=== PATIENT | male | born 1970 | race Caucasian/White ===

== ENCOUNTER 2018-06-08 13:00 | Outpatient (RCR) | payer MEDICARE, SELFPAY ==
--- NOTE | 2018-05-22 08:10 | HP.PTEVAL_ITS ---
Patient's Visit Information ERIN MANRIQUEZ is a 47 year old M referred to Physical Therapy by Ibis Juan MD with a diagnosis of Back and Leg Pain. Date of Evaluation: 05/22/18 Physical Therapist: Linda Torres DPT - Visit Plan Frequency: 2x /Week Duration: 2 Weeks Plan: Focus on core s/s- work towards HEP secondary to co-pay - Subjective Findings: Patient reports that he has been seeing Dr. Juan for baout 3 years for back pain. Does medication and injections. For the most part he is doing great with pain management. 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 About 4 years ago he had his right hip replaced. Before the replacement he had a LLD- was evened out with hip replacement. A couple of months after the hip replacement he started to have really bad back p ain. Had it before but this was constant and miserable. Started the process of trying to figure out what the problem was. 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 Very painful now with walking - he has to make a lot of compensations. Struggles to get to the mailbox and back. Feels that the pain is getting worse and he is able to do less. Went through [facility] PT 3x a week for 3 months- had to stop secondary to not seeing gains. Is not currently working and is on disability. Still does the home exercises (theraband- upper body, DDP yoga) Avoids bending at all possible costs. Worst: [address]: bending forwards, walking, sitting, standing. Has different chairs to sit in throughout the house to help him do things- ex: stool in the kitchen for cooking. Best: 3/10 Eases: sitting. Most days he is unable to make it through his bathroom routine without sitting down. X-rays and MRI- has degenerative facets, DDD, spondylolysesis. MD's want him to get his hip unfused but no one is willing to do it. Don't want to do a fusion due to decreased motion already. Pain is located in his low back- pain occasionally radiates down both legs. Goes down to the toes- the injecion that he gets for the radiating pain normally lasts about 6 months. No N/T in the LE but if he doesn't get the injection it will get numb. Does not have any falls or loss of balance. No change in bowel or bladder. Been about a year since last MRI and x-rays. PMHx: recurrent acute pancreatitis, DM, Microscopic collitis, HTN Meds: losartin, mylantis, gemophysocage, gliposide, patch, norco. - Objective Posture: FH, RS, increased kyphosis- sitting leans to the right. Does not correct with verbal and tactiel cueing. Gait: antalgic- decreased stance on the right LE with poor heel/toe pattern due to hip ROM- forward flexion of the trunk- SOB after 50 feet. HR/TR: able with UE A. SLS: WS but unable to SLS. Palpation: not tender. ROM: Lumbar: flexion: decreased by 90%, Extn: to neutral, SB: decreased by 75%, Rot: decreased by 90% all due to pain. Hip: Left fusion: no functional ROM, Right: WFL, Knee/ Ankle: WFL. Strength: Ankle: 5/5, Knee: 4/5, Hip: 4-/5 throughoug right and 2/5 in left. Core: poor. Flex: HS: severe, Gastroc: severe. Sensation: WNL. Slump: negative, Dural signs: negative - Goals Goal 1:: Patient will be I with HEP and progression Goal Time Frame: 4-6 Weeks Goal 2:: Patient will ambualte >300 feet without SOB Goal Time Frame: 4-6 Weeks Goal 3:: Patient will maintain upright posture for 1 min Goal Time Frame: 4-6 Weeks - Rehabilitation Potential Physical Therapy Diagnosis: Patient presents hypomobility- he has decreased ROM, strength and muscular endurance leading to poor posture and increased pain with ADL's Rehabilitation Potential: Fair - Anticipated Interventions Patient/Client Instruction: Educate patient on: Benefits of Fitness Program Therapeutic Exercise to Include: Strength training, Endurance training, Balance training, Body mechanics, Postural training, Flexibilty training, Gait and locomotor training, In an aquatic setting, Dynamic Lumbar Stabilization For the Purpose of:: To improve muscle performance and motor function Thank you for the opportunity to evaluate your patient. For Medicare and Medicare HMO plans, please review the plan of care and approve it. It will need to be FAXED BACK to us at [phone] for Medicare purposes. For Medicare only, by signing this I certify the plan of care. Please let me know if there are questions or concerns regarding this plan of care. Physician Signature: Date:
--- NOTE | 2018-06-12 10:51 | HP.PTDCSUM ---
HP - PT D/C Summary It has been my pleasure to treat ERIN MANRIQUEZ under orders from Ibis Juan MD, for the diagnosis of Back and Leg Pain for a total of 5 visit(s). Discharge Date: Please see the following information for a summary of their discharge status. - Subjective Subjective: Really rough days- he is basically out of pain medication until he can get his insurance issues figured out. No pain in his legs mostly just in his back. Goes back to [facility] for a spinal injection 06/28 but may end of back there before that as they try to get his medication figured out. Feels that he learned something things that he can take and do on his own. Hard to tell whether PT helped due to the pain medication issue. - Pain Lumbar Spine Pain Intensity (Out of 10): 8 - Overall Improvement % Improvement: 50 - Objective Objective/Function: Severe pain today- unable to perform objective measures. - Goals Goal 1:: Patient will be I with HEP and progression Goal Progress: Goal Met Goal 2:: Patient will ambualte >300 feet without SOB Goal Progress: Not Progressing Goal 3:: Patient will maintain upright posture for 1 min Goal Progress: Not Progressing - Plan Plan: Discharge to HEP in the herreid - D/C Information If there are questions or concerns regarding this patient's physical therapy, please feel free to call me at [phone]. Thank you for the referral of this patient. Sincerely, TERRA VazquezT
== END 2018-06-08 19:00 | disposition home or self-care (01) ==
LOC: PT 13:00
PROVIDERS: Family Provider Family Medicine; PCP Family Medicine; Referring Provider Anesthesiology Pain Medicine; Visit Provider Anesthesiology Pain Medicine
DX: M54.9 Dorsalgia, unspecified (principal); M79.606 Pain in leg, unspecified
CPT/HCPCS: 97113; 97162

== ENCOUNTER 2018-06-17 01:38 | Emergency (ER) | payer MEDICARE, SELFPAY ==
[2018-06-17 01:39] VITALS: BP 193/112; PULSE 98; RESP 15; TEMP 36.4; O2SAT 96; BMI 40.1
--- NOTE | 2018-06-17 01:45 | ED.DCSUM_ITS ---
- ER Visit Summary Date of Service: 06/17/18 Chief Complaint: Back pain, hip pain History of Present Illness: The patient is a 48 M presents to the emergency department with hip and back pain. Patient has a fused left hip. This has been from a surgery when he was 17 years old. Because of that, he has had degenerative changes in his lumbar spine and will have some gait instability. Tonight, he was getting out of the bathtub. He lost his balance. He is unsure if he slipped or if his foot caught. He fell forward and struck his head but did not lose consciousness. He states that he landed on his left side. He had increasing pain in his low back that radiates down into his left hip. He states this feels like his normal pain, just worse. He does follow with pain management. He states that his insurance would not approve his Butrans patch. He has been on [place], but his prescription recently ran out. He denies any problems with bowel or bladder. He denies any other symptoms. Physical Examination: Afebrile, vitals unremarkable. Well-appearing female no acute distress. Head is normocephalic, atraumatic. Pupil's equal round reactive, extraocular muscles intact. Neck supple. Heart regular rate and rhythm. Lungs clear, chest nontender. Abdomen soft, nontender, nondistended. No pulsatile mass. Patient has paraspinal tenderness in the lumbar area, but no bony tenderness. Straight leg raise is negative bilaterally. 2+ symmetric lower extremity pulses. 2+ reflexes. No clonus. No weakness of dorsiflexion, plantar flexion, or extensor hallucis longus bilaterally. Test Results: [] Emergency Department Course and Treatment: The patient was given IM analgesics and had marked improvement of his pain. He has had no red flag symptoms. He was able to ambulate from his wheelchair into the bed without weakness. I did obtain plain films of his lumbar spine and of his hip. Hip does show fusion intact. The hardware is intact without fracture. His lumbar spine shows significant degenerative change, but no definitive compression fracture. At this time, I do feel the patient is safe for discharge. He is comfortable with this plan. I will given for [place] for home use, but did housing counselor him that he needs to get all of his prescriptions for pain management. He is comfortable with this plan. Treatment Plan: [] Disposition: Discharge Impression: 1. Lumbar strain status post fall This note was generated with [employer] dictation software. It may contain incorrect words, spelling, and punctuation that were not noted in review of the chart prior to signing ED Disposition - Plan for ED Patient: Instructions: ED Contusion Back Referrals: Bacilio Smith MD [Primary Care Provider] -
[2018-06-17] MEDS: HYDROmorphone 1 MG/ML Syringe IM (01:48)
--- NOTE | 2018-06-17 02:15 | RAD_ITS ---
HISTORY: FALL TONIGHT. LOW BACK PAIN COMPARISON: CT abdomen pelvis 02/11/17. FINDINGS: # of images incl. paperwork: 3 XR Spine Lumbar 3 views. VERTEBRAE: Preserved vertebral body height. No fracture. Degenerative changes of the posterior elements particularly lower lumbar spine similar to previous. VERTEBRAL ALIGNMENT: Minimal degenerative anterolisthesis L4 on L5. There is preservation of the normal lumbar lordosis. DISCS: Degenerative discogenic changes are noted, particularly L1-2 and L2-3, similar to previous.. INCLUDED ABDOMEN: Calcific atherosclerosis. Included bowel gas pattern is non-obstructive. RAD/Lumbar Spine 2 or 3 Views IMPRESSION: Degenerative changes. No acute fracture or spondylolisthesis. at [id number] Reported and signed by: Patel Roque MD Electronically Signed: Patel Roque, at 2:54 EST Tel , Service support ,
--- NOTE | 2018-06-17 02:15 | RAD_ITS ---
HISTORY: FALL TONIGHT. LEFT HIP PAIN. HX OF SURGERY WHEN PT WAS 17. EXAM/TECHNIQUE: Frontal pelvis 2 views left hip. COMPARISON: 07/18/14 radiographs. FINDINGS: # of images incl. paperwork: 3 No acute fracture. Right total hip arthroplasty partially visible. The patient is status post left hip fusion. Hardware is unchanged and intact. Normal bony mineralization. No acute soft tissue abnormality. RAD/HIP, UNI W/ Pelvis 2-3 Views IMPRESSION: No acute findings. Chronic fusion left hip joint. at 0253 Reported and signed by: Patel Roque MD Electronically Signed: Patel Roque, at 2:52 EST Tel , Service support ,
[2018-06-17 03:04] VITALS: BP 173/114; PULSE 85; RESP 15; O2SAT 92
[2018-06-17] MEDS: HYDROcodone Bitartrate/Apap 5/325 Tablet PO (03:05)
== END 2018-06-17 03:08 | disposition home or self-care (01) ==
LOC: ED 02:25
PROVIDERS: Emergency Provider Emergency Medicine; Family Provider Family Medicine; PCP Family Medicine
DX: S39.012A Strain of muscle, fascia and tendon of lower back, initial encounter (principal); M25.552 Pain in left hip; W19.XXXA Unspecified fall, initial encounter; Y93.9 Activity, unspecified; Y92.9 Unspecified place or not applicable; E66.9 Obesity, unspecified; G89.29 Other chronic pain; Z98.1 Arthrodesis status
CPT/HCPCS: 72100; 73502; 96372; 99282

== ENCOUNTER → 2018-07-12 12:35 | Outpatient (CLI) | payer MEDICARE, SELFPAY ==
[2018-06-17 01:39] VITALS: BMI 40.1
--- NOTE | 2018-07-12 13:00 | MRI_ITS ---
STUDY: MRI LUMBAR SPINE WITHOUT CONTRAST REASON FOR EXAM: Male, 48 years old. Low back pain radiating to left hip TECHNIQUE: Standardized fat and water weighted pulse sequences were obtained in the sagittal and axial planes. COMPARISON: Radiographs 06/17/2018 FINDINGS: T12-L1: Incompletely imaged bulging annulus with moderate right foraminal stenosis. Normal lumbar lordosis. There is no substantial scoliosis. Normal conus medullaris that terminates at the T12-L1 level. L1-2: Disc space narrowing and desiccation with discogenic endplate changes and anterior osteophytes. Bulging annulus with moderate central canal and bilateral foraminal stenoses. L2-3: Disc space narrowing and desiccation with discogenic endplate changes and anterior osteophytes. Bulging annulus and bilateral facet hypertrophy with epidural lipomatosis. Severe left lateral recess stenosis, moderate central canal stenosis, and moderate left and mild right foraminal stenoses. L3-4: Bulging annulus, facet hypertrophy, and epidural lipomatosis with moderate central canal and moderate right and mild left foraminal stenoses. L4-5: Bulging annulus and bilateral facet hypertrophy with moderate bilateral foraminal stenoses. L5-S1: Normal disc. Epidural lipomatosis with mild central canal stenosis. Normal visualized sacral ala. Normal visualized paraspinous soft tissue structures. MRI/Spine Lumbar (Routine) IMPRESSION: Multilevel degenerative disease and epidural lipomatosis as described. Severe left lateral recess stenosis at the L2-3 level. Moderate central canal stenoses at the L1-2, L2-3, and L3-4 levels. Moderate foraminal stenoses bilaterally at L1-2, on the left at L2-3, on the right at L3-4, and bilaterally at L4-5. Electronically Signed: Bacilio Marin MD at 3:02 EST Tel , Service support ,
== END ==
PROVIDERS: Family Provider Family Medicine; PCP Family Medicine; Referring Provider Anesthesiology Pain Medicine; Visit Provider Anesthesiology Pain Medicine
DX: M54.9 Dorsalgia, unspecified (principal); M79.606 Pain in leg, unspecified
CPT/HCPCS: 72148

== ENCOUNTER → 2018-07-22 10:47 | Outpatient (CLI) | payer MEDICARE, SELFPAY ==
[2018-07-22 12:04] LABS: Absolute Lymphocyte Count 4.99 X10^3/ul (0.83-4.51); Absolute Neutrophil Count 10.4 X10^3/uL (2.0-7.7); Basophil# 0.05 X10^3/uL; Basophil% 0.3 % (0-1); Eosinophil# 0.32 X10^3/uL; Eosinophils% 1.9 % (0-5); Hemoglobin 19.1 g/dl (13.0-16.5); Lymphocyte # 4.99 X10^3/ul (4.0); Lymphocyte % 29.5 % (19-41); Mean Corp Hgb Conc 32.8 g/gl (32-36); Mean Corpuscular Hgb 32.4 pg (27.0-32.0); Monocyte# 1.17 X10^3/uL; Monocyte% 6.9 % (0-10); Neutrophil # 10.35 X10^3/uL (2.7-7.7); Platelet Count 238 K/mm3 (150-450); RBC Distribution Width CV 14.2 % (11.6-14.6); RBC Distribution Width SD 51.7 fl (35.1-43.9); Red Blood Count 5.89 M/mm3 (4.6-6.2); White Blood Count 16.9 K/mm3 (4.4-11.0)
[2018-07-22 12:05] LABS: Hematocrit 58.3 % (40-54); POSITIVE COUNT NO; POSITIVE DIFFERENTIAL NO; POSITIVE MORPHOLOGY NO
[2018-07-22 12:47] LABS: BNP,B-Type NATRIURETIC PEPTIDE 86.8 pg/mL (0-100)
[2018-07-22 14:21] LABS: D-Dimer Quantitative (DVT/PE) 0.41 FEU/ug/m (0.27-0.49)
== END ==
PROVIDERS: Family Provider Family Medicine; PCP Family Medicine; Referring Provider Family Medicine; Visit Provider Family Medicine
DX: R06.02 Shortness of breath (principal); R00.0 Tachycardia, unspecified
CPT/HCPCS: 36415; 83880; 84443; 85025; 85379

== ENCOUNTER 2018-09-07 07:47 | Day surgery (SDC) | payer MEDICARE, SELFPAY ==
[2018-09-07] VITALS (24 sets, daily range): BP systolic 136–173; BP diastolic 76–106; PULSE 74–87; RESP 12–23; TEMP 36.3–36.7; O2SAT 92–96; BMI 38.4; BMI 39.0
[2018-09-07 08:14] LABS: Anion Gap 7 (5-15); BUN 12 mg/dL (7-18); BUN/Creat Ratio 9.3 RATIO (10-20); Calcium,Total 9.5 mg/dL (8.5-10.1); Chloride 104 mmol/L (98-107); Creatinine, Serum 1.29 mg/dL (0.70-1.30); EST Glomerular Filtration Rate 63 mL/min (>60); Est Glom Filt Rate - Afr Amer 76 mL/min (>60); Estimated Creatinine Clearance 69.27 ml/min; Glucose 131 mg/dL (74-106); Potassium 4.6 mmol/L (3.5-5.1); Sodium Level 138 mmol/L (136-145)
--- NOTE | 2018-09-07 11:00 | EKG12_ITS ---
Test Reason : AM EKG Blood Pressure : / mmHG Vent. Rate : 069 BPM Atrial Rate : 069 BPM P-R Int : 192 ms QRS Dur : 102 ms QT Int : 422 ms P-R-T Axes : 042 192 -26 degrees QTc Int : 452 ms Normal sinus rhythm with sinus arrhythmia Nonspecific T wave abnormality Abnormal ECG When compared with ECG of 07-SEP-2018 10:45, MANUAL COMPARISON REQUIRED, DATA IS UNCONFIRMED Confirmed by LEO LOUISE, KENN ([id number]), brands editor BARRETT SOTO ([id number]) on 09/12/2018 2:06:10 PM Referred By: Alyce Bullock Confirmed By:KENN BAILEY MD
[2018-09-07] MEDS: 0.9% Normal Saline 1,000 ML 60 ML IV (11:23)
[2018-09-07 11:36] LABS: Bedside Glucose 115 mg/dL (70-110)
--- NOTE | 2018-09-07 11:59 | CRPHASE1 ---
Patient Communication PHII Cardiac Rehab Discussed with Patient:: Yes Guide to Cardiac Rehab Given to Patient:: Yes Cardiac Rehab Facility Choice List Given to Patient:: Yes - [facility] Choice Program [facility] CR PHII:: Communication Given to CR, Refer to [facility] Parent:: Alyce Bullock PCP:: Bacilio Smith Phase II Cardiac Rehab:: Yes Sessions:: 36 sessions - 3 days/wk, 12 weeks Phase I Charge:: Level I - Education Risk Factors/Lifestyle Smoking Status: Former smoker - quit 02/2017 Hx Diabetes Mellitus Type 2: Yes - on Insulin Hx Metabolic Disorders: Yes Hx Dyslipidemia: Yes Hx Obesity: Yes Height: 5 ft 9 in Weight:: 260 lb BMI: 38.4 Risk Factor for Sedentary Lifestyle: Highest Risk - states cannot walk well d/t spinal issues Family History: Heart Disease Phase I Education Given On:: [place], Nutrition, Antiplatelet medication, CHF, Diabetes - Type II Issues Affecting Care:: Physical - has back issues and difficulty walking Knowledge of Condition:: Yes Learning Preferences: Verbal, Written, Audio/Visual, Demonstration Medical/Surgical History Diabetes:: Yes Diabetes Type II:: Yes - On insulin Dyslipidemia:: Yes Other Medical/Surgical Issues:: back issues and difficulty walking Discharge/Home/Social Eval Marital Status: Patient Lives With:: Cardiac Rehabilitation Info Cardiac Rehabilitation Program Information: Cardiac Rehabilitation is important for patients like you who are recovering from a heart problem. Cardiac rehabilitation programs are recognized as integral to the continued care of the patient with coronary heart disease. The cardiac rehabilitation program is designed to optimize a patient's physical, psychological, and social functioning. Health technical healthcare consultant work in cardiac rehabilitation programs and assist you with getting the treatments you need to get stronger and healthier - like exercise, healthy eating habits, and medications. Cardiac rehabilitation has been show to help people with heart problems live longer and have better life enjoyment than people who do not go to cardiac rehabilitation. Please contact the Cardiac Rehabilitation Program at [facility] at in two weeks if you have not heard from them.
--- NOTE | 2018-09-07 12:03 | CRPHASE1_ITS ---
Patient Communication PHII Cardiac Rehab Discussed with Patient:: Yes Guide to Cardiac Rehab Given to Patient:: Yes Cardiac Rehab Facility Choice List Given to Patient:: Yes - [facility] Choice Program [facility] CR PHII:: Communication Given to CR, Refer to [facility] Director:: Alyce Bullock PCP:: Bacilio Smith Phase II Cardiac Rehab:: Yes Sessions:: 36 sessions - 3 days/wk, 12 weeks Phase I Charge:: Level I - Education Risk Factors/Lifestyle Smoking Status: Former smoker - quit 02/2017 Hx Diabetes Mellitus Type 2: Yes - on Insulin Hx Metabolic Disorders: Yes Hx Dyslipidemia: Yes Hx Obesity: Yes Height: 5 ft 9 in Weight:: 260 lb BMI: 38.4 Risk Factor for Sedentary Lifestyle: Highest Risk - states cannot walk well d/t spinal issues Family History: Heart Disease Phase I Education Given On:: [place], Nutrition, Antiplatelet medication, CHF, Diabetes - Type II Issues Affecting Care:: Physical - has back issues and difficulty walking Knowledge of Condition:: Yes Learning Preferences: Verbal, Written, Audio/Visual, Demonstration Medical/Surgical History Diabetes:: Yes Diabetes Type II:: Yes - On insulin Dyslipidemia:: Yes Other Medical/Surgical Issues:: back issues and difficulty walking Discharge/Home/Social Eval Marital Status: Patient Lives With:: Cardiac Rehabilitation Info Cardiac Rehabilitation Program Information: Cardiac Rehabilitation is important for patients like you who are recovering from a heart problem. Cardiac rehabilitation programs are recognized as integral to the continued care of the patient with coronary heart disease. The cardiac rehabilitation program is designed to optimize a patient's physical, psychological, and social functioning. Health daycare provider work in cardiac rehabilitation programs and assist you with getting the treatments you need to get stronger and healthier - like exercise, healthy eating habits, and medications. Cardiac rehabilitation has been show to help people with heart problems live longer and have better life enjoyment than people who do not go to cardiac rehabilitation. Please contact the Cardiac Rehabilitation Program at [facility] at in two weeks if you have not heard from them.
--- NOTE | 2018-09-07 12:08 | CRPH1.INSTRU ---
General Education CAD and cardiac anatomy and function:: Patient communicates acknowledgment, Needs reinforcement Explanation of diagnoses and procedures:: Patient communicates acknowledgment, Needs reinforcement Sign/Symptoms of GA:: Patient communicates acknowledgment, Needs reinforcement Antiplatelet therapy: Patient communicates acknowledgment, Needs reinforcement Proper use of NTG-SL: Patient communicates acknowledgment, Needs reinforcement Emergency procedures and activation of EMS: Patient communicates acknowledgment, Needs reinforcement Compliance of all prescribed medications: Patient communicates acknowledgment, Needs reinforcement Smoking Patient Nicotine/Smoking Risk Factors Are:: Non-smoker - quit 02/2017 Recommendations Include:: Previous smoker; encourage continued cessation Nicotine/Smoking Response Code:: Patient communicates acknowledgment Dyslipidemia Patient Dyslipidemia Risk Factors Are:: Total Cholesterol, Triglycerides, HDL, LDL Recommendations Include:: Lipid profile provided - partial profile from 2017, Reviewed NCEP/ATP guidelines, Therapeutic Lifestyle Change dietary guidelines Dyslipidemia Response Code:: Patient communicates acknowledgment, Needs reinforcement Overweight/Obesity Patient Overweight/Obesity Risk Factors Are:: Overweight = 26-29 Recommendations Include:: Weight loss of 5-10%, Reduced calorie diet, Exercise 5-7 times/week Overweight/Obesity:: Patient communicates acknowledgment, Needs reinforcement Hypertension Recommendations Include:: BP <130/80 if diabetic, DASH dietary guidelines, Decrease/maintain normal body weight Hypertension:: Patient communicates acknowledgment, Needs reinforcement Heart Disease Patient Heart Disease Risk Factors Are:: Family history of heart disease < 65 years old Recommendations Include:: Educated family members of their risk, Educated family members of importance of prevention of heart disease Heart Disease Response Code:: Patient communicates acknowledgment, Needs reinforcement Diabetes Patient Diabetes Risk Factors Are:: Elevated blood sugars Recommendations Include:: Maintain fasting blood sugars 70-110 md/dL, Maintain HgbA1c of 6% or less, Monitor blood sugar as prescribed, Diabetic dietary guidelines, Decrease/maintain body weight Diabetes:: Patient communicates acknowledgment, Needs reinforcement Metabolic Syndrome Metabolic Syndrome Response Code:: Not instructed Sedentary Patient Sedentary Risk Factors Are:: Lack of regular exercise - states doesn't walk much d/t back issues Recommendations Include:: Aerobic exercise 5-7 times/week for 20-30 minutes continuously, Benefits of regular exercise, Discussed home walking program, Monitored Outpatient Cardiac Rehab Sedentary Response Code:: Patient communicates acknowledgment, Needs reinforcement Stress Patient Stress Risk Factors Are:: Patient denies stress as a risk factor - states:I don't know how to answer that. Recommendations Include:: Identification of stressors, and assessment of coping skills, Stress management techniques Stress Response Code:: Patient communicates acknowledgment, Needs reinforcement
--- NOTE | 2018-09-07 12:12 | CRPH1.INST_ITS ---
General Education CAD and cardiac anatomy and function:: Patient communicates acknowledgment, Needs reinforcement Explanation of diagnoses and procedures:: Patient communicates acknowledgment, Needs reinforcement Sign/Symptoms of NM:: Patient communicates acknowledgment, Needs reinforcement Antiplatelet therapy: Patient communicates acknowledgment, Needs reinforcement Proper use of NTG-SL: Patient communicates acknowledgment, Needs reinforcement Emergency procedures and activation of EMS: Patient communicates acknowledgment, Needs reinforcement Compliance of all prescribed medications: Patient communicates acknowledgment, Needs reinforcement Smoking Patient Nicotine/Smoking Risk Factors Are:: Non-smoker - quit 02/2017 Recommendations Include:: Previous smoker; encourage continued cessation Nicotine/Smoking Response Code:: Patient communicates acknowledgment Dyslipidemia Patient Dyslipidemia Risk Factors Are:: Total Cholesterol, Triglycerides, HDL, LDL Recommendations Include:: Lipid profile provided - partial profile from 2017, Reviewed NCEP/ATP guidelines, Therapeutic Lifestyle Change dietary guidelines Dyslipidemia Response Code:: Patient communicates acknowledgment, Needs reinforcement Overweight/Obesity Patient Overweight/Obesity Risk Factors Are:: Overweight = 26-29 Recommendations Include:: Weight loss of 5-10%, Reduced calorie diet, Exercise 5-7 times/week Overweight/Obesity:: Patient communicates acknowledgment, Needs reinforcement Hypertension Recommendations Include:: BP <130/80 if diabetic, DASH dietary guidelines, Decrease/maintain normal body weight Hypertension:: Patient communicates acknowledgment, Needs reinforcement Heart Disease Patient Heart Disease Risk Factors Are:: Family history of heart disease < 65 years old Recommendations Include:: Educated family members of their risk, Educated family members of importance of prevention of heart disease Heart Disease Response Code:: Patient communicates acknowledgment, Needs re inforcement Diabetes Patient Diabetes Risk Factors Are:: Elevated blood sugars Recommendations Include:: Maintain fasting blood sugars 70-110 md/dL, Maintain HgbA1c of 6% or less, Monitor blood sugar as prescribed, Diabetic dietary guidelines, Decrease/maintain body weight Diabetes:: Patient communicates acknowledgment, Needs reinforcement Metabolic Syndrome Metabolic Syndrome Response Code:: Not instructed Sedentary Patient Sedentary Risk Factors Are:: Lack of regular exercise - states doesn't walk much d/t back issues Recommendations Include:: Aerobic exercise 5-7 times/week for 20-30 minutes con tinuously, Benefits of regular exercise, Discussed home walking program, Monitored Outpatient Cardiac Rehab Sedentary Response Code:: Patient communicates acknowledgment, Needs reinforcement Stress Patient Stress Risk Factors Are:: Patient denies stress as a risk factor - states:I don't know how to answer that. Recommendations Include:: Identification of stressors, and assessment of coping skills, Stress management techniques Stress Response Code:: Patient communicates acknowledgment, Needs reinforcement
[2018-09-07] MEDS: amLODIPine 2.5 MG Tablet PO (14:18)
[2018-09-07] MEDS: oxyCODONE 5 MG Tablet PO (14:21)
[2018-09-07] MEDS: Acetaminophen 325 MG Tablet PO (14:21)
[2018-09-07] MEDS: TICAGRELOR 90 MG TABLET PO (21:06)
[2018-09-07] MEDS: Atorvastatin Calcium 20 MG Tablet PO (21:06)
[2018-09-07] MEDS: Carvedilol 6.25 MG Tablet PO (21:06)
[2018-09-08] VITALS (17 sets, daily range): BP systolic 115–166; BP diastolic 67–95; PULSE 70–87; RESP 18–95; TEMP 36.3; O2SAT 81–97
[2018-09-08 07:55] LABS: Bedside Glucose 150 mg/dL (70-110)
[2018-09-08] MEDS: Losartan Potassium 100 MG Tablet PO (07:57)
[2018-09-08] MEDS: Aspirin 81 MG TAB.CHEW PO (07:57)
[2018-09-08] MEDS: Fenofibrate 145 MG Tablet PO (07:57)
[2018-09-08] MEDS: TICAGRELOR 90 MG TABLET PO (07:57)
[2018-09-08] MEDS: Carvedilol 6.25 MG Tablet PO (07:57)
[2018-09-08] MEDS: amLODIPine 2.5 MG Tablet PO (07:59)
[2018-09-08] MEDS: Insulin NPH Human 100 UNITS/ML PEN SC (07:59)
[2018-09-08 08:10] LABS: Absolute Lymphocyte Count 2.76 X10^3/ul (0.83-4.51); Absolute Neutrophil Count 8.6 X10^3/uL (2.0-7.7); Basophil# 0.03 X10^3/uL; Basophil% 0.2 % (0-1); Eosinophil# 0.33 X10^3/uL; Eosinophils% 2.5 % (0-5); Hematocrit 55.3 % (40-54); Lymphocyte # 2.76 X10^3/ul (4.0); Lymphocyte % 21.3 % (19-41); Mean Corpuscular Hgb 31.8 pg (27.0-32.0); Mean Corpuscular Volume 93.6 fL (80-94); Mean Platelet Vol. 10.2 fl (6.2-12.0); Monocyte# 1.19 X10^3/uL; Monocyte% 9.2 % (0-10); Neutrophil # 8.57 X10^3/uL (2.7-7.7); Neutrophil % 66.2 % (47-70); Platelet Count 261 K/mm3 (150-450); RBC Distribution Width CV 14.6 % (11.6-14.6); RBC Distribution Width SD 49.3 fl (35.1-43.9); Red Blood Count 5.91 M/mm3 (4.6-6.2)
[2018-09-08 08:13] LABS: Hemoglobin 18.8 g/dl (13.0-16.5); POSITIVE COUNT NO; POSITIVE DIFFERENTIAL NO; POSITIVE MORPHOLOGY NO
[2018-09-08 08:17] LABS: Anion Gap 8 (5-15); BUN 10 mg/dL (7-18); BUN/Creat Ratio 10.9 RATIO (10-20); Calcium,Total 9.2 mg/dL (8.5-10.1); Chloride 109 mmol/L (98-107); Creatinine, Serum 0.92 mg/dL (0.70-1.30); EST Glomerular Filtration Rate 93 mL/min (>60); Est Glom Filt Rate - Afr Amer 113 mL/min (>60); Estimated Creatinine Clearance 97.13 ml/min; Glucose 137 mg/dL (74-106); Potassium 4.2 mmol/L (3.5-5.1); Sodium Level 140 mmol/L (136-145)
--- NOTE | 2018-09-08 09:32 | CASEMGMT ---
RN CM Note: Intro role of CM to patient in room. Pt is awake, alert and able to participate in dc planning. Pt states he is independent, drives, does not use DME, and does not have difficulty with filling prescriptions. PCP: Dr. Smith Specialist: Dr. Briggs, cardiology, Dr. Bullock, cardiac sound art instructor Pharmacy: [facility] Prescription coverage: yes. [employer] savings card given to pt and explained, including getting thomason for subsequent prescriptions after first free month and notifying physician if medication cost is an issue. DME: pt will likely need home oxygen. Has new dx of systolic CHF and pulse ox on RA was 83% per nursing. Home oxygen testing placed in computer. Discussed possible home O2 need with pt. He states he know I need oxygen, this isn't new, but I don't want it. RN CM offered to have thomason checked for Home O2 but pt declined. RN CM discussed that physician will let him know if he needs home O2, and will likely strongly advise him to consider this for dc. Pt states he understands, but does not wish to have Home oxygen set up. RN CM let him know if he is agreeble, at least oxygen testing can be done and physician can be notified of results. RN CM let him know if Home O2 is ordered, RN CM will return to speak with him. DME preference: none- will use [facility] if pt agrees to home o2. - script is on front of chart for physician to sign if pt qualifies. DC PLAN: Home. ?Home O2. Germain CHO RN ACM
--- NOTE | 2018-09-08 09:36 | PCM.DC.CCA ---
Discharge Diet: Low fat/ Low Cholesterol Discharge Activity: Return to Normal Activity Lifting Restrictions: 10 pounds and also avoid any pushing or pulling for 3 days after your test. Call your doctor if your incision/area has: Continuous Slow Oozing, Sudden Increased Bleeding, Increased Pain/ Swelling, Increased Redness, Foul Smelling Discharge, Swelling at the incision site Call your doctor if you observe: Fever of 101 or Higher, Shortness of breath, Chest pain Remove Dressing in (days):: 1 Additional Instructions: You need to stay on your brilinta for at least one year, if this is expensive call our office and we will switch you to something else Allergies/Adverse Reactions: Allergies lisinopril Allergy (Verified 09/06/18 12:54) Unknown Medications to take at Discharge Losartan Potassium [Cozaar] 100 mg PO DAILY 10/12/16 Aspirin [Aspirin, Baby] 81 mg PO DAILY@0800 09/06/18 Atorvastatin Calcium [Lipitor] 20 mg PO QHS 09/06/18 Carvedilol [Coreg (Beta Jeff)] 6.25 mg PO BID 09/06/18 Fenofibrate [Tricor] 145 mg PO DAILY 09/06/18 Insulin NPH Human Isophane [Humulin N Kwikpen] 5 unit SQ DAILY 09/06/18 potassium chloride ER 10 mEq tablet,extended release(part/cryst) 10 meq PO DAILY 09/06/18 Oxycodone HCl/Acetaminophen [Percocet 5-325 mg Tablet] 1 each PO TID PRN 09/07/18 Amlodipine [Norvasc] 2.5 mg PO DAILY 30 Days #30 tablet 09/08/18 Ticagrelor [Brilinta] 90 mg PO BID #60 tablet 09/08/18 The following prescriptions were given: Amlodipine [Norvasc] 2.5 mg PO DAILY 30 Days #30 tablet Ticagrelor [Brilinta] 90 mg PO BID #60 tablet Primary Care Physician: Bacilio Smith MD [Primary Care Provider] - Please follow up with your Primary Care Physician in: 1-2 weeks Test Results: Test results from this visit will be discussed in further detail at your follow-up appointment, if applicable. Please Follow Up With: Alyce Bullock MD When: 09/18 at 1pm Proposed Discharge Date: 05/03/19 Cardiac Rehabilitation Info Cardiac Rehabilitation Program Information: Cardiac Rehabilitation is important for patients like you who are recovering from a heart problem. Cardiac rehabilitation programs are recognized as integral to the continued care of the patient with coronary heart disease. The cardiac rehabilitation program is designed to optimize a patient's physical, psychological, and social functioning. Health menagerie caretaker work in cardiac rehabilitation programs and assist you with getting the treatments you need to get stronger and healthier - like exercise, healthy eating habits, and medications. Cardiac rehabilitation has been show to help people with heart problems live longer and have better life enjoyment than people who do not go to cardiac rehabilitation. Please contact the Cardiac Rehabilitation Program at [facility] at in two weeks if you have not heard from them.
--- NOTE | 2018-09-08 09:43 | DCINST_ITS ---
Discharge Diet: Low fat/ Low Cholesterol Discharge Activity: Return to Normal Activity Lifting Restrictions: 10 pounds and also avoid any pushing or pulling for 3 days after your test. Call your doctor if your incision/area has: Continuous Slow Oozing, Sudden Increased Bleeding, Increased Pain/ Swelling, Increased Redness, Foul Smelling Discharge, Swelling at the incision site Call your doctor if you observe: Fever of 101 or Higher, Shortness of breath, Chest pain Remove Dressing in (days):: 1 Additional Instructions: You need to stay on your brilinta for at least one year, if this is expensive call our office and we will switch you to something else Allergies/Adverse Reactions: Allergies lisinopril Allergy (Verified 09/06/18 12:54) Unknown Medications to take at Discharge Losartan Potassium [Cozaar] 100 mg PO DAILY 10/12/16 Aspirin [Aspirin, Baby] 81 mg PO DAILY@0800 09/06/18 Atorvastatin Calcium [Lipitor] 20 mg PO QHS 09/06/18 Carvedilol [Coreg (Beta Jeff)] 6.25 mg PO BID 09/06/18 Fenofibrate [Tricor] 145 mg PO DAILY 09/06/18 Insulin NPH Human Isophane [Humulin N Kwikpen] 5 unit SQ DAILY 09/06/18 potassium chloride ER 10 mEq tablet,extended release(part/cryst) 10 meq PO DAILY 09/06/18 Oxycodone HCl/Acetaminophen [Percocet 5-325 mg Tablet] 1 each PO TID PRN 09/07/18 Amlodipine [Norvasc] 2.5 mg PO DAILY 30 Days #30 tablet 09/08/18 Ticagrelor [Brilinta] 90 mg PO BID #60 tablet 09/08/18 The following prescriptions were given: Amlodipine [Norvasc] 2.5 mg PO DAILY 30 Days #30 tablet Ticagrelor [Brilinta] 90 mg PO BID #60 tablet Primary Care Physician: Bacilio Smith MD [Primary Care Provider] - Please follow up with your Primary Care Physician in: 1-2 weeks Test Results: Test results from this visit will be discussed in further detail at your follow- up appointment, if applicable. Please Follow Up With: Alyce Bullock MD When: 09/18 at 1pm Proposed Discharge Date: 05/03/19 Cardiac Rehabilitation Info Cardiac Rehabilitation Program Information: Cardiac Rehabilitation is important for patients like you who are recovering from a heart problem. Cardiac rehabilitation programs are recognized as integral to the continued care of the patient with coronary heart disease. The cardiac rehabilitation program is designed to optimize a patient's physical, psychological, and social functioning. Health dog daycare provider work in cardiac rehabilitation programs and assist you with getting the treatments you need to get stronger and healthier - like exercise, healthy eating habits, and medi cations. Cardiac rehabilitation has been show to help people with heart problems live longer and have better life enjoyment than people who do not go to cardiac rehabilitation. Please contact the Cardiac Rehabilitation Program at [facility] at in two weeks if you have not heard from them.
--- NOTE | 2018-09-08 10:09 | NURSING ---
pt 02 87% on ra, when ambulated pulse ox dropped to 81% , discussed with pt need for home o2, he refused stated he has a pulse ox @ home and is able to check his level , he will not consider home o2
--- NOTE | 2018-09-08 10:22 | PCM.PN.BLA ---
Progress Note Pt was noted to have low SPo2 on RA. He is aware of this. He is declining home O2. Notified Dr. Smith's office of his hypoxia. We can further discuss at OV.
--- NOTE | 2018-10-11 14:55 | CL.I_ITS ---
Patient Name: ERIN MANRIQUEZ Study Date: 09/07/2018 Performing: Scarlet Bullock MD Ht: 69 inches 175.26 cm : 1970 Wt: 264.3 lbs 119.75 kg Age: 48 Gender: male BSA: 2.32 PROCEDURE(S) PERFORMED VM83-IJM/COR/LV HT65-KBQ W OR WO PTCA, SINGLE CORONARY ARTERY CLINICAL PROFILE AND CO-MORBIDITIES Indications: Cardiomyopathy Heart Failure: NYHA Class: 2, Newly Diagnosed: Yes, Heart Failure Type: Systolic Stress/Imaging Stress/Image Study Performed: No CAD Presentations: Other: Shortness of breath CONCLUSIONS CAD as described Mild LV dysfunction with wall motion abnormalities as described, EF is around 45% No significant or MR Successful PCI with Drug eluting stent and PTCA to the mLAD (4.0 x 23mm synergy) RECOMMENDATIONS PCI of LAD Risk factor modification ASA Indefinitley Brilinta for at least 12 months DESCRIPTION OF PROCEDURE The patient arrived to the procedure lab. The risks and benefits of the procedure as well as a full d escription of our services here and lack of surgical backup were fully explained to the patient and/o r their significant other prior to the catheterization. The Timeout was completed, verifying the erica ect patient and procedure. The patient's procedural site was prepped and draped in the usual fashion. Local anesthetic was given subcutaneously to right radial region with Lidocaine 2%. Using a modified Seldinger technique, arterial access was obtained via the right radial artery, a 6Fr sheath was inse rted.. Left Coronary Artery selective angiography was performed in multiple views using a 5 Fr. JL3. 5 catheter. Right Coronary Artery selective angiography was then performed in multiple views using a 5 Fr. JR 4 catheterThe images were reviewed and options discussed. A decision was then made to procee d with an Intervention, IVUS or other adjunct procedure. XB 3.5 Guide catheter was inserted and engaged into the LCA. The FFR/iFR wire was inserted. 3x12 Emerge Balloon catheter was inserted. Balloon catheter was advanced across lesion in the LAD, mid. PT CA balloon inflated at 8 atms for 12 secs. 4x24 Synergy Drug Eluting stent was inserted. Drug Eluting stent was advanced across the lesion in the LAD, mid. Angiogram performed post stent deployment. The FFR/iFR wire was then removed. Angiogram performed post stent deployment. The arterial sheath was pulled and a TR Band was applied for hemostasis, 16cc of air applied CORONARY ANGIOGRAPHY DOMINANCE: Right Dominant LEFT HEART ASSESSMENT Left Ventricular Ejection Fraction: by LV Gram 45 % Normal Left Ventricular End Diastolic Pressure Anterior Hypokinesis - Mild LEFT MAIN: Mild luminal irregularities LEFT ANTERIOR DECENDING ARTERY: MID LAD: 80 % Stenosis CIRCUMFLEX ARTERY: Mild luminal irregularities RIGHT CORONARY ARTERY: Mild luminal irregularities RT PDA: Mid - 60 % Stenosis VALVE FINDINGS: No Aortic Valve Stenosis No Mitral Insufficency INTERVENTION INFORMATION LESION SITE: LAD (Mid) Lesion Complexity: High/C, chronic total occlusion: No, lesion at bifurcation: No, thrombus present: No, lesion length: 22 mm, culprit lesion: Yes, Previously treated lesion: No, In-stent restenosis: No Pre Stenosis: 80 % Pre intervention MICHAEL flow: 3 PROCEDURE: Drug Eluting Stent with pre dilatation. Post Stenosis: 0 % Post intervention MICHAEL flow: 3 Lesion Devices: buuteeq 6 Fr XB3.5 100cm Guide Catheter Karan Sci EMERGE MR 3.00x12 BALLOON Karan Sci Synergy MR STEVEN 4.00x24 COMPLICATIONS No Complications PROCEDURE MEDICATIONS Versed 0.5 mg IV Fentanyl 25 mcg IV Versed 0.5 mg IV Oxygen: 2 L/min via nasal cannula Baby Aspirin (81mg) 1 Tabs PO 09/07/2018 08:10:32 Brilinta 180 mg PO @ 09/07/2018 10:29:41 Heparin given IA 09/07/2018 09:44:33 Heparin 5000 unit(s) IV 09/07/2018 10:01:55 Nitro 200 mcg IC 09/07/2018 10:18:00 Verapamil 2.5mg, Ntg 200mcgs, 3000 units of Heparin given IA 09/07/2018 09:44:33 SUMMARY OF HEMODYNAMIC DATA Time AIR REST ECG 08:12:21 LV 144/-1, 10 09:47:29 LV 148/-6, 6 09:47:36 LVp 126/-15, 1 09:47:56 AOp 125/85 (101) 09:48:01 LV 127/-6, 5 09:57:37 LV 123/-5, 5 09:57:43 LVp 127/-1, 6 09:58:34 AOp 119/80 (97) 09:58:39 Signed By Scarlet Bullock MD On 09/07/2018 11:22:43 Scarlet Bullock MD
== END 2018-09-08 10:35 | disposition home or self-care (01) ==
LOC: CLSP 07:50 → ICU 10:55
PROVIDERS: Family Provider Family Medicine; PCP Family Medicine; Referring Provider Specialist; Visit Provider Specialist
DX: I42.9 Cardiomyopathy, unspecified (principal); R06.02 Shortness of breath; I10 Essential (primary) hypertension; E11.9 Type 2 diabetes mellitus without complications; E78.5 Hyperlipidemia, unspecified; Z79.4 Long term (current) use of insulin; Z79.899 Other long term (current) drug therapy; Z87.891 Personal history of nicotine dependence
CPT/HCPCS: 36415; 80048; 82962; 85025; 92928; 93005; 93458; 99152; 99153; J0153; J7030; J7040; Q9967; C1725; C1769; C1874; C1887; C1894; C9600; J1327

== ENCOUNTER → 2018-09-19 10:39 | Outpatient (CLI) | payer MEDICARE, SELFPAY ==
[2018-09-07 12:07] VITALS: BMI 38.4
[2018-09-18 13:01] VITALS: BMI 38.5
--- NOTE | 2018-09-19 10:41 | RAD_ITS ---
STUDY: X-RAY - LUMBAR SPINE REASON FOR EXAM: Male, 48 years old. Low back pain TECHNIQUE: 4 view(s) of the lumbar spine were obtained. Including flexion and extension COMPARISON: None FINDINGS: Normal lumbar lordosis. There is mild to moderate dextroscoliosis.. There is grade 1 spondylolisthesis at L4-5. There is narrowing of the disc spaces and osteophytic spurring at all levels. There is multilevel facet arthropathy in the paraspinal stenosis on the lateral projection exaggerated by shortened pedicles creating spinal stenosis stenosis. The soft tissue structures are unremarkable. Films obtained in flexion-extension demonstrate no evidence for gross instability RAD/L/S Spine Min 4 Views IMPRESSION: Scoliosis and severe spondylosis Electronically Signed: Yousuf Murphy MD at 21:22 EDT , Service support ,
== END ==
PROVIDERS: Family Provider Family Medicine; PCP Family Medicine; Referring Provider Orthopaedic Surgery; Visit Provider Orthopaedic Surgery
DX: M54.9 Dorsalgia, unspecified (principal)
CPT/HCPCS: 72110; 72120

== ENCOUNTER → 2018-09-28 11:00 | Outpatient (CLI) | payer MEDICARE, SELFPAY ==
[2018-09-07 12:07] VITALS: BMI 38.4
[2018-09-19 10:46] VITALS: BMI 38.5
[2018-09-28 12:00] LABS: Amphetamine Urine VISTA NEGATIVE (<1000 ng/mL); Barbiturate Urine VISTA NEGATIVE (< 200 ng/mL); Benzodiazepine Urine VISTA NEGATIVE (< 200 ng/mL); Cocaine Urine VISTA NEGATIVE (< 300 ng/mL); Ecstacy Urine VISTA NEGATIVE (< 500 ng/mL); Methadone Urine VISTA NEGATIVE (< 300 ng/mL); PCP Urine VISTA NEGATIVE (< 25 ng/mL); THC Urine VISTA NEGATIVE (< 50 ng/mL); Vista UDS pH Range 5
== END ==
PROVIDERS: Family Provider Family Medicine; PCP Family Medicine; Referring Provider Anesthesiology Pain Medicine; Visit Provider Anesthesiology Pain Medicine
DX: F11.20 Opioid dependence, uncomplicated (principal)
CPT/HCPCS: 80307

== ENCOUNTER → 2018-10-06 | Outpatient (CLI) | payer MEDICARE, SELFPAY ==
[2018-09-07 12:07] VITALS: BMI 38.4
[2018-09-19 10:46] VITALS: BMI 38.5
[2018-10-06 12:53] LABS: D-Dimer Quantitative (DVT/PE) 0.39 FEU/ug/m (0.27-0.49)
== END | disposition home or self-care (01) ==
LOC: LABSPEC 11:16
PROVIDERS: Family Provider Family Medicine; PCP Family Medicine; Referring Provider Family Medicine; Visit Provider Family Medicine
DX: R06.02 Shortness of breath (principal)
CPT/HCPCS: 85379

== ENCOUNTER 2018-12-11 18:00 | Inpatient (IN) | payer MEDICARE, SELFPAY ==
[2018-09-07 12:07] VITALS: BMI 38.4
[2018-12-06 13:06] VITALS: BMI 38.5
[2018-12-11] VITALS (7 sets, daily range): BP systolic 86–121; BP diastolic 53–75; PULSE 68–85; RESP 15–20; TEMP 36.4–37.4; O2SAT 92–96; BMI 37.8; BMI 37.5; BMI 37.3; BMI 37.9
--- NOTE | 2018-12-11 19:02 | CT_ITS ---
STUDY: CT ABDOMEN AND PELVIS WITHOUT CONTRAST REASON FOR EXAM: Male, 48 years old. Right lower quadrant pain with nausea since 9:00 AM RADIATION DOSAGE (If Supplied By Facility): CTDIvol = ( 32.17 ) mGy, DLP = ( 1744.41 ) mGycm TECHNIQUE: Transaxial images were obtained from the dome of the diaphragm to the symphysis pubis without oral contrast, and without intravenous contrast. Sagittal and coronal images were reconstructed. Individualized dose optimization techniques were used for this CT. COMPARISON: 02/11/2017 FINDINGS: The visualized lung bases are unremarkable. The visualized portions of the heart are within normal limits. Stable elevation of the right hemidiaphragm. Normal liver. Cholecystectomy. Normal spleen. Calcifications of chronic pancreatitis. Normal bilateral adrenal glands. Normal right kidney. Normal left kidney. Normal visualized stomach. Normal small intestine. There are multiple colonic diverticula consistent with diverticulosis. The appendix is visualized and appears normal. Normal abdominal aorta. Normal inferior vena cava. Normal retroperitoneum. Normal urinary bladder. There are prostatic calcifications. Normal abdominal wall. There are diffuse degenerative changes of the visualized lumbar spine. Right hip arthroplasty. Hardware in the left femur and hip with remote associated osseous deformities. CT/Abdomen/Pelvis without Cont IMPRESSION: No evidence of appendicitis, acute intestinal pathology, or acute obstructive uropathy. Electronically Signed: Bacilio Marin MD at 19:42 EDT Tel , Service support ,
--- NOTE | 2018-12-11 19:02 | EKG12_ITS ---
Test Reason : Blood Pressure : / mmHG Vent. Rate : 069 BPM Atrial Rate : 069 BPM P-R Int : 188 ms QRS Dur : 096 ms QT Int : 430 ms P-R-T Axes : 045 -73 -30 degrees QTc Int : 460 ms Normal sinus rhythm Leftward axis Low voltage QRS Poor R-Wave Progression Left anterior fascicular block Nonspecific ST and T wave abnormality Prolonged QT Abnormal ECG Confirmed by FÉLIX LOUISE, RACHID ([id number]), videotape editor BARRETT SOTO ([id number]) on 12/13/2018 10:13:29 AM Referred By: Gerald Soto Confirmed By:RACHID HEARD MD
--- NOTE | 2018-12-11 19:03 | ED.VIS.GEN ---
History of Present Illness Chief Complaint: Abd Pain Detail of Chief Complaint: Right lower quadrant pain Informant: Patient Onset: Today Current Severity: Moderate Maximum Severity: Moderate Narrative: Patient presents with right lower quadrant pain that is been persistent throughout the day. He sometimes feels like it radiates into his testicle. He has had some mild diarrhea. He has had nausea. He had 2 syncopal events. Both times he states he felt dizzy with a ringing sensation in his ears that felt closed and over him. He denies urinary symptoms. Patient has had recent problems with dizziness and shortness of breath. He recently had his Brilinta switched to Plavix and that seemed to improve his dyspnea. Cardiac stent was placed in September. Past Medical History - Allergies and Home Meds Allergies/Adverse Reactions: Allergies lisinopril Allergy (Verified 12/11/18 18:37) Unknown Primary Care Physician: Bacilio Smith MD [Primary Care Provider] - Prior records reviewed: Yes Past Medical History: - - Reviewed Surgical History: no surgical history Lives: Spouse/ Significant Other Smoking Status: Former smoker Review of Systems General: Denies: Chills, Fever Eyes: Denies: Visual changes - bilaterally ENT: Denies: Bilateral ear pain Cardiovascular: Denies: Chest pain Respiratory: Reports: Dyspnea Gastrointestinal: Reports: Abdominal pain, Nausea, Diarrhea Genitourinary: Denies: Dysuria Skin: Denies: Rash Neurological: Denies: Headache Psych: Denies: Depression Hematologic: Denies: Easy bruising Allergy: Denies: Uticaria Physical Exam Vital Signs/Narrative: Vital Signs Temp Pulse Resp BP Pulse Ox 12/11/18 18:01 97.6 F L 68 18 86/53 L 93 Inital Vital Signs reviewed: Yes General: Well nourished, Well developed Head: Normocephalic ENT: Moist mucous membranes Cardiovascular: Regular rate, Regular rhythm Respiratory: No distress, CTA bilaterally Abdomen: Soft, Tender - Lower quadrant tenderness to palpation., Hypoactive bowel sounds. Negative for: Guarding, Rebound tenderness Extremities: Nontender Skin: Pallor Neurological: Alert, Oriented x3 Psychological: Normal affect Diagnostic/Tx/Re-eval Chest X-Ray - ED: 1 View, Read by ED Physician, Chronic Changes - No focal infiltrate. No effusion. Impressions Abdomen/Pelvis CT 12/11/18 19:02 IMPRESSION: No evidence of appendicitis, acute intestinal pathology, or acute obstructive uropathy. Electronically Signed: Bacilio Marin MD at 19:42 EDT Tel , Service support , 12/11/18 19:02 Abdomen/Pelvis without Cont [CT] Stat 12/11/18 21:35 Chest 1 View (Portable) [RAD] Stat Laboratory Results 12/11/18 12/11/18 12/11/18 18:15 18:15 18:15 WBC 22.4 H RBC 4.60 Hgb 14.6 Hct 44.8 MCV 97.4 H MCH 31.7 MCHC 32.6 RDW Std Deviation 48.9 H RDW Coeff of Teja 13.7 Plt Count 433 MPV 9.6 Immature Gran % (Auto) 0.800 Neut % (Auto) 76.5 H Lymph % (Auto) 15.7 L [place] % (Auto) 5.6 Eos % (Auto) 1.0 Baso % (Auto) 0.4 Absolute Neuts (auto) 17.2 H Absolute Lymphs (auto) 3.52 Nucleated RBC % 0 PT 13.9 INR 1.1 APTT 40.9 H Sodium 136 Potassium 4.1 Chloride 107 Carbon Dioxide 21.0 Anion Gap 8 BUN 26 H Creatinine 1.40 H Estim Creat Clear Calc 63.83 Est GFR (MDRD) Af Amer 69 Est GFR (MDRD) Non-Af 57 L BUN/Creatinine Ratio 18.6 Glucose 127 H Lactic Acid Calcium 9.5 Total Bilirubin 0.30 Direct Bilirubin 0.13 AST 19 ALT 31 Alkaline Phosphatase 66 Total Protein 8.3 H Albumin 4.2 Globulin 4.1 Urine Color Urine Clarity Urine pH Ur Specific [place] Urine Protein Urine Glucose (UA) Urine Ketones Urine Occult Blood Urine Nitrite Urine Bilirubin Urine Urobilinogen Ur Leukocyte Esterase Urine RBC Urine WBC Ur Squamous Epith Cells Urine Bacteria Hyaline Casts Urine Mucus 12/11/18 12/11/18 20:52 21:07 WBC RBC Hgb Hct MCV MCH MCHC RDW Std Deviation RDW Coeff of Teja Plt Count MPV Immature Gran % (Auto) Neut % (Auto) Lymph % (Auto) [place] % (Auto) Eos % (Auto) Baso % (Auto) Absolute Neuts (auto) Absolute Lymphs (auto) Nucleated RBC % PT INR APTT Sodium Potassium Chloride Carbon Dioxide Anion Gap BUN Creatinine Estim Creat Clear Calc Est GFR (MDRD) Af Amer Est GFR (MDRD) Non-Af BUN/Creatinine Ratio Glucose Lactic Acid 2.0 Calcium Total Bilirubin Direct Bilirubin AST ALT Alkaline Phosphatase Total Protein Albumin Globulin Urine Color Yellow Urine Clarity Clear Urine pH 5.0 Ur Specific [place] 1.020 Urine Protein 100 H Urine Glucose (UA) Normal Urine Ketones Negative Urine Occult Blood Negative Urine Nitrite Negative Urine Bilirubin Negative Urine Urobilinogen Normal Ur Leukocyte Esterase 25 H Urine RBC 0-5 SEEN Urine WBC 0 SEEN Ur Squamous Epith Cells 0 SEEN Urine Bacteria 0 SEEN Hyaline Casts 10-25 SEEN Urine Mucus 3+ - EKG Initial EKG Interpretation: Sinus Rhythm - Sinus at [address] change. - Medical Decision Making Patient presents with ongoing shortness of breath for some time, recently improved after switching from Brilinta to Plavix. Patient woke this morning with right lower quadrant pain. He has had 2 syncopal episodes that sound like vasovagal episodes. Test results are discussed with patient. At this time blood pressure is improved. He is on nasal cannula. Nursing staff did note that he did desaturate when standing to try to urinate. He quickly recovered. He denies chest pain and I have very low suspicion for PE. Patient was given fentanyl, 50 mg of Toradol, and Zofran. On repeat evaluation his pain is significantly improved. He does have a significantly elevated white count, but when reviewing his prior records it is been elevated on the last several visits. Patient states they have been trying to figure out why this is but have not yet come up with a cause. Urine does not appear to be infected. Blood culture was sent. I will recommend hospitalization overnight for hydration, blood pressure monitoring, and repeat abdominal exams. Patient has had very little diarrhea today, but I did advise staff that if he has to go here we will send that for testing as well. ED Disposition - Plan for ED Patient: Disposition: Acute Care Hospital [facility] Diagnosis: Renal insufficiency, Abdominal pain, Hypotension, Leukocytosis Referrals: Bacilio Smith MD [Primary Care Provider] -
[2018-12-11 19:08] LABS: Absolute Lymphocyte Count 3.52 X10^3/uL (0.83-4.51); Absolute Neutrophil Count 17.2 X10^3/uL (2.0-7.7); Basophil# 0.09 X10^3/uL; Basophil% 0.4 % (0-1); Eosinophil# 0.22 X10^3/uL; Hematocrit 44.8 % (40-54); Hemoglobin 14.6 g/dL (13.0-16.5); Lymphocyte # 3.52 X10^3/ul (4.0); Lymphocyte % 15.7 % (19-41); Mean Corp Hgb Conc 32.6 g/dL (32-36); Mean Corpuscular Hgb 31.7 pg (27.0-32.0); Mean Corpuscular Volume 97.4 fL (80-94); Mean Platelet Vol. 9.6 fl (6.2-12.0); Monocyte# 1.25 X10^3/uL; Monocyte% 5.6 % (0-10); NRBC Flagged by Analyzer 0 % (0-5); Neutrophil # 17.17 X10^3/uL (2.7-7.7); Neutrophil % 76.5 % (47-70); Platelet Count 433 K/mm3 (150-450); RBC Distribution Width CV 13.7 % (11.6-14.6); RBC Distribution Width SD 48.9 fl (35.1-43.9); White Blood Count 22.4 K/mm3 (4.4-11.0)
[2018-12-11 19:12] LABS: International Normalized Ratio 1.1; Prothrombin Time (Protime)PT. 13.9 SECONDS (11.7-14.9)
[2018-12-11 19:13] LABS: Partial Thromboplast Time 40.9 Seconds (24.1-36.2)
[2018-12-11 19:19] LABS: AST(SGOT) 19 U/L (15-37); Alanine Aminotransfer ALT/SGPT 31 U/L (16-61); Albumin, Serum 4.2 g/dL (3.2-5.0); Alkaline Phosphatase 66 U/L (45-117); Anion Gap 8 (5-15); BUN 26 mg/dL (7-18); BUN/Creat Ratio 18.6 RATIO (10-20); Bilirubin, Direct 0.13 mg/dL (0.00-0.30); Calcium,Total 9.5 mg/dL (8.5-10.1); Chloride 107 mmol/L (98-107); EST Glomerular Filtration Rate 57 mL/min (>60); Est Glom Filt Rate - Afr Amer 69 mL/min (>60); Estimated Creatinine Clearance 63.83 ml/min; Globulin 4.1 g/dL (2.2-4.2); Glucose 127 mg/dL (74-106); Potassium 4.1 mmol/L (3.5-5.1); Protein, Total 8.3 g/dL (6.4-8.2); Sodium Level 136 mmol/L (136-145)
[2018-12-11] MEDS: Ondansetron 4 MG/2 ML Vial IV (19:32)
[2018-12-11] MEDS: fentaNYL 100 MCG/2 ML Ampul 25 MCG IV (19:32)
[2018-12-11] MEDS: Ketorolac 15 MG/ML Vial IV (19:33)
[2018-12-11] MEDS: 0.9% Normal Saline 1,000 ML 150 ML IV (20:32)
--- NOTE | 2018-12-11 20:35 | ED.RN ---
PATIENT GOT A FULL LITER OF IV FLUIDS THE FLUIDS WERE NOT HUNG ON A PUMP. DR. AYALA MADE AWARE. NS AT 150 CC'S WAS HUNG PATIENT'S BP IS ON 101/70 .
[2018-12-11 20:56] LABS: Bacteria 0 SEEN /hpf (None Seen); Squamous Epithelial Cells - UA 0 SEEN /hpf (0-5); White Blood Cells 0 SEEN /hpf (0-5)
[2018-12-11 20:58] LABS: Color, Urine Yellow (Yellow); Glucose, Dipstick Normal (Normal); Ketone-Dipstick Negative (Negative); Leukocyte Esterase-Dipstick 25 /ul (Negative); Nitrite-Dipstick Negative (Negative); Occult Blood-Urine Negative /ul (Negative); Protein-Dipstick 100 mg/dl (Negative); Urine Bilirubin Dipstick Negative (Negative); Urine Clarity Clear (Clear); Urine Urobilinogen Normal (Normal)
[2018-12-11 21:06] LABS: Mucous, Urine 3+ /hpf (<or=2+)
[2018-12-11 21:07] LABS: Hyaline Cast 10-25 SEEN /lpf (0-5)
[2018-12-11 21:08] LABS: Red Blood Cells-Urine 0-5 SEEN /hpf (0-5)
--- NOTE | 2018-12-11 21:35 | RAD_ITS ---
STUDY: X-RAY CHEST REASON FOR EXAM: Male, 48 years old. SOB TECHNIQUE: Single frontal view of the chest. COMPARISON: 02/14/2017 FINDINGS: Stable elevation of the right hemidiaphragm. There is no demonstrated pleural abnormality. Normal size heart. Normal mediastinum and susana. Normal visualized pulmonary arteries. Normal visualized aortic arch and descending thoracic aorta. Normal visualized thoracic spine. Normal visualized ribs, clavicles, and shoulders. There is no demonstrated abnormality of the visualized soft tissue structures of the upper abdomen. RAD/Chest 1 View (Portable) IMPRESSION: Stable elevation of the right hemidiaphragm. No acute pulmonary findings. Electronically Signed: Bacilio Marin MD at 21:54 EDT Tel , Service support ,
--- NOTE | 2018-12-11 21:40 | ED.RN ---
THIS NURSE AND ANOTHER NURSE ALONG WITH THE LAB WAS NOT ABLE TO GET PATIENT'S SECOND BLOOD CULTURE. I WILL LET DR. AYALA KNOW THIS.
--- NOTE | 2018-12-11 22:02 | HP.PCM_ITS ---
Problem List (1) Syncope Status: Acute (2) Hyponatremia Status: Resolved (3) Hypercalcemia Status: Resolved (4) Pancreatitis Status: Resolved History of Present Illness Date of Admission: 12/11/18 Chief Complaint: RIGHT LOWER QUADRANT PAIN The patient is a 48 year old M with a significant history of tobacco abuse; ischemic cardiomyopathy (ejection fraction 25% on September 05 2018); CAD with drug-eluting stent in LAD who presented with excruciating sharp right lower quadrant pain that started on the same day of presentation. His pain radiated to his entire abdomen and into his bilateral testicles. His pain was aggravated with moving but it improved with rest. Also patient reported 2 episodes of passing out. At both episodes he felt nauseous. He reported that he felt like vomiting or passing stool before his passing out episode occurred. Also he reports a feeling of damping voice in his ears. At the emergency department his initial blood pressure was 86/53 but patient responded to IV fluids. Reportedly he has had leukocytosis outpatient with exact cause unknown. However his leukocytosis is worse at this time. Also he has had shortness of breath for some time. His shortness of breath improved after his Brilinta was switched to Plavix. Past Medical History Past Medical History (Chronic Problems): Chronic Problems (Last Reviewed 12/11/18 @ 23:21 by Gerald Soto MD) Essential hypertension (Chronic) S/P angioplasty with stent (Chronic) STEVEN mid LAD 4.0 x 23 mm Synergy Diabetes (Chronic) Pulmonary hypertension (Chronic) Cardiomyopathy (Chronic) EF 45% Arteriosclerotic heart disease (ASHD) (Chronic) S/p stent to LAD 09/2018 Medical History: Medical History (Last Reviewed 12/11/18 @ 23:30 by Gerald Soto MD) Essential hypertension (Chronic) I10 Diabetes (Chronic) E11.9 Pulmonary hypertension (Chronic) I27.20 Cardiomyopathy (Chronic) I42.9 EF 45% Arteriosclerotic heart disease (ASHD) (Chronic) I25.10 S/p stent to LAD 09/2018 History of chronic pancreatitis Z87.19 Allergies lisinopril Allergy (Verified 12/11/18 18:37) Unknown Home Medications: Ambulatory Orders Medication Instructions Recorded Losartan Potassium [Cozaar] 100 mg PO DAILY 10/12/16 Aspirin [Aspirin, Baby] 81 mg PO DAILY@0800 09/06/18 Atorvastatin Calcium [Lipitor] 20 mg PO DAILY 09/06/18 Carvedilol [Coreg (Beta Jeff)] 6.25 mg PO BID 09/06/18 Fenofibrate [Tricor] 145 mg PO DAILY 09/06/18 Insulin NPH Human Isophane 5 unit SQ DAILY 09/06/18 [Humulin N Kwikpen] potassium chloride ER 10 mEq 10 meq PO DAILY 09/06/18 tablet,extended release(part/cryst) Oxycodone HCl/Acetaminophen 1 ea PO TID PRN PRN 09/07/18 [Percocet 5-325 mg Tablet] amlodipine 5 mg tablet 5 mg PO DAILY #30 tab 09/18/18 furosemide 20 mg tablet 20 mg PO QAM 12/01/18 clopidogrel 75 mg tablet 75 mg PO DAILY #30 tab 12/06/18 Surgical History: Surgical History (Last Reviewed 12/11/18 @ 23:30 by Gerald Soto MD) S/P angioplasty with stent (Chronic) Z95.820 STEVEN mid LAD 4.0 x 23 mm Synergy History of cholecystectomy Z90.49 History of hip surgery Z98.890 X 6 on hips as a child S/P cataract surgery Z98.49 S/P colonoscopy Z98.890 Status post total hip replacement, right Z96.641 Surgical History: no surgical history Lives: Spouse/ Significant Other Smoking Status: Current every day smoker Tobacco Use: Cigarettes - *Family History Maternal Family History: Family History (Last Reviewed 12/11/18 @ 23:30 by Gerald Soto MD) Mother Diabetes Hypertension Breast cancer Grandfather Heart disease Uncle Heart disease Review of Systems Constitutional: Denies: Chills, Fever, Weight Change HEENT: Denies: Head Aches, Sinus Congestion, Sinus Drainage Cardiovascular: Denies: Chest Pain, Palpitations Respiratory: Denies: Cough, Shortness of breath at rest, Sputum production Gastrointestinal: Reports: Abdominal Pain, Nausea. Denies: Vomiting Genitourinary: Denies: Dysuria Musculoskeletal: Denies: Joint Pain, Joint Tenderness Skin: Denies: Rash, Wounds Neurological: Denies: Numbness, Tingling, Focal weakness Psychiatric: Denies: Anxiety, Depression, Homicidal Ideations, Suicidal Ideations Hematologic/ Lymphatic: Denies: Easy Bruising, Easy Bleeding VTE Information - Inpt Only VTE Present on Admission: No VTE Mechan Device Prophylaxis: None VTE Pharm Prophylaxis ordered?: Yes Patient Problems: Active and Suspected Problems (Last Reviewed 12/11/18 @ 23:21 by Gerald Soto MD) Renal insufficiency (Acute) Abdominal pain (Acute) Hypotension (Acute) Leukocytosis (Acute) Syncope (Acute) - Physical Exam General: Alert, Oriented x3, Cooperative HEENT: Atraumatic, PERRLA, EOMI, Normocephalic Neck: Supple, No JVD, Negative Carotid Bruits Lungs: Clear to auscultation, Normal air movement Cardiovascular: Regular rate, No murmurs Abdomen: Bowel Sounds Present, Soft, Tender - Right side of abdomen; with some voluntary guarding Extremities: No edema, Capillary Refill Less than 3 Seconds Skin: No rashes, No breakdown Musculoskeletal: No Tenderness to Palpation of Joints or Extremities Neurological: Cranial nerves II-XII grossly intact Psych/Mental Status: Normal Affect, Appropriate Vital Signs Temp Pulse Resp BP Pulse Ox 97.6 F L 80 20 H 120/74 96 12/11/18 18:01 12/11/18 21:30 12/11/18 21:30 12/11/18 21:30 12/11/18 21:30 Oxygen Flow Rate (L/min) 4 Oxygen Delivery Method Nasal Cannula Weight: 116.36 kg Body Mass Index (BMI) 37.8 Intake and Output for Last 24 Hours 12/09/18 12/10/18 12/11/18 23:59 23:59 23:59 Output Total 210 / 210 Balance -210 / -210 Laboratory Tests Past 24 Hrs 12/11/18 12/11/18 12/11/18 18:15 18:15 18:15 WBC 22.4 H RBC 4.60 Hgb 14.6 Hct 44.8 MCV 97.4 H MCH 31.7 MCHC 32.6 RDW Std Deviation 48.9 H RDW Coeff of Teja 13.7 Plt Count 433 MPV 9.6 Immature Gran % (Auto) 0.800 Neut % (Auto) 76.5 H Lymph % (Auto) 15.7 L [place] % (Auto) 5.6 Eos % (Auto) 1.0 Baso % (Auto) 0.4 Absolute Neuts (auto) 17.2 H Absolute Lymphs (auto) 3.52 Nucleated RBC % 0 PT 13.9 INR 1.1 APTT 40.9 H Sodium 136 Potassium 4.1 Chloride 107 Carbon Dioxide 21.0 Anion Gap 8 BUN 26 H Creatinine 1.40 H Estim Creat Clear Calc 63.83 Est GFR (MDRD) Af Amer 69 Est GFR (MDRD) Non-Af 57 L BUN/Creatinine Ratio 18.6 Glucose 127 H Lactic Acid Calcium 9.5 Total Bilirubin 0.30 Direct Bilirubin 0.13 AST 19 ALT 31 Alkaline Phosphatase 66 Total Protein 8.3 H Albumin 4.2 Globulin 4.1 Urine Color Urine Clarity Urine pH Ur Specific [place] Urine Protein Urine Glucose (UA) Urine Ketones Urine Occult Blood Urine Nitrite Urine Bilirubin Urine Urobilinogen Ur Leukocyte Esterase Urine RBC Urine WBC Ur Squamous Epith Cells Urine Bacteria Hyaline Casts Urine Mucus 12/11/18 12/11/18 20:52 21:07 WBC RBC Hgb Hct MCV MCH MCHC RDW Std Deviation RDW Coeff of Teja Plt Count MPV Immature Gran % (Auto) Neut % (Auto) Lymph % (Auto) [place] % (Auto) Eos % (Auto) Baso % (Auto) Absolute Neuts (auto) Absolute Lymphs (auto) Nucleated RBC % PT INR APTT Sodium Potassium Chloride Carbon Dioxide Anion Gap BUN Creatinine Estim Creat Clear Calc Est GFR (MDRD) Af Amer Est GFR (MDRD) Non-Af BUN/Creatinine Ratio Glucose Lactic Acid 2.0 Calcium Total Bilirubin Direct Bilirubin AST ALT Alkaline Phosphatase Total Protein Albumin Globulin Urine Color Yellow Urine Clarity Clear Urine pH 5.0 Ur Specific [place] 1.020 Urine Protein 100 H Urine Glucose (UA) Normal Urine Ketones Negative Urine Occult Blood Negative Urine Nitrite Negative Urine Bilirubin Negative Urine Urobilinogen Normal Ur Leukocyte Esterase 25 H Urine RBC 0-5 SEEN Urine WBC 0 SEEN Ur Squamous Epith Cells 0 SEEN Urine Bacteria 0 SEEN Hyaline Casts 10-25 SEEN Urine Mucus 3+ Assessment/Plan All Active Problems (Last Reviewed 12/11/18 @ 23:21 by Gerald Soto MD) Renal insufficiency (Acute) Abdominal pain (Acute) Hypotension (Acute) Leukocytosis (Acute) Syncope (Acute) Hyponatremia (Resolved) Hypercalcemia (Resolved) Pancreatitis (Resolved) The patient is a 48 year old M with a significant history of ischemic cardiomyopathy(ejection fraction 25% on September 05 2018); CAD with drug-eluting stent in LAD who presented with excruciating sharp right lower quadrant pain and 2 episodes of syncope. Intractable right lower quadrant abdominal pain Probably kidney stone that was passed Continue home percocet. Add prn IV morphine for severe pain Phenergan for nausea. Zofran not ordered because of increased QTc of 460 Syncope Likely vasovagal Last echo in August 2018. Will order limited echo to evaluate EF Orthostatic blood pressures ordered. EKG showed sinus rhythm with left axis deviation and a prolong QT of 460 Blood culture was ordered emergency department; follow results. Hold blood pressure medication including amlodipine and Coreg because of hypotension. Of note patient has an ischemic cardiomyopathy consider resuming guideline directed medical therapy as soon as possible. Ischemic cardiomyopathy Aspirin and Plavix continued. Lipitor and TriCor continued. Coreg on hold secondary to hypotension. Cozaar on hold secondary to hypotension and KAIA. Consider guideline directed medical therapy as soon as possible. KAIA On potential presentation his creatinine was 1.40 Review of old records shows a creatinine baseline of around 0.9 BUN was 26. BUN over creatinine is 18.6. Cannot rule out prerenal from dehydration secondary to diuretic use. Hold diuretics. Received IV fluids in emergency department. IV fluid continued. Hold home Lasix and potassium. Hold Cozaar. Trend BMP. Acute hypoxemic Respiratory insufficiency Etiology unclear at this time. On 4L patient was on 91-93% Oxygen per nasal cannula Leukocytosis On presentation his white count was 22.4. Review of old records shows highest white count of 16.9. Likely reactive. Trend CBC. Blood culture was ordered emergency department; follow results. Diabetes On presentation his blood glucose was within goal Home NPH continued. Accu-Chek qachs. Proteinuria Urinalysis showed elevated proteins. This could be due to his diabetes. This was discussed with patient. Patient to follow-up outpatient with PCP. Tobacco abuse Counseled Patient declined nicotine patch. DVT Prophylaxis Subcutaneous lovenox ordered Code Visit OBSV E&M: 58988 Initial observation care L3
--- NOTE | 2018-12-11 23:29 | ECHOL_ITS ---
Reason For Study: LIMITED ECHO TO EVALUATE EF Procedure This was a limited 2D transthoracic echocardiogram. The study was technically difficult. Definity deferred due to increased pulmonary pressure. Limited views were obtained. Exam performed portable in patient room. Left Ventricle Normal LV size. D shaped septum in systole and diastole. Moderate concentric left ventricular hypertrophy. Based upon the 2D echocardiographic images obtained there appears to be grossly normal left ventricular size, wall motion, and systolic function. The estimated ejection fraction is 55 %. Unable to assess diastolic dysfunction. Right Ventricle Severely dilated right ventricle. Severe global right ventricular systolic dysfunction. Atria Normal left atrium. The right atrium is mildly enlarged. No doppler evidence for ASD. Mitral Valve There is no mitral annular calcification. Normal mitral valve. Tricuspid Valve Normal tricuspid valve. Mild tricuspid valve insufficiency. Right ventricular systolic pressure estimated to be 57 mmHg. Aortic Valve The aortic valve is not well visualized. Pulmonic Valve The pulmonic valve is not well visualized. Great Vessels The aortic root is not well visualized. Pericardium/Pleural No pericardial effusion. MMode/2D Measurements & Calculations LVIDd: 4.4 cm IVSd: 1.5 cm LVIDs: 2.3 cm LVPWd: 1.5 cm FS: 47.4 % Doppler Measurements & Calculations TR max hebert: 347.3 cm/sec TR max P.1 mmHg Interpretation Summary The study was technically difficult. Limited views were obtained. Based upon the 2D echocardiographic images obtained there appears to be grossly normal left ventricular size, wall motion, and systolic function. The estimated ejection fraction is 55 %. Moderate concentric left ventricular hypertrophy. Severely dilated right ventricle. Severe global right ventricular systolic dysfunction. The right atrium is mildly enlarged. Mild tricuspid valve insufficiency. Right ventricular systolic pressure estimated to be 57 mmHg. Unable to assess diastolic dysfunction. Ordering Physician: Gerald Soto Referring Physician: Gerald Soto Performed By: Felicity Medina RDCS
[2018-12-11] MEDS: 0.9% Normal Saline 1,000 ML 100 ML IV (23:51)
[2018-12-11] MEDS: Morphine 2 MG/ML Syringe IV (23:51)
[2018-12-12] VITALS (25 sets, daily range): BP systolic 89–127; BP diastolic 52–75; PULSE 88–121; RESP 18–28; TEMP 36.6–37.7; O2SAT 89–93
[2018-12-12 00:21] LABS: Magnesium 1.9 mg/dL (1.6-2.6)
[2018-12-12 01:18] LABS: Reflex Lactate? Y
[2018-12-12 02:35] LABS: Lactic Acid 4.4 mmol/L (0.4-2.0)
--- NOTE | 2018-12-12 04:01 | NURSING ---
Patient unable to stand to finish standing bp for orthostatic vs at this time.
[2018-12-12] MEDS: 0.9% Normal Saline 1,000 ML 999 ML IV (04:09)
--- NOTE | 2018-12-12 05:02 | RAD_ITS ---
STUDY: X-RAY CHEST REASON FOR EXAM: Male, 48 years old. Dyspnea. TECHNIQUE: AP portable chest. COMPARISON: December 11, 2018. FINDINGS: The lungs are clear and expanded. There is no demonstrated pleural abnormality. Mild elevation of the right hemidiaphragm unchanged. Normal size heart. Normal mediastinum and susana. Normal visualized pulmonary arteries. Normal visualized aortic arch and descending thoracic aorta. Normal visualized thoracic spine. Normal visualized ribs, clavicles, and shoulders. There is no demonstrated abnormality of the visualized soft tissue structures of the upper abdomen. RAD/Chest 1 View (Portable) IMPRESSION: Stable chest, no acute cardiopulmonary disease. Electronically Signed: Gerhard Hinkle MD at 6:36 EDT , Service support ,
--- NOTE | 2018-12-12 05:05 | PCM.PN.BLA ---
Progress Note Septic Shock Follow up Note Patient has increased oxygen requirements. Patient is requiring 8 L high flow oxygen. Patient is alert and oriented x3. Heart sounds S1, S2 present no murmur no gallop no rub. Tachycardia. Lung sounds are clear throughout. Patient with tachypnea Extremities: No edema no cyanosis no clubbing pulse 2 out of 4 Assessment and plan Syncope Septic shock with different diagnoses as viral syndrome Blood culture x2 pending. Urine culture is pending. Trend lactic acid Continue broad-spectrum antibiotics of ceftriaxone and azithromycin Patient has completed 30 mm/kg bolus of IV fluids. BP 89/53. Trend BP We will get respiratory pathogen panel.
[2018-12-12] MEDS: metroNIDAZOLE 500 MG/100 ML BAG 100 MG IV ×3 (05:07→21:09)
[2018-12-12 05:55] LABS: Absolute Lymphocyte Count 3.82 X10^3/uL (0.83-4.51); Absolute Neutrophil Count 12.4 X10^3/uL (2.0-7.7); Basophil# 0.05 X10^3/uL; Basophil% 0.3 % (0-1); Eosinophils% 1.7 % (0-5); Hematocrit 36.1 % (40-54); Hemoglobin 11.8 g/dL (13.0-16.5); Lymphocyte # 3.82 X10^3/ul (4.0); Lymphocyte % 21.5 % (19-41); Mean Corp Hgb Conc 32.7 g/dL (32-36); Mean Corpuscular Hgb 31.6 pg (27.0-32.0); Mean Corpuscular Volume 96.8 fL (80-94); Mean Platelet Vol. 9.2 fl (6.2-12.0); Monocyte# 1.16 X10^3/uL; Monocyte% 6.5 % (0-10); NRBC Flagged by Analyzer 0 % (0-5); Neutrophil # 12.38 X10^3/uL (2.7-7.7); Neutrophil % 69.5 % (47-70); Platelet Count 337 K/mm3 (150-450); RBC Distribution Width CV 13.7 % (11.6-14.6); RBC Distribution Width SD 48.5 fl (35.1-43.9); Red Blood Count 3.73 M/mm3 (4.6-6.2); White Blood Count 17.8 K/mm3 (4.4-11.0)
[2018-12-12 06:15] LABS: Anion Gap 8 (5-15); BUN 19 mg/dL (7-18); BUN/Creat Ratio 17.8 RATIO (10-20); Calcium,Total 8.1 mg/dL (8.5-10.1); Chloride 116 mmol/L (98-107); Creatinine, Serum 1.07 mg/dL (0.70-1.30); EST Glomerular Filtration Rate 78 mL/min (>60); Est Glom Filt Rate - Afr Amer 94 mL/min (>60); Estimated Creatinine Clearance 83.51 ml/min; Glucose 104 mg/dL (74-106); Potassium 3.8 mmol/L (3.5-5.1); Sodium Level 141 mmol/L (136-145)
[2018-12-12 07:36] LABS: D-Dimer Quantitative (DVT/PE) 0.61 FEU/ug/m (0.27-0.49)
[2018-12-12] MEDS: Morphine 2 MG/ML Syringe IV ×2 (07:57→11:01)
[2018-12-12] MEDS: 0.9% Normal Saline 1,000 ML 150 ML IV ×3 (08:00→22:11)
[2018-12-12 08:10] LABS: Bedside Glucose 117 mg/dL (70-110)
[2018-12-12 08:41] LABS: Lactic Acid 2.7 mmol/L (0.4-2.0)
--- NOTE | 2018-12-12 09:12 | NURSING ---
echo in progress
--- NOTE | 2018-12-12 09:24 | CT_ITS ---
STUDY: CT ABDOMEN AND PELVIS WITH CONTRAST REASON FOR EXAM: Male, 48 years old. Abdominal pain TECHNIQUE: Transaxial images were obtained from the dome of the diaphragm to the symphysis pubis without oral contrast. 100ML IV/Oral Isovue 300 was administered. Sagittal and coronal images were reconstructed. Individualized dose optimization techniques were used for this CT. COMPARISON: CT abdomen and pelvis 12/11/2018. FINDINGS: The visualized lung bases are unremarkable. The visualized portions of the heart are within normal limits. There is decreased attenuation of the liver consistent with steatosis. There are surgical clips in the gallbladder fossa consistent with a prior cholecystectomy. Normal spleen. Normal pancreas. Normal bilateral adrenal glands. Normal right kidney. Normal left kidney. Normal visualized stomach. Normal small intestine. There is wall thickening of the cecum, ascending colon and hepatic flexure with mild pericolonic inflammation. No bowel obstruction. The appendix is visualized and appears normal. There is moderate aortobiiliac atherosclerotic disease.. Normal inferior vena cava. Normal retroperitoneum. Normal urinary bladder. There is a left-sided inguinal hernia containing adipose tissue. There is a right hip hemiarthroplasty. There is left hip orthopedic hardware. Multilevel degenerative disc disease. There is dextroscoliosis of the lumbar spine. CT/Abdomen/Pelvis WITH Contrast IMPRESSION: Wall thickening of the cecum, ascending colon and hepatic flexure with mild pericolonic inflammation is consistent with colitis, new since 12/11/2018. Electronically Signed: Gennaro Valenzuela, at 13:04 EDT Tel , Service support ,
--- NOTE | 2018-12-12 09:32 | CON.PCM_ITS ---
Problem List (1) Abdominal pain Status: Acute (2) Syncope Status: Acute Reason for Consult Date of Consultation: 12/12/18 Reason for Consultation: Abdominal pain History of Present Illness: The patient is a 48 year old M who presented with 1 day history of right lower quadrant abdominal pain and syncopal episode. Patient stated yesterday morning at 0900 AM. He felt that he had to have a bowel movement, which was unsuccessful. Patient stated the right lower quadrant pain started with intense sharp stabbing pain. Patient noted he was also nauseated. He also had two episodes of blacking out. He denies vomiting. He notes a history of drug- induced constipation for which he takes Dulcolax daily for. He noted Tuesday was the last day he took a stool softener and he had a small loose bowel movement. He notes since that time he has not had a bowel movement. He notes a history of shortness of breath which he attributed to when he had back pain. Patient is on Percocet for his back pain. He follows with Dr. Juan. Patient states he had PFT studies completed on 10/10/18 at [facility] by his PCP showed restriction and no obstruction. Patient notes he is being referred to pulmonology for further workup. He was also referred to cardiology in August when he had a cardiac cath with stent placement. Patient was placed on Brilinta. It was felt that this may be contributing to his constipation and increased shortness of breath. Patient was switched to Plavix on Tuesday by his single ending machine operator, Dr. Bullock. If this change did not improve his symptoms, he was to have another cardiac cath. Patient denies current shortness of breath ad chest pain. He denies previous myocardial infarction, blood clots or stroke. Patient states he has had a previous left hip fusion at age 17 which has contrib uted to his back pain over time. Patient does note that since being on Brilinta he has had multiple episodes of black outs. He has ischemic cardiomyopathy, diabetes, history of idiopathic pancreatitis. Patient previous abdominal surgeries include laparoscopic cholecystectomy [place] [address] Del Cid. Past Medical History Past Medical History (Chronic Problems): Chronic Problems (Last Reviewed 12/11/18 @ 23:30 by Gerald Soto MD) Essential hypertension (Chronic) S/P angioplasty with stent (Chronic) STEVEN mid LAD 4.0 x 23 mm Synergy Diabetes (Chronic) Pulmonary hypertension (Chronic) Cardiomyopathy (Chronic) EF 45% Arteriosclerotic heart disease (ASHD) (Chronic) S/p stent to LAD 09/2018 Medical History: Medical History (Last Reviewed 12/12/18 @ 10:33 by Sanjuana Adams PA-C) Essential hypertension (Chronic) I10 Diabetes (Chronic) E11.9 Pulmonary hypertension (Chronic) I27.20 Cardiomyopathy (Chronic) I42.9 EF 45% Arteriosclerotic heart disease (ASHD) (Chronic) I25.10 S/p stent to LAD 09/2018 History of chronic pancreatitis Z87.19 Allergies lisinopril Allergy (Verified 12/11/18 22:49) Other COUGH Home Medications: Ambulatory Orders Medication Instructions Recorded Losartan Potassium [Cozaar] 100 mg PO DAILY 10/12/16 Aspirin [Aspirin, Baby] 81 mg PO DAILY@0800 09/06/18 Atorvastatin Calcium [Lipitor] 20 mg PO DAILY 09/06/18 Carvedilol [Coreg (Beta Jeff)] 6.25 mg PO BID 09/06/18 Fenofibrate [Tricor] 145 mg PO DAILY 09/06/18 Insulin NPH Human Isophane 5 unit SQ DAILY 09/06/18 [Humulin N Kwikpen] potassium chloride ER 10 mEq 10 meq PO DAILY 09/06/18 tablet,extended release(part/cryst) Oxycodone HCl/Acetaminophen 1 ea PO TID PRN PRN 09/07/18 [Percocet 5-325 mg Tablet] amlodipine 5 mg tablet 5 mg PO DAILY #30 tab 09/18/18 furosemide 20 mg tablet 20 mg PO QAM 12/01/18 clopidogrel 75 mg tablet 75 mg PO DAILY #30 tab 12/06/18 Surgical History: Surgical History (Last Reviewed 12/12/18 @ 10:34 by Sanjuana Adams PA-C) S/P angioplasty with stent (Chronic) Z95.820 STEVEN mid LAD 4.0 x 23 mm Synergy History of cholecystectomy Z90.49 History of hip surgery Z98.890 X 6 on hips as a child S/P cataract surgery Z98.49 S/P colonoscopy Z98.890 Status post total hip replacement, right Z96.641 Surgical History: no surgical history Lives: Spouse/ Significant Other Smoking Status: Current every day smoker Tobacco Use: Cigarettes Alcohol: None Drugs: None - *Family History Maternal Family History: Family History (Last Reviewed 12/12/18 @ 10:35 by Sanjuana Adams PA-C) Mother Diabetes Hypertension Breast cancer Grandfather Heart disease Uncle Heart disease Paternal Family History: Family History (Last Reviewed 12/12/18 @ 10:35 by Sanjuana Adams PA-C) Mother Diabetes Hypertension Breast cancer Grandfather Heart disease Uncle Heart disease Review of Systems Constitutional: Reports: Weakness, Fatigue. Denies: Anorexia, Fever HEENT: Denies: Head Aches, Sinus Congestion, Sinus Drainage Cardiovascular: Denies: Chest Pain, Palpitations Respiratory: Reports: Cough, Shortness of Breath Gastrointestinal: Reports: Abdominal Pain, Constipation, Nausea. Denies: Hematemesis, Hematochezia, Melena, Vomiting Genitourinary: Denies: Dysuria Musculoskeletal: Denies: Joint Pain, Joint Tenderness Skin: Denies: Rash, Wounds Neurological: Denies: Numbness, Tingling, Focal weakness Psychiatric: Denies: Anxiety, Depression, Homicidal Ideations, Suicidal Ideations Hematologic/ Lymphatic: Reports: Easy Bruising, Easy Bleeding Patient Problems: Active and Suspected Problems (Last Reviewed 12/11/18 @ 23:30 by Gerald Soto MD) Septic shock (Acute) Renal insufficiency (Acute) Abdominal pain (Acute) Hypotension (Acute) Leukocytosis (Acute) Syncope (Acute) - Physical Exam General: Alert, Oriented x3, Cooperative HEENT: Atraumatic, PERRLA, EOMI, Normocephalic Neck: Supple, No JVD, Negative Carotid Bruits Lungs: Clear to auscultation, Normal air movement Cardiovascular: Regular rate, No murmurs Abdomen: Bowel Sounds Present, Non-Distended, Obese, Guarding, Rebound Tenderness, Tender - generalized, more tender in the right lower quadrant Extremities: No edema, Capillary Refill Less than 3 Seconds Skin: No rashes, No breakdown Musculoskeletal: No Tenderness to Palpation of Joints or Extremities Neurological: Neuro grossly intact Psych/Mental Status: Normal Affect, Appropriate Vital Signs Temp Pulse Resp BP Pulse Ox 99.0 F 103 H 20 H 116/52 L 90 12/12/18 09:00 12/12/18 09:00 12/12/18 09:00 12/12/18 09:00 12/12/18 09:00 Oxygen Flow Rate (L/min) 10 Oxygen Delivery Method Nasal Cannula Weight: 258 lb 6.108 oz Body Mass Index (BMI) 37.3 Orthostatic Vital Signs Start: 12/12/18 03:55 Freq: q24h Status: Active Protocol: Activity Type Activity Date Activity User E-Sign Co-Sign Detail Recorded Client Recorded Date Recorded By Document 12/12/18 03:55 [facility] [id number] 12/12/18 04:01 [facility] 12/12/18 03:55 Orthostatic Vitals Standing -Extremity Use Right Arm -Pulse Rate (60-100) 121 H Sitting -Blood Pressure (90/60-120/80) 110/65 -Extremity Use Right Arm -Pulse Rate (60-100) 119 H Lying -Blood Pressure (90/60-120/80) 97/57 L -Extremity Use Right Arm -Pulse Rate (60-100) 104 H 12/12/18 04:01 Nursing Note by Dorothea Carreon Patient unable to stand to finish standing bp for orthostatic vs at this time. Initialized on 12/12/18 04:01 - END OF NOTE Intake and Output for Last 24 Hours 12/10/18 12/11/18 12/12/18 23:59 23:59 23:59 Intake Total 2227 / 2227 2871 / 2871 Output Total 210 / 210 Balance 2016 2871 / 2871 Laboratory Tests Past 24 Hrs 12/11/18 12/11/18 12/11/18 18:15 18:15 18:15 WBC 22.4 H RBC 4.60 Hgb 14.6 Hct 44.8 MCV 97.4 H MCH 31.7 MCHC 32.6 RDW Std Deviation 48.9 H RDW Coeff of Teja 13.7 Plt Count 433 MPV 9.6 Immature Gran % (Auto) 0.800 Neut % (Auto) 76.5 H Lymph % (Auto) 15.7 L Harnett % (Auto) 5.6 Eos % (Auto) 1.0 Baso % (Auto) 0.4 Absolute Neuts (auto) 17.2 H Absolute Lymphs (auto) 3.52 Nucleated RBC % 0 PT 13.9 INR 1.1 APTT 40.9 H D-Dimer Quant (PE/DVT) Sodium 136 Potassium 4.1 Chloride 107 Carbon Dioxide 21.0 Anion Gap 8 BUN 26 H Creatinine 1.40 H Estim Creat Clear Calc 63.83 Est GFR (MDRD) Af Amer 69 Est GFR (MDRD) Non-Af 57 L BUN/Creatinine Ratio 18.6 Glucose 127 H Lactic Acid Calcium 9.5 Magnesium Total Bilirubin 0.30 Direct Bilirubin 0.13 AST 19 ALT 31 Alkaline Phosphatase 66 Total Protein 8.3 H Albumin 4.2 Globulin 4.1 Urine Color Urine Clarity Urine pH Ur Specific Runnells Urine Protein Urine Glucose (UA) Urine Ketones Urine Occult Blood Urine Nitrite Urine Bilirubin Urine Urobilinogen Ur Leukocyte Esterase Urine RBC Urine WBC Ur Squamous Epith Cells Urine Bacteria Hyaline Casts Urine Mucus 12/11/18 12/11/18 12/11/18 18:15 20:52 21:07 WBC RBC Hgb Hct MCV MCH MCHC RDW Std Deviation RDW Coeff of Teja Plt Count MPV Immature Gran % (Auto) Neut % (Auto) Lymph % (Auto) Harnett % (Auto) Eos % (Auto) Baso % (Auto) Absolute Neuts (auto) Absolute Lymphs (auto) Nucleated RBC % PT INR APTT D-Dimer Quant (PE/DVT) Sodium Potassium Chloride Carbon Dioxide Anion Gap BUN Creatinine Estim Creat Clear Calc Est GFR (MDRD) Af Amer Est GFR (MDRD) Non-Af BUN/Creatinine Ratio Glucose Lactic Acid 2.0 Calcium Magnesium 1.9 Total Bilirubin Direct Bilirubin AST ALT Alkaline Phosphatase Total Protein Albumin Globulin Urine Color Yellow Urine Clarity Clear Urine pH 5.0 Ur Specific Runnells 1.020 Urine Protein 100 H Urine Glucose (UA) Normal Urine Ketones Negative Urine Occult Blood Negative Urine Nitrite Negative Urine Bilirubin Negative Urine Urobilinogen Normal Ur Leukocyte Esterase 25 H Urine RBC 0-5 SEEN Urine WBC 0 SEEN Ur Squamous Epith Cells 0 SEEN Urine Bacteria 0 SEEN Hyaline Casts 10-25 SEEN Urine Mucus 3+ 12/12/18 12/12/18 12/12/18 01:53 05:46 05:46 WBC 17.8 H RBC 3.73 L Hgb 11.8 L Hct 36.1 L MCV 96.8 H MCH 31.6 MCHC 32.7 RDW Std Deviation 48.5 H RDW Coeff of Teja 13.7 Plt Count 337 MPV 9.2 Immature Gran % (Auto) 0.500 Neut % (Auto) 69.5 Lymph % (Auto) 21.5 Harnett % (Auto) 6.5 Eos % (Auto) 1.7 Baso % (Auto) 0.3 Absolute Neuts (auto) 12.4 H Absolute Lymphs (auto) 3.82 Nucleated RBC % 0 PT INR APTT D-Dimer Quant (PE/DVT) Sodium 141 Potassium 3.8 Chloride 116 H Carbon Dioxide 17.0 L Anion Gap 8 BUN 19 H Creatinine 1.07 Estim Creat Clear Calc 83.51 Est GFR (MDRD) Af Amer 94 Est GFR (MDRD) Non-Af 78 BUN/Creatinine Ratio 17.8 Glucose 104 Lactic Acid 4.4 H* Calcium 8.1 L Magnesium Total Bilirubin Direct Bilirubin AST ALT Alkaline Phosphatase Total Protein Albumin Globulin Urine Color Urine Clarity Urine pH Ur Specific Runnells Urine Protein Urine Glucose (UA) Urine Ketones Urine Occult Blood Urine Nitrite Urine Bilirubin Urine Urobilinogen Ur Leukocyte Esterase Urine RBC Urine WBC Ur Squamous Epith Cells Urine Bacteria Hyaline Casts Urine Mucus 12/12/18 12/12/18 05:46 07:00 WBC RBC Hgb Hct MCV MCH MCHC RDW Std Deviation RDW Coeff of Teja Plt Count MPV Immature Gran % (Auto) Neut % (Auto) Lymph % (Auto) Harnett % (Auto) Eos % (Auto) Baso % (Auto) Absolute Neuts (auto) Absolute Lymphs (auto) Nucleated RBC % PT INR APTT D-Dimer Quant (PE/DVT) 0.61 H* Sodium Potassium Chloride Carbon Dioxide Anion Gap BUN Creatinine Estim Creat Clear Calc Est GFR (MDRD) Af Amer Est GFR (MDRD) Non-Af BUN/Creatinine Ratio Glucose Lactic Acid 2.7 H Calcium Magnesium Total Bilirubin Direct Bilirubin AST ALT Alkaline Phosphatase Total Protein Albumin Globulin Urine Color Urine Clarity Urine pH Ur Specific Runnells Urine Protein Urine Glucose (UA) Urine Ketones Urine Occult Blood Urine Nitrite Urine Bilirubin Urine Urobilinogen Ur Leukocyte Esterase Urine RBC Urine WBC Ur Squamous Epith Cells Urine Bacteria Hyaline Casts Urine Mucus POC Glucose 12/12/18 08:02 POC Glucose 117 H Assessment/Plan All Active Problems (Last Reviewed 12/11/18 @ 23:30 by Gerald Soto MD) Septic shock (Acute) Renal insufficiency (Acute) Abdominal pain (Acute) Hypotension (Acute) Leukocytosis (Acute) Syncope (Acute) Hyponatremia (Resolved) Hypercalcemia (Resolved) Pancreatitis (Resolved) I have been consulted in conjunction with Dr. Del Cid. Impression: Right lower quadrant pain, unknown etiology. Plan: Discussed patient with Dr. Del Cid. We will plan to repeat the CT scan of the abdomen/pelvis with contrast to evaluate further RLQ pain. Patient is aware that exploratory laparoscopy may be needed following the findings of the CT scan. Concern for pulmonary embolism is also being considered by medicine. Patient has had the opportunity to ask and have questions answered. Patient verbally understands and agrees with the plan. Continue patient NPO. Thank you for allowing us to participate in this patient's plan. Code Visit Office Visits / Consults: [id number] IP Consult L3
--- NOTE | 2018-12-12 09:47 | CT_ITS ---
STUDY: CTA CHEST REASON FOR EXAM: Male, 48 years old. Shortness of breath. Abdominal pain. RADIATION DOSAGE (If Supplied By Facility): CTDIvol = ( 22.75 ) mGy, DLP = ( 2958.70 ) mGycm TECHNIQUE: The examination was performed with the intravenous administration of 100ML IV Isovue 370. Post-processing of the angiographic images was performed, with multiplanar reformation and 3D reconstruction. Individualized dose optimization techniques were used for this CT. COMPARISON: Comparison is made with prior examination dated May 30, 2010. FINDINGS: Small benign-appearing bilateral axillary nodes. Normal enhancement of the main pulmonary artery and right and left pulmonary arteries. Normal enhancement of the bilateral peripheral pulmonary arteries. There is no demonstrated pulmonary embolism. Normal thoracic aorta and visualized great vessels. There is no demonstrated aortic dissection. There are calcifications of the coronary arteries. There are visualized mediastinal lymph nodes, which are within normal size limits, and with normal morphology. Normal hilar regions. Normal visualized trachea and bronchi. The lungs are well expanded. Normal pulmonary parenchyma. Normal pleura. Normal chest wall structures. There are degenerative changes of thoracic spine. Normal visualized upper abdomen. CT/CTA Chest W/WO Contrast IMPRESSION: No acute abnormality is seen. Electronically Signed: Min Hamilton, at 12:42 EDT , Service support ,
[2018-12-12 11:30] LABS: Bedside Glucose 121 mg/dL (70-110)
[2018-12-12 12:21] LABS: Reflex Lactate? Y
--- NOTE | 2018-12-12 12:25 | NURSING ---
return from CT
--- NOTE | 2018-12-12 12:54 | CASEMGMT ---
RN CM Assessment Presentation: Abdominal Pain, Hypoxia requiring 10L NC. CT abd showed colitis, chest CT negative. Hx: ischemic cardiomyopathy, EF 25%, Hx of Angioplasty with stent to mid LAD, Diabetes Intro role of CM and purpose of RN CM assessment to patient and his who is awake, alert and able to participate in assessment. Demographics, PCP and Pharmacy verified. Pt states he is normally independent. assists with monitoring BP, pulse ox, and pt monitors his diabetes at home. PCP: Dr. Smith Specialists: Dr. Del Cid, gen surgery, Dr. Miles, cardiology Preferred Pharmacy: [facility] Insurance: MMO Prescription Benefit: yes LNOK: Jany Lynn, Living Arrangements: Lives independently with . States no care needs with ADL's. Transportation: drives, but family can assist if needed. DME: has blood glucose monitoring equipment, BP cuff, pulse oximetry. If Home oxygen is needed, [facility] is [employer] for [employer] M[employer]. HHC: none Patient DC goals: Home DC PLAN: Anticipate Home; if pt remains on oxygen, may need Home Oxygen testing prior to dc. Germain ARSHADN RN ACM
[2018-12-12] MEDS: Morphine 4 MG/ML Syringe IV ×2 (13:06→19:28)
--- NOTE | 2018-12-12 13:26 | CHAPLAIN ---
Type of Pastoral Visit _x__ Initial Visit ___ Follow-up Visit ___ On-call Visit ___ General Patient Visit ___ Spiritual Assessment ___ Family Conference ___ Bereavement ___ Rapid Response ___ Code Blue ___ Other (describe below) Pastoral Care Referral From _x__ Patient ___ Family ___ Nurse ___ Physician ___ Speech Therapy Director ___ Sterilization Specialist ___ Other (describe below) Sacrament/Intervention _x__ Active listening ___ Anointing ___ Jehovah'S Witness ___ Bereavement ___ Communion ___ Bhavya exploration ___ ___ Life review ___ Prayer ___ Reconciliation ___ Sacrament of Sick _x__ Supportive presence ___ Wedding ___ Other (describe below) Pastoral Comments
[2018-12-12 13:27] LABS: Lactic Acid 1.7 mmol/L (0.4-2.0)
--- NOTE | 2018-12-12 14:07 | PN_ITS ---
<Magalis Mota - Last Filed: 12/12/18 14:25> Patient Problems: Active and Suspected Problems (Last Reviewed 12/12/18 @ 10:33 by Sanjuana Adams PA-C) Renal insufficiency (Acute) Abdominal pain (Acute) Hypotension (Acute) Leukocytosis (Acute) Syncope (Acute) Septic shock (Acute) Subjective: Patient seen and examined. Short of breath. Continues to complain of severe right-sided abdominal pain, worse with movement. Denies fever, chills. Denies nausea, vomiting. - Physical Exam General: Alert, Oriented x3, Cooperative, - - Appears uncomfortable, conversational dyspnea HEENT: Atraumatic, PERRLA, EOMI, Normocephalic Neck: Supple, No JVD, Negative Carotid Bruits Lungs: Clear to auscultation, Diminished, Tachypneic Cardiovascular: Regular rate, Regular Rhythm, Normal S1, Normal S2, No murmurs Abdomen: Bowel Sounds Present, Soft, Non-Distended, Obese, Tender - Right lower quadrant Extremities: No clubbing, No cyanosis, No edema, Capillary Refill Less than 3 Seconds Skin: No rashes, No breakdown Musculoskeletal: No Tenderness to Palpation of Joints or Extremities Neurological: Cranial nerves II-XII grossly intact, Neuro grossly intact Psych/Mental Status: Normal Affect, Appropriate Vital Signs Temp Pulse Resp BP Pulse Ox 99.2 F H 96 26 H 110/55 L 90 12/12/18 13:09 12/12/18 13:09 12/12/18 13:09 12/12/18 13:09 12/12/18 13:09 Oxygen Flow Rate (L/min) 10 Oxygen Delivery Method Nasal Cannula Weight: 258 lb 6.108 oz Body Mass Index (BMI) 37.3 Orthostatic Vital Signs Start: 12/12/18 03:55 Freq: q24h Status: Active Protocol: Activity Type Activity Date Activity User E-Sign Co-Sign Detail Recorded Client Recorded Date Recorded By Document 12/12/18 03:55 [facility] [id number] 12/12/18 04:01 [facility] 12/12/18 03:55 Orthostatic Vitals Standing -Extremity Use Right Arm -Pulse Rate (60-100) 121 H Sitting -Blood Pressure (90/60-120/80) 110/65 -Extremity Use Right Arm -Pulse Rate (60-100) 119 H Lying -Blood Pressure (90/60-120/80) 97/57 L -Extremity Use Right Arm -Pulse Rate (60-100) 104 H 12/12/18 04:01 Nursing Note by Dorothea Carreon Patient unable to stand to finish standing bp for orthostatic vs at this time. Initialized on 12/12/18 04:01 - END OF NOTE Intake and Output for Last 24 Hours 12/10/18 12/11/18 12/12/18 23:59 23:59 23:59 Intake Total 2227 / 2227 3386 / 3386 Output Total 210 / 210 600 / 600 Balance 2016 2786 / 2786 Microbiology Past 72 Hours 12/12/18 08:35 Respiratory Panel (PCR) - Final Mucosa - Nasopharyngeal Laboratory Tests Past 24 Hrs 12/11/18 12/11/18 12/11/18 18:15 18:15 18:15 WBC 22.4 H RBC 4.60 Hgb 14.6 Hct 44.8 MCV 97.4 H MCH 31.7 MCHC 32.6 RDW Std Deviation 48.9 H RDW Coeff of Teja 13.7 Plt Count 433 MPV 9.6 Immature Gran % (Auto) 0.800 Neut % (Auto) 76.5 H Lymph % (Auto) 15.7 L Greene % (Auto) 5.6 Eos % (Auto) 1.0 Baso % (Auto) 0.4 Absolute Neuts (auto) 17.2 H Absolute Lymphs (auto) 3.52 Nucleated RBC % 0 PT 13.9 INR 1.1 APTT 40.9 H D-Dimer Quant (PE/DVT) Sodium 136 Potassium 4.1 Chloride 107 Carbon Dioxide 21.0 Anion Gap 8 BUN 26 H Creatinine 1.40 H Estim Creat Clear Calc 63.83 Est GFR (MDRD) Af Amer 69 Est GFR (MDRD) Non-Af 57 L BUN/Creatinine Ratio 18.6 Glucose 127 H Lactic Acid Calcium 9.5 Magnesium Total Bilirubin 0.30 Direct Bilirubin 0.13 AST 19 ALT 31 Alkaline Phosphatase 66 Total Protein 8.3 H Albumin 4.2 Globulin 4.1 Urine Color Urine Clarity Urine pH Ur Specific [place] Urine Protein Urine Glucose (UA) Urine Ketones Urine Occult Blood Urine Nitrite Urine Bilirubin Urine Urobilinogen Ur Leukocyte Esterase Urine RBC Urine WBC Ur Squamous Epith Cells Urine Bacteria Hyaline Casts Urine Mucus 12/11/18 12/11/18 12/11/18 18:15 20:52 21:07 WBC RBC Hgb Hct MCV MCH MCHC RDW Std Deviation RDW Coeff of Teja Plt Count MPV Immature Gran % (Auto) Neut % (Auto) Lymph % (Auto) Greene % (Auto) Eos % (Auto) Baso % (Auto) Absolute Neuts (auto) Absolute Lymphs (auto) Nucleated RBC % PT INR APTT D-Dimer Quant (PE/DVT) Sodium Potassium Chloride Carbon Dioxide Anion Gap BUN Creatinine Estim Creat Clear Calc Est GFR (MDRD) Af Amer Est GFR (MDRD) Non-Af BUN/Creatinine Ratio Glucose Lactic Acid 2.0 Calcium Magnesium 1.9 Total Bilirubin Direct Bilirubin AST ALT Alkaline Phosphatase Total Protein Albumin Globulin Urine Color Yellow Urine Clarity Clear Urine pH 5.0 Ur Specific [place] 1.020 Urine Protein 100 H Urine Glucose (UA) Normal Urine Ketones Negative Urine Occult Blood Negative Urine Nitrite Negative Urine Bilirubin Negative Urine Urobilinogen Normal Ur Leukocyte Esterase 25 H Urine RBC 0-5 SEEN Urine WBC 0 SEEN Ur Squamous Epith Cells 0 SEEN Urine Bacteria 0 SEEN Hyaline Casts 10-25 SEEN Urine Mucus 3+ 12/12/18 12/12/18 12/12/18 01:53 05:46 05:46 WBC 17.8 H RBC 3.73 L Hgb 11.8 L Hct 36.1 L MCV 96.8 H MCH 31.6 MCHC 32.7 RDW Std Deviation 48.5 H RDW Coeff of Teja 13.7 Plt Count 337 MPV 9.2 Immature Gran % (Auto) 0.500 Neut % (Auto) 69.5 Lymph % (Auto) 21.5 Greene % (Auto) 6.5 Eos % (Auto) 1.7 Baso % (Auto) 0.3 Absolute Neuts (auto) 12.4 H Absolute Lymphs (auto) 3.82 Nucleated RBC % 0 PT INR APTT D-Dimer Quant (PE/DVT) Sodium 141 Potassium 3.8 Chloride 116 H Carbon Dioxide 17.0 L Anion Gap 8 BUN 19 H Creatinine 1.07 Estim Creat Clear Calc 83.51 Est GFR (MDRD) Af Amer 94 Est GFR (MDRD) Non-Af 78 BUN/Creatinine Ratio 17.8 Glucose 104 Lactic Acid 4.4 H* Calcium 8.1 L Magnesium Total Bilirubin Direct Bilirubin AST ALT Alkaline Phosphatase Total Protein Albumin Globulin Urine Color Urine Clarity Urine pH Ur Specific [place] Urine Protein Urine Glucose (UA) Urine Ketones Urine Occult Blood Urine Nitrite Urine Bilirubin Urine Urobilinogen Ur Leukocyte Esterase Urine RBC Urine WBC Ur Squamous Epith Cells Urine Bacteria Hyaline Casts Urine Mucus 12/12/18 12/12/18 12/12/18 05:46 07:00 12:45 WBC RBC Hgb Hct MCV MCH MCHC RDW Std Deviation RDW Coeff of Teja Plt Count MPV Immature Gran % (Auto) Neut % (Auto) Lymph % (Auto) Greene % (Auto) Eos % (Auto) Baso % (Auto) Absolute Neuts (auto) Absolute Lymphs (auto) Nucleated RBC % PT INR APTT D-Dimer Quant (PE/DVT) 0.61 H* Sodium Potassium Chloride Carbon Dioxide Anion Gap BUN Creatinine Estim Creat Clear Calc Est GFR (MDRD) Af Amer Est GFR (MDRD) Non-Af BUN/Creatinine Ratio Glucose Lactic Acid 2.7 H 1.7 Calcium Magnesium Total Bilirubin Direct Bilirubin AST ALT Alkaline Phosphatase Total Protein Albumin Globulin Urine Color Urine Clarity Urine pH Ur Specific [place] Urine Protein Urine Glucose (UA) Urine Ketones Urine Occult Blood Urine Nitrite Urine Bilirubin Urine Urobilinogen Ur Leukocyte Esterase Urine RBC Urine WBC Ur Squamous Epith Cells Urine Bacteria Hyaline Casts Urine Mucus POC Glucose 12/12/18 12/12/18 10:56 08:02 POC Glucose 121 H 117 H Medical Necessity - Tobacco Use Smoking Status: Current every day smoker Tobacco Use: Cigarettes Assessment/Plan All Active Problems (Last Reviewed 12/12/18 @ 10:33 by Sanjuana Adams PA-C) Pancreatitis (Resolved) Hypercalcemia (Resolved) Hyponatremia (Resolved) Renal insufficiency (Acute) Abdominal pain (Acute) Hypotension (Acute) Leukocytosis (Acute) Syncope (Acute) Septic shock (Acute) 1. Sepsis, unclear etiology-lactic acid 4.4, WBC 17.8, tachypneic. Respiratory panel negative. Urine and blood cultures pending. Possibly secondary to colitis? On IV Rocephin and IV Flagyl. Continue aggressive IV fluids. 2. Intractable right-sided abdominal pain-General surgery consult placed. Initial CT of abdomen unremarkable. Repeat CT of abdomen and pelvis shows wall thickening of the cecum, ascending colon and hepatic flexure with mild pericolonic inflammation, consistent with colitis. On antibiotic regimen as noted above. Management per surgery recommendations. 3. Acute hypoxic respiratory insufficiency-CTA of chest completed, PE ruled out. Continue supplement oxygen to maintain O2 sat above 90%. CT a of chest did not demonstrate other acute abnormality. 4. Acute kidney injury-secondary to dehydration, resolved with IV fluids. 5. Syncope-suspect vasovagal secondary to pain. Echocardiogram shows an EF of 55%, moderate left ventricular hypertrophy, severely dilated right ventricle, severe global right ventricular systolic dysfunction, RVSP estimated to be 57 mmHg. Check orthostatic vitals. 6. History of ischemic cardiomyopathy/CAD with history of stent-continue aspirin, statin, carvedilol, Plavix. 7. Hypertension-continue home amlodipine, losartan regimen. 8. Type 2 diabetes [id number] AC at bedtime with sliding scale insulin. Continue home NPH regimen. 9. Obesity-encouraged diet lifestyle modifications. Nutrition consult. 10. Tobacco dependence-encouraged smoking cessation. DVT prophylaxis-Lovenox subcu This patient was seen by LANE Rivera under the supervision of Dr. Crocker. <Attila Crocker F - Last Filed: 12/12/18 15:33> - Physical Exam Vital Signs Temp Pulse Resp BP Pulse Ox 98.2 F 96 22 H 111/60 91 12/12/18 15:07 12/12/18 15:07 12/12/18 15:07 12/12/18 15:07 12/12/18 15:07 Oxygen Flow Rate (L/min) 10 Oxygen Delivery Method Nasal Cannula Weight: 258 lb 6.108 oz Body Mass Index (BMI) 37.3 Orthostatic Vital Signs Start: 12/12/18 03:55 Freq: q24h Status: Active Protocol: Activity Type Activity Date Activity User E-Sign Co-Sign Detail Recorded Client Recorded Date Recorded By Document 12/12/18 03:55 [facility] [id number] 12/12/18 04:01 [facility] 12/12/18 03:55 Orthostatic Vitals Standing -Extremity Use Right Arm -Pulse Rate (60-100) 121 H Sitting -Blood Pressure (90/60-120/80) 110/65 -Extremity Use Right Arm -Pulse Rate (60-100) 119 H Lying -Blood Pressure (90/60-120/80) 97/57 L -Extremity Use Right Arm -Pulse Rate (60-100) 104 H 12/12/18 04:01 Nursing Note by Dorothea Carreon Patient unable to stand to finish standing bp for orthostatic vs at this time. Initialized on 12/12/18 04:01 - END OF NOTE Intake and Output for Last 24 Hours 12/10/18 12/11/18 12/12/18 23:59 23:59 23:59 Intake Total 2227 / 2227 3386 / 3386 Output Total 210 / 210 600 / 600 Balance 2016 2786 / 2786 Microbiology Past 72 Hours 12/12/18 08:35 Respiratory Panel (PCR) - Final Mucosa - Nasopharyngeal Laboratory Tests Past 24 Hrs 12/11/18 12/11/18 12/11/18 18:15 18:15 18:15 WBC 22.4 H RBC 4.60 Hgb 14.6 Hct 44.8 MCV 97.4 H MCH 31.7 MCHC 32.6 RDW Std Deviation 48.9 H RDW Coeff of Teja 13.7 Plt Count 433 MPV 9.6 Immature Gran % (Auto) 0.800 Neut % (Auto) 76.5 H Lymph % (Auto) 15.7 L Greene % (Auto) 5.6 Eos % (Auto) 1.0 Baso % (Auto) 0.4 Absolute Neuts (auto) 17.2 H Absolute Lymphs (auto) 3.52 Nucleated RBC % 0 PT 13.9 INR 1.1 APTT 40.9 H D-Dimer Quant (PE/DVT) Sodium 136 Potassium 4.1 Chloride 107 Carbon Dioxide 21.0 Anion Gap 8 BUN 26 H Creatinine 1.40 H Estim Creat Clear Calc 63.83 Est GFR (MDRD) Af Amer 69 Est GFR (MDRD) Non-Af 57 L BUN/Creatinine Ratio 18.6 Glucose 127 H Lactic Acid Calcium 9.5 Magnesium Total Bilirubin 0.30 Direct Bilirubin 0.13 AST 19 ALT 31 Alkaline Phosphatase 66 Total Protein 8.3 H Albumin 4.2 Globulin 4.1 Urine Color Urine Clarity Urine pH Ur Specific [place] Urine Protein Urine Glucose (UA) Urine Ketones Urine Occult Blood Urine Nitrite Urine Bilirubin Urine Urobilinogen Ur Leukocyte Esterase Urine RBC Urine WBC Ur Squamous Epith Cells Urine Bacteria Hyaline Casts Urine Mucus 12/11/18 12/11/18 12/11/18 18:15 20:52 21:07 WBC RBC Hgb Hct MCV MCH MCHC RDW Std Deviation RDW Coeff of Teja Plt Count MPV Immature Gran % (Auto) Neut % (Auto) Lymph % (Auto) Greene % (Auto) Eos % (Auto) Baso % (Auto) Absolute Neuts (auto) Absolute Lymphs (auto) Nucleated RBC % PT INR APTT D-Dimer Quant (PE/DVT) Sodium Potassium Chloride Carbon Dioxide Anion Gap BUN Creatinine Estim Creat Clear Calc Est GFR (MDRD) Af Amer Est GFR (MDRD) Non-Af BUN/Creatinine Ratio Glucose Lactic Acid 2.0 Calcium Magnesium 1.9 Total Bilirubin Direct Bilirubin AST ALT Alkaline Phosphatase Total Protein Albumin Globulin Urine Color Yellow Urine Clarity Clear Urine pH 5.0 Ur Specific [place] 1.020 Urine Protein 100 H Urine Glucose (UA) Normal Urine Ketones Negative Urine Occult Blood Negative Urine Nitrite Negative Urine Bilirubin Negative Urine Urobilinogen Normal Ur Leukocyte Esterase 25 H Urine RBC 0-5 SEEN Urine WBC 0 SEEN Ur Squamous Epith Cells 0 SEEN Urine Bacteria 0 SEEN Hyaline Casts 10-25 SEEN Urine Mucus 3+ 12/12/18 12/12/18 12/12/18 01:53 05:46 05:46 WBC 17.8 H RBC 3.73 L Hgb 11.8 L Hct 36.1 L MCV 96.8 H MCH 31.6 MCHC 32.7 RDW Std Deviation 48.5 H RDW Coeff of Teja 13.7 Plt Count 337 MPV 9.2 Immature Gran % (Auto) 0.500 Neut % (Auto) 69.5 Lymph % (Auto) 21.5 Greene % (Auto) 6.5 Eos % (Auto) 1.7 Baso % (Auto) 0.3 Absolute Neuts (auto) 12.4 H Absolute Lymphs (auto) 3.82 Nucleated RBC % 0 PT INR APTT D-Dimer Quant (PE/DVT) Sodium 141 Potassium 3.8 Chloride 116 H Carbon Dioxide 17.0 L Anion Gap 8 BUN 19 H Creatinine 1.07 Estim Creat Clear Calc 83.51 Est GFR (MDRD) Af Amer 94 Est GFR (MDRD) Non-Af 78 BUN/Creatinine Ratio 17.8 Glucose 104 Lactic Acid 4.4 H* Calcium 8.1 L Magnesium Total Bilirubin Direct Bilirubin AST ALT Alkaline Phosphatase Total Protein Albumin Globulin Urine Color Urine Clarity Urine pH Ur Specific [place] Urine Protein Urine Glucose (UA) Urine Ketones Urine Occult Blood Urine Nitrite Urine Bilirubin Urine Urobilinogen Ur Leukocyte Esterase Urine RBC Urine WBC Ur Squamous Epith Cells Urine Bacteria Hyaline Casts Urine Mucus 12/12/18 12/12/18 12/12/18 05:46 07:00 12:45 WBC RBC Hgb Hct MCV MCH MCHC RDW Std Deviation RDW Coeff of Teja Plt Count MPV Immature Gran % (Auto) Neut % (Auto) Lymph % (Auto) Greene % (Auto) Eos % (Auto) Baso % (Auto) Absolute Neuts (auto) Absolute Lymphs (auto) Nucleated RBC % PT INR APTT D-Dimer Quant (PE/DVT) 0.61 H* Sodium Potassium Chloride Carbon Dioxide Anion Gap BUN Creatinine Estim Creat Clear Calc Est GFR (MDRD) Af Amer Est GFR (MDRD) Non-Af BUN/Creatinine Ratio Glucose Lactic Acid 2.7 H 1.7 Calcium Magnesium Total Bilirubin Direct Bilirubin AST ALT Alkaline Phosphatase Total Protein Albumin Globulin Urine Color Urine Clarity Urine pH Ur Specific [place] Urine Protein Urine Glucose (UA) Urine Ketones Urine Occult Blood Urine Nitrite Urine Bilirubin Urine Urobilinogen Ur Leukocyte Esterase Urine RBC Urine WBC Ur Squamous Epith Cells Urine Bacteria Hyaline Casts Urine Mucus POC Glucose 12/12/18 12/12/18 10:56 08:02 POC Glucose 121 H 117 H Code Visit Addendum: Dr. Crocker I personally examined the patient and reviewed the chart. I agree with the above. 48-year-old male with a history of coronary artery disease presenting with abdominal pain and syncope. He has significant right-sided abdominal pain and his lactic acid increased from 2-4.4 during the course of his admission. Surgery was consulted for the concern of possible early appendicitis or ischemic colitis, and a repeat CT of his abdomen pelvis was performed with p.o. and IV contrast. He does not have appendicitis but it does look like he has an ascending colitis and therefore we will continue with aggressive IV fluid hydration. Also he has had an increased work of breathing and needing oxygen, so since he was going down for a CT of the abdomen with contrast we also obtained a CTA of the chest which was negative for PE ER any pulmonary pathology. He is not making great urine currently have 0.21 mL/KG/hr. We will continue our hemodynamic support and IV antibiotics. Inpatient E&M: 65185 Subs Hosp L2
[2018-12-12 16:05] LABS: Bedside Glucose 119 mg/dL (70-110)
[2018-12-12] MEDS: 0.9% NaCl Peripheral Flush Adult/Peds IV (19:28)
[2018-12-12] MEDS: Atorvastatin Calcium 20 MG Tablet PO (21:08)
[2018-12-12 21:15] LABS: Bedside Glucose 121 mg/dL (70-110)
[2018-12-13] VITALS (17 sets, daily range): BP systolic 103–135; BP diastolic 63–85; PULSE 84–104; RESP 14–19; TEMP 36.2–37.3; O2SAT 90–96
[2018-12-13] MEDS: Morphine 4 MG/ML Syringe IV (04:30)
[2018-12-13] MEDS: 0.9% Normal Saline 1,000 ML 150 ML IV (04:31)
[2018-12-13] MEDS: 0.9% NaCl Peripheral Flush Adult/Peds IV ×2 (04:31→15:05)
[2018-12-13] MEDS: metroNIDAZOLE 500 MG/100 ML BAG 100 MG IV ×3 (05:29→22:20)
[2018-12-13 06:21] LABS: Hematocrit 34.2 % (40-54); Hemoglobin 10.9 g/dL (13.0-16.5); Mean Corp Hgb Conc 31.9 g/dL (32-36); Mean Corpuscular Hgb 30.8 pg (27.0-32.0); Mean Corpuscular Volume 96.6 fL (80-94); Mean Platelet Vol. 9.5 fl (6.2-12.0); Platelet Count 316 K/mm3 (150-450); RBC Distribution Width CV 14.1 % (11.6-14.6); RBC Distribution Width SD 50.1 fl (35.1-43.9); Red Blood Count 3.54 M/mm3 (4.6-6.2); White Blood Count 16.1 K/mm3 (4.4-11.0)
[2018-12-13 06:38] LABS: Anion Gap 8 (5-15); BUN 7 mg/dL (7-18); BUN/Creat Ratio 8.4 RATIO (10-20); Calcium,Total 8.3 mg/dL (8.5-10.1); Chloride 115 mmol/L (98-107); Creatinine, Serum 0.83 mg/dL (0.70-1.30); EST Glomerular Filtration Rate 104 mL/min (>60); Est Glom Filt Rate - Afr Amer 126 mL/min (>60); Estimated Creatinine Clearance 107.66 ml/min; Glucose 95 mg/dL (74-106); Potassium 3.6 mmol/L (3.5-5.1); Sodium Level 143 mmol/L (136-145)
[2018-12-13 06:50] LABS: Bedside Glucose 98 mg/dL (70-110)
--- NOTE | 2018-12-13 08:23 | PCM.PN.SRG ---
Patient Problems: Active and Suspected Problems (Last Reviewed 12/12/18 @ 10:33 by Sanjuana Adams PA-C) Renal insufficiency (Acute) Abdominal pain (Acute) Hypotension (Acute) Leukocytosis (Acute) Syncope (Acute) Septic shock (Acute) Subjective: Patient is evaluated sitting on the side of the bed eating an omelet for breakfast. He denies nausea, vomiting. He notes his pain in the RLQ is much improved. He notes the discomfort is still there however it is dull. He is still requiring a large amount of oxygen via nasal canula. - Physical Exam General: Alert, Oriented x3, Cooperative Abdomen: Soft, Non-Distended, Obese, Tender - Slightly RLQ Vital Signs Temp Pulse Resp BP Pulse Ox 98.5 F 104 H 19 H 109/75 90 12/13/18 03:45 12/13/18 07:00 12/13/18 03:45 12/13/18 03:55 12/13/18 07:25 Oxygen Flow Rate (L/min) 10 Oxygen Delivery Method Nasal Cannula Weight: 258 lb 6.108 oz Body Mass Index (BMI) 37.3 Orthostatic Vital Signs Start: 12/12/18 03:55 Freq: q24h Status: Active Protocol: Activity Type Activity Date Activity User E-Sign Co-Sign Detail Recorded Client Recorded Date Recorded By Document 12/13/18 03:55 ARN [id number] 12/13/18 04:34 ARN 12/13/18 03:55 Orthostatic Vitals Standing -Blood Pressure (90/60-120/80) 120/85 H -Extremity Use Left Arm -Pulse Rate (60-100) 95 Sitting -Blood Pressure (90/60-120/80) 109/75 -Extremity Use Left Arm -Pulse Rate (60-100) 92 Intake and Output for Last 24 Hours 12/11/18 12/12/18 12/13/18 23:59 23:59 23:59 Intake Total 2227 / 2227 5102 / 6606 1992.6 / 1992.6 Output Total 210 / 210 1525 / 3625 3125 / 3125 Balance 2016 3577 / 2981 -1131.4 / -1131.4 Microbiology Past 72 Hours 12/12/18 08:35 Respiratory Panel (PCR) - Final Mucosa - Nasopharyngeal Laboratory Tests Past 24 Hrs 12/12/18 12/12/18 12/13/18 05:46 12:45 05:50 WBC 16.1 H RBC 3.54 L Hgb 10.9 L Hct 34.2 L MCV 96.6 H MCH 30.8 MCHC 31.9 L RDW Std Deviation 50.1 H RDW Coeff of Teja 14.1 Plt Count 316 MPV 9.5 Sodium Potassium Chloride Carbon Dioxide Anion Gap BUN Creatinine Estim Creat Clear Calc Est GFR (MDRD) Af Amer Est GFR (MDRD) Non-Af BUN/Creatinine Ratio Glucose Lactic Acid 2.7 H 1.7 Calcium 12/13/18 05:50 WBC RBC Hgb Hct MCV MCH MCHC RDW Std Deviation RDW Coeff of Teja Plt Count MPV Sodium 143 Potassium 3.6 Chloride 115 H Carbon Dioxide 20.0 L Anion Gap 8 BUN 7 Creatinine 0.83 Estim Creat Clear Calc 107.66 Est GFR (MDRD) Af Amer 126 Est GFR (MDRD) Non-Af 104 BUN/Creatinine Ratio 8.4 L Glucose 95 Lactic Acid Calcium 8.3 L POC Glucose 12/13/18 12/12/18 12/12/18 06:48 21:08 15:43 POC Glucose 98 121 H 119 H 12/12/18 10:56 POC Glucose 121 H Medical Necessity - Tobacco Use Smoking Status: Current every day smoker Tobacco Use: Cigarettes Assessment/Plan All Active Problems (Last Reviewed 12/12/18 @ 10:33 by Sanjuana Adams PA-C) Pancreatitis (Resolved) Hypercalcemia (Resolved) Hyponatremia (Resolved) Renal insufficiency (Acute) Abdominal pain (Acute) Hypotension (Acute) Leukocytosis (Acute) Syncope (Acute) Septic shock (Acute) I have been consulted in conjunction with Dr. Del Cid. Ascending colitis Continue IV antibiotics for colitis Patient has a known chronic leukocytosis of unknown etiology dating back to 2017 Continues to require significant amount of O2. We will continue to monitor this patient Code Visit Inpatient E&M: 78489 Subs Hosp L1
[2018-12-13] MEDS: Insulin NPH Human 100 UNITS/ML PEN SC (08:58)
[2018-12-13] MEDS: Enoxaparin 40 MG/0.4 ML Syringe SC (08:58)
[2018-12-13] MEDS: Fenofibrate 145 MG Tablet PO (08:58)
[2018-12-13] MEDS: Aspirin 81 MG TAB.CHEW PO (08:58)
[2018-12-13] MEDS: Clopidogrel Bisulfate 75 MG Tablet PO (08:59)
[2018-12-13] MEDS: Morphine 2 MG/ML Syringe IV ×3 (09:04→15:05)
[2018-12-13] MEDS: 0.9% Normal Saline 1,000 ML 100 ML IV ×2 (10:48→20:28)
--- NOTE | 2018-12-13 12:55 | PN_ITS ---
<Magalis Mota - Last Filed: 12/13/18 13:02> Patient Problems: Active and Suspected Problems (Last Reviewed 12/12/18 @ 10:33 by Sanjuana Adams PA-C) Renal insufficiency (Acute) Abdominal pain (Acute) Hypotension (Acute) Leukocytosis (Acute) Syncope (Acute) Septic shock (Acute) Subjective: Patient seen and examined. Abdominal pain improved. Denies fever, chills. Denies further shortness of breath however he remains on significant amount of oxygen. - Physical Exam General: Alert, Oriented x3, Cooperative HEENT: Atraumatic, PERRLA, EOMI, Normocephalic Neck: Supple, No JVD, Negative Carotid Bruits Lungs: Clear to auscultation, Diminished Cardiovascular: Regular rate, Regular Rhythm, Normal S1, Normal S2, No murmurs Abdomen: Bowel Sounds Present, Soft, Non-Distended, Obese, Tender - RLQ Extremities: No clubbing, No cyanosis, No edema, Capillary Refill Less than 3 Seconds Skin: No rashes, No breakdown Musculoskeletal: No Tenderness to Palpation of Joints or Extremities Neurological: Cranial nerves II-XII grossly intact, Neuro grossly intact Psych/Mental Status: Normal Affect, Appropriate Vital Signs Temp Pulse Resp BP Pulse Ox 98.1 F 89 18 106/76 93 12/13/18 09:30 12/13/18 09:30 12/13/18 09:30 12/13/18 09:30 12/13/18 11:34 Oxygen Flow Rate (L/min) 9 Oxygen Delivery Method Nasal Cannula Weight: 258 lb 6.108 oz Body Mass Index (BMI) 37.3 Orthostatic Vital Signs Start: 12/12/18 03:55 Freq: q24h Status: Active Protocol: Activity Type Activity Date Activity User E-Sign Co-Sign Detail Recorded Client Recorded Date Recorded By Document 12/13/18 03:55 ARN [id number] 12/13/18 04:34 ARN 12/13/18 03:55 Orthostatic Vitals Standing -Blood Pressure (90/60-120/80) 120/85 H -Extremity Use Left Arm -Pulse Rate (60-100) 95 Sitting -Blood Pressure (90/60-120/80) 109/75 -Extremity Use Left Arm -Pulse Rate (60-100) 92 Intake and Output for Last 24 Hours 0812/12/18 12/13/18 23:59 23:59 23:59 Intake Total 2226 / 2227 5102 / 6606 2821.6 / 2821.6 Output Total 210 / 210 1525 / 3625 3575 / 3575 Balance 2016 3577 / 2981 -753.4 / -753.4 Microbiology Past 72 Hours 12/12/18 04:15 Urine Culture - Preliminary Urine, Clean Catch Mixed Gram Pos & Gram Neg Org 12/12/18 08:35 Respiratory Panel (PCR) - Final Mucosa - Nasopharyngeal Laboratory Tests Past 24 Hrs 12/12/18 12/13/18 12/13/18 12:45 05:50 05:50 WBC 16.1 H RBC 3.54 L Hgb 10.9 L Hct 34.2 L MCV 96.6 H MCH 30.8 MCHC 31.9 L RDW Std Deviation 50.1 H RDW Coeff of Teja 14.1 Plt Count 316 MPV 9.5 Sodium 143 Potassium 3.6 Chloride 115 H Carbon Dioxide 20.0 L Anion Gap 8 BUN 7 Creatinine 0.83 Estim Creat Clear Calc 107.66 Est GFR (MDRD) Af Amer 126 Est GFR (MDRD) Non-Af 104 BUN/Creatinine Ratio 8.4 L Glucose 95 Lactic Acid 1.7 Calcium 8.3 L POC Glucose 12/13/18 12/12/18 12/12/18 06:48 21:08 15:43 POC Glucose 98 121 H 119 H Medical Necessity - Tobacco Use Smoking Status: Current every day smoker Tobacco Use: Cigarettes Assessment/Plan All Active Problems (Last Reviewed 12/12/18 @ 10:33 by Sanjuana Adams PA-C) Pancreatitis (Resolved) Hypercalcemia (Resolved) Hyponatremia (Resolved) Renal insufficiency (Acute) Abdominal pain (Acute) Hypotension (Acute) Leukocytosis (Acute) Syncope (Acute) Septic shock (Acute) 1. Sepsis, secondary to colitis-lactic acid 4.4, WBC 17.8, tachypneic. Respiratory panel negative. Urine and blood cultures pending. On IV Rocephin and IV Flagyl. Continue IV fluids. 2. Intractable right-sided abdominal pain secondary to ascending colitis- General surgery consulted. Initial CT of abdomen unremarkable. Repeat CT of abdomen and pelvis shows wall thickening of the cecum, ascending colon and hepatic flexure with mild pericolonic inflammation, consistent with colitis. On antibiotic regimen as noted above. Management per surgery recommendations. 3. Acute hypoxic respiratory insufficiency-CTA of chest completed, PE ruled out. Continue supplement oxygen to maintain O2 sat above 90%. CT a of chest did not demonstrate other acute abnormality. Patient continues to require significant amount of oxygen. Complete ABG. Encourage use of Incentive spirometer. 4. Acute kidney injury-secondary to dehydration, resolved with IV fluids. 5. Syncope-suspect vasovagal secondary to pain. Echocardiogram shows an EF of 55%, moderate left ventricular hypertrophy, severely dilated right ventricle, severe global right ventricular systolic dysfunction, RVSP estimated to be 57 mmHg. 6. History of ischemic cardiomyopathy/CAD with history of stent-continue aspirin, statin, carvedilol, Plavix. 7. Hypertension-continue home amlodipine, losartan regimen. 8. Type 2 diabetes [id number] AC at bedtime with sliding scale insulin. Continue home NPH regimen. 9. Obesity-encouraged diet lifestyle modifications. Nutrition consult. 10. Tobacco dependence-encouraged smoking cessation. DVT prophylaxis-Lovenox subcu This patient was seen by [facility] under the supervision of Dr. Crocker. <Attila Crocker F - Last Filed: 12/13/18 13:57> - Physical Exam Vital Signs Temp Pulse Resp BP Pulse Ox 98.1 F 89 18 106/76 93 12/13/18 09:30 12/13/18 09:30 12/13/18 09:30 12/13/18 09:30 12/13/18 11:34 Oxygen Flow Rate (L/min) 7 Oxygen Delivery Method Nasal Cannula Weight: 258 lb 6.108 oz Body Mass Index (BMI) 37.3 Orthostatic Vital Signs Start: 12/12/18 03:55 Freq: q24h Status: Active Protocol: Activity Type Activity Date Activity User E-Sign Co-Sign Detail Recorded Client Recorded Date Recorded By Document 12/13/18 03:55 ARN [id number] 12/13/18 04:34 ARN 12/13/18 03:55 Orthostatic Vitals Standing -Blood Pressure (90/60-120/80) 120/85 H -Extremity Use Left Arm -Pulse Rate (60-100) 95 Sitting -Blood Pressure (90/60-120/80) 109/75 -Extremity Use Left Arm -Pulse Rate (60-100) 92 Intake and Output for Last 24 Hours 12/11/18 12/12/18 12/13/18 23:59 23:59 23:59 Intake Total 2227 / 2227 5102 / 6606 2821.6 / 2821.6 Output Total 210 / 210 1525 / 3625 3575 / 3575 Balance 2016 3577 / 2981 -753.4 / -753.4 Microbiology Past 72 Hours 12/12/18 04:15 Urine Culture - Preliminary Urine, Clean Catch Mixed Gram Pos & Gram Neg Org 12/12/18 08:35 Respiratory Panel (PCR) - Final Mucosa - Nasopharyngeal Laboratory Tests Past 24 Hrs 12/13/18 12/13/18 12/13/18 05:50 05:50 13:20 WBC 16.1 H RBC 3.54 L Hgb 10.9 L Hct 34.2 L MCV 96.6 H MCH 30.8 MCHC 31.9 L RDW Std Deviation 50.1 H RDW Coeff of Teja 14.1 Plt Count 316 MPV 9.5 Specimen Type ART Sample Site R Radial pH 7.42 Bicarbonate Actual 17.3 L POC Total CO2 18 Base Excess -7 L O2 Saturation 90 L ABG pCO2 26.9 L ABG pO2 56 L O2 Delivery Device Nasal Can Liter Flow 7.0 Blood Gas Notified Whom [facility] Blood Gas Notified Time 1325 Sodium 143 Potassium 3.6 Chloride 115 H Carbon Dioxide 20.0 L Anion Gap 8 BUN 7 Creatinine 0.83 Estim Creat Clear Calc 107.66 Est GFR (MDRD) Af Amer 126 Est GFR (MDRD) Non-Af 104 BUN/Creatinine Ratio 8.4 L Glucose 95 Calcium 8.3 L POC Glucose 12/13/18 12/12/18 12/12/18 06:48 21:08 15:43 POC Glucose 98 121 H 119 H Code Visit Addendum: Dr. Crocker I personally examined the patient and reviewed the chart. I agree with the above.-year-old male with history of CAD status post stent, presents with significant relief right lower quadrant abdominal pain. Initially concern for an acute abdomen given the severity of the pain, however he underwent repeat CT scanning with contrast of his abdomen which showed ascending colitis likely infectious, with a normal appendix. Today his pain is much improved and he tolerated breakfast decently well had an omelette. We will slow down his IV fluids from 1 5200 since his lactate has normalized and he is feeling better. Though still some concern is the fact that he is requiring significant amount of oxygen via nasal cannula. CT of the chest yesterday done in conjunction with the CT of the abdomen did not show PE. If there is no sewed significant improvement by tomorrow we will consult pulmonology to assist in evaluation. Inpatient E&M: 37912 Subs Hosp L2
[2018-12-13 13:25] LABS: Base Excess -7 mmol/L (-2 to +2); Bicarbonate 17.3 mmol/L (22-26); Blood Gas Specimen Type ART; O2 Delivery Device Nasal Can; PO2 56 mmHG (75-100); SITE R Radial; SO2 90 % (95-99); Time Given 1325; Total Carbon Dioxide 18 mmol/L; pCO2 26.9 mmHg (35-45); pH 7.42 (7.35-7.45)
[2018-12-13] MEDS: Atorvastatin Calcium 20 MG Tablet PO (21:41)
[2018-12-13] MEDS: oxyCODONE 5 MG Tablet PO (21:50)
[2018-12-13 21:56] LABS: Bedside Glucose 119 mg/dL (70-110)
[2018-12-14] VITALS (11 sets, daily range): BP systolic 110–141; BP diastolic 64–87; PULSE 84–99; RESP 18; TEMP 36.6–36.9; O2SAT 91–96
[2018-12-14] MEDS: Morphine 2 MG/ML Syringe IV ×2 (00:39→10:47)
[2018-12-14] MEDS: metroNIDAZOLE 500 MG/100 ML BAG 100 MG IV ×2 (05:40→13:56)
[2018-12-14] MEDS: 0.9% Normal Saline 1,000 ML 100 ML IV (06:25)
[2018-12-14 06:42] LABS: Hematocrit 35.5 % (40-54); Hemoglobin 11.5 g/dL (13.0-16.5); Mean Corp Hgb Conc 32.4 g/dL (32-36); Mean Corpuscular Hgb 30.7 pg (27.0-32.0); Mean Corpuscular Volume 94.9 fL (80-94); Mean Platelet Vol. 9.5 fl (6.2-12.0); Platelet Count 345 K/mm3 (150-450); RBC Distribution Width CV 13.8 % (11.6-14.6); RBC Distribution Width SD 48.2 fl (35.1-43.9); Red Blood Count 3.74 M/mm3 (4.6-6.2); White Blood Count 15.7 K/mm3 (4.4-11.0)
--- NOTE | 2018-12-14 07:29 | PCM.PN.SRG ---
Patient Problems: Active and Suspected Problems (Last Reviewed 12/12/18 @ 10:33 by Sanjuana Adams PA-C) Renal insufficiency (Acute) Abdominal pain (Acute) Hypotension (Acute) Leukocytosis (Acute) Syncope (Acute) Septic shock (Acute) Subjective: Patient evaluated resting comfortably in bed. He notes abdominal pain is highly improved. Hen notes focal discomfort in the RLQ. He tolerated his diet well yesterday. Negative nausea, vomiting. Positive flatus. Liquid BM yesterday. - Physical Exam General: Alert, Oriented x3, Cooperative Abdomen: Soft, Hypoactive Bowel Sounds, Obese, Tender - RLQ Vital Signs Temp Pulse Resp BP Pulse Ox 98.5 F 94 18 127/87 H 95 12/14/18 03:25 12/14/18 03:25 12/14/18 03:25 12/14/18 03:25 12/14/18 03:25 Oxygen Flow Rate (L/min) 9 Oxygen Delivery Method Nasal Cannula Weight: 257 lb 15.053 oz Body Mass Index (BMI) 37.3 Orthostatic Vital Signs Start: 12/12/18 03:55 Freq: q24h Status: Active Protocol: Activity Type Activity Date Activity User E-Sign Co-Sign Detail Recorded Client Recorded Date Recorded By Document 12/14/18 03:00 [id number] 12/14/18 03:32 [email or web address] 12/14/18 03:00 Orthostatic Vitals Standing -Blood Pressure (90/60-120/80) 141/87 H -Extremity Use Right Arm -Pulse Rate (60-100) 95 Sitting -Blood Pressure (90/60-120/80) 114/70 -Extremity Use Right Arm -Pulse Rate (60-100) 99 Lying -Blood Pressure (90/60-120/80) 127/87 H -Extremity Use Right Arm -Pulse Rate (60-100) 95 Intake and Output for Last 24 Hours 12/12/18 12/13/18 12/14/18 23:59 23:59 23:59 Intake Total 5102 / 6606 3889.6 / 5161.6 1983 Output Total 1525 / 3625 4725 / 7050 2750 / 2750 Balance 3577 / 2981 -835.4 / -1888.4 -766 / -766 Microbiology Past 72 Hours 12/12/18 04:15 Urine Culture - Preliminary Urine, Clean Catch Mixed Gram Pos & Gram Neg Org 12/12/18 08:35 Respiratory Panel (PCR) - Final Mucosa - Nasopharyngeal Laboratory Tests Past 24 Hrs 12/13/18 12/14/18 13:20 06:00 WBC 15.7 H RBC 3.74 L Hgb 11.5 L Hct 35.5 L MCV 94.9 H MCH 30.7 MCHC 32.4 RDW Std Deviation 48.2 H RDW Coeff of Teja 13.8 Plt Count 345 MPV 9.5 Specimen Type ART Sample Site R Radial pH 7.42 Bicarbonate Actual 17.3 L POC Total CO2 18 Base Excess -7 L O2 Saturation 90 L ABG pCO2 26.9 L ABG pO2 56 L O2 Delivery Device Nasal Can Liter Flow 7.0 Blood Gas Notified Whom [facility]OS[facility] Blood Gas Notified Time 1325 POC Glucose 12/13/18 21:49 POC Glucose 119 H Medical Necessity - Tobacco Use Smoking Status: Current every day smoker Tobacco Use: Cigarettes Assessment/Plan All Active Problems (Last Reviewed 12/12/18 @ 10:33 by Sanjuana Adams PA-C) Pancreatitis (Resolved) Hypercalcemia (Resolved) Hyponatremia (Resolved) Renal insufficiency (Acute) Abdominal pain (Acute) Hypotension (Acute) Leukocytosis (Acute) Syncope (Acute) Septic shock (Acute) I have been consulted in conjunction with Dr. Del Cid. Ascending colitis, probable infectious etiology Continue IV antibiotics for colitis. Will continue antibiotics orally at discharge. WBC continues to decrease Patient has a known chronic leukocytosis of unknown etiology dating back to 2017 Continues to require significant amount of O2. We will continue to monitor this patient Code Visit Inpatient E&M: 66021 Subs Hosp L1 - No charge
[2018-12-14] MEDS: Enoxaparin 40 MG/0.4 ML Syringe SC (08:16)
[2018-12-14] MEDS: Clopidogrel Bisulfate 75 MG Tablet PO (08:16)
[2018-12-14] MEDS: Aspirin 81 MG TAB.CHEW PO (08:16)
[2018-12-14] MEDS: Insulin NPH Human 100 UNITS/ML PEN SC (08:16)
[2018-12-14] MEDS: Fenofibrate 145 MG Tablet PO (08:16)
[2018-12-14 08:26] LABS: Bedside Glucose 107 mg/dL (70-110)
[2018-12-14] MEDS: Furosemide 40 MG/4 ML Vial IV ×3 (10:48→21:46)
--- NOTE | 2018-12-14 11:04 | CON.PCM_ITS ---
Problem List (1) Pancreatitis Status: Resolved (2) Abdominal pain Status: Acute (3) Leukocytosis Status: Acute (4) Syncope Status: Acute (5) Essential hypertension Status: Chronic (6) S/P angioplasty with stent Status: Chronic Comment: STEVNE mid LAD 4.0 x 23 mm Synergy (7) Diabetes Status: Chronic (8) Pulmonary hypertension Status: Chronic (9) Cardiomyopathy Status: Chronic Qualifiers: Cardiomyopathy type: ischemic Qualified Code(s): I25.5 - Ischemic cardiomyopathy Comment: EF 45% (10) Arteriosclerotic heart disease (ASHD) Status: Chronic Comment: S/p stent to LAD 09/2018 Reason for Consult Date of Consultation: 12/14/18 Reason for Consultation: Hypoxemia History of Present Illness: The patient is a 48 year old M, with past medical history listed below, who presented to [facility] on 12/11/2018 secondary to right lower quadrant pain and syncope. Patient reportedly had some nausea and some mild diarrhea and had a dizziness with ringing sensation in his ear. Patient does have a recent cardiac stent that was placed in September and was recently changed from Brilinta to Plavix, but did not know if this had anything to do with his issue. In the ER, patient was requiring nasal cannula oxygen. However, patient was desaturating with standing to urinate. Patient would recover quickly, but was given fentanyl, Toradol and Zofran. Patient had significant leukocytosis, so he was admitted to the hospital overnight for hydration, blood pressure monitoring and repeat abdominal exams. Over the course of patient's hospitalization, patient is had increased oxygen requirements. Patient is currently requiring 8 to 9 L of nasal cannula oxygen to maintain saturations, so a pulmonary consult was obtained. Patient reports any significant history of lung pathology in the past. Patient does have a [id number] smoking history and states that his primary care physician had ordered a pulmonary function test secondary to dyspnea. Patient estimates that he has been having increased dyspnea since April. Patient feels that he may have had some problems before that, but does suffer from musculoskeletal injuries that limit his exercise tolerance. Patient states that before this hospitalization he replaces exercise tolerance at approximately 50 feet. Patient states he is scheduled to see [facility] pulmonary in February for an evaluation. Patient states that he recently had a stent placed and thought this was going to fix his problem, but has noted a little improvement in his overall condition. Patient does not require supplemental oxygen previously. Patient does not prescribe any specific dietary restrictions, but states he does not add salt to his food. Patient has not noted significant lower extremity edema. Patient has not reported any recent, fever, chills, rashes, hemoptysis or nasal congestion. Patient states that in the past he used to walk as far as he wanted as long as he had a walker or a cart to push. This has significantly changed recently. Patient is not having a significantly productive cough. Patient is on Lasix at baseline and this has not been continued during his hospitalization. Review of systems otherwise negative x10 systems. Past Medical History Past Medical History (Chronic Problems): Chronic Problems (Last Reviewed 12/12/18 @ 10:33 by Sanjuana Adams PA-C) Essential hypertension (Chronic) S/P angioplasty with stent (Chronic) STEVEN mid LAD 4.0 x 23 mm Synergy Diabetes (Chronic) Pulmonary hypertension (Chronic) Cardiomyopathy (Chronic) EF 45% Arteriosclerotic heart disease (ASHD) (Chronic) S/p stent to LAD 09/2018 Medical History: Medical History (Last Reviewed 12/12/18 @ 10:33 by Sanjuana Adams PA-C) Essential hypertension (Chronic) I10 Diabetes (Chronic) E11.9 Pulmonary hypertension (Chronic) I27.20 Cardiomyopathy (Chronic) I42.9 EF 45% Arteriosclerotic heart disease (ASHD) (Chronic) I25.10 S/p stent to LAD 09/2018 History of chronic pancreatitis Z87.19 Allergies lisinopril Allergy (Verified 12/11/18 22:49) Other COUGH Home Medications: Ambulatory Orders Medication Instructions Recorded Losartan Potassium [Cozaar] 100 mg PO DAILY 10/12/16 Aspirin [Aspirin, Baby] 81 mg PO DAILY@0800 09/06/18 Atorvastatin Calcium [Lipitor] 20 mg PO DAILY 09/06/18 Carvedilol [Coreg (Beta Jeff)] 6.25 mg PO BID 09/06/18 Fenofibrate [Tricor] 145 mg PO DAILY 09/06/18 Insulin NPH Human Isophane 5 unit SQ DAILY 09/06/18 [Humulin N Kwikpen] potassium chloride ER 10 mEq 10 meq PO DAILY 09/06/18 tablet,extended release(part/cryst) Oxycodone HCl/Acetaminophen 1 ea PO TID PRN PRN 05/02/19 [Percocet 5-325 mg Tablet] amlodipine 5 mg tablet 5 mg PO DAILY #30 tab 09/18/18 furosemide 20 mg tablet 20 mg PO QAM 12/01/18 clopidogrel 75 mg tablet 75 mg PO DAILY #30 tab 12/06/18 Surgical History: Surgical History (Last Updated 12/12/18 @ 10:34 by Sanjuana Adams PA-C) S/P angioplasty with stent (Chronic) Z95.820 STEVEN mid LAD 4.0 x 23 mm Synergy History of cholecystectomy Z90.49 2009 History of hip surgery Z98.890 X 6 on hips as a child S/P cataract surgery Z98.49 S/P colonoscopy Z98.890 Status post total hip replacement, right Z96.641 Surgical History: no surgical history Lives: Spouse/ Significant Other Smoking Status: Current every day smoker Tobacco Use: Cigarettes Alcohol: None Drugs: None - *Family History Maternal Family History: Family History (Last Reviewed 12/12/18 @ 10:35 by Sanjuana Adams PA-C) Mother Diabetes Hypertension Breast cancer Grandfather Heart disease Uncle Heart disease Paternal Family History: Family History (Last Reviewed 12/12/18 @ 10:35 by Sanjuana Adams PA-C) Mother Diabetes Hypertension Breast cancer Grandfather Heart disease Uncle Heart disease Review of Systems Comment: See HPI Patient Problems: Active and Suspected Problems (Last Reviewed 12/12/18 @ 10:33 by Sanjuana Adams PA-C) Renal insufficiency (Acute) Abdominal pain (Acute) Hypotension (Acute) Leukocytosis (Acute) Syncope (Acute) Septic shock (Acute) Objective: CTA chest (12/12/2018): Personally reviewed. Does not have significant emphysematous changes, but dilated pulmonary vasculature is noted. Patient does have some bronchial cuffing suggestive of chronic bronchitis. Echocardiogram (12/11/2018): EF 55% with inability to assess diastolic dysfunction. Patient does have a severely dilated right ventricle with systolic dysfunction. Left atrium is normal and right atrium is mildly enlarged. Pulmonary artery pressures were estimated at 57 mmHg. No other significant valvular abnormalities were noted. Patient reportedly had a complete PFT at [facility] recently showing restrictive lung disease with no obstruction. Raw data was not available for review. Patient has not had accurate I's and O's during hospitalization, but has had over 13 L of fluids, 10 L by IV, intake over the course of the hospitalization. - Physical Exam General: Alert, Oriented x3, Cooperative, No apparent distress, Well developed, Well nourished, - - No conversational dyspnea. Appears older than stated age. HEENT: Atraumatic, PERRLA, EOMI, Normocephalic, - - No scleral icterus or injection noted. No epistaxis noted. Oral: Moist Mucosa, No Gingival or Mucosal Lesions/ Ulcerations Neck: Supple, No Nodes, Trachea Midline, JVD, Right Lungs: No rhonchi, No wheeze, Diminished, Rales - Right greater than left base, - - Symmetric expansion. No dullness to percussion. Cardiovascular: Regular rate, Regular Rhythm, Normal S1, No murmurs, No rub noted, No Gallop, - - Pronounced second heart sounds Abdomen: Bowel Sounds Present, Soft, Non Tender, Distended - Slightly, Obese Extremities: No clubbing, No cyanosis, No edema Skin: No rashes, No breakdown Musculoskeletal: No Tenderness to Palpation of Joints or Extremities Lymphatic: No Cervical, Supraclavicular, or Inguinal Adenopathy Neurological: Cranial nerves II-XII grossly intact, Neuro grossly intact, Motor Exam 5/5 strength throughout Psych/Mental Status: Alert and oriented to time, place, person, mood and affect Vital Signs Temp Pulse Resp BP Pulse Ox 36.9 C 89 18 124/86 H 95 12/14/18 09:23 12/14/18 09:23 12/14/18 09:23 12/14/18 09:23 12/14/18 09:23 Oxygen Flow Rate (L/min) 9 Oxygen Delivery Method Nasal Cannula Weight: 117 kg Body Mass Index (BMI) 37.3 Orthostatic Vital Signs Start: 12/12/18 03:55 Freq: q24h Status: Active Protocol: Activity Type Activity Date Activity User E-Sign Co-Sign Detail Recorded Client Recorded Date Recorded By Document 12/14/18 03:00 JM8 [id number] 12/14/18 03:32 JM8 12/14/18 03:00 Orthostatic Vitals Standing -Blood Pressure (90/60-120/80) 141/87 H -Extremity Use Right Arm -Pulse Rate (60-100) 95 Sitting -Blood Pressure (90/60-120/80) 114/70 -Extremity Use Right Arm -Pulse Rate (60-100) 99 Lying -Blood Pressure (90/60-120/80) 127/87 H -Extremity Use Right Arm -Pulse Rate (60-100) 95 Intake and Output for Last 24 Hours 12/12/18 12/13/18 12/14/18 23:59 23:59 23:59 Intake Total 5102 / 6606 3889.6 / 5161.6 1983 Output Total 1525 / 3625 4725 / 7050 2750 / 2750 Balance 3577 / 2981 -835.4 / -1888.4 -766 / -766 Microbiology Past 72 Hours 12/12/18 04:15 Urine Culture - Final Urine, Clean Catch Mixed Gram Pos & Gram Neg Org 12/14/18 Unknown Stool Lactoferrin - Final Stool 12/12/18 01:53 Blood Culture - Preliminary Interface Orders No growth in 48 hours. 12/11/18 21:07 Blood Culture - Preliminary Blood Culture (Wb) - Anticubital Right No growth in 48 hours. 12/12/18 08:35 Respiratory Panel (PCR) - Final Mucosa - Nasopharyngeal Laboratory Tests Past 24 Hrs 12/13/18 12/14/18 13:20 06:00 WBC 15.7 H RBC 3.74 L Hgb 11.5 L Hct 35.5 L MCV 94.9 H MCH 30.7 MCHC 32.4 RDW Std Deviation 48.2 H RDW Coeff of Teja 13.8 Plt Count 345 MPV 9.5 Specimen Type ART Sample Site R Radial pH 7.42 Bicarbonate Actual 17.3 L POC Total CO2 18 Base Excess -7 L O2 Saturation 90 L ABG pCO2 26.9 L ABG pO2 56 L O2 Delivery Device Nasal Can Liter Flow 7.0 Blood Gas Notified Whom [facility] Blood Gas Notified Time 1325 POC Glucose 12/14/18 12/13/18 08:14 21:49 POC Glucose 107 119 H Clinical Impression(s) from Imaging Studies Abdomen/Pelvis CT 12/11/18 19:02 IMPRESSION: No evidence of appendicitis, acute intestinal pathology, or acute obstructive uropathy. Electronically Signed: Bacilio Marin MD at 19:42 EDT Tel , Service support , Chest X-Ray 12/11/18 21:35 IMPRESSION: Stable elevation of the right hemidiaphragm. No acute pulmonary findings. Electronically Signed: Bacilio Marin MD at 21:54 EDT Tel , Service support , Chest X-Ray 12/12/18 05:02 IMPRESSION: Stable chest, no acute cardiopulmonary disease. Electronically Signed: Gerhard Hiknle MD at 6:36 EDT , Service support , Abdomen/Pelvis CT 12/12/18 09:24 IMPRESSION: Wall thickening of the cecum, ascending colon and hepatic flexure with mild pericolonic inflammation is consistent with colitis, new since 12/11/2018. Electronically Signed: Gennaro Valenzuela, at 13:04 EDT Tel , Service support , Chest CTA 12/12/18 09:47 IMPRESSION: No acute abnormality is seen. Electronically Signed: Min Hamilton, at 12:42 EDT , Service support , Assessment/Plan All Active Problems (Last Reviewed 12/12/18 @ 10:33 by Sanjuana Adams PA-C) Pancreatitis (Resolved) Hypercalcemia (Resolved) Hyponatremia (Resolved) Renal insufficiency (Acute) Abdominal pain (Acute) Hypotension (Acute) Leukocytosis (Acute) Syncope (Acute) Septic shock (Acute) RECOMMENDATIONS: 1. Initiate diuretic therapy 2. Antibiotics per primary service 3. No indication for steroid therapy from a pulmonary perspective 4. No need for bronchodilators from my perspective 5. Outpatient polysomnogram IMPRESSIONS: 1. Acute hypoxic respiratory failure secondary to probable cor pulmonale Patient with significantly elevated pulmonary artery pressures and associated RV dilation. Clinical suspicion for possible intrinsic pulmonary hypertension. Patient does have right atrial enlargement, but no left atrial enlargement, which makes primary pulmonary hypertension a possibility. Patient should be volume optimized initially. Patient could have a right heart catheterization for quantification and clarification of pulmonary artery pressures and pulmonary capillary wedge pressure. Patient does not have significant emphysematous changes on CT to suggest emphysema as an etiology. No clots were noted on previous testing, so anticoagulation systemically is likely not indicated. Patient would benefit from [facility] pulmonary hypertension clinic, so will recommend patient to keep outpatient appointment [facility] for now. Patient should respond relatively quickly to diuretic therapy. Patient could be placed on BiPAP/AVAPS if desaturations noted overnight. Patient should have a polysomnogram as an outpatient 2. Sepsis secondary to colitis Patient appears to be responding to antibiotics per primary service. Lactate has improved and patient's abdominal pain is improving. General surgery is following. 3. Ischemic cardiomyopathy/coronary artery disease Patient currently on home medications for hypertension and coronary artery disease. Okay to continue from a pulmonary perspective. Data has been mixed on systemic anticoagulation for pulmonary hypertension. Given patient's recent colitis, would not recommend systemic anticoagulation. Okay to continue with baseline medications. No indication for discontinuation of beta-blockers from a pulmonary perspective. 4. Acute kidney injury/hypertension/type 2 diabetes/obesity/history of tobacco dependence Complicates care, management, recovery and prognosis. Will attempt to diurese patient. We will have to watch electrolytes and renal function closely. Okay to continue with baseline medications. No indication for steroids from pulmonary perspective. Code Visit Inpatient E&M: 72937 Init Hosp L3
--- NOTE | 2018-12-14 13:16 | PCM.PROGNOTE ---
<Sebastian Schmitt - Last Filed: 12/14/18 14:04> Patient Problems: Active and Suspected Problems (Last Reviewed 12/12/18 @ 10:33 by Sanjuana Adams PA-C) Renal insufficiency (Acute) Abdominal pain (Acute) Hypotension (Acute) Leukocytosis (Acute) Syncope (Acute) Septic shock (Acute) Subjective: Tolerating clears. Abdominal pain improved. No nausea/vomiting. + Diarrhea. No fever/chills. No LH/Dizziness. Still SOB and requiring high flow NC. He still smokes despite hx CAD and stent. - Physical Exam General: Alert, Oriented x3, Cooperative HEENT: Atraumatic, PERRLA, EOMI, Normocephalic Neck: Supple, No JVD, Negative Carotid Bruits Lungs: Clear to auscultation, Normal air movement Cardiovascular: Regular rate, No murmurs Abdomen: Bowel Sounds Present, Soft, Non Tender, Tender - BL lower quads. no guarding/rigidity. Extremities: No edema, Capillary Refill Less than 3 Seconds Skin: No rashes, No breakdown Musculoskeletal: No Tenderness to Palpation of Joints or Extremities Neurological: Cranial nerves II-XII grossly intact Psych/Mental Status: Normal Affect, Appropriate, Alert and oriented to time, place, person, mood and affect Vital Signs Temp Pulse Resp BP Pulse Ox 98.5 F 89 18 124/86 H 95 12/14/18 09:23 12/14/18 09:23 12/14/18 09:23 12/14/18 09:23 12/14/18 09:23 Oxygen Flow Rate (L/min) 10 Oxygen Delivery Method Nasal Cannula Weight: 257 lb 15.053 oz Body Mass Index (BMI) 37.3 Orthostatic Vital Signs Start: 12/12/18 03:55 Freq: q24h Status: Active Protocol: Activity Type Activity Date Activity User E-Sign Co-Sign Detail Recorded Client Recorded Date Recorded By Document 12/14/18 03:00 JM8 [id number] 12/14/18 03:32 JM8 12/14/18 03:00 Orthostatic Vitals Standing -Blood Pressure (90/60-120/80) 141/87 H -Extremity Use Right Arm -Pulse Rate (60-100) 95 Sitting -Blood Pressure (90/60-120/80) 114/70 -Extremity Use Right Arm -Pulse Rate (60-100) 99 Lying -Blood Pressure (90/60-120/80) 127/87 H -Extremity Use Right Arm -Pulse Rate (60-100) 95 Intake and Output for Last 24 Hours 12/12/18 12/13/18 12/14/18 23:59 23:59 23:59 Intake Total 5102 / 6606 3889.6 / 5161.6 1983 Output Total 1525 / 3625 4725 / 7050 2750 / 2750 Balance 3577 / 2981 -835.4 / -1888.4 -766 / -766 Microbiology Past 72 Hours 12/12/18 04:15 Urine Culture - Final Urine, Clean Catch Mixed Gram Pos & Gram Neg Org 12/14/18 Unknown Stool Lactoferrin - Final Stool 12/12/18 01:53 Blood Culture - Preliminary Interface Orders No growth in 48 hours. 12/11/18 21:07 Blood Culture - Preliminary Blood Culture (Wb) - Anticubital Right No growth in 48 hours. 12/12/18 08:35 Respiratory Panel (PCR) - Final Mucosa - Nasopharyngeal Laboratory Tests Past 24 Hrs 12/13/18 12/14/18 13:20 06:00 WBC 15.7 H RBC 3.74 L Hgb 11.5 L Hct 35.5 L MCV 94.9 H MCH 30.7 MCHC 32.4 RDW Std Deviation 48.2 H RDW Coeff of Teja 13.8 Plt Count 345 MPV 9.5 Specimen Type ART Sample Site R Radial pH 7.42 Bicarbonate Actual 17.3 L POC Total CO2 18 Base Excess -7 L O2 Saturation 90 L ABG pCO2 26.9 L ABG pO2 56 L O2 Delivery Device Nasal Can Liter Flow 7.0 Blood Gas Notified Whom [facility]OS[facility] Blood Gas Notified Time 1325 POC Glucose 12/14/18 12/13/18 08:14 21:49 POC Glucose 107 119 H Medical Necessity - Tobacco Use Smoking Status: Current every day smoker Tobacco Use: Cigarettes Assessment/Plan All Active Problems (Last Reviewed 12/12/18 @ 10:33 by Sanjuana Adams PA-C) Pancreatitis (Resolved) Hypercalcemia (Resolved) Hyponatremia (Resolved) Renal insufficiency (Acute) Abdominal pain (Acute) Hypotension (Acute) Leukocytosis (Acute) Syncope (Acute) Septic shock (Acute) 1. Acute hypoxic respiratory failure 2/2 acute cor pulmonale - pulmonology consulted. Lasix started. CTA neg. Echo shows severely dilated right ventricle, RVSP 57 mmHg, severel global Right vent systolic dysfunction. Wean O2 as tolerated. Needs o/p pulm follow up and sleep study. 2. Sepsis 2/2 acute colitis - doing well. continue IV abx - rocephin/flagyl. Gen surg following. Advance diet per general surgery. 3. Syncope, vasovagal 2/2 #2. resolved 4. KAIA 2/2 dehydration - resolved 5. Ischemic CM, CAD- hx stent. Still smokes. Advised cessation. Continue home meds. 6. T2DM with obesity - nutrition consult, NPH, SSI. 7. Tobacco abuse - patch if desired. Advised cessation DVT ppx: lovenox. DC planning: wean o2, advance diet. This patient was seen by Sebastian Schmitt PA-C under the supervision of Dr. Crocker. <Attila Crocker F - Last Filed: 12/14/18 14:57> - Physical Exam Vital Signs Temp Pulse Resp BP Pulse Ox 98.5 F 89 18 124/86 H 95 12/14/18 09:23 12/14/18 09:23 12/14/18 09:23 12/14/18 09:23 12/14/18 09:23 Oxygen Flow Rate (L/min) 9 Oxygen Delivery Method Nasal Cannula Weight: 257 lb 15.053 oz Body Mass Index (BMI) 37.3 Orthostatic Vital Signs Start: 12/12/18 03:55 Freq: q24h Status: Active Protocol: Activity Type Activity Date Activity User E-Sign Co-Sign Detail Recorded Client Recorded Date Recorded By Document 12/14/18 03:00 JM8 [id number] 12/14/18 03:32 JM8 12/14/18 03:00 Orthostatic Vitals Standing -Blood Pressure (90/60-120/80) 141/87 H -Extremity Use Right Arm -Pulse Rate (60-100) 95 Sitting -Blood Pressure (90/60-120/80) 114/70 -Extremity Use Right Arm -Pulse Rate (60-100) 99 Lying -Blood Pressure (90/60-120/80) 127/87 H -Extremity Use Right Arm -Pulse Rate (60-100) 95 Intake and Output for Last 24 Hours 12/12/18 12/13/18 12/14/18 23:59 23:59 23:59 Intake Total 5102 / 6606 3889.6 / 5161.6 2831 / 2831 Output Total 1525 / 3625 4725 / 7050 3350 / 3350 Balance 3577 / 2981 -835.4 / -1888.4 -519 / -519 Microbiology Past 72 Hours 12/14/18 Unknown C. difficile DNA Amplification - Final Stool Toxigenic C. difficile DNA 12/14/18 Unknown Enteric Bacteriology - Final Stool 12/12/18 04:15 Urine Culture - Final Urine, Clean Catch Mixed Gram Pos & Gram Neg Org 12/14/18 Unknown Stool Lactoferrin - Final Stool 12/12/18 01:53 Blood Culture - Preliminary Interface Orders No growth in 48 hours. 12/11/18 21:07 Blood Culture - Preliminary Blood Culture (Wb) - Anticubital Right No growth in 48 hours. 12/12/18 08:35 Respiratory Panel (PCR) - Final Mucosa - Nasopharyngeal Laboratory Tests Past 24 Hrs 12/14/18 06:00 WBC 15.7 H RBC 3.74 L Hgb 11.5 L Hct 35.5 L MCV 94.9 H MCH 30.7 MCHC 32.4 RDW Std Deviation 48.2 H RDW Coeff of Teja 13.8 Plt Count 345 MPV 9.5 POC Glucose 12/14/18 12/13/18 08:14 21:49 POC Glucose 107 119 H Code Visit Addendum: Dr. Crocker I personally examined the patient and reviewed the chart. I agree with the above. 48-year-old male presenting to the hospital after syncopal episode secondary to severe right lower quadrant abdominal pain. On admission he had a CT scan of his abdomen pelvis with contrast demonstrated a sending colitis and stool culture demonstrated that this was secondary to C. difficile even though he has not had any recent history of antibiotic use. We will start him on p.o. vancomycin and DC the Rocephin and Flagyl. Appreciate surgical assistance. Also of note he has had acute hypoxic respiratory failure on admission. He had been on room air at home and then came in with 13 L nasal cannula requirements. He does have a significant pulmonary hypertension history seeing the pulmonary hypertension clinic in [facility] here soon. Did consult pulmonology for further assistance and recommended diuresis which we will proceed with and discontinue his IV fluids. Hopefully if we can get his oxygen requirements down and can plan for discharge either tomorrow or early Tuesday. Inpatient E&M: [id number] Subs Hosp L2
[2018-12-14 18:11] LABS: Bedside Glucose 117 mg/dL (70-110)
[2018-12-14] MEDS: Atorvastatin Calcium 20 MG Tablet PO (21:46)
[2018-12-14] MEDS: 0.9% NaCl Peripheral Flush Adult/Peds IV (21:48)
[2018-12-14 22:11] LABS: Bedside Glucose 109 mg/dL (70-110)
[2018-12-15] VITALS (7 sets, daily range): BP systolic 95–114; BP diastolic 61–74; PULSE 86–97; RESP 18; TEMP 36.7–36.9; O2SAT 79–96
[2018-12-15] MEDS: Furosemide 40 MG/4 ML Vial IV ×2 (05:34→12:18)
--- NOTE | 2018-12-15 06:37 | PCA ---
12/15/18 0637 discussed weight change with Shashank ROBERTS
[2018-12-15] MEDS: Insulin NPH Human 100 UNITS/ML PEN SC (06:57)
[2018-12-15 07:17] LABS: Absolute Lymphocyte Count 2.88 X10^3/uL (0.83-4.51); Absolute Neutrophil Count 8.4 X10^3/uL (2.0-7.7); Basophil# 0.08 X10^3/uL; Basophil% 0.6 % (0-1); Eosinophil# 0.72 X10^3/uL; Eosinophils% 5.4 % (0-5); Hemoglobin 12.3 g/dL (13.0-16.5); Lymphocyte # 2.88 X10^3/ul (4.0); Lymphocyte % 21.5 % (19-41); Mean Corp Hgb Conc 33.2 g/dL (32-36); Mean Corpuscular Hgb 30.9 pg (27.0-32.0); Mean Platelet Vol. 9.5 fl (6.2-12.0); Monocyte# 1.34 X10^3/uL; NRBC Flagged by Analyzer 0 % (0-5); Neutrophil # 8.35 X10^3/uL (2.7-7.7); Neutrophil % 62.1 % (47-70); Platelet Count 417 K/mm3 (150-450); RBC Distribution Width CV 13.7 % (11.6-14.6); RBC Distribution Width SD 46.6 fl (35.1-43.9); Red Blood Count 3.98 M/mm3 (4.6-6.2); White Blood Count 13.4 K/mm3 (4.4-11.0)
[2018-12-15 07:30] LABS: Bedside Glucose 104 mg/dL (70-110)
[2018-12-15 08:01] LABS: Anion Gap 13 (5-15); BUN 9 mg/dL (7-18); BUN/Creat Ratio 10.1 RATIO (10-20); Calcium,Total 9.1 mg/dL (8.5-10.1); Chloride 106 mmol/L (98-107); Creatinine, Serum 0.89 mg/dL (0.70-1.30); EST Glomerular Filtration Rate 96 mL/min (>60); Est Glom Filt Rate - Afr Amer 116 mL/min (>60); Glucose 95 mg/dL (74-106); Potassium 2.7 mmol/L (3.5-5.1); Sodium Level 141 mmol/L (136-145)
[2018-12-15 08:32] LABS: Magnesium 1.8 mg/dL (1.6-2.6); Phosphorus 3.2 mg/dL (2.5-4.9)
[2018-12-15] MEDS: Fenofibrate 145 MG Tablet PO (10:12)
[2018-12-15] MEDS: Aspirin 81 MG TAB.CHEW PO (10:12)
[2018-12-15] MEDS: Potassium Chloride 10mEq/100mL 10 MEQ/100 ML IV.SOLN. 100 MEQ IV BOLUS ×4 (10:12→15:20)
[2018-12-15] MEDS: Enoxaparin 40 MG/0.4 ML Syringe SC (10:12)
[2018-12-15] MEDS: Clopidogrel Bisulfate 75 MG Tablet PO (10:12)
--- NOTE | 2018-12-15 10:50 | PN_ITS ---
Patient Problems: Active and Suspected Problems (Last Reviewed 12/12/18 @ 10:33 by Sanjuana Adams PA-C) Renal insufficiency (Acute) Abdominal pain (Acute) Hypotension (Acute) Leukocytosis (Acute) Syncope (Acute) Subjective: Patient is feeling significantly improved compared to previous. Patient was diagnosed with C. difficile overnight and has been on contact precautions. Patient's oxygen status has significantly improved and patient feels that he is strong enough to go home. Patient does believe that his nausea and abdominal discomfort is improving on therapy. - Physical Exam General: Alert, Oriented x3, Cooperative, No apparent distress, - - No conversational dyspnea. Appears older than stated age. HEENT: Atraumatic, PERRLA, EOMI, Normocephalic, - - Slight scleral injection without icterus Oral: Moist Mucosa, No Gingival or Mucosal Lesions/ Ulcerations Neck: Supple, No Nodes, Trachea Midline, JVD, Right Lungs: No rhonchi, No wheeze, No rales, Diminished, - - Symmetric expansion. No dullness to percussion. Cardiovascular: Regular rate, Regular Rhythm, Normal S1, Normal S2, No murmurs, No rub noted, No Gallop Abdomen: Bowel Sounds Present, Soft, Non Tender, Non-Distended Extremities: No clubbing, No cyanosis, Edema Skin: No rashes, No breakdown Musculoskeletal: No Tenderness to Palpation of Joints or Extremities Lymphatic: No Cervical, Supraclavicular, or Inguinal Adenopathy Neurological: Cranial nerves II-XII grossly intact, Neuro grossly intact, Motor Exam 5/5 strength throughout Psych/Mental Status: Alert and oriented to time, place, person, mood and affect Vital Signs Temp Pulse Resp BP Pulse Ox 36.9 C 90 18 114/71 94 12/15/18 03:20 12/15/18 03:20 12/15/18 03:20 12/15/18 03:20 12/15/18 07:06 Oxygen Flow Rate (L/min) 4 Oxygen Delivery Method Nasal Cannula Weight: 113 kg Body Mass Index (BMI) 37.3 Orthostatic Vital Signs Start: 12/12/18 03:55 Freq: q24h Status: Active Protocol: Activity Type Activity Date Activity User E-Sign Co-Sign Detail Recorded Client Recorded Date Recorded By Document 12/15/18 03:00 MAUREEN [id number] 12/15/18 03:59 MAUREEN 12/15/18 03:00 Orthostatic Vitals Standing -Blood Pressure (90/60-120/80) 95/69 -Extremity Use Left Arm -Pulse Rate (60-100) 93 Sitting -Blood Pressure (90/60-120/80) 109/71 -Extremity Use Left Arm -Pulse Rate (60-100) 92 Lying -Blood Pressure (90/60-120/80) 114/71 -Extremity Use Left Arm -Pulse Rate (60-100) 90 Intake and Output for Last 24 Hours 12/13/18 12/14/18 12/15/18 23:59 23:59 23:59 Intake Total 3889.6 / 5161.6 3511 / 3751 360 / 360 Output Total 4725 / 7050 5050 / 6625 1575 / 1575 Balance -835.4 / -1888.4 -1539 / -2874 -1215 / -1215 Microbiology Past 72 Hours 12/14/18 Unknown Stool Occult Blood (FRANCISCO) - Final Stool Occult Blood Positive 12/14/18 Unknown C. difficile DNA Amplification - Final Stool Toxigenic C. difficile DNA 12/14/18 Unknown Enteric Bacteriology - Final Stool 12/12/18 04:15 Urine Culture - Final Urine, Clean Catch Mixed Gram Pos & Gram Neg Org 12/14/18 Unknown Stool Lactoferrin - Final Stool 12/12/18 01:53 Blood Culture - Preliminary Interface Orders No growth in 48 hours. 12/11/18 21:07 Blood Culture - Preliminary Blood Culture (Wb) - Anticubital Right No growth in 48 hours. 12/12/18 08:35 Respiratory Panel (PCR) - Final Mucosa - Nasopharyngeal Laboratory Tests Past 24 Hrs 12/14/18 12/15/18 12/15/18 Unknown 07:05 07:05 WBC 13.4 H RBC 3.98 L Hgb 12.3 L Hct 37.0 L MCV 93.0 MCH 30.9 MCHC 33.2 RDW Std Deviation 46.6 H RDW Coeff of Teja 13.7 Plt Count 417 MPV 9.5 Immature Gran % (Auto) 0.400 Neut % (Auto) 62.1 Lymph % (Auto) 21.5 [place] % (Auto) 10.0 Eos % (Auto) 5.4 H Baso % (Auto) 0.6 Absolute Neuts (auto) 8.4 H Absolute Lymphs (auto) 2.88 Nucleated RBC % 0 Sodium 141 Potassium 2.7 L* Chloride 106 Carbon Dioxide 22.0 Anion Gap 13 BUN 9 Creatinine 0.89 Estim Creat Clear Calc 100.40 Est GFR (MDRD) Af Amer 116 Est GFR (MDRD) Non-Af 96 BUN/Creatinine Ratio 10.1 Glucose 95 Calcium 9.1 Phosphorus Magnesium Miscellaneous Test Pending 12/15/18 07:05 WBC RBC Hgb Hct MCV MCH MCHC RDW Std Deviation RDW Coeff of Teja Plt Count MPV Immature Gran % (Auto) Neut % (Auto) Lymph % (Auto) [place] % (Auto) Eos % (Auto) Baso % (Auto) Absolute Neuts (auto) Absolute Lymphs (auto) Nucleated RBC % Sodium Potassium Chloride Carbon Dioxide Anion Gap BUN Creatinine Estim Creat Clear Calc Est GFR (MDRD) Af Amer Est GFR (MDRD) Non-Af BUN/Creatinine Ratio Glucose Calcium Phosphorus 3.2 Magnesium 1.8 Miscellaneous Test POC Glucose 12/15/18 12/14/18 12/14/18 06:54 22:02 18:02 POC Glucose 104 109 117 H Medical Necessity - Tobacco Use Smoking Status: Current every day smoker Tobacco Use: Cigarettes Assessment/Plan All Active Problems (Last Reviewed 12/12/18 @ 10:33 by Sanjuana Adams PA-C) Pancreatitis (Resolved) Hypercalcemia (Resolved) Hyponatremia (Resolved) Renal insufficiency (Acute) Abdominal pain (Acute) Hypotension (Acute) Leukocytosis (Acute) Syncope (Acute) Septic shock (Acute) RECOMMENDATIONS: 1. Continue diuretic therapy, aggressive supplementation of potassium 2. Antibiotics per primary service 3. No indication for steroid therapy from a pulmonary perspective 4. No need for bronchodilators from my perspective 5. Outpatient polysomnogram IMPRESSIONS: 1. Acute hypoxic respiratory failure secondary to probable cor pulmonale Patient with significantly elevated pulmonary artery pressures and associated RV dilation. Patient does have an appointment to follow-up with [facility] for possible work-up of etiology for pulmonary hypertension. Patient responded nicely to diuretic therapy. Unfortunately, patient does have significant hypokalemia, likely secondary to diuretics. Repletion has been ordered. Patient will need a walking oximetry prior to discharge. If patient is able to tolerate ambulation on 6 L/min or less, okay to discharge from a pulmonary perspective. Patient will likely require right heart catheterization in the future. 2. Sepsis secondary to colitis Patient appears to be responding to antibiotics per primary service. Lactate has improved and patient's abdominal pain is improving. General surgery is following. 3. Ischemic cardiomyopathy/coronary artery disease Patient currently on home medications for hypertension and coronary artery disease. Okay to continue from a pulmonary perspective. Data has been mixed on systemic anticoagulation for pulmonary hypertension. Given patient's recent colitis, would not recommend systemic anticoagulation. Okay to continue with baseline medications. No indication for discontinuation of beta-blockers from a pulmonary perspective. 4. Acute kidney injury/hypertension/type 2 diabetes/obesity/history of tobacco dependence/hypokalemia Complicates care, management, recovery and prognosis. Will attempt to diurese patient. We will have to watch electrolytes and renal function closely. Okay to continue with baseline medications. No indication for steroids from pulmonary perspective. Code Visit Inpatient E&M: 32779 Subs Hosp L2
--- NOTE | 2018-12-15 11:45 | DCINST_ITS ---
- Discharge Diagnoses Current Active Problems: Current Active and Chronic Problems (Last Reviewed 12/12/18 @ 10:33 by Sanjuana Adams PA-C) Renal insufficiency (Acute) Abdominal pain (Acute) Hypotension (Acute) Leukocytosis (Acute) Syncope (Acute) You will use the following diet at home:: Cardiac Your food should be the consistency of: Regular Your liquids should be the consistency of: Regular/Thin Discharge Activity: Return to Normal Activity Additional Instructions: you will need to have your blood checked at discharge, which you should discuss with your family medicine doctor. You need to have a basic metabolic panel checked. Allergies/Adverse Reactions: Allergies lisinopril Allergy (Verified 12/11/18 22:49) Other COUGH Medications to take at Discharge Losartan Potassium [Cozaar] 100 mg PO DAILY 10/12/16 Aspirin [Aspirin, Baby] 81 mg PO DAILY@0800 09/06/18 Atorvastatin Calcium [Lipitor] 20 mg PO DAILY 09/06/18 Carvedilol [Coreg (Beta Jeff)] 6.25 mg PO BID 09/06/18 Fenofibrate [Tricor] 145 mg PO DAILY 09/06/18 Insulin NPH Human Isophane [Humulin N Kwikpen] 5 unit SQ DAILY 09/06/18 Oxycodone HCl/Acetaminophen [Percocet 5-325 mg Tablet] 1 ea PO TID PRN PRN 09/07/18 amlodipine 5 mg tablet 5 mg PO DAILY #30 tab 09/18/18 clopidogrel 75 mg tablet 75 mg PO DAILY #30 tab 12/06/18 Acetaminophen [Tylenol Tablet] 650 mg PO Q6H PRN PRN tablet 12/15/18 Furosemide [Lasix] 20 mg PO BID #60 tab 12/15/18 Potassium Chloride [K-Dur] 10 meq PO BID #60 tab 12/15/18 Vancomcyin 125mg/5mL PO Liquid 125 mg PO Q6 #36 po.syringe 12/15/18 The following prescriptions were given: Potassium Chloride [K-Dur] 10 meq PO BID #60 tab Transmission Status: Pending to [facility] Furosemide [Lasix] 20 mg PO BID #60 tab Transmission Status: Pending to [facility] Vancomcyin 125mg/5mL PO Liquid 125 mg PO Q6 #36 po.syringe Transmission Status: Pending to [facility] Primary Care Physician: Bacilio Smith MD [Primary Care Provider] - Please follow up with your Primary Care Physician in: 1-2 weeks Test Results: Test results from this visit will be discussed in further detail at your follow- up appointment, if applicable. Please Follow Up With: Morteza Torres MD When: 2 weeks Proposed Discharge Date: 12/15/18
--- NOTE | 2018-12-15 12:39 | CASEMGMT ---
Addendum entered by Ivania Dos Santos 12/15/18 15:11: Home oxygen testing has been completed. Order received for Home O2. Faxed to [facility]. Call placed to Adrienne @ [facility] and she states O2 will be delivered to pt's room today. Pt and made aware. Maria Del Carmen ROBERTS, made aware Original Note: ALEJANDRA LEE NOTE: To room to discuss discharge planning. Discussed need for Home O2. states preference for [employer]. Call placed to [facility] and spoke with Bhavya. She states they are in network with [facility]. Awaiting Amb oxygen testing. PT/OT notes reviewed. Further therapy recommended. Pt and made aware. Pt states he does not want to do any OP therapy @ this time, stating, If I do any, it will be self-directed. Pt made aware that if he decides he wants OP therapy in the future, to discuss this with his PCP. Pt voiced understanding. Miranda CHO RN, CM
--- NOTE | 2018-12-15 14:19 | PCM.DC.SUM ---
<Sebastian Schmitt - Last Filed: 12/15/18 14:26> Discharge Date and Diagnosis - Problem List Patient Problems: Active and Suspected Problems (Last Reviewed 12/12/18 @ 10:33 by Sanjuana Adams PA-C) Renal insufficiency (Acute) Abdominal pain (Acute) Hypotension (Acute) Leukocytosis (Acute) Syncope (Acute) Date of Admission: 12/11/18 Date of Discharge: 12/15/18 - Primary Discharge Diagnosis Active and Suspected Problems (Last Reviewed 12/12/18 @ 10:33 by Sanjuana Adams PA-C) Acute sepsis secondary to acute C. difficile colitis Acute hypoxic respiratory failure secondary to acute cor pulmonale Pulmonary hypertension Syncope, vasovagal, secondary to severe abdominal pain Acute kidney injury secondary to C. difficile colitis Ischemic cardiomyopathy, CAD with prior stent Ongoing nicotine abuse Type 2 diabetes with obesity - Secondary Discharge Diagnosis Chronic Problems (Last Reviewed 12/12/18 @ 10:33 by Sanjuana Adams PA-C) Essential hypertension (Chronic) S/P angioplasty with stent (Chronic) STEVEN mid LAD 4.0 x 23 mm Synergy Diabetes (Chronic) Pulmonary hypertension (Chronic) Cardiomyopathy (Chronic) EF 45% Arteriosclerotic heart disease (ASHD) (Chronic) S/p stent to LAD 09/2018 Hospital Course and Treatment Imaging Results: CT/Abdomen/Pelvis without Cont IMPRESSION: No evidence of appendicitis, acute intestinal pathology, or acute obstructive uropathy. RAD/Chest 1 View (Portable) IMPRESSION: Stable elevation of the right hemidiaphragm. No acute pulmonary findings. Echo: Based upon the 2D echocardiographic images obtained there appears to be grossly normal left ventricular size, wall motion, and systolic function. The estimated ejection fraction is 55 %. Moderate concentric left ventricular hypertrophy. Severely dilated right ventricle. Severe global right ventricular systolic dysfunction. The right atrium is mildly enlarged. Mild tricuspid valve insufficiency. Right ventricular systolic pressure estimated to be 57 mmHg. Unable to assess diastolic dysfunction. RAD/Chest 1 View (Portable) IMPRESSION: Stable chest, no acute cardiopulmonary disease. CT/Abdomen/Pelvis WITH Contrast IMPRESSION: Wall thickening of the cecum, ascending colon and hepatic flexure with mild pericolonic inflammation is consistent with colitis, new since 12/11/2018. CT/CTA Chest W/WO Contrast IMPRESSION: No acute abnormality is seen. Consults: [facility] - pulmonary medicine [place] - gen surg Operations: None Procedures: 2-D Echocardiogram Summary of Care Provided: Hospital Course: The patient is a 48 year old M with past medical history of CAD with a recent stent, ongoing nicotine abuse, type 2 diabetes, obesity, hypertension, hyperlipidemia, who presented to the emergency room with severe right lower quadrant excruciating and sharp pain that started the day of presentation associated with 2 episodes of passing out. In the emergency room he was found to have low blood pressure at 86/53 that responded to IV fluids, he also appeared septic with leukocytosis, and later tachycardia and tachypnea. Lactate was elevated at 4.4. CT of his abdomen was obtained which showed new colitis. He was admitted to the PCU on telemetry for syncope and colitis. It was felt that his syncope was likely vasovagal secondary to his severe pain and sepsis. He was started on IV antibiotics for colitis, general surgery was consulted, he was given supportive measures. Stool was sent for C. difficile, it came back positive. He was changed to oral vancomycin. He developed worsening shortness of breath and hypoxia while here. He required up to 10 L/min of oxygen via high flow nasal cannula. A CTA of the chest was obtained which was unremarkable. An echo was obtained which demonstrated severely dilated right ventricle, RVSP of 57 mmHg, severe global right ventricular systolic dysfunction. He is felt to have acute cor pulmonale. Pulmonology was consulted. He was started on IV Lasix and had good response to this with improvement in his breathing and oxygen demand. He was unable to be completely weaned off of oxygen. He will require oxygen at home as he is ambulatory at home and in the community. He was advised by pulmonology to follow-up withDr. Torres in the pulmonary hypertension clinic. He would benefit from a sleep study as he has several risk factors for sleep apnea. He will also need to follow-up with his PCP in 1 to 2 weeks. He was given oral vancomycin at discharge to complete a 10-day course. He was also prescribed Lasix, and potassium. He will need to have his BMP checked at follow-up with his PCP. This patient was seen by Sebastian Schmitt PA-C under the supervision of Doctor Crocker. [] Patient Problems: Active and Suspected Problems (Last Reviewed 12/12/18 @ 10:33 by Sanjuana Adams PA-C) Renal insufficiency (Acute) Abdominal pain (Acute) Hypotension (Acute) Leukocytosis (Acute) Syncope (Acute) - Physical Exam General: Alert, Oriented x3, Cooperative HEENT: Atraumatic, PERRLA, EOMI, Normocephalic Neck: Supple, No JVD, Negative Carotid Bruits Lungs: Clear to auscultation, Normal air movement Cardiovascular: Regular rate, No murmurs Abdomen: Bowel Sounds Present, Soft, Non Tender Extremities: No edema, Capillary Refill Less than 3 Seconds Skin: No rashes, No breakdown Musculoskeletal: No Tenderness to Palpation of Joints or Extremities Neurological: Cranial nerves II-XII grossly intact Psych/Mental Status: Normal Affect, Appropriate, Alert and oriented to time, place, person, mood and affect Vital Signs Temp Pulse Resp BP Pulse Ox 98.4 F 97 18 108/61 84 12/15/18 09:30 12/15/18 09:30 12/15/18 09:30 12/15/18 09:30 12/15/18 14:01 Oxygen Flow Rate (L/min) [ 6 AMBULATION with Oxygen] Oxygen Flow Rate (L/min) 4 Oxygen Delivery Method Nasal Cannula Weight: 249 lb 1.957 oz Body Mass Index (BMI) 37.3 Orthostatic Vital Signs Start: 12/12/18 03:55 Freq: q24h Status: Active Protocol: Activity Type Activity Date Activity User E-Sign Co-Sign Detail Recorded Client Recorded Date Recorded By Document 12/15/18 03:00 [id number] 12/15/18 03:59 8 12/15/18 03:00 Orthostatic Vitals Standing -Blood Pressure (90/60-120/80) 95/69 -Extremity Use Left Arm -Pulse Rate (60-100) 93 Sitting -Blood Pressure (90/60-120/80) 109/71 -Extremity Use Left Arm -Pulse Rate (60-100) 92 Lying -Blood Pressure (90/60-120/80) 114/71 -Extremity Use Left Arm -Pulse Rate (60-100) 90 Intake and Output for Last 24 Hours 12/13/18 12/14/18 12/15/18 23:59 23:59 23:59 Intake Total 1249.6 / 5161.6 3511 / 3751 840 / 840 Output Total 4725 / 7050 8090 / 2687 2475 / 2475 Balance -835.4 / -1888.4 -1539 / -2874 -1635 / -1635 Microbiology Past 72 Hours 12/14/18 Unknown Stool Occult Blood (FRANCISCO) - Final Stool Occult Blood Positive 12/14/18 Unknown C. difficile DNA Amplification - Final Stool Toxigenic C. difficile DNA 12/14/18 Unknown Enteric Bacteriology - Final Stool 12/12/18 04:15 Urine Culture - Final Urine, Clean Catch Mixed Gram Pos & Gram Neg Org 12/14/18 Unknown Stool Lactoferrin - Final Stool 12/12/18 01:53 Blood Culture - Preliminary Interface Orders No growth in 48 hours. 12/11/18 21:07 Blood Culture - Preliminary Blood Culture (Wb) - Anticubital Right No growth in 48 hours. 12/12/18 08:35 Respiratory Panel (PCR) - Final Mucosa - Nasopharyngeal Laboratory Tests Past 24 Hrs 12/14/18 12/15/18 12/15/18 Unknown 07:05 07:05 WBC 13.4 H RBC 3.98 L Hgb 12.3 L Hct 37.0 L MCV 93.0 MCH 30.9 MCHC 33.2 RDW Std Deviation 46.6 H RDW Coeff of Teja 13.7 Plt Count 417 MPV 9.5 Immature Gran % (Auto) 0.400 Neut % (Auto) 62.1 Lymph % (Auto) 21.5 Turner % (Auto) 10.0 Eos % (Auto) 5.4 H Baso % (Auto) 0.6 Absolute Neuts (auto) 8.4 H Absolute Lymphs (auto) 2.88 Nucleated RBC % 0 Sodium 141 Potassium 2.7 L* Chloride 106 Carbon Dioxide 22.0 Anion Gap 13 BUN 9 Creatinine 0.89 Estim Creat Clear Calc 100.40 Est GFR (MDRD) Af Amer 116 Est GFR (MDRD) Non-Af 96 BUN/Creatinine Ratio 10.1 Glucose 95 Calcium 9.1 Phosphorus Magnesium Miscellaneous Test Pending 12/15/18 07:05 WBC RBC Hgb Hct MCV MCH MCHC RDW Std Deviation RDW Coeff of Teja Plt Count MPV Immature Gran % (Auto) Neut % (Auto) Lymph % (Auto) Turner % (Auto) Eos % (Auto) Baso % (Auto) Absolute Neuts (auto) Absolute Lymphs (auto) Nucleated RBC % Sodium Potassium Chloride Carbon Dioxide Anion Gap BUN Creatinine Estim Creat Clear Calc Est GFR (MDRD) Af Amer Est GFR (MDRD) Non-Af BUN/Creatinine Ratio Glucose Calcium Phosphorus 3.2 Magnesium 1.8 Miscellaneous Test POC Glucose 12/15/18 12/14/18 12/14/18 06:54 22:02 18:02 POC Glucose 104 109 117 H Discharge Diet: Low fat/ Low Cholesterol, 1800 Calorie Control Diet, 2000 mg Sodium Diet Discharge Activity: Return to Normal Activity Home Medications: Medications to take at Discharge Losartan Potassium [Cozaar] 100 mg PO DAILY 10/12/16 Aspirin [Aspirin, Baby] 81 mg PO DAILY@0800 09/06/18 Atorvastatin Calcium [Lipitor] 20 mg PO DAILY 09/06/18 Carvedilol [Coreg (Beta Jeff)] 6.25 mg PO BID 09/06/18 Fenofibrate [Tricor] 145 mg PO DAILY 09/06/18 Insulin NPH Human Isophane [Humulin N Kwikpen] 5 unit SQ DAILY 09/06/18 Oxycodone HCl/Acetaminophen [Percocet 5-325 mg Tablet] 1 ea PO TID PRN PRN 09/07/18 amlodipine 5 mg tablet 5 mg PO DAILY #30 tab 09/18/18 clopidogrel 75 mg tablet 75 mg PO DAILY #30 tab 12/06/18 Acetaminophen [Tylenol Tablet] 650 mg PO Q6H PRN PRN tab 12/15/18 Furosemide [Lasix] 20 mg PO BID #60 tab 12/15/18 Potassium Chloride [K-Dur] 10 meq PO BID #60 tab 12/15/18 Vancomcyin 125mg/5mL PO Liquid 125 mg PO Q6 #36 po.syringe 12/15/18 Following Prescrptions Were Given to Patient: Potassium Chloride [K-Dur] 10 meq PO BID #60 tab Transmission Status: Received by [facility] Furosemide [Lasix] 20 mg PO BID #60 tab Transmission Status: Received by [facility] Vancomcyin 125mg/5mL PO Liquid 125 mg PO Q6 #36 po.syringe Transmission Status: Received by [facility] Primary Care Physician: Bacilio Smith MD [Primary Care Provider] - Please follow up with your Primary Care Physician in: 1-2 weeks Please Follow Up With: Morteza Torres MD When: 2 weeks Please Follow Up With: Bacilio Smith MD Disposition: Home Minutes spent on discharge:: 35 Patient Condition:: Stable Medical Necessity - Tobacco Use Smoking Status: Current every day smoker Tobacco Use: Cigarettes Meaningful Use Info Meaningful Use Diagnoses (Choose all that apply): None applicable <Attila Crocker - Last Filed: 12/15/18 15:47> Discharge Date and Diagnosis - Primary Discharge Diagnosis Active and Suspected Problems (Last Reviewed 12/12/18 @ 10:33 by Sanjuana Adams PA-C) Renal insufficiency (Acute) Abdominal pain (Acute) Hypotension (Acute) Leukocytosis (Acute) Syncope (Acute) - Secondary Discharge Diagnosis Chronic Problems (Last Reviewed 12/12/18 @ 10:33 by Sanjuana Adams PA-C) Essential hypertension (Chronic) S/P angioplasty with stent (Chronic) STEVEN mid LAD 4.0 x 23 mm Synergy Diabetes (Chronic) Pulmonary hypertension (Chronic) Cardiomyopathy (Chronic) EF 45% Arteriosclerotic heart disease (ASHD) (Chronic) S/p stent to LAD 09/2018 Hospital Course and Treatment Summary of Care Provided: The patient is a 48 year old M [] - Physical Exam Vital Signs Temp Pulse Resp BP Pulse Ox 98.4 F 97 18 108/61 84 12/15/18 09:30 12/15/18 09:30 12/15/18 09:30 12/15/18 09:30 12/15/18 14:01 Oxygen Flow Rate (L/min) [ 6 AMBULATION with Oxygen] Oxygen Flow Rate (L/min) 4 Oxygen Delivery Method Nasal Cannula Weight: 249 lb 1.957 oz Body Mass Index (BMI) 37.3 Orthostatic Vital Signs Start: 12/12/18 03:55 Freq: q24h Status: Active Protocol: Activity Type Activity Date Activity User E-Sign Co-Sign Detail Recorded Client Recorded Date Recorded By Document 12/15/18 03:00 [id number] 12/15/18 03:59 JM8 12/15/18 03:00 Orthostatic Vitals Standing -Blood Pressure (90/60-120/80) 95/69 -Extremity Use Left Arm -Pulse Rate (60-100) 93 Sitting -Blood Pressure (90/60-120/80) 109/71 -Extremity Use Left Arm -Pulse Rate (60-100) 92 Lying -Blood Pressure (90/60-120/80) 114/71 -Extremity Use Left Arm -Pulse Rate (60-100) 90 Intake and Output for Last 24 Hours 12/13/18 12/14/18 12/15/18 23:59 23:59 23:59 Intake Total 3889.6 / 5161.6 3511 / 3751 840 / 840 Output Total 4725 / 7050 5050 / 6625 2475 / 2475 Balance -835.4 / -1888.4 -1539 / -2874 -1635 / -1635 Microbiology Past 72 Hours 12/14/18 Unknown Stool Occult Blood (FRANCISCO) - Final Stool Occult Blood Positive 12/14/18 Unknown C. difficile DNA Amplification - Final Stool Toxigenic C. difficile DNA 12/14/18 Unknown Enteric Bacteriology - Final Stool 12/12/18 04:15 Urine Culture - Final Urine, Clean Catch Mixed Gram Pos & Gram Neg Org 12/14/18 Unknown Stool Lactoferrin - Final Stool 12/12/18 01:53 Blood Culture - Preliminary Interface Orders No growth in 48 hours. 12/11/18 21:07 Blood Culture - Preliminary Blood Culture (Wb) - Anticubital Right No growth in 48 hours. 12/12/18 08:35 Respiratory Panel (PCR) - Final Mucosa - Nasopharyngeal Laboratory Tests Past 24 Hrs 12/14/18 12/15/18 12/15/18 Unknown 07:05 07:05 WBC 13.4 H RBC 3.98 L Hgb 12.3 L Hct 37.0 L MCV 93.0 MCH 30.9 MCHC 33.2 RDW Std Deviation 46.6 H RDW Coeff of Teja 13.7 Plt Count 417 MPV 9.5 Immature Gran % (Auto) 0.400 Neut % (Auto) 62.1 Lymph % (Auto) 21.5 Turner % (Auto) 10.0 Eos % (Auto) 5.4 H Baso % (Auto) 0.6 Absolute Neuts (auto) 8.4 H Absolute Lymphs (auto) 2.88 Nucleated RBC % 0 Sodium 141 Potassium 2.7 L* Chloride 106 Carbon Dioxide 22.0 Anion Gap 13 BUN 9 Creatinine 0.89 Estim Creat Clear Calc 100.40 Est GFR (MDRD) Af Amer 116 Est GFR (MDRD) Non-Af 96 BUN/Creatinine Ratio 10.1 Glucose 95 Calcium 9.1 Phosphorus Magnesium Miscellaneous Test Pending 12/15/18 07:05 WBC RBC Hgb Hct MCV MCH MCHC RDW Std Deviation RDW Coeff of Teja Plt Count MPV Immature Gran % (Auto) Neut % (Auto) Lymph % (Auto) Turner % (Auto) Eos % (Auto) Baso % (Auto) Absolute Neuts (auto) Absolute Lymphs (auto) Nucleated RBC % Sodium Potassium Chloride Carbon Dioxide Anion Gap BUN Creatinine Estim Creat Clear Calc Est GFR (MDRD) Af Amer Est GFR (MDRD) Non-Af BUN/Creatinine Ratio Glucose Calcium Phosphorus 3.2 Magnesium 1.8 Miscellaneous Test POC Glucose 12/15/18 12/14/18 12/14/18 06:54 22:02 18:02 POC Glucose 104 109 117 H Code Visit Addendum: Dr. Crocker I personally examined the patient and reviewed the chart. I agree with the above. 88-year-old male presented to the hospital initially with right lower quadrant abdominal pain, he was hypotensive requiring multiple fluid boluses and was started on Rocephin and Flagyl. He had subsequent improvement in his condition and we appreciate general surgery's evaluation of the patient. A repeat CT scan of his abdomen pelvis with IV contrast demonstrated a sending colitis and stool studies ultimately returned with a diagnosis of C. difficile. At that time because he was having acute hypoxic rest neto failure and ends needing 10 to 13 L nasal cannula, CTA of the chest was also done which was negative for PE. In review of his previous echo and a repeat echo here, he has moderate to severe pulmonary hypertension. Pulmonology was consulted to assist in his management and for evaluation and possible outpatient follow-up, he was aggressively diuresed and within 24 hours decreased his oxygen requirements for 13 L to 4. He had an amatory pulse ox today that required 6 L to maintain sats at 90, this was discussed with the patient and he indicated that he would like to go home still. He will continue home diuresis with Lasix and potassium supplementation. He already has a follow-up scheduled with a school guard in [place] specifically for his pulmonary hypertension, this admission happened prior to his first visit with that physician. Inpatient E&M: 01200 Disch Hosp
[2018-12-15] MEDS: Magnesium Oxide 400 MG Tablet 800 MG PO (15:20)
[2018-12-15 17:50] LABS: Potassium 3.1 mmol/L (3.5-5.1)
--- NOTE | 2018-12-18 14:07 | CASEMGMT ---
ALEJANDRA DC PHONE CALL DC DATE: 12/15/18 DC Disposition: Home Diagnosis on Discharge: Renal insufficiency, abd pain LACE/STRATA: 04/11 Attempted call to patient, no answer, but messaging did have name identifier. Message left with call back information if questions. Germain ARSHADN RN [facility]
== END 2018-12-15 18:45 | disposition home or self-care (01) | DRG 871 ==
LOC: ED 21:58 → PCU 22:58
PROVIDERS: Internal Medicine Infectious Disease; Nurse Practitioner Family; Physician Assistant; Admitting Provider Hospitalist; Emergency Provider Emergency Medicine; Family Provider Family Medicine; PCP Family Medicine; Referring Provider Hospitalist; Visit Provider Family Medicine
DX: A41.9 Sepsis, unspecified organism (principal); J96.01 Acute respiratory failure with hypoxia; R65.21 Severe sepsis with septic shock; N17.9 Acute kidney failure, unspecified; A04.72 Enterocolitis due to Clostridium difficile, not specified as recurrent; I25.5 Ischemic cardiomyopathy; I25.10 Atherosclerotic heart disease of native coronary artery without angina pectoris; E11.9 Type 2 diabetes mellitus without complications; R55 Syncope and collapse; F17.210 Nicotine dependence, cigarettes, uncomplicated; I10 Essential (primary) hypertension; E87.6 Hypokalemia; E66.9 Obesity, unspecified; I27.20 Pulmonary hypertension, unspecified; I27.81 Cor pulmonale (chronic); Z68.37 Body mass index [BMI] 37.0-37.9, adult; Z79.4 Long term (current) use of insulin; Z95.5 Presence of coronary angioplasty implant and graft
CPT/HCPCS: 36415; 36600; 71045; 71275; 74176; 74177; 80048; 80076; 81001; 82274; 82803; 82962; 83605; 83630; 83735; 84100; 84132; 85025; 85027; 85379; 85610; 85730; 87040; 87086; 87088; 87177; 87209; 87493; 87506; 87633; 93005; 93308; 97162; 97166; 97530; 97802; 99285; 99406; J7030; J7040; Q9957; Q9967; A4216; J0696; J1940; J2405

== ENCOUNTER → 2018-12-19 15:48 | Outpatient (CLI) | payer MEDICARE, SELFPAY ==
[2018-09-07 12:07] VITALS: BMI 38.4
[2018-12-19 14:54] VITALS: BMI 36.7
[2018-12-19 17:20] LABS: Absolute Lymphocyte Count 5.47 X10^3/uL (0.83-4.51); Absolute Neutrophil Count 8.3 X10^3/uL (2.0-7.7); Basophil# 0.15 X10^3/uL; Basophil% 0.9 % (0-1); Eosinophil# 0.63 X10^3/uL; Eosinophils% 3.8 % (0-5); Hematocrit 45.7 % (40-54); Hemoglobin 14.2 g/dL (13.0-16.5); Lymphocyte # 5.47 X10^3/ul (4.0); Lymphocyte % 33.4 % (19-41); Mean Corp Hgb Conc 31.1 g/dL (32-36); Mean Corpuscular Hgb 29.3 pg (27.0-32.0); Mean Corpuscular Volume 94.2 fL (80-94); Mean Platelet Vol. 9.6 fl (6.2-12.0); Monocyte# 1.58 X10^3/uL; Monocyte% 9.6 % (0-10); NRBC Flagged by Analyzer 0 % (0-5); Neutrophil % 50.7 % (47-70); POSITIVE DIFFERENTIAL YES; Platelet Count 626 K/mm3 (150-450); RBC Distribution Width CV 14.7 % (11.6-14.6); RBC Distribution Width SD 51.1 fl (35.1-43.9); Red Blood Count 4.85 M/mm3 (4.6-6.2); White Blood Count 16.4 K/mm3 (4.4-11.0)
[2018-12-19 17:22] LABS: Differential Indicated SCAN CRITERIA MET
[2018-12-19 17:59] LABS: Differential Comment SCANNED
[2018-12-20 14:27] LABS: Pathologist Review Reviewed
== END ==
PROVIDERS: Family Provider Family Medicine; PCP Family Medicine; Referring Provider Specialist; Visit Provider Specialist
DX: K85.90 Acute pancreatitis without necrosis or infection, unspecified (principal)
CPT/HCPCS: 36415; 85025

== ENCOUNTER 2019-01-11 08:51 | Day surgery (SDC) | payer MEDICARE, SELFPAY ==
[2018-09-07 12:07] VITALS: BMI 38.4
--- NOTE | 2018-12-19 04:59 | HP_ITS ---
HPI [facility] History of Present Illness Details: 48-year-old male with past medical history of hypertension, dyslipidemia, diabetes previously following with Dr. Michel was referred to us for cardiac catheterization as he was found to have low EF on echocardiogram. Patient underwent cardiac cath which revealed 80% stenosis in the LAD which was treated with STEVEN (4 x 24 mm Synergy on September 07, 2018) coming to our office for follow-up. He has noticed significant improvement after the stent placement. He still has some shortness of breath. 12/06/2018: Patient's shortness of breath appears to be getting worse. He had lung function tests ordered by his PCP. He does not have any chest pain. However he did not have any chest pain prior to the PCI as well. 12/19/2018: Patient's shortness of breath has improved after switching from Brilinta to Plavix. He still has some shortness of breath. He was in the hospital recently with colitis. His Lasix was increased to 20 mill grams p.o. twice daily. He does not have any orthostatic dizziness or dizziness. His blood pressure is in the 70s systolic. His stool was positive for occult blood in the hospital. He is on dual antiplatelet therapy due to recent stent. Intake Vital Signs 12/19/18 Blood Pressure 70/48 L 12/19/18 Blood Pressure Location Rt radial 12/19/18 Blood Pressure Position Sitting 12/19/18 Comment manual 12/19/18 Height 5 ft 9 in 12/19/18 Weight: 249 lb 12/19/18 Body Mass Index (BMI) 36.7 12/19/18 Blood Pressure 72/46 L 12/19/18 Blood Pressure Location Lt brachial 12/19/18 Blood Pressure Position Sitting 12/19/18 Respiratory Rate 20 H 12/19/18 Pulse Rate 90 12/19/18 Pulse Source Monitor 12/19/18 Pulse Ox 95 12/19/18 Oxygen Delivery Method nasal canula 12/19/18 Oxygen Flow Rate (L/min) 2 12/19/18 Comment Manual BP Intake Visit Reasons: 10 DAYS F/U 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 Accompanied by: Is patient in pain?: No Allergies ticagrelor Allergy (Severe, Verified 12/19/18 15:00) shortness of breath lisinopril Allergy (Verified 12/19/18 15:00) Other Medications Losartan Potassium [Cozaar] 100 mg PO DAILY 10/12/16 [History Confirmed 12/19/18] Aspirin [Aspirin, Baby] 81 mg PO DAILY@0800 09/06/18 [History Confirmed 12/19/18] Atorvastatin Calcium [Lipitor] 20 mg PO DAILY 09/06/18 [History Confirmed 12/19/18] Carvedilol [Coreg (Beta Jeff)] 6.25 mg PO BID 09/06/18 [History Confirmed 12/19/18] Fenofibrate [Tricor] 145 mg PO DAILY 09/06/18 [History Confirmed 12/19/18] Insulin NPH Human Isophane [Humulin N Kwikpen] 5 unit SQ DAILY 09/06/18 [History Confirmed 12/19/18] Oxycodone HCl/Acetaminophen [Percocet 5-325 mg Tablet] 1 ea PO TID PRN PRN 09/07/18 [History Confirmed 12/19/18] clopidogrel 75 mg tablet 75 mg PO DAILY #30 tab 12/06/18 [Rx Confirmed 12/19/18] Furosemide [Lasix] 20 mg PO BID #60 tab 12/15/18 [Rx Confirmed 12/19/18] Potassium Chloride [K-Dur] 10 meq PO BID #60 tab 12/15/18 [Rx Confirmed 12/19/18] vancomycin 125 mg capsule 125 mg PO Q6H cap 12/19/18 [History Confirmed 12/19/18] Ejection fraction %: 55 to 59 PFSH Medical History Essential hypertension (Chronic) Diabetes (Chronic) Pulmonary hypertension (Chronic) Cardiomyopathy (Chronic) Arteriosclerotic heart disease (ASHD) (Chronic) C. difficile colitis (Acute) Colitis (Acute) History of chronic pancreatitis (Chronic) Surgical History S/P angioplasty with stent (Chronic) History of cholecystectomy (Resolved) History of hip surgery (Resolved) S/P cataract surgery (Resolved) S/P colonoscopy (Resolved) Status post total hip replacement, right (Resolved) Family History Mother Diabetes Hypertension Breast cancer Grandfather Heart disease Uncle Heart disease Social History (Updated 12/19/18 @ 15:46 by Alyce Bullock MD) Smoking Status: Former smoker how long ago did patient quit smokin week ago alcohol intake: never substance use type: does not use caffeine: Yes Type: carbonated beverages Number of servings: 2 ROS Const Const: Positive for fatigue and weakness; negative for headache(s), frequent falls, difficulty sleeping or excessive sweating Eyes Eyes: Negative for loss of peripheral vision, transient loss of vision, blurry vision, double vision or tunnel vision ENT ENT: Negative for headache(s), dizziness, Nosebleed/epistaxis or balance problems Cardio Chest Pain: No Palpitations: No Edema: None Muscle aches with walking: None Resp Respiratory: Positive for SOB with activity (Improving slightly); negative for SOB orthopnea\SOB lying down, Cough or paroxysmal nocturnal dyspnea GI GI: Negative nausea, vomiting, heartburn or black,tarry stools : Negative for hematuria Musc Musc: Negative for muscle aches/ myalgia, muscle weakness, joint pain or balance problems Skin Skin: Negative non-healing lesions, rash or unusual bruising Neuro Neuro: Positive for weakness; negative for dizziness, lightheadedness, near syncope, syncope, frequent falls, headache(s), blurry vision, double vision or lack of coordination Kwame Hematologic/Lymphatic: Negative for easy bleeding or easy bruising Endo Endo: Positive for fatigue; negative for excessive sweating or increased thirst/drinking Psych Psych: Negative for anxiety or depression Allergy Allergy/Immunology: Negative for hives, Negative for rash Cardiology Exam Const Appearance: cooperative; negative acute distress Nutritional Appearance: well nourished Head Head: normocephalic and atraumatic Ears: hearing grossly normal bilaterally Nose: external nose normal Face and Sinus: face symmetric Mouth: moist mucous membranes Teeth and gingiva: fair dentition Eyes General: appearance normal, both eyes and all related structures Eyelids: eyelids normal Conjunctivae: conjunctivae normal Neck Neck: trachea midline and no JVD Chest Chest inspection: symmetric chest movement; negative pursed lip breathing Auscultation: Bilateral: Clear to Auscultation Cardio Rate: regular rate Rhythm: regular rhythm Heart sounds: S1 normal and S2 normal No Murmurs GI GI: normal to inspection Neuro General: alert, awake and oriented x3 Gait: Negative ataxic Skin Skin: no rashes or lesions noted; negative atrophy or jaundice Extremities Pulses: Normal: Right Posterior Tibial Pulse, Left Posterior Tibial Pulse Lower Extremity Edema: None: Bilateral Musculoskel Musculoskeletal: No joint tenderness Psych Psychological: normal affect Assessment & Plan 1. Shortness of breath R06.02 Plan Improved after switching from Brilinta to Plavix. He has cardiomyopathy but appears compensated. He is also hypotensive. His Lasix has already been increased. We will discontinue the amlodipine. Shortness of breath could be multifactorial secondary to mild anemia, cardiomyopathy, deconditioning. We will check a hemoglobin level today. Patient was advised to call us tomorrow for the results. 2. Hypotension, unspecified hypotension type I95.9 Plan We will stop the amlodipine. Patient is asymptomatic from his low blood pressure. He was at rest to keep an eye on the blood pressure and let us know if it stays below 90 systolic. 3. Arteriosclerotic heart disease (ASHD) I25.10 S/p stent to LAD 09/2018 Plan Continue current medications 4. Ischemic cardiomyopathy I25.5 EF 45% Plan Continue current medications Plan Detail Other Orders Orders: CBC W/Diff, Automated Today K85.90 Other Medications Discontinued: amlodipine Discontinued Reason: Order Changed 5 mg PO DAILY 30 tabs 11RF Follow Up 1 Month Coding Level of Care Code Off vis,est,level 4 Diagnoses Shortness of breath R06.02 Hypotension, unspecified hypotension type I95.9 ??Hypotension type: unspecified hypotension type Arteriosclerotic heart disease (ASHD) I25.10 Ischemic cardiomyopathy I25.5 ??Cardiomyopathy type: ischemic Coding Level of Care Code Off vis,est,level 4 Diagnoses Shortness of breath R06.02 Hypotension, unspecified hypotension type I95.9 ??Hypotension type: unspecified hypotension type Arteriosclerotic heart disease (ASHD) I25.10 Ischemic cardiomyopathy I25.5 ??Cardiomyopathy type: ischemic Supplemental Info Supplemental Information Diagnostics Electrocardiogram 12/11/18 Echocardiogram 12/11/18 Chest X-Ray 12/12/18 12/19/18 1546 <Electronically signed by Alyce acosta MD> Date _ Alcye Bullock MD
[2018-12-19 14:54] VITALS: BMI 36.7
[2019-01-11 09:24] VITALS: BMI 37.1
--- NOTE | 2019-01-11 12:14 | CL.D_ITS ---
Patient Name: ERIN MANRIQUEZ Study Date: 01/11/2019 Performing: Scarlet Bullock MD Ht: 69 inches 175.26 cm : 1970 Wt: 251.39 lbs 114.03 kg Age: 48 Gender: male BSA: 2.28 PROCEDURE(S) PERFORMED [id number] ONLY CLINICAL PROFILE AND INDICATIONS Indications: Other. Pulmonary HTN Heart Failure: None Stress/Imaging Stress/Image Study Performed: No CAD Presentations: Other: n/a. Pt. getting RHC and LHC for pulm HTN CONCLUSIONS Right heart pressures - severely elevated. Normal wedge pressure and LVEDP. Elevated PVR, Decreased cardiac index. No evidence of intra cardiac shunt. RECOMMENDATIONS DESCRIPTION OF PROCEDURE The patient arrived to the procedure lab. The risks and benefits of the procedure as well as a full d escription of our services here and current unavailability of surgical backup were fully explained to the patient and/or their significant other prior to the catheterization. The Timeout was completed, verifying the correct patient and procedure. The patient's procedural site was prepped and draped in the usual fashion. Local anesthetic was given subcutaneously to right jugular region with Lidocaine 2 %. Local anesthetic was given subcutaneously to right radial region with Lidocaine 2%. Using a modifi ed Seldinger technique, and ultrasound guidance,arterial access was obtained via the right radial art joy, a 6Fr sheath was inserted. Venous access was obtained via the right jugular vein, with Micropunc ture set. Venous access was obtained via the right jugular vein, a 7Fr sheath was inserted. A 7Fr the rmal dilution catheter was inserted and right heart pressures were recorded, it was then advanced to PA position for cardiac outputs. Thermal dilution cardiac outputs were then recorded. O2 saturations were then obtained. Simultaneous pressures were then recorded. The Thermal dilution ken ter was then removed. A 7Fr thermal dilution catheter was inserted and right heart pressures were rec orded, it was then advanced to PA position for cardiac outputs.The venous sheath was then sutured inp lace and capped. The arterial sheath was pulled and a TR Band was applied for hemostasis. 12cc of air CORONARY ANGIOGRAPHY RIGHT HEART ASSESSMENT Nikia CO: 3.57 Nikia CI: 1.57 PW: 12 PA: 71/26 40 RV: 71/0 12 RA: 8/4 4 PVR: 599 COMPLICATIONS No Complications PROCEDURE MEDICATIONS Fentanyl 50 mcg IV Fentanyl 50 mcg IV Oxygen: 3 L/min via nasal cannula Oxygen: 3 L/min via nasal cannula Heparin given IA 01/11/2019 11:05:29 Verapamil 2.5mg, Ntg 100mcgs, 3000 units of Heparin given IA 01/11/2019 11:05:29 SUMMARY OF HEMODYNAMIC DATA Time AIR REST ECG 09:24:36 PA 71/26 (40) PA 11:10:26 PW 17/16 (12) PV 11:11:30 PW 15/14 (11) 11:11:58 PW 13/10 (10) 11:12:02 LV 85/0, 8 11:14:51 LV 86/-5, 2 11:14:57 LV 89/-4, 3 11:15:03 PW 34/29 (29) 11:15:03 LV 89/-2, 3 11:15:09 PW 34/29 (28) 11:15:09 LV 80/2, 5 11:15:37 PW 22/18 (18) 11:15:37 LV 77/2, 5 11:16:17 PW 17/14 (14) 11:16:17 PA 72/28 (43) 11:17:04 RV 71/0, 12 11:21:41 RV 71/-1, 10 11:21:55 RA 8/4 (4) SV 11:23:18 LVp 78/16, 20 11:37:18 RA 0/0 (-5) 11:37:18 AOp 80/57 (69) 11:37:23 RA 0/0 (-5) 11:37:23 PA 81/36 (50) 11:41:57 PA 75/28 (45) 11:46:58 Type SV CO (l/m) CI (l/m/ HR Time AIR REST Nikia 47.00 3.57 1.57 76 09:24:36 Label % O2 Pres/Loc Time AIR REST AO 89 PV 11:39:27 SVC 41 11:39:32 RA 45 SV 11:39:36 RV 43 11:39:41 PA 47 PA 11:39:46 Signed By Scarlet Bullock MD On 01/11/2019 12:12:59 Scarlet Bullock MD
[2019-01-11 12:20] LABS: Base Excess -9 mmol/L (-2 to +2); Bicarbonate 15.2 mmol/L (22-26); Blood Gas Specimen Type ART; PO2 54 mmHG (75-100); SO2 89 % (95-99); Total Carbon Dioxide 16 mmol/L; pCO2 23.2 mmHg (35-45); pH 7.42 (7.35-7.45)
[2019-01-11 12:20] LABS: Blood Gas Specimen Type VEN; VBG BASE EXCESS -8 mmol/L (-1.0-3.5); VBG Bicarbonate 17 mmol/L (22-26); VBG Oxygen Content 17 mmol/L (23-33); VBG PO2 25 mmHg (25-40); VBG SO2 47 % (50-70); VBG pCO2 26.6 mmHg (41-51)
[2019-01-11 12:21] LABS: Blood Gas Specimen Type VEN; VBG BASE EXCESS -7 mmol/L (-1.0-3.5); VBG Bicarbonate 18 mmol/L (22-26); VBG Oxygen Content 18 mmol/L (23-33); VBG PO2 23 mmHg (25-40); VBG SO2 43 % (50-70); VBG pCO2 28.4 mmHg (41-51)
[2019-01-11 12:21] LABS: Blood Gas Specimen Type VEN; VBG BASE EXCESS -6 mmol/L (-1.0-3.5); VBG Bicarbonate 19 mmol/L (22-26); VBG Oxygen Content 19 mmol/L (23-33); VBG PO2 23 mmHg (25-40); VBG SO2 41 % (50-70); VBG pCO2 30.8 mmHg (41-51); VBG pH 7.39 (7.32-7.42)
[2019-01-11 12:21] LABS: Blood Gas Specimen Type VEN; VBG BASE EXCESS -8 mmol/L (-1.0-3.5); VBG Bicarbonate 17 mmol/L (22-26); VBG Oxygen Content 18 mmol/L (23-33); VBG PO2 24 mmHg (25-40); VBG SO2 45 % (50-70); VBG pH 7.41 (7.32-7.42)
== END 2019-01-11 13:30 | disposition short-term general hospital (02) ==
LOC: CLSP 08:52
PROVIDERS: Family Provider Family Medicine; PCP Family Medicine; Referring Provider Specialist; Visit Provider Specialist
DX: I27.20 Pulmonary hypertension, unspecified (principal); I25.10 Atherosclerotic heart disease of native coronary artery without angina pectoris; R06.02 Shortness of breath; I25.5 Ischemic cardiomyopathy; I10 Essential (primary) hypertension; E11.9 Type 2 diabetes mellitus without complications; E78.5 Hyperlipidemia, unspecified; Z95.5 Presence of coronary angioplasty implant and graft; Z79.82 Long term (current) use of aspirin; Z79.4 Long term (current) use of insulin; Z79.891 Long term (current) use of opiate analgesic; Z79.899 Other long term (current) drug therapy; Z87.891 Personal history of nicotine dependence
CPT/HCPCS: 82803; 93451; 99152; 99153; J7040; C1751; C1769; C1894

== ENCOUNTER 2019-02-05 23:20 | Emergency (ER) | payer MEDICARE, SELFPAY ==
[2018-09-07 12:07] VITALS: BMI 38.4
[2019-01-29 11:20] VITALS: BMI 37.3
[2019-02-05 23:21] VITALS: BP 117/59; PULSE 85; RESP 18; TEMP 36.8; O2SAT 93; BMI 36.3
--- NOTE | 2019-02-05 23:32 | EKG12_ITS ---
Test Reason : SLEEPY Blood Pressure : / mmHG Vent. Rate : 078 BPM Atrial Rate : 078 BPM P-R Int : 176 ms QRS Dur : 104 ms QT Int : 386 ms P-R-T Axes : 049 052 -22 degrees QTc Int : 440 ms Normal sinus rhythm Nonspecific ST & wave abnormality Abnormal ECG Confirmed by FÉLIX LOUISE, RACHID ([id number]), editorial clerk ZAKI STEWART ([id number]) on 02/07/2019 12:31:19 PM Referred By: ELPIDIO Confirmed By:RACHID HEARD MD
--- NOTE | 2019-02-05 23:36 | ED.DCSUM_ITS ---
History of Present Illness Chief Complaint: Alt LOC Informant: Patient Onset: Days Context: Gradual Onset Timing: Continuous Current Severity: Moderate Maximum Severity: Moderate Narrative: The patient presents with generalized malaise, confusion, and headache. The patient has a recent diagnosis of pulmonary hypertension. He was started on 3 new medications about 3 weeks ago. He states that he had a dull headache since starting the medication and his delicatessen goods stock clerk thought it was secondary to the medications. However, over the past 24 hours, he states he is been more confused. He describes a frontal headache in the left. He also states that the periphery of his vision seems more blurry. He denies any definite visual field cut, just states that it is hard to see from the outside of both eyes. It does involve both eyes. He denies any focal weakness. He states he just feels like is not himself and has been more lethargic. He states he tried to take a nap hoping it would improve, but he did not. He has not had fever. He denies cough. He does have increased leg edema. The patient is on 4 L of oxygen at baseline. Prior similar symptoms: No Recent Illness/Hospitalization: Yes Past Medical History - Allergies and Home Meds Allergies/Adverse Reactions: Allergies ticagrelor Allergy (Severe, Verified 02/05/19 23:24) shortness of breath lisinopril Allergy (Verified 02/05/19 23:24) Other COUGH Primary Care Physician: Bacilio Smith MD [Primary Care Provider] - Prior records reviewed: Yes Past Medical History: - - Cardiomyopathy, pulmonary hypertension Surgical History: no surgical history Smoking Status: Current every day smoker Review of Systems General: Denies: Chills, Fever, Sweats Eyes: Reports: Visual changes - bilaterally, Blurred Vision - bilaterally. Denies: Diplopia ENT: Denies: Rhinorrhea, Sore throat Cardiovascular: Denies: Chest pain, Palpitations Respiratory: Reports: Cough. Denies: Dyspnea, Dyspnea on exertion Gastrointestinal: Denies: Abdominal pain, Nausea, Vomiting, Diarrhea, Melena, Hematochezia Genitourinary: Denies: Dysuria, Hematuria, Frequency Musculoskeletal: Denies: Back pain, Extremity Pain Skin: Denies: Rash, Wounds Neurological: Reports: Headache. Denies: Weakness, Numbness Psych: Denies: Depression Endocrine: Denies: Polyuria Physical Exam Vital Signs/Narrative: Vital Signs Temp Pulse Resp BP Pulse Ox 02/05/19 23:21 98.2 F 85 18 117/59 L 93 Inital Vital Signs reviewed: Yes General: Well nourished, Well developed, No Acute Distress Head: Normocephalic, Atraumatic Eyes: Perrl, EOMI ENT: Moist mucous membranes, No rhinorrhea Neck: Supple, Nontender Cardiovascular: Regular rate, Regular rhythm, No murmurs Respiratory: No distress, CTA bilaterally, Chest nontender Abdomen: Soft, Nontender, Nondistended, Normal bowel sounds Back: Nontender, Normal Inspection Extremities: Nontender, No edema Skin: Normal color, No rash Neurological: Alert, Oriented x3, Cranial nerves II-XII grossly intact, Normal Strength, Normal Sensation Psychological: Normal affect, Normal Mood Diagnostic/Tx/Re-eval Chest X-Ray - ED: 1 View, Read by ED Physician, Read by Radiologist, Normal, Mediastinum, Bony Structures, Chronic Changes, No Infiltrates Clinical Impression(s) from Imaging Studies Chest X-Ray 02/05/19 23:50 IMPRESSION: Borderline heart size. No evidence for acute cardiopulmonary pathology. Electronically Signed: Lionel Sanchez MD at 0:17 EDT , Service support , Abdomen/Pelvis CT 02/06/19 00:01 IMPRESSION: Mild peripancreatic fat infiltration. The pancreas otherwise appears normal. Findings are suspicious for mild acute pancreatitis. Suggest laboratory correlation.. Minimal free fluid in the posterior cul-de-sac pelvis. Apparent mural thickening in the body of the stomach may be an artifact of poor distention or might represent gastric pathology. If symptoms warrant, with consider follow-up upper endoscopy. Atherosclerosis. Colonic diverticulosis, without evidence for acute diverticulitis. Duodenal diverticulum without evidence for duodenal diverticulitis. Previous cholecystectomy. No demonstrated urinary calculi or hydronephrosis. No evidence for appendicitis. No evidence for bowel obstruction or ileus. Electronically Signed: Lionel Sanchez MD at 1:43 EDT , Service support , Head/Neck CTA 02/06/19 00:25 IMPRESSION: No arterial occlusion, aneurysm or vascular malformation. Recent left temporal occipital infarct. Individualized dose optimization techniques were used for this CT. at 0117 Reported and signed by: Audrey Briones MD Electronically Signed: Audrey Briones MD at 1:17 EDT Tel , Service support , Brain CT 02/06/19 23:32 IMPRESSION: Acute or subacute infarction of the left occipital lobe and posterior left temporal lobe. No clinically significant mass effect. No hemorrhage. Findings of temporal and occipital infarction have already been noted in the CTA brain report. Electronically Signed: Lionel Sanchez MD at 1:28 EDT , Service support , Abnormal Lab Results 02/05/19 02/05/19 02/05/19 23:39 23:39 23:39 WBC 10.7 RBC 2.35 L Hgb 5.9 L* Hct 19.8 L MCV 84.3 MCH 25.1 L MCHC 29.8 L RDW Std Deviation 53.6 H RDW Coeff of Teja 17.4 H Plt Count 373 MPV 8.7 Immature Gran % (Auto) 0.700 Neut % (Auto) 64.8 Lymph % (Auto) 23.3 [place] % (Auto) 9.3 Eos % (Auto) 1.4 Baso % (Auto) 0.5 Absolute Neuts (auto) 6.9 Absolute Lymphs (auto) 2.49 Nucleated RBC % 0.7 Diff Path Review May foll PT 15.3 H INR 1.2 Specimen Type Sample Site pH Bicarbonate Actual POC Total CO2 Base Excess O2 Saturation ABG pCO2 ABG pO2 Greg Test O2 Delivery Device Liter Flow Blood Gas Notified Whom Sodium 133 L Potassium 3.3 L Chloride 101 Carbon Dioxide 24.0 Anion Gap 8 BUN 13 Creatinine 1.28 Estim Creat Clear Calc 69.81 Est GFR (MDRD) Af Amer 77 Est GFR (MDRD) Non-Af 63 BUN/Creatinine Ratio 10.2 Glucose 128 H Lactic Acid Calcium 8.8 Total Bilirubin 0.20 AST 16 ALT 21 Alkaline Phosphatase 44 L Troponin I 0.147 H B-Natriuretic Peptide Total Protein 7.2 Albumin 3.6 Globulin 3.6 Albumin/Globulin Ratio 1.0 Urine Color Urine Clarity Urine pH Ur Specific [place] Urine Protein Urine Glucose (UA) Urine Ketones Urine Occult Blood Urine Nitrite Urine Bilirubin Urine Urobilinogen Ur Leukocyte Esterase Urine RBC Urine WBC Ur Squamous Epith Cells Urine Bacteria Hyaline Casts Urine Mucus Blood Type Antibody Screen Crossmatch 02/05/19 02/05/19 02/05/19 23:39 23:52 23:54 WBC RBC Hgb Hct MCV MCH MCHC RDW Std Deviation RDW Coeff of Teja Plt Count MPV Immature Gran % (Auto) Neut % (Auto) Lymph % (Auto) [place] % (Auto) Eos % (Auto) Baso % (Auto) Absolute Neuts (auto) Absolute Lymphs (auto) Nucleated RBC % Diff Path Review PT INR Specimen Type ART Sample Site L Radial pH 7.56 H Bicarbonate Actual 19.6 L POC Total CO2 20 Base Excess -3 L O2 Saturation 96 ABG pCO2 21.7 L ABG pO2 66 L Greg Test POS O2 Delivery Device Nasal Can Liter Flow 6.0 Blood Gas Notified Whom ED Sodium Potassium Chloride Carbon Dioxide Anion Gap BUN Creatinine Estim Creat Clear Calc Est GFR (MDRD) Af Amer Est GFR (MDRD) Non-Af BUN/Creatinine Ratio Glucose Lactic Acid Calcium Total Bilirubin AST ALT Alkaline Phosphatase Troponin I B-Natriuretic Peptide 297.8 H Total Protein Albumin Globulin Albumin/Globulin Ratio Urine Color Urine Clarity Urine pH Ur Specific [place] Urine Protein Urine Glucose (UA) Urine Ketones Urine Occult Blood Urine Nitrite Urine Bilirubin Urine Urobilinogen Ur Leukocyte Esterase Urine RBC Urine WBC Ur Squamous Epith Cells Urine Bacteria Hyaline Casts Urine Mucus Blood Type A POSITIVE Antibody Screen NEGATIVE Crossmatch See Detail 02/05/19 02/06/19 23:55 00:05 WBC RBC Hgb Hct MCV MCH MCHC RDW Std Deviation RDW Coeff of Teja Plt Count MPV Immature Gran % (Auto) Neut % (Auto) Lymph % (Auto) [place] % (Auto) Eos % (Auto) Baso % (Auto) Absolute Neuts (auto) Absolute Lymphs (auto) Nucleated RBC % Diff Path Review PT INR Specimen Type Sample Site pH Bicarbonate Actual POC Total CO2 Base Excess O2 Saturation ABG pCO2 ABG pO2 Greg Test O2 Delivery Device Liter Flow Blood Gas Notified Whom Sodium Potassium Chloride Carbon Dioxide Anion Gap BUN Creatinine Estim Creat Clear Calc Est GFR (MDRD) Af Amer Est GFR (MDRD) Non-Af BUN/Creatinine Ratio Glucose Lactic Acid 3.0 H Calcium Total Bilirubin AST ALT Alkaline Phosphatase Troponin I B-Natriuretic Peptide Total Protein Albumin Globulin Albumin/Globulin Ratio Urine Color Yellow Urine Clarity Clear Urine pH 6.0 Ur Specific [place] 1.020 Urine Protein 30 H Urine Glucose (UA) Normal Urine Ketones Negative Urine Occult Blood Negative Urine Nitrite Negative Urine Bilirubin Negative Urine Urobilinogen Normal Ur Leukocyte Esterase Negative Urine RBC 0 SEEN Urine WBC 0 SEEN Ur Squamous Epith Cells 0-5 SEEN Urine Bacteria RARE Hyaline Casts 0-5 SEEN Urine Mucus RARE Blood Type Antibody Screen Crossmatch - Rhythm Strip Rhythm Strip: Sinus Rhythm Rate: 90 Ectopy: None - Medical Decision Making The patient presents to the emergency department with change in mental status, headache, visual change, and general lethargy. He does have multiple comorbidities and was recently started on new medication. A broad metabolic work-up was pursued. The patient has an NIH of 1 for his visual change. He does not have a focal visual field cut. Screening labs were obtained. The patient was found to have new anemia. I did do a rectal exam. There is no gross blood. It was guaiac negative. Patient was sent for a stat head CT which shows a subacute infarct in the left parietal and occipital lobe. Patient was sent for CTA to rule out large vessel occlusion. There is no evidence of acute occlusive process. Patient does have a mildly elevated lactic acid and indeterminate troponin. My suspicion is that this is all mediated from his new anemia. He did have recent procedure, but has no evidence of bleeding. I o btained a CT of his abdomen and pelvis. There was some nonspecific edema of the gastric antrum. My suspicion is that this is likely an upper GI bleed that has caused symptomatic anemia and a subacute stroke. The patient is going to need a higher level of care. He has evidence of acute blood loss therefore I do not feel he is a candidate for TPA and his symptoms have been greater than 6 hours a nd he has no evidence of large vessel occlusion. Patient was transfused 2 units of blood. He was given IV Protonix. I did discuss the patient with [facility] and he will be transferred for further definitive care. Impression 1. Acute upper GI bleed 2. Symptomatic anemia 3. Subacute left temporal stroke 4. Generalized weakness - Critical Care Time Critical care time (excluding procedures): 30-74 minutes, Discussing w/Patient &/or Family/Pump Servicer Supervisor, Discussing w/Consultants, Arranging Admission or Transfer ED Disposition - Plan for ED Patient: Referrals: Bacilio Smith MD [Primary Care Provider] -
[2019-02-05 23:38] VITALS: O2SAT 86
[2019-02-05 23:44] LABS: Absolute Lymphocyte Count 2.49 X10^3/uL (0.83-4.51); Absolute Neutrophil Count 6.9 X10^3/uL (2.0-7.7); Basophil# 0.05 X10^3/uL; Basophil% 0.5 % (0-1); Eosinophil# 0.15 X10^3/uL; Eosinophils% 1.4 % (0-5); Hematocrit 19.8 % (40-54); Lymphocyte # 2.49 X10^3/ul (4.0); Lymphocyte % 23.3 % (19-41); Mean Corp Hgb Conc 29.8 g/dL (32-36); Mean Corpuscular Hgb 25.1 pg (27.0-32.0); Mean Corpuscular Volume 84.3 fL (80-94); Mean Platelet Vol. 8.7 fl (6.2-12.0); Monocyte# 0.99 X10^3/uL; Monocyte% 9.3 % (0-10); NRBC Flagged by Analyzer 0.7 % (0-5); Neutrophil # 6.93 X10^3/uL (2.7-7.7); Neutrophil % 64.8 % (47-70); POSITIVE COUNT YES; Platelet Count 373 K/mm3 (150-450); RBC Distribution Width CV 17.4 % (11.6-14.6); RBC Distribution Width SD 53.6 fl (35.1-43.9); Red Blood Count 2.35 M/mm3 (4.6-6.2); White Blood Count 10.7 K/mm3 (4.4-11.0)
[2019-02-05 23:45] VITALS: PULSE 87; RESP 24; O2SAT 94
[2019-02-05 23:47] LABS: Hemoglobin 5.9 g/dL (13.0-16.5)
--- NOTE | 2019-02-05 23:48 | ED.RN ---
LAB CALLED. PT HEMOGLOBIN 5.9. DR. PHILLIPS INFORMED.
--- NOTE | 2019-02-05 23:50 | RAD_ITS ---
STUDY: X-RAY CHEST REASON FOR EXAM: Male, 48 years old. Lethargy. TECHNIQUE: 2 AP portable views of the chest were obtained. COMPARISON: 12/12/2018. FINDINGS: There is mild chronic elevation of right hemidiaphragm. There is no evidence for acute pulmonary infiltrate. There is no demonstrated pleural abnormality. There is borderline cardiomegaly. Normal mediastinum and susana. Normal visualized pulmonary arteries. Normal visualized aortic arch and descending thoracic aorta. There are diffuse degenerative changes of the visualized thoracic spine. Normal visualized ribs, clavicles, and shoulders. There is no demonstrated abnormality of the visualized soft tissue structures of the upper abdomen. RAD/Chest 1 View (Portable) IMPRESSION: Borderline heart size. No evidence for acute cardiopulmonary pathology. Electronically Signed: Lionel Sanchez MD at 0:17 EDT , Service support ,
[2019-02-05 23:52] LABS: International Normalized Ratio 1.2; Prothrombin Time (Protime)PT. 15.3 SECONDS (11.7-14.9)
[2019-02-06] VITALS (19 sets, daily range): BP systolic 92–129; BP diastolic 45–78; PULSE 69–98; RESP 17–24; TEMP 36.3–36.9; O2SAT 88–100
[2019-02-06 00:01] LABS: Allen Test POS; Base Excess -3 mmol/L (-2 to +2); Bicarbonate 19.6 mmol/L (22-26); Blood Gas Specimen Type ART; O2 Delivery Device Nasal Can; PO2 66 mmHG (75-100); SITE L Radial; SO2 96 % (95-99); Total Carbon Dioxide 20 mmol/L; pCO2 21.7 mmHg (35-45); pH 7.56 (7.35-7.45)
--- NOTE | 2019-02-06 00:01 | CT_ITS ---
STUDY: CT ABDOMEN AND PELVIS WITHOUT CONTRAST REASON FOR EXAM: Male, 48 years old. Lethargy today. Headache. Leg swelling. History of stent placement, hypertension, diabetes, and kidney stones. RADIATION DOSAGE (If Supplied By Facility): CTDIvol = ( 27.73 ) mGy, DLP = ( 1567.10 ) mGycm TECHNIQUE: Transaxial images were obtained from the dome of the diaphragm to the symphysis pubis without oral contrast, and without intravenous contrast. Sagittal and coronal images were reconstructed. Visualization of the lower pelvis is limited by artifacts from metallic hardware. Individualized dose optimization techniques were used for this CT. COMPARISON: CT scan abdomen and pelvis 12/12/2018 and 12/11/2018. FINDINGS: The visualized lung bases are unremarkable. The visualized portions of the heart are within normal limits. There are coronary artery calcifications. Normal liver. The gallbladder surgically absent. Normal spleen. There is very mild peripancreatic fat infiltration which was not present on the previous studies. The pancreas otherwise appears normal with no demonstrated enlargement, ductal dilatation, or pseudocyst formation. Findings suspicious for very mild acute pancreatitis. Normal bilateral adrenal glands. Normal right kidney. Normal left kidney. There appears to be mural thickening in the anterior body of the stomach. This may be an artifact of limited distention., However, gastritis or other gastric pathology cannot be excluded. There is a 2 cm diverticulum arising from the lesser curvature of the third segment of the duodenal sweep. Otherwise normal small intestine. There are multiple colonic diverticula consistent with diverticulosis. The appendix is visualized on series 2, axial images 101-116 and it appears normal.. There is diffuse atherosclerotic calcification of the abdominal aorta, without a demonstrated aneurysm. Normal inferior vena cava. There is no demonstrated retroperitoneal lymphadenopathy. Normal urinary bladder. There is minimal free fluid in the posterior pelvis. Normal abdominal wall. There is a right hip prosthesis. 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 There are extensive degenerative changes of the lumbar spine. CT/Abdomen/Pelvis without Cont IMPRESSION: Mild peripancreatic fat infiltration. The pancreas otherwise appears normal. Findings are suspicious for mild acute pancreatitis. Suggest laboratory correlation.. Minimal free fluid in the posterior cul-de-sac pelvis. Apparent mural thickening in the body of the stomach may be an artifact of poor distention or might represent gastric pathology. If symptoms warrant, with consider follow-up upper endoscopy. Atherosclerosis. Colonic diverticulosis, without evidence for acute diverticulitis. Duodenal diverticulum without evidence for duodenal diverticulitis. Previous cholecystectomy. No demonstrated urinary calculi or hydronephrosis. No evidence for appendicitis. No evidence for bowel obstruction or ileus. Electronically Signed: Lionel Sanchez MD at 1:43 EDT , Service support ,
[2019-02-06 00:03] LABS: AST(SGOT) 16 U/L (15-37); Alanine Aminotransfer ALT/SGPT 21 U/L (16-61); Albumin, Serum 3.6 g/dL (3.2-5.0); Alkaline Phosphatase 44 U/L (45-117); Anion Gap 8 (5-15); BUN 13 mg/dL (7-18); BUN/Creat Ratio 10.2 RATIO (10-20); Calcium,Total 8.8 mg/dL (8.5-10.1); Chloride 101 mmol/L (98-107); Creatinine, Serum 1.28 mg/dL (0.70-1.30); EST Glomerular Filtration Rate 63 mL/min (>60); Est Glom Filt Rate - Afr Amer 77 mL/min (>60); Estimated Creatinine Clearance 69.81 ml/min; Globulin 3.6 g/dL (2.2-4.2); Glucose 128 mg/dL (74-106); Potassium 3.3 mmol/L (3.5-5.1); Protein, Total 7.2 g/dL (6.4-8.2); Sodium Level 133 mmol/L (136-145)
[2019-02-06 00:07] LABS: BNP,B-Type NATRIURETIC PEPTIDE 297.8 pg/mL (0-100)
[2019-02-06 00:17] LABS: Red Blood Cells-Urine 0 SEEN /hpf (0-5); White Blood Cells 0 SEEN /hpf (0-5)
[2019-02-06 00:18] LABS: Color, Urine Yellow (Yellow); Glucose, Dipstick Normal (Normal); Ketone-Dipstick Negative (Negative); Leukocyte Esterase-Dipstick Negative /ul (Negative); Nitrite-Dipstick Negative (Negative); Occult Blood-Urine Negative /ul (Negative); Protein-Dipstick 30 mg/dl (Negative); Urine Bilirubin Dipstick Negative (Negative); Urine Clarity Clear (Clear); Urine Urobilinogen Normal (Normal)
--- NOTE | 2019-02-06 00:25 | CT_ITS ---
HISTORY: STROKE, LETHARGIC TODAY, C/O VELAZCO, LEG SWELLING TECHNIQUE: CT angiogram of the brain was performed with IV contrast. CT angiogram images of the neck were obtained with IV contrast. 3D reconstructions were reviewed to aid in vascular evaluation. A radiation dose optimization technique was used for this scan. IV Contrast dosage and agent: 100 ml [id number] Number of images including paperwork: [phone] COMPARISON: Noncontrast CT 02/06/2019 CTA neck: FINDINGS: AORTIC ARCH AND BRANCHES: No dissection. RIGHT CAROTID ARTERIES: No occlusion, significant stenosis or dissection. LEFT CAROTID ARTERIES: No occlusion, significant stenosis or dissection. RIGHT VERTEBRAL ARTERY: No occlusion, significant stenosis or dissection. LEFT VERTEBRAL ARTERY: No occlusion, significant stenosis or dissection. NECK SOFT TISSUES: Unremarkable. LUNG APICES: Unremarkable. BONES: Unremarkable. IMPRESSION: Unremarkable CT angiogram of the neck. CTA head: FINDINGS: INTERNAL CAROTID ARTERIES: No significant stenosis of the intracranial segments. ANTERIOR CEREBRAL ARTERIES: No significant stenosis of the visualized segments. ANTERIOR COMMUNICATING ARTERY: Present. MIDDLE CEREBRAL ARTERIES: No significant stenosis of the visualized segments. VERTEBRAL ARTERIES: No significant stenosis of the intradural/visualized segments. BASILAR ARTERY: No significant stenosis. POSTERIOR CEREBRAL ARTERIES: No significant stenosis of the visualized segments. POSTERIOR COMMUNICATING ARTERIES: Present on the right. No evidence of intracranial aneurysm or vascular malformation. Cytotoxic edema in the left occipital lobe and posterior temporal lobe. CT/CTA Head AND Neck W/ Contrast IMPRESSION: No arterial occlusion, aneurysm or vascular malformation. Recent left temporal occipital infarct. Individualized dose optimization techniques were used for this CT. at 0117 Reported and signed by: Audrey Briones MD Electronically Signed: Audrey Briones MD at 1:17 EDT Tel , Service support ,
[2019-02-06 00:28] LABS: Bacteria RARE /hpf (None Seen); Squamous Epithelial Cells - UA 0-5 SEEN /hpf (0-5)
[2019-02-06 00:29] LABS: Hyaline Cast 0-5 SEEN /lpf (0-5); Mucous, Urine RARE /hpf (<or=2+)
--- NOTE | 2019-02-06 00:34 | ED.RN ---
Received critical lactic acid of 3.0, MD aware.
--- NOTE | 2019-02-06 00:40 | NURSING ---
DR GARCIA ASKED ABOUT PT BEING SEPTIC . NOT AT THIS TIME. LACTIC 3. CHECKLIST NOT FILLED OUT
--- NOTE | 2019-02-06 01:12 | NURSING ---
dr macedo notified that pt po keeps dropping in 88% on 6lnc. dr macedo did not want the 50% mask to be applied.
[2019-02-06 04:02] LABS: Reflex Lactate? Y
--- NOTE | 2019-02-06 04:06 | NURSING ---
po 100% on 6lnc. 02 decreased to 5lnc
--- NOTE | 2019-02-06 04:29 | ED.RN ---
CALLED [facility] TO CHECK THE STATUS OF A ROOM ASSIGNMENT, PER [facility] IN THE TRANSFER CENTER, THEY MUST WAIT FOR A DISCHARGE BEFORE ASSIGNING A RM TO THIS PT, UNKNOWN TIME LINE
[2019-02-06 04:44] LABS: Lactic Acid 1.1 mmol/L (0.4-2.0)
--- NOTE | 2019-02-06 04:56 | ED.RN ---
decreased 02 to 4lnc.
--- NOTE | 2019-02-06 09:12 | ED.RN ---
pt requesting to take am meds. reviewed and approved.
--- NOTE | 2019-02-06 09:30 | NURSING ---
CALLED [facility], TALKED TO ZEINA. NO BED YET, CENSUS IS CRITICAL
--- NOTE | 2019-02-06 12:06 | NURSING ---
CALLED [facility], NO BED IN THE NEAR FUTURE. THEY ARE AT A CRITICAL CENSUS
[2019-02-06 12:09] LABS: Absolute Lymphocyte Count 2.12 X10^3/uL (0.83-4.51); Absolute Neutrophil Count 5.3 X10^3/uL (2.0-7.7); Basophil# 0.05 X10^3/uL; Basophil% 0.6 % (0-1); Eosinophils% 2.3 % (0-5); Hematocrit 23.5 % (40-54); Hemoglobin 7.2 g/dL (13.0-16.5); Lymphocyte # 2.12 X10^3/ul (4.0); Mean Corp Hgb Conc 30.6 g/dL (32-36); Mean Corpuscular Hgb 26.2 pg (27.0-32.0); Mean Corpuscular Volume 85.5 fL (80-94); Mean Platelet Vol. 9.2 fl (6.2-12.0); Monocyte# 0.96 X10^3/uL; Monocyte% 10.9 % (0-10); Neutrophil # 5.32 X10^3/uL (2.7-7.7); Neutrophil % 60.3 % (47-70); Platelet Count 370 K/mm3 (150-450); RBC Distribution Width CV 16.9 % (11.6-14.6); RBC Distribution Width SD 52.3 fl (35.1-43.9); Red Blood Count 2.75 M/mm3 (4.6-6.2); White Blood Count 8.8 K/mm3 (4.4-11.0)
[2019-02-06] MEDS: Acetaminophen 325 MG Tablet 650 MG PO (13:14)
--- NOTE | 2019-02-06 13:35 | NURSING ---
DR REYES PAGED
--- NOTE | 2019-02-06 14:09 | NURSING ---
[id number] DR REYES PAGED BY HEAT TREAT WORKER
--- NOTE | 2019-02-06 14:10 | NURSING ---
DR REYES PAGED THROUGH HIS OFFICE. TALKED TO CHLOE
[2019-02-06 14:14] LABS: Pathologist Review Reviewed
--- NOTE | 2019-02-06 14:42 | NURSING ---
DR CHAVEZ PAGED
--- NOTE | 2019-02-06 14:47 | NURSING ---
DR REYES FOR DR MCMAHON
--- NOTE | 2019-02-06 15:39 | ED.RN ---
PT REQUESTED DISCHARGE AND TO BE DISCONNECTED FROM IV FLUIDS AND MONITOR. PT STATED THAT HE WAS WAITING FOR TRANSFER AND HAD BEEN BOARDED IN THE ED WHILE WAITING FOR BED TO OPEN. PT STATED THAT HE HAD BEEN WAITING TOO LONG AND WANTED TO GO HOME. DR. MCMAHON WAS NOTIFIED OF PT REQUEST TO BE DISCHARGED. AFTER DR. MCMAHON DISCUSSED DISCHARGE AND RISKS INVOLVED, PT STILL REQUESTED DISCHARGE. PT SIGNED AMA WAS DISCHARGED HOME, TRANSPORTED TO CAR BY WHEELCHAIR. SPOUSE PRESENT IN ROOM AND WAS ALSO INFORMED OF RISKS ASSOCIATED WITH DISCHARGE. PT DIRECTED TO RETURN TO ED IF HEALTH CONTINUED TO DECLINE.
--- NOTE | 2019-02-06 23:32 | CT_ITS ---
STUDY: CT BRAIN WITHOUT CONTRAST REASON FOR EXAM: Male, 48 years old. Lethargy. Headache. Leg swelling. History of hypertension, diabetes, kidney stones, and stent placement. RADIATION DOSAGE (If Supplied By Facility): CTDIvol = ( 44.99 ) mGy, DLP = ( 832.67 ) mGycm TECHNIQUE: Transaxial CT imaging of the brain was performed without administration of intravenous contrast material. Individualized dose optimization techniques were used for this CT. COMPARISON: CTA brain, which was done immediately following the study. The CTA brain has already been read.. FINDINGS: Normal soft tissue structures. Normal calvarium. There is decreased attenuation in the left occipital lobe and posterior left temporal lobe, consistent with cytotoxic edema. There is effacement of overlying cortical sulci, but no clinically significant mass effect or midline shift. Finding is consistent with an acute or subacute infarction. Overall normal size ventricles and extra-axial spaces for the patient's age. Normal white matter tracts of the cerebral hemispheres. Normal basal ganglia and thalami. Normal brainstem. There is mild cerebellar atrophy. There is no intracranial hemorrhage. . Normal visualized paranasal sinuses. CT/Brain/Head without Contrast IMPRESSION: Acute or subacute infarction of the left occipital lobe and posterior left temporal lobe. No clinically significant mass effect. No hemorrhage. Findings of temporal and occipital infarction have already been noted in the CTA brain report. Electronically Signed: Lionel Sanchez MD at 1:28 EDT , Service support ,
== END 2019-02-06 15:20 | disposition left against medical advice (07) ==
LOC: ED 02-06 00:13
PROVIDERS: Emergency Medicine; Emergency Provider Emergency Medicine; Family Provider Family Medicine; PCP Family Medicine
DX: K92.2 Gastrointestinal hemorrhage, unspecified (principal); D64.9 Anemia, unspecified; R53.1 Weakness; Z86.73 Personal history of transient ischemic attack (TIA), and cerebral infarction without residual deficits; I27.20 Pulmonary hypertension, unspecified; Z99.81 Dependence on supplemental oxygen; F17.200 Nicotine dependence, unspecified, uncomplicated
CPT/HCPCS: 36415; 36430; 36600; 70450; 70496; 70498; 71045; 74176; 80053; 81001; 82274; 82803; 83605; 83880; 84484; 85025; 85610; 86850; 86900; 86901; 86920; 86922; 93005; 96365; 96366; 99285; J7040; P9016; Q9967; A4216; J3490

== ENCOUNTER 2019-03-13 12:28 | Inpatient (IN) | payer MEDICARE, SELFPAY ==
[2018-09-07 12:07] VITALS: BMI 38.4
[2019-03-13] VITALS (17 sets, daily range): BP systolic 95–125; BP diastolic 48–92; PULSE 76–97; RESP 14–24; TEMP 36.2–36.8; O2SAT 94–100; BMI 36.0
--- NOTE | 2019-03-13 12:43 | EKG12_ITS ---
Test Reason : GI BLEED Blood Pressure : / mmHG Vent. Rate : 082 BPM Atrial Rate : 082 BPM P-R Int : 186 ms QRS Dur : 098 ms QT Int : 376 ms P-R-T Axes : 043 032 012 degrees QTc Int : 439 ms Normal sinus rhythm Nonspecific T wave abnormality Abnormal ECG Confirmed by LEO LOUISE, KENN ([id number]), editor news ZAKI STEWART ([id number]) on 03/20/2019 2:06:06 PM Referred By: ALAYNA Confirmed By:KENN BAILEY MD
--- NOTE | 2019-03-13 12:45 | ED.DCSUM_ITS ---
History of Present Illness Chief Complaint: GI Bleed Detail of Chief Complaint: Tarry stools q. one hour since 1899 last evening Informant: Patient, Significant Other Onset: Yesterday Context: Sudden Onset Timing: Intermittent Quality: Lack tarry sticky stools Location: GI Current Severity: Moderate Maximum Severity: Moderate Worsened by: Patient on aspirin and Plavix history of iron deficiency anemia Relieved by: Antiplatelet possibly Associated Symptoms: Dyspnea with activity and mild lightheadedness Narrative: Patient is a middle-age male with multiple medical problems which include coronary disease, pulmonary hypertension with right ventricular hypertrophy, iron deficiency anemia and hypertension. Apparently had a stroke of unknown etiology and has a monitor which he is wearing to detect dysrhythmia. He is presently on aspirin and Plavix. He presents because of dyspnea with exertion, black tarry stools 1 hour since 1899 last evening. He has history of GI bleed. He denies chest pain. He denies hematuria. He complains of malaise. Prior similar symptoms: Yes Recent Illness/Hospitalization: Yes - Past Medical History (1) Atherosclerosis of coronary artery of [place] heart without angina pectoris Status: Chronic Comment: STEVEN mid LAD 4.0 x 23 mm Synergy 09/2018 (2) Renal insufficiency Status: Acute (3) Essential hypertension Status: Chronic (4) Pulmonary hypertension Status: Chronic (5) Cardiomyopathy Status: Chronic Comment: EF 45% Past Medical History - Allergies and Home Meds Allergies/Adverse Reactions: Allergies ticagrelor Allergy (Severe, Verified 02/05/19 23:24) shortness of breath lisinopril Allergy (Verified 03/13/19 14:15) COUGH nitroglycerin Allergy (Verified 03/13/19 12:53) Other Primary Care Physician: Bacilio Smith MD [Primary Care Provider] - Prior records reviewed: Yes Surgical History: noncontributory Lives: Spouse/ Significant Other Smoking Status: Current every day smoker Alcohol: None Drugs: None Review of Systems General: Reports: Malaise. Denies: Chills, Fever, Subjective, Sweats, Weight loss, - Eyes: Denies: Visual changes - bilaterally, Blurred Vision - bilaterally, Diplopia ENT: Denies: Rhinorrhea, Sore throat Cardiovascular: Denies: Chest pain, Palpitations Respiratory: Reports: Dyspnea, Dyspnea on exertion. Denies: Cough, Sputum, Orthopnea, Paroxysmal nocturnal dyspnea, -, - Gastrointestinal: Reports: Melena. Denies: Abdominal pain, Nausea, Vomiting, Diarrhea, Constipation, Hematochezia, -, - Genitourinary: Denies: Dysuria, Hematuria, Frequency Musculoskeletal: Denies: Myalgias, Arthralgias, Neck pain, Back pain, Swelling, Extremity Pain, -, - Skin: Denies: Rash, Wounds Neurological: Reports: Weakness. Denies: Headache, Parasthesia, Numbness, -, - Hematologic: Reports: Easy bruising Allergy: Denies: Uticaria, Swelling of the mouth Physical Exam Vital Signs/Narrative: Vital Signs Temp Pulse Resp BP Pulse Ox 03/13/19 12:29 98.2 F 90 22 H 105/58 L 99 Inital Vital Signs reviewed: Yes General: Well nourished, Well developed, Obese, No Acute Distress Head: Normocephalic, Atraumatic Eyes: Perrl, EOMI, Pale conjunctiva. Negative for: Scleral icterus ENT: Moist mucous membranes, No rhinorrhea Neck: Supple, Nontender, No lymphadenopathy, No JVD Cardiovascular: Regular rate, Regular rhythm, No murmurs, Normal S1, Normal S2 Respiratory: No distress, CTA bilaterally, Chest nontender Abdomen: Soft, Nontender, Nondistended, Normal bowel sounds, No masses Rectal: - - Stool is black and sticky distant with GI bleed Back: Nontender, Normal Inspection Extremities: Nontender, No edema Skin: Normal color, No rash, No Trauma. Negative for: Cyanosis, Diaphoresis, Jaundice Neurological: Alert, Oriented x3, Cranial nerves II-XII grossly intact, Normal Strength, Normal Sensation Psychological: Normal affect, Normal Mood Diagnostic/Tx/Re-eval - EKG Initial EKG Interpretation: Sinus Rhythm - Sinus rhythm with a ventricular rate of 82. DC interval is 186 ms. QRS duration 98 ms. QT duration 376 ms. Disputanta is normal. There is no ossific ST-T wave changes, which represents artifact. - Medical Decision Making He was established. He received IV Protonix. He was placed on a monitor. Because he is hypotensive he will receive a 500 cc bolus of normal saline. He was typed and screened. Repeat blood work was ordered. He is scheduled to see Dr. Campbell later this month for colonoscopy. His stores assistant Dr. Lee Wu. Pressure responded to fluid bolus and is 116/65. Patient is now complaining of 8 out of 10 pain. He received 0.5 mg of Dilaudid. 1340 Case was discussed with Dr. Amber Nichols who is on-call for Dr. Campbell. The hospitalist was paged for admission. - Critical Care Time Critical care time (excluding procedures): 30-74 minutes, Discussing w/Patient &/or Family/Poultry Grader, Discussing w/Consultants, Arranging Admission or Transfer - Critical care time 33 minutes ED Disposition - Plan for ED Patient: Disposition: Acute Care Hospital [facility] Diagnosis: Acute GI hemorrhage, Anemia due to blood loss, acute, Hypotension, History of atherosclerotic heart disease Referrals: Bacilio Smith MD [Primary Care Provider] -
[2019-03-13 13:35] LABS: International Normalized Ratio 1.1; Prothrombin Time (Protime)PT. 13.8 SECONDS (11.7-14.9)
[2019-03-13 13:36] LABS: Partial Thromboplast Time 36.4 Seconds (24.1-36.2)
[2019-03-13 13:39] LABS: Anion Gap 9 (5-15); BUN 27 mg/dL (7-18); BUN/Creat Ratio 29.8 RATIO (10-20); Calcium,Total 8.6 mg/dL (8.5-10.1); Chloride 112 mmol/L (98-107); EST Glomerular Filtration Rate 94 mL/min (>60); Est Glom Filt Rate - Afr Amer 114 mL/min (>60); Estimated Creatinine Clearance 99.29 ml/min; Glucose 116 mg/dL (74-106); Potassium 3.5 mmol/L (3.5-5.1); Sodium Level 142 mmol/L (136-145)
[2019-03-13 13:50] LABS: Lactic Acid 1.6 mmol/L (0.4-2.0)
[2019-03-13 13:52] LABS: Absolute Lymphocyte Count 2.24 X10^3/uL (0.83-4.51); Absolute Neutrophil Count 5.8 X10^3/uL (2.0-7.7); Basophil# 0.08 X10^3/uL; Basophil% 0.8 % (0-1); Eosinophil# 0.53 X10^3/uL; Eosinophils% 5.5 % (0-5); Hematocrit 25.4 % (40-54); Hemoglobin 7.6 g/dL (13.0-16.5); Lymphocyte # 2.24 X10^3/ul (4.0); Lymphocyte % 23.4 % (19-41); Mean Corp Hgb Conc 29.9 g/dL (32-36); Mean Corpuscular Hgb 28.3 pg (27.0-32.0); Mean Corpuscular Volume 94.4 fL (80-94); Mean Platelet Vol. 9.2 fl (6.2-12.0); Monocyte# 0.88 X10^3/uL; Monocyte% 9.2 % (0-10); NRBC Flagged by Analyzer 0.2 % (0-5); Neutrophil # 5.76 X10^3/uL (2.7-7.7); Neutrophil % 60.2 % (47-70); POSITIVE MORPHOLOGY YES; Platelet Count 339 K/mm3 (150-450); Red Blood Count 2.69 M/mm3 (4.6-6.2); White Blood Count 9.6 K/mm3 (4.4-11.0)
[2019-03-13] MEDS: HYDROmorphone 0.5 MG/0.5 ML SYRINGE IV (13:56)
[2019-03-13 14:03] LABS: Differential Indicated SCAN CRITERIA MET
[2019-03-13 14:04] LABS: Differential Comment SCANNED
[2019-03-13 14:05] LABS: Anisocytosis 2+; Hypochromasia 2+; Platelet Estimate ADEQUATE (ADEQ); Polychromasia 1+
[2019-03-13 14:06] LABS: Rouleaux RARE
--- NOTE | 2019-03-13 15:12 | HP.PCM_ITS ---
Problem List (1) Anemia due to blood loss, acute Status: Acute (2) Acute GI hemorrhage Status: Acute (3) Nicotine dependence in remission Status: Chronic Qualifiers: Nicotine product type: cigarettes Qualified Code(s): F17.211 - Nicotine dependence, cigarettes, in remission (4) H. pylori infection Status: Chronic (5) History of atherosclerotic heart disease Status: Acute (6) Presence of stent in coronary artery Status: Chronic Comment: STEVEN mid LAD 4.0 x 23 mm Synergy 09/2018 (7) Essential hypertension Status: Chronic (8) Pulmonary hypertension Status: Chronic (9) Cardiomyopathy Status: Chronic Qualifiers: Cardiomyopathy type: ischemic Qualified Code(s): I25.5 - Ischemic cardiomyopathy Comment: EF 45% (10) Diabetes mellitus Status: Chronic Qualifiers: Diabetes mellitus type: type 2 (11) Chronic respiratory failure with hypoxia Status: Chronic (12) CVA (cerebral vascular accident) Status: Chronic History of Present Illness Date of Admission: 03/13/19 Chief Complaint: black tarry stools The patient is a 48 year old M with pmhx of GI bleed, H pylori infection recently completed abx, recent CVA, CAD with recent stent placement on asa/plavix, chronic hypoxic respiratory failure 2/2 pulmonary htn, t2DM with obesity, former nicotine abuse, who presented to the ER with c/o black tarry stools. No red blood recently. No fever/chills. He has nausea with no vomiting. He has BL lower quadrant mild discomfort. Black stools began last night about 1900. It has recurred every hour until about noon today. He denies SOB/LH/Dizziness. He has fatigue. He has not drank alcohol and has not used NSAIDs. He had an EGD in December at [facility] showing H pylori for which he completed treatment about 1 week prior. He was supposed to have a colonocopy with Dr. Campbell as an outpatient but has not completed this yet. In the ER his is significantly anemic at 7.6. He is agreeable to upper scope with Dr. Nichols. [] Past Medical History Past Medical History (Chronic Problems): Chronic Problems (Last Reviewed 01/29/19 @ 13:38 by Alyce Bullock MD) Nicotine dependence in remission (Chronic) H. pylori infection (Chronic) Diabetes mellitus (Chronic) Chronic respiratory failure with hypoxia (Chronic) CVA (cerebral vascular accident) (Chronic) Presence of stent in coronary artery (Chronic) STEVEN mid LAD 4.0 x 23 mm Synergy 09/2018 Atherosclerosis of coronary artery of [place] heart without angina pectoris (Chronic) STEVEN mid LAD 4.0 x 23 mm Synergy 09/2018 Essential hypertension (Chronic) Pulmonary hypertension (Chronic) Cardiomyopathy (Chronic) EF 45% Medical History: Medical History (Last Reviewed 01/29/19 @ 13:38 by Alyce Bullock MD) Atherosclerosis of coronary artery of [place] heart without angina pectoris (Chronic) I25.10 STEVEN mid LAD 4.0 x 23 mm Synergy 09/2018 Essential hypertension (Chronic) I10 Pulmonary hypertension (Chronic) I27.20 Cardiomyopathy (Chronic) I42.9 EF 45% Colitis K52.9 History of chronic pancreatitis Z87.19 Type 2 diabetes mellitus without complication E11.9 C. difficile colitis A04.72 Allergies ticagrelor Allergy (Severe, Verified 02/05/19 23:24) shortness of breath lisinopril Allergy (Verified 03/13/19 14:15) COUGH nitroglycerin Allergy (Verified 03/13/19 12:53) Other Home Medications: Ambulatory Orders Medication Instructions Recorded Aspirin [Aspirin, Baby] 81 mg PO DAILY 09/06/18 Atorvastatin Calcium [Lipitor] 20 mg PO DAILY 09/06/18 Oxycodone HCl/Acetaminophen 1 tab PO TID PRN PRN 09/07/18 [Percocet 5-325 mg Tablet] clopidogrel 75 mg tablet 75 mg PO DAILY #30 tab 12/06/18 ambrisentan 10 mg tablet 10 mg PO DAILY 01/29/19 furosemide 20 mg tablet 20 mg PO BID tab 01/29/19 insulin NPH isophane U-100 human 6 unit SC DAILY ml 01/29/19 100 unit/mL (3 mL) subcutaneous pen tadalafil 20 mg tablet 40 mg PO DAILY tab 01/29/19 (antihypertensive) tiotropium bromide 18 mcg capsule 1 cap INHALATION DAILY 01/29/19 with inhalation device Fenofibrate [Tricor] 145 mg PO DAILY 02/05/19 Treprostinil Diolamine [Orenitram 0.25 mg PO TID 02/05/19 ER] Treprostinil Diolamine [Orenitram 2.5 mg PO TID 03/13/19 ER] Surgical History: Surgical History (Last Reviewed 01/29/19 @ 13:38 by Alyce Bullock MD) Presence of stent in coronary artery (Chronic) Z95.5 STEVEN mid LAD 4.0 x 23 mm Synergy 09/2018 History of cholecystectomy Z90.49 2009 History of hip surgery Z98.890 X 6 on hips as a child S/P cataract surgery Z98.49 S/P colonoscopy Z98.890 Status post total hip replacement, right Z96.641 Surgical History: noncontributory, cataract Psychiatric History: No pertinent psych hx Lives: Spouse/ Significant Other Smoking Status: Former smoker Tobacco Use: Cigarettes Alcohol: None Drugs: None - *Family History Maternal Family History: Family History (Last Reviewed 03/13/19 @ 15:19 by GAVIOTA Patterson) Mother Diabetes Hypertension Breast cancer Grandfather Heart disease Uncle Heart disease Review of Systems Constitutional: Reports: Fatigue. Denies: Chills, Fever, Weight Change HEENT: Denies: Head Aches, Sinus Congestion, Sinus Drainage Cardiovascular: Denies: Chest Pain, Palpitations Respiratory: Denies: Cough, Shortness of breath at rest, Sputum production Gastrointestinal: Reports: Abdominal Pain, Nausea, Melena. Denies: Hematemesis, Hematochezia, Vomiting Genitourinary: Denies: Dysuria Musculoskeletal: Denies: Joint Pain, Joint Tenderness Skin: Denies: Rash, Wounds Neurological: Denies: Numbness, Tingling, Focal weakness Psychiatric: Denies: Anxiety, Depression, Homicidal Ideations, Suicidal Ideations Hematologic/ Lymphatic: Denies: Easy Bruising, Easy Bleeding VTE Information - Inpt Only VTE Present on Admission: No VTE Mechan Device Prophylaxis: SCD's VTE Pharm Prophylaxis ordered?: No Patient Problems: Active and Suspected Problems (Last Reviewed 01/29/19 @ 13:38 by Alyce Bullock MD) Acute GI hemorrhage (Acute) Anemia due to blood loss, acute (Acute) History of atherosclerotic heart disease (Acute) Hypotension (Acute) - Physical Exam Vitals/I&O's: Vital Signs Temp Pulse Resp BP Pulse Ox 98.2 F 84 24 H 115/68 100 03/13/19 12:29 03/13/19 14:30 03/13/19 14:30 03/13/19 14:30 03/13/19 14:30 Oxygen Flow Rate (L/min) 3 Oxygen Delivery Method Nasal Cannula Weight: 244 lb Body Mass Index (BMI) 36.0 General: Alert, Oriented x3, Cooperative HEENT: Atraumatic, PERRLA, EOMI, Normocephalic Neck: Supple, No JVD, Negative Carotid Bruits Lungs: Clear to auscultation, Normal air movement Cardiovascular: Regular rate, No murmurs Abdomen: Bowel Sounds Present, Soft, Non Tender Extremities: No edema, Capillary Refill Less than 3 Seconds Skin: No rashes, No breakdown Musculoskeletal: No Tenderness to Palpation of Joints or Extremities Neurological: Cranial nerves II-XII grossly intact Psych/Mental Status: Normal Affect, Appropriate, Alert and oriented to time, place, person, mood and affect Laboratory Results 03/13/19 13:01: WBC 9.6, RBC 2.69 L, Hgb 7.6 L, Hct 25.4 L, MCV 94.4 H, MCH 28.3, MCHC 29.9 L, RDW Std Deviation Not Reportable, RDW Coeff of Teja Not Reportable, Plt Count 339, MPV 9.2, Immature Gran % (Auto) 0.900, Neut % (Auto) 60.2, Lymph % (Auto) 23.4, Ector % (Auto) 9.2, Eos % (Auto) 5.5 H, Baso % (Auto) 0.8, Absolute Neuts (auto) 5.8, Absolute Lymphs (auto) 2.24, Nucleated RBC % 0.2, Differential Comment SCANNED, Platelet Estimate ADEQUATE, Polychromasia 1+, Hypochromasia 2+, Anisocytosis 2+, Rouleaux RARE 03/13/19 13:01: PT 13.8, INR 1.1, APTT 36.4 H 03/13/19 13:01: Sodium 142, Potassium 3.5, Chloride 112 H, Carbon Dioxide 21.0, Anion Gap 9, BUN 27 H, Creatinine 0.90, Estim Creat Clear Calc 99.29, Est GFR (MDRD) Af Amer 114, Est GFR (MDRD) Non-Af 94, BUN/Creatinine Ratio 29.8 H, Glucose 116 H, Calcium 8.6 03/13/19 13:01: Lactic Acid 1.6 03/13/19 13:01: Blood Type A POSITIVE, Antibody Screen POSITIVE H, Antibody Identification Pending Assessment/Plan All Active Problems (Last Reviewed 01/29/19 @ 13:38 by Alyce Bullock MD) Acute GI hemorrhage (Acute) Anemia due to blood loss, acute (Acute) History of atherosclerotic heart disease (Acute) Pancreatitis (Resolved) Hypercalcemia (Resolved) Hyponatremia (Resolved) Renal insufficiency (Acute) Abdominal pain (Acute) Hypotension (Acute) Leukocytosis (Acute) Syncope (Acute) Septic shock (Acute) 1. Acute blood loss anemia 2/2 GI bleed presumed upper - transfuse [address] Nichols consulted. Pt to EGD today. Continue IV PPI. NPO. Serial H/H. Hold aspirin plavix. Hx H pylori recently completed therapy 1 week ago. No longer smokes quit at least a year ago, does not use alcohol or NSAIDs. He planned to have outpatient Colonoscopy with Dr. Campbell. 2. CAD with ischemic cardiomyopathy, prior stent 09/2018 - consult Dr. Blulock regarding aspirin/plavix. Continue statin. not on andi/beta lore. 3. Recent CVA - Occurred in jan and pt left AMA from ER. residual right eye vision loss and memory issues. again the aspirin/plavix are on hold. continue statin. 4. Chronic hypoxic respiratory failure 2/2 pulmonary htn - on multiple medications which will be continued here. No exacerbation of breathing issues at this point. 5. DMt2 with morbid obesity - continue home insulin + SSI. Dietary consult. DVT ppx:SCDs This patient was seen by Sebastian Schmitt PA-C under the supervision of Dr. Camacho.
[2019-03-13 16:51] LABS: Bedside Glucose 112 mg/dL (70-110)
--- NOTE | 2019-03-13 17:49 | PCM.PN.BLA ---
Progress Note EGD findings of prepyloric ulcer with oozing, injected with epinephrine with stopping of oozing and clot formation Recommend PPI drip and patient to be d/c'd to home on PPI BID can start clear liquid diet and observe with serial hgb STROKE Vital Signs/Narrative: Vital Signs Temp Pulse Resp BP Pulse Ox 03/13/19 16:28 98.0 F 79 14 122/69 H 100 03/13/19 16:13 77 15 118/67 100 03/13/19 16:09 77 15 118/67 100 03/13/19 14:30 84 24 H 115/68 100
--- NOTE | 2019-03-13 17:50 | OP.ENDO_ITS ---
03/13/2019 Bacilio Smith Re : Upper GI endoscopy procedure for Jamel Lynn Dear Luis This procedure was performed on Wednesday, March 13, 2019. My impressions and recommendations are as follows: Impressions : - Normal first portion of the duodenum and second portion of the duodenum. - Oozing gastric ulcer with adherent clot. Injected. - Normal esophagus. - No specimens collected. Recommendations : - [facility] to [facility] for [facility]. - No aspirin, ibuprofen, naproxen, or other non-steroidal anti-inflammatory drugs for 1 day. My findings are described in the full procedure note, which is enclosed. If I can be of further assistance, please feel free to contact me at Doctor phone number(s): , Work: . Sincerely, MD Amber Tierney MD 03/13/2019 5:49:39 PM This report has been signed electronically.
[2019-03-13] MEDS: Ondansetron 4 MG/2 ML Vial IV (18:56)
--- NOTE | 2019-03-13 18:56 | CON.PCM_ITS ---
- Consult Date of Consult: 03/13/19 - Reason for Consult Jamel Lynn 1970 ? ? CHIEF COMPLAINT: anemia and melena ? HPI: The patient is a 48 year old male who had been referred for endoscopy by Dr. Wu and had been originally scheduled for upper and lower endoscopy to be done by Dr. Campbell. This is a previous note from Sanjuana Ramirez PA-C - Jamel notes several months ago he had some occurrences of dark stools, which then resolved on their own. Patient denies any change in bowel habits, weight changes, dright red blood in stools or abdominal pain. Denies family history of colon issues. The patient NOTES some nausea. ? Jamel has undergone prior endoscopy-had a colonoscopy in 2016. He has a history of c. Diff colitis for which he was treated in December 2018. ? Patient was recently seen at emergency department at [facility] 02/06/19 with complaints of malaise, confusion and headache. He had a CTA showing recent left occipital tempral artifact, and also had a CT of the abdomen and pelvis which showed nonspecific edema in the gastric antrum. Patient was felt to have likely an upp er GI bleed causing anemia, and subacute stroke. He was transfused with 2 units of blood and started on IV protonix, and was planned to have a transfer to a tertiary facility, however patient signed out AMA. ? Patient then presented to [facility] 02/07 for complaints of weakness and headache. He was admitted to [facility], where he underwent transfusion and was seen in consultation by cardiology. He had EGD on 02/[address] Garcia which showed H pylori gastritis, they were unable to reach patient by telephone with H. Pylori results. The patient follows with Dr. Wu who had reviewed case with Dr. Campbell as patient had heme positive stools as well as iron deficiency anemia. Dr. Campbell initiated patient on H. Pylori treatment regimen and recommended patient come in to our office to set up colonoscopy and follow-up upper endoscopy to assess healing. ? Patient notes he started taking the medication but has not been the metronidazole regularly as it makes him feel nauseated. ? Patient's past medical history is significant for hypertension, hyperlipidemia pulmonary hypertension, coronary artery disease s/p PCI 09/07/18 with drug-eluting stent placement, ischemic cardiomyopathy, recurrent pancreatitis, type II diabetes mellitus. Patient had a prior colonoscopy in 2017 with inadequate bowel preop, biopsies with?microscopic colitis. Has been treated for C. Diff in the past. ?? PAST?MEDICAL?HISTORY ? Allergic rhinitis ? ? CAD (coronary artery disease) ? ? Chronic respiratory failure (HCC) ? ? Diabetes (HCC) ? ? Essential hypertension 05/13/2016 ? Facet arthropathy, lumbar 11/01/2013 ? Fracture ? ? History of pancreatitis ? ? History of stroke 01/2019 ? Low back pain 11/01/2013 ? Obesity ? ? Pulmonary hypertension (HCC) ? ? PAST?SURGICAL?HISTORY ? COLONOSCOP W/ OR W/O BRSH SPEC ? 05/19/2016 ? Colonoscopy ? LAP CHOLECYSTOENTEROSTOMY ? 02/27/09 ? PAST SURGICAL HISTORY OF ? ? ? age 9- right hip fracture repair ? PAST SURGICAL HISTORY OF ? 1995 ? right eye cataract surgery ? PAST SURGICAL HISTORY OF ? ? ? multiple left hip surgery s/p fracture- fusion, plate, last surgery at age 17 ? PAST SURGICAL HISTORY OF ? 2018 ? Heart stent ? PRQ CARDIAC STENT W/ANGIO 1 VSL ? ? ? TOTAL HIP REPLACEMENT ? 08/24/13 ? Hip replacement, total right ? ? CURRENT?MEDICATIONS potassium chloride (K-TAB) 10 mEq tablet Take 1 tablet by mouth twice daily. omeprazole (PRILOSEC) 20 mg capsule Take 2 capsules by mouth twice daily for 14 days. Amoxicillin 500 mg tablet Take 2 tablets by mouth twice daily for 14 days. treprostinil ER (ORENITRAM) 0.25 mg tablet Take 7 tablets by mouth every 8 hours. atorvastatin (LIPITOR) 40 mg tablet Take 1 tablet by mouth once daily. ondansetron (ZOFRAN) 4 mg tablet Take 1 tablet by mouth every 8 hours as needed. tadalafil (ADCIRCA) 20 mg tab(s) Take 2 tablets by mouth once daily. ambrisentan (LETAIRIS) 10 mg tablet Take 1 tablet by mouth once daily. tiotropium (SPIRIVA WITH HANDIHALER) 18 mcg inhalation capsule Inhale 1 capsule as instructed once daily. Bisacodyl (DULCOLAX) 5 mg tab Take 1 tablet by mouth as needed (OTC, taken in combination with some Miralax or as alternative to furosemide (LASIX) 20 mg tablet BID and additional 10mg Prn increased swelling associated with more than 3lb weight gain or SOB clopidogrel (PLAVIX) 75 mg tablet Take 1 tablet by mouth once daily. fenofibrate nanocrystallized (TRICOR) 145 mg tablet Take 1 tablet by mouth once daily. insulin NPH human (HUMULIN N NPH INSULIN KWIKPEN) 100 unit/mL (3 mL) inpn injection pen Inject 6 Units subcutaneously daily with oxyCODONE-acetaminophen (PERCOCET) 5-325 mg tablet Take 1 tablet by mouth three times daily as needed. aspirin, enteric coated (ECOTRIN LOW STRENGTH) 81 mg EC tablet Take 1 tablet by mouth once daily. metroNIDAZOLE (FLAGYL) 500 mg tablet Take 1 tablet by mouth twice daily for 14 days. FOR 14 DAYS. (Patient not taking: Reported on 10/ omeprazole 20 mg disintegrating tablet (PriLOSEC) Take 1 tablet by mouth once daily. ? ? ALLERGIES: Brilinta [Ticagrelor]; Lisinopril ? 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 Tobacco Use Smoking status: Former Smoker Packs/day: 1.00 Years: 24.00 Pack years: 24 Types: Cigarettes Quit date: 03/08/2017 Years since quittin.9 Smokeless tobacco: Never Used Tobacco comment: 11/21/18~Pt will occ have a cigarette. Alcohol use: No Drug use: No Exercise: Yoga w/ resistance. FAMILY?HISTORY ? Diabetes Mother ? ? Breast Cancer Mother ? ? Hypertension Mother ? ? REVIEW OF SYSTEMS: General: The patient NOTES fatigue, denies weight loss, denies weight gain, denies feeling hot, and denies feelings of cold. Eyes: The patient denies glaucoma, NOTES eye injury/surgery, wears glasses or contacts. Ear/Nose/Throat: The patient NOTES allergies, NOTES hayfever, NOTES ear infections, and NOTES bloody noses. Cardiovascular: The patient denies chest pain, denies heart disease, denies high blood pressure,NOTES cardiac stent, denies prior heart attack, denies irregular heart beat, denies high cholesterol, denies poor circulation, NOTES heart failure, other cardiac issues, denies claudication, denies cold feet, denies peripheral arterial stent. Respiratory: The patient denies tuberculosis, denies pneumonia, denies frequent cough, denies pulmonary embolism, denies shortness of breath, and denies coughing up blood. Gastrointestinal: The patient denies difficulty swallowing, denies acid reflux, denies ulcers, NOTES vomiting, denies jaundice/hepatitis, denies gallbladder problems, denies black or tarry stools, denies hemorrhoids, denies bleeding from rectum, denies diverticulitis, NOTES constipation, denies diarrhea, denies loss of stool control, and denies hernias. Kidney/Bladder: The patient denies kidney stones, denies urine infections, and denies bloody urine. Skin: The patient denies a history of skin cancer, denies bleeding/changing moles, and denies a history of skin rash. Neurologic: The patient denies a history of epilepsy/convulsions, NOTES he adaches, denies head/spinal injuries, and NOTES stroke/TIA. Psychiatric: The patient denies psychiatric medications, denies depression, and denies voices, denies substance abuse. Endocrine: The patient denies thyroid disorders, NOTES diabetes, and denies hormonal problems. Hematologic: The patient denies a history of bruising, denies bleeding, and denies anemia, denies blood clots. Infections: The patient denies a history of measles and mumps, denies rheumatic fever, and denies sexually transmitted diseases. Musculoskeletal: The patient NOTES back pain/injury, NOTES back problems, NOTES sciatica, denies knee/foot trouble, NOTES arthritis, or denies gout. ? ? PHYSICAL EXAMINATION: ?General: The patient is 48 year old male, well nourished, well hydrated in no acute distress. The patient is oriented to time, place, and person. ?VITALS: Blood pressure 116/56, pulse 73, temperature 36.6 ?C (97.8 ?F), temperature source Temporal Artery, height 175.3 cm (5' 9), weight 113.4 kg (250 lb), SpO2 96 %. Body mass index is 36.92 kg/m?. ?HEENT: Normal cephalic, ataumatic, pupils are equally round, sclera are anicteric, mucous membranes are moist, oropharynx is clear. Neck has no masses, asymmetry or lymphadenopathy. ?Respiratory: Clear to auscultation and percussion. Normal respiratory excursion and pattern. ?Cardiac: Examination is regular rate and rhythm. Normal S1/S2 ?Abdominal exam: Soft, nontender, with no palpable masses. No hepatosplenomegaly. No palpable hernias. ?Extremities: no clubbing, cyanosis or edema. No adenopathy. ? IMPRESSION: anemia and heme positive stool, H. Pylori gastritis. Recent stroke, on anticoagulation ? PLAN: see below ? ? ? Sanjuana Ramirez PA-C Patient presented urgently with melena and anemia to ED. Therefore will plan urgent EGD. I have explained risks of procedure, including but not limited to: infection, bleeding, preforation of the GI tract, etc - he understands. He agrees to proceed. I have answered all his questions. Amber Nichols MD, FACS
[2019-03-13] MEDS: Morphine 2 MG/ML Syringe 1 MG IV ×2 (18:57→23:03)
[2019-03-13] MEDS: 0.9% Normal Saline 1,000 ML 100 ML IV (18:57)
[2019-03-13] MEDS: Ipratropium 0.5 MG/2.5 ML SOLUTION INHALATION (19:39)
[2019-03-13 20:10] LABS: Hematocrit 23.5 % (40-54); Hemoglobin 6.7 g/dL (13.0-16.5)
[2019-03-13 20:27] LABS: Ferritin 95 ng/mL (26-388); Iron 36 ug/dL (65-175); Iron Binding Capacity,Total 369 ug/dL (250-450); PERCENT IRON SATURATION 9.8 % (15.0-55.0)
[2019-03-13 22:16] LABS: Bedside Glucose 90 mg/dL (70-110)
[2019-03-14] VITALS (15 sets, daily range): BP systolic 96–115; BP diastolic 49–59; PULSE 63–84; RESP 14–20; TEMP 36.6–36.9; O2SAT 95–99
[2019-03-14 00:56] LABS: Hematocrit 24.6 % (40-54); Hemoglobin 7.3 g/dL (13.0-16.5)
[2019-03-14] MEDS: 0.9% Normal Saline 1,000 ML 100 ML IV (04:49)
[2019-03-14 05:45] LABS: Hematocrit 24.5 % (40-54); Hemoglobin 7.4 g/dL (13.0-16.5); Mean Corp Hgb Conc 30.2 g/dL (32-36); Mean Corpuscular Hgb 28.7 pg (27.0-32.0); Mean Platelet Vol. 9.1 fl (6.2-12.0); POSITIVE MORPHOLOGY YES; Platelet Count 256 K/mm3 (150-450); RBC Distribution Width CV 25.2 % (11.6-14.6); RBC Distribution Width SD 86.7 fl (35.1-43.9); Red Blood Count 2.58 M/mm3 (4.6-6.2); White Blood Count 8.9 K/mm3 (4.4-11.0)
[2019-03-14 06:03] LABS: Scan Indicated on CBC? Y/N YES- FLAGS NOTED
[2019-03-14 06:08] LABS: ALB/GLOB Ratio 1.2 RATIO (0.9-2.4); AST(SGOT) 23 U/L (15-37); Alanine Aminotransfer ALT/SGPT 22 U/L (16-61); Albumin, Serum 2.9 g/dL (3.2-5.0); Alkaline Phosphatase 30 U/L (45-117); Anion Gap 8 (5-15); BUN 18 mg/dL (7-18); BUN/Creat Ratio 22.7 RATIO (10-20); Calcium,Total 7.7 mg/dL (8.5-10.1); Chloride 116 mmol/L (98-107); Creatinine, Serum 0.79 mg/dL (0.70-1.30); EST Glomerular Filtration Rate 110 mL/min (>60); Est Glom Filt Rate - Afr Amer 133 mL/min (>60); Estimated Creatinine Clearance 113.11 ml/min; Globulin 2.5 g/dL (2.2-4.2); Glucose 81 mg/dL (74-106); Potassium 3.4 mmol/L (3.5-5.1); Protein, Total 5.4 g/dL (6.4-8.2); Sodium Level 145 mmol/L (136-145)
[2019-03-14 06:55] LABS: Differential Comment SCANNED
[2019-03-14] MEDS: Ipratropium 0.5 MG/2.5 ML SOLUTION INHALATION ×2 (07:06→12:53)
[2019-03-14] MEDS: Insulin NPH Human 100 UNITS/ML PEN 6 UNITS SC (08:37)
[2019-03-14 08:51] LABS: Bedside Glucose 84 mg/dL (70-110)
--- NOTE | 2019-03-14 10:34 | CASEMGMT ---
ALEJANDRA LEE assessment: Face to Face with patient for initial transition planning/care coordination assessment. ALEJANDRA LEE introduced self and role at [facility], pt voices understanding and consents to assessment at this time. Pt is lying in bed in no distress at this time. Pt is A/Ox4 at this time and answers all questions appropriately at this time. Care providers, pharmacy, and demographics verified at this time. PCP: Luis Specialists: Kobe, cardio; Aruna Wilson pulm; Bryce, hemat; Adrian, surg [facility] Pres[facility] Benefit: [employer] Living Will/HPOA: Pt states does not have LW/HPOA completed but does have paperwork at home and declines SW to help complete at this time. LNOK: Jany Lynn, ; [place], mother Living Arrangements: Pt states lives with in 1 story home and states no concerns at home at this time. Pt states is independent with ADL's. Transportation: Pt states drives and states no transportation concerns at this time. DME/HHC: Pt states has 2 liters home oxygen with ambulation thru [employer] and states no need for any further DME at this time. Pt states no hx of HHC or SNF in the past. Pt states no concerns with going home at time of discharge. Pt states is disabled. Pt states does not smoke or drink ETOH. Pt states no further concerns/needs at this time. CM to follow for any further discharge planning/needs. Advised pt to ask for CM if any further questions/concerns/needs arise, voices understanding. Pt Goal: Home Plan: [place] ALEJANDRA LEE
[2019-03-14 11:10] LABS: Bedside Glucose 128 mg/dL (70-110)
--- NOTE | 2019-03-14 11:30 | PN_ITS ---
Patient Problems: Active and Suspected Problems (Last Reviewed 01/29/19 @ 13:38 by Alyce Bullock MD) Acute GI hemorrhage (Acute) Anemia due to blood loss, acute (Acute) History of atherosclerotic heart disease (Acute) Hypotension (Acute) Subjective: Patient seen and examined. He was admitted with a complaint of black stools. He had had an EGD in December at [facility] which showed H. pylori infection and he completed treatment about a week prior to this admission. He had been scheduled to have colonoscopy with Dr. Valera on outpatient basis but had not yet completed the process. On admission hemoglobin was 7.6. He had emergent EGD by general surgery which showed prepyloric ulcer with oozing and clot formation. He is currently on IV pantoprazole. Patient feels much better today. He has not had any more black bowel movements. He denies any palpitations or dizziness, fever or chills, chest pain, diarrhea or vomiting. Review of systems otherwise negative. Labs and vitals reviewed. Vitals/I&O's: Vital Signs Temp Pulse Resp BP Pulse Ox 98.0 F 75 14 96/58 L 99 03/14/19 09:30 03/14/19 09:30 03/14/19 09:30 03/14/19 09:30 03/14/19 09:30 Oxygen Flow Rate (L/min) 2 Oxygen Delivery Method Nasal Cannula Weight: 244 lb Body Mass Index (BMI) 36.0 Intake and Output for Last 24 Hours 03/12/19 03/13/19 03/14/19 23:59 23:59 23:59 Intake Total 843.33 / 843.33 2953.49 / 2953.49 Output Total 1050 / 1050 Balance 843.33 / 843.33 1903.49 / 1903.49 General: Alert, Oriented x3, Cooperative, No apparent distress HEENT: Atraumatic, PERRLA, EOMI, Normocephalic Oral: Moist Mucosa Neck: Supple, No JVD, Negative Carotid Bruits Lungs: Clear to auscultation, Normal air movement, No rhonchi, No wheeze, No ra les Cardiovascular: Regular rate, Regular Rhythm, Normal S1, Normal S2, No murmurs Abdomen: Bowel Sounds Present, Soft, Non Tender, Non-Distended, No Hepato- splenomegaly Extremities: No clubbing, No cyanosis, No edema, Capillary Refill Less than 3 Seconds Skin: No rashes, No breakdown Musculoskeletal: No Tenderness to Palpation of Joints or Extremities Lymphatic: No Cervical, Supraclavicular, or Inguinal Adenopathy Neurological: Cranial nerves II-XII grossly intact, Neuro grossly intact, Motor Exam 5/5 strength throughout Psych/Mental Status: Normal Affect, Appropriate, Alert and oriented to time, place, person, mood and affect Laboratory Results 03/13/19 13:01: WBC 9.6, RBC 2.69 L, Hgb 7.6 L, Hct 25.4 L, MCV 94.4 H, MCH 28.3, MCHC 29.9 L, RDW Std Deviation Not Reportable, RDW Coeff of Teja Not Reportable, Plt Count 339, MPV 9.2, Immature Gran % (Auto) 0.900, Neut % (Auto) 60.2, Lymph % (Auto) 23.4, Island % (Auto) 9.2, Eos % (Auto) 5.5 H, Baso % (Auto) 0.8, Absolute Neuts (auto) 5.8, Absolute Lymphs (auto) 2.24, Nucleated RBC % 0.2, Differential Comment SCANNED, Platelet Estimate ADEQUATE, Polychromasia 1+, Hypochromasia 2+, Anisocytosis 2+, Rouleaux RARE 03/13/19 13:01: PT 13.8, INR 1.1, APTT 36.4 H 03/13/19 13:01: Sodium 142, Potassium 3.5, Chloride 112 H, Carbon Dioxide 21.0, Anion Gap 9, BUN 27 H, Creatinine 0.90, Estim Creat Clear Calc 99.29, Est GFR (MDRD) Af Amer 114, Est GFR (MDRD) Non-Af 94, BUN/Creatinine Ratio 29.8 H, Glucose 116 H, Calcium 8.6 03/13/19 13:01: Lactic Acid 1.6 03/13/19 13:01: Blood Type A POSITIVE, Antibody Screen POSITIVE H, Antibody Identification ANTI-LITTLE c, Direct Antiglob Test NEG w/COMPLEMENT 03/13/19 13:01: Crossmatch See Detail 03/13/19 16:42: POC Glucose 112 H 03/13/19 19:29: Iron 36 L, TIBC 369, Iron Saturation 9.8 L, Ferritin 95 03/13/19 19:29: Hgb 6.7 L, Hct 23.5 L 03/13/19 22:05: POC Glucose 90 03/14/19 00:45: Hgb 7.3 L, Hct 24.6 L 03/14/19 05:09: WBC 8.9, RBC 2.58 L, Hgb 7.4 L, Hct 24.5 L, MCV 95.0 H, MCH 28.7, MCHC 30.2 L, RDW Std Deviation 86.7 H, RDW Coeff of Teja 25.2 H, Plt Count 256, MPV 9.1, Differential Comment SCANNED 03/14/19 05:09: Sodium 145, Potassium 3.4 L, Chloride 116 H, Carbon Dioxide 21.0, Anion Gap 8, BUN 18, Creatinine 0.79, Estim Creat Clear Calc 113.11, Est GFR (MDRD) Af Amer 133, Est GFR (MDRD) Non-Af 110, BUN/Creatinine Ratio 22.7 H, Glucose 81, Calcium 7.7 L, Total Bilirubin 0.50, AST 23, ALT 22, Alkaline Phosphatase 30 L, Total Protein 5.4 L, Albumin 2.9 L, Globulin 2.5, Albumin/Globulin Ratio 1.2 03/14/19 08:31: POC Glucose 84 03/14/19 11:05: POC Glucose 128 H Current Medications Albuterol Sulfate (Ventolin Aerosols) 2.5 mg INHALATION Q4H PRN PRN PRN Reason: SOB &/OR WHEEZING Dextrose (D50w Syringe) 0 gm IV X1 PRN; Protocol PRN Reason: Hypoglycemia Glucagon () 1 mg IM .X1 PRN PRN Reason: Hypoglycemia Sodium Chloride () 1,000 mls @ 100 mls/hr IV .Q10H SHAKA Last Infusion: 03/14/19 11:07 Dose: 100 mls/hr Documented by: Pantoprazole Sodium 80 mg/ (Sodium Chloride) 100 mls @ 10 mls/hr CONT INF Q10H SHAKA Last Infusion: 03/14/19 11:07 Dose: 10 mls/hr Documented by: Insulin Human Lispro (Humalog Kwikpen (Bkc)) 0 unit SC ACHS SHAKA; Protocol Last Admin: 03/14/19 11:07 Dose: Not Given Documented by: Insulin Human NPH (Humulin N (Bkc)) 6 units SC DAILY@0730 [facility] Last Admin: 03/14/19 08:37 Dose: 6 units Documented by: Ipratropium [place] (Atrovent) 0.5 mg INHALATION Q6HWA.RT [facility] Last Admin: 03/14/19 07:06 Dose: 0.5 mg Documented by: Morphine Sulfate () 1 mg IV Q4H PRN PRN PRN Reason: Pain Score 6-10/10 Last Admin: 03/13/19 23:03 Dose: 1 mg Documented by: Ondansetron HCl (Zofran) 4 mg IV Q6H PRN PRN PRN Reason: NAUSEA Last Admin: 03/13/19 18:56 Dose: 4 mg Documented by: Sodium Chloride () 10 - 40 ml IV UD PRN PRN Reason: SALINE FLUSH STROKE Vital Signs/Narrative: Vital Signs Temp Pulse Resp BP Pulse Ox 03/14/19 09:30 98.0 F 75 14 96/58 L 99 Medical Necessity - Tobacco Use Tobacco Use: Cigarettes Assessment/Plan All Active Problems (Last Reviewed 01/29/19 @ 13:38 by Alyce Bullock MD) Acute GI hemorrhage (Acute) Anemia due to blood loss, acute (Acute) History of atherosclerotic heart disease (Acute) Pancreatitis (Resolved) Hypercalcemia (Resolved) Hyponatremia (Resolved) Renal insufficiency (Acute) Abdominal pain (Acute) Hypotension (Acute) Leukocytosis (Acute) Syncope (Acute) Septic shock (Acute) 48 y/o male admitted with a complaint of black stools. 1. Upper GI bleed due to bleeding peptic ulcer * s/p EGD which showed prepyloric ulcer with oozing, which was injected with epinephrine * on IV pantoprazole * aspirin and plavix on hold * on clear liquid diet; will advance as tolerated. * 2. Actue blood loss anemia due to UGi bleed: * hb was 7.6 on admission,a nd fell to 6.7. s/p transfusion of 2 units of PRBCs. * hb is now 7.4. goal is to transfuse to Hb of 8, in light of recent CAD with stent placement. * will transfuse another unit of blood. * 3. Hypokalemia: K is 3.4 today. Will replace and monitor 4. CAD with ischemic cardiomyopathy: * s/p drug eluting stent placement in 09/24 * cardiology on board; per cardiology rec's, ok to continue with plavix when ok with general surgery. To hold aspirin * 5. History of recent CVA: aspirin and plavix on hold for now. continue statin 6. Chronic hypoxic respiratory failure due to pulmonary hypertension: on 2L of oxygen, which is his baseline. On ambrisentan and tadalafil as well as treprostinil 7. Type 2 diabetes mellitus: On insulin NPH 6 units daily. Insulin sliding scale. Accu-Cheks before meals at bedtime. DVT prophylaxis: SCDs Code Visit Inpatient E&M: 08759 Subs Hosp L2
[2019-03-14] MEDS: Pantoprazole Sodium 40 MG Tablet PO ×2 (12:06→21:29)
[2019-03-14 12:48] LABS: Hematocrit 27.4 % (40-54); Hemoglobin 8.1 g/dL (13.0-16.5)
--- NOTE | 2019-03-14 16:15 | PCM.CONS.C ---
Reason for Consult Date of Consultation: 03/14/19 Reason for Consultation: Recent PCI, acute GI bleed- to address antiplatelet medications History of Present Illness: The patient is a 48 y/o M w/ PMHx: CAD s/p PCI most recently 09/2018 (STEVEN mid LAD), HTN, HLD, Severe Pulmonary HTN with Chronic Hypoxic Respiratory Failure (2L NC), Obesity Hx C. Diff Colitis, history of recent completion of H. pylori treatment ~ 1 week prior with biopsy with EGD at that time w/ upper GI bleed 01/2019 with PRBC administration at that time, history of recent subacute stroke 8-01/2019 with memory impairments as well as left vision impairment following who presents to the [facility] ED on 03/13/19 with history of mild generalized vague abdominal cramping, -09/15, with minimal nausea without emesis or severe anorexia with onset black frequent tarry stools nearly hourly over the last 24 hours prompting ED presentation with concurrent history of lightheadedness, dizziness as well as exertional dyspnea since onset of these findings. She denies any recent aggressive NSAID usage. He is on dual antiplatelet therapy for PCI 09/2018. Patient underwent EGD which revealed bleeding gastric ulcer. Patient denies any chest pain. Review of systems: All systems reviewed all else is negative except that in the HPI. Past Medical History Allergies/Adverse Reactions: Allergies ticagrelor Allergy (Severe, Verified 02/05/19 23:24) shortness of breath lisinopril Allergy (Verified 03/13/19 14:15) COUGH nitroglycerin Allergy (Verified 03/13/19 18:40) interacts w/ pulmonary htn medicine Home Medications: Ambulatory Orders Medication Instructions Recorded Aspirin [Aspirin, Baby] 81 mg PO DAILY 09/06/18 Atorvastatin Calcium [Lipitor] 20 mg PO DAILY 09/06/18 Oxycodone HCl/Acetaminophen 1 tab PO TID PRN PRN 09/07/18 [Percocet 5-325 mg Tablet] clopidogrel 75 mg tablet 75 mg PO DAILY #30 tab 12/06/18 ambrisentan 10 mg tablet 10 mg PO DAILY 01/29/19 furosemide 20 mg tablet 20 mg PO BID tab 01/29/19 insulin NPH isophane U-100 human 6 unit SC DAILY ml 01/29/19 100 unit/mL (3 mL) subcutaneous pen tadalafil 20 mg tablet 40 mg PO DAILY tab 01/29/19 (antihypertensive) tiotropium bromide 18 mcg capsule 1 cap INHALATION DAILY 01/29/19 with inhalation device Fenofibrate [Tricor] 145 mg PO DAILY 02/05/19 Treprostinil Diolamine [Orenitram 0.25 mg PO TID 02/05/19 ER] Treprostinil Diolamine [Orenitram 2.5 mg PO TID 03/13/19 ER] Past Medical History (Chronic Problems): Chronic Problems (Last Reviewed 01/29/19 @ 13:38 by Alyce Bullock MD) Nicotine dependence in remission (Chronic) H. pylori infection (Chronic) Diabetes mellitus (Chronic) Chronic respiratory failure with hypoxia (Chronic) CVA (cerebral vascular accident) (Chronic) Presence of stent in coronary artery (Chronic) STEVEN mid LAD 4.0 x 23 mm Synergy 09/2018 Atherosclerosis of coronary artery of [place] heart without angina pectoris (Chronic) STEVEN mid LAD 4.0 x 23 mm Synergy 09/2018 Essential hypertension (Chronic) Pulmonary hypertension (Chronic) Cardiomyopathy (Chronic) EF 45% Surgical History: noncontributory, cataract Psychiatric History: No pertinent psych hx - *Family History Maternal Family History: Family History (Last Reviewed 03/13/19 @ 15:19 by GAVIOTA Patterson) Mother Diabetes Hypertension Breast cancer Grandfather Heart disease Uncle Heart disease Lives: Spouse/ Significant Other Tobacco Use: Cigarettes Alcohol: None Drugs: None Objective: Vital Signs Temp Pulse Resp BP Pulse Ox 97.8 F 68 18 108/56 L 95 03/14/19 15:20 03/14/19 15:20 03/14/19 15:20 03/14/19 15:20 03/14/19 15:20 Oxygen Flow Rate (L/min) 2 Oxygen Delivery Method Room Air Weight: 244 lb 0.016 oz Body Mass Index (BMI) 36.0 Intake and Output for Last 24 Hours 03/12/19 03/13/19 03/14/19 23:59 23:59 23:59 Intake Total 843.33 / 843.33 3089.15 / 3089.15 Output Total 1050 / 1050 Balance 843.33 / 843.33 2038.15 / 2038.15 General: Awake, Alert, Oriented x 3 HEENT: Atraumatic Oral: Moist Mucosa Neck: Supple Lungs: Clear to auscultation Cardiovascular: Regular Rhythm Abdomen: Soft Extremities: No edema Skin: No Rashes Psych/Mental Status: Appropriate 03/13/19 19:29: Iron 36 L, TIBC 369, Iron Saturation 9.8 L, Ferritin 95 03/13/19 19:29: Hgb 6.7 L, Hct 23.5 L 03/14/19 00:45: Hgb 7.3 L, Hct 24.6 L 03/14/19 05:09: WBC 8.9, RBC 2.58 L, Hgb 7.4 L, Hct 24.5 L, MCV 95.0 H, MCH 28.7, MCHC 30.2 L, Plt Count 256, MPV 9.1 03/14/19 05:09: Sodium 145, Potassium 3.4 L, Chloride 116 H, Carbon Dioxide 21.0, Anion Gap 8, BUN 18, Creatinine 0.79, Est GFR (MDRD) Af Amer 133, Est GFR (MDRD) Non-Af 110, BUN/Creatinine Ratio 22.7 H, Glucose 81, Calcium 7.7 L, Total Bilirubin 0.50 03/14/19 12:20: Hgb 8.1 L, Hct 27.4 L Rhythm: EKG: ECHO: Stress Test: Cardiac Cath: PCI: CT Surgery: Holter monitor: EPS: PPM: CXR: Chest CT Scan: Assessment/Plan 1. Coronary artery disease: Patient had stent on September 07, 2018. It will be reasonable to discontinue his aspirin at this time. It is okay to hold Plavix as well due to active GI bleed. When okay with the GI service please restart the patient on Plavix. It is reasonable to keep the patient on one antiplatelet medication on discharge.
[2019-03-14 16:20] LABS: Bedside Glucose 135 mg/dL (70-110)
[2019-03-14 19:19] LABS: Hematocrit 27.1 % (40-54); Hemoglobin 7.8 g/dL (13.0-16.5)
[2019-03-14 21:46] LABS: Bedside Glucose 84 mg/dL (70-110)
[2019-03-15 00:17] LABS: Hematocrit 27.1 % (40-54); Hemoglobin 8.1 g/dL (13.0-16.5)
[2019-03-15 02:58] VITALS: PULSE 77
[2019-03-15 06:08] VITALS: BP 127/61; PULSE 74; RESP 20; TEMP 37.1; O2SAT 98
[2019-03-15 07:10] VITALS: PULSE 68
[2019-03-15 07:19] VITALS: PULSE 69; RESP 16; O2SAT 98
[2019-03-15] MEDS: Ipratropium 0.5 MG/2.5 ML SOLUTION INHALATION (07:19)
[2019-03-15] MEDS: Insulin NPH Human 100 UNITS/ML PEN 6 UNITS SC (08:19)
[2019-03-15 08:26] LABS: Bedside Glucose 98 mg/dL (70-110)
[2019-03-15 09:03] VITALS: BP 117/56; PULSE 61; RESP 18; TEMP 36.8; O2SAT 98
[2019-03-15] MEDS: TADALAFIL 20 MG TABLET 40 MG PO (09:06)
[2019-03-15] MEDS: Pantoprazole Sodium 40 MG Tablet PO (09:07)
--- NOTE | 2019-03-15 10:33 | DCINST_ITS ---
- Discharge Diagnoses Current Active Problems: Current Active and Chronic Problems (Last Reviewed 01/29/19 @ 13:38 by Alyce Bullock MD) Acute GI hemorrhage (Acute) Anemia due to blood loss, acute (Acute) History of atherosclerotic heart disease (Acute) Nicotine dependence in remission (Chronic) H. pylori infection (Chronic) Diabetes mellitus (Chronic) Chronic respiratory failure with hypoxia (Chronic) CVA (cerebral vascular accident) (Chronic) Hypotension (Acute) You will use the following diet at home:: Cardiac Your food should be the consistency of: Regular Your liquids should be the consistency of: Regular/Thin Discharge Activity: Return to Normal Activity Weight Bearing Status: Weight bearing as tolerated Call your doctor if you observe: Shortness of breath, Dizziness, - - black stools Instructions: When You Have Gastrointestinal (GI) Bleeding Allergies/Adverse Reactions: Allergies ticagrelor Allergy (Severe, Verified 02/05/19 23:24) shortness of breath lisinopril Allergy (Verified 03/13/19 14:15) COUGH nitroglycerin Allergy (Verified 03/13/19 18:40) interacts w/ pulmonary htn medicine Medications to take at Discharge Atorvastatin Calcium [Lipitor] 20 mg PO DAILY 09/06/18 Oxycodone HCl/Acetaminophen [Percocet 5-325 mg Tablet] 1 tab PO TID PRN PRN 09/07/18 clopidogrel 75 mg tablet 75 mg PO DAILY #30 tab 12/06/18 ambrisentan 10 mg tablet 10 mg PO DAILY 01/29/19 furosemide 20 mg tablet 20 mg PO BID tab 01/29/19 insulin NPH isophane U-100 human 100 unit/mL (3 mL) subcutaneous pen 6 unit SC DAILY ml 01/29/19 tadalafil 20 mg tablet (antihypertensive) 40 mg PO DAILY tab 01/29/19 tiotropium bromide 18 mcg capsule with inhalation device 1 cap INHALATION DAILY 01/29/19 Fenofibrate [Tricor] 145 mg PO DAILY 02/05/19 Treprostinil Diolamine [Orenitram ER] 0.25 mg PO TID 02/05/19 Treprostinil Diolamine [Orenitram ER] 2.5 mg PO TID 03/13/19 Pantoprazole Sodium [Protonix] 40 mg PO BID #60 tab 03/15/19 The following prescriptions were given: Pantoprazole Sodium [Protonix] 40 mg PO BID #60 tab Transmission Status: Pending to [facility] #30 Primary Care Physician: Bacilio Smith MD [Primary Care Provider] - Please follow up with your Primary Care Physician in: one week Test Results: Test results from this visit will be discussed in further detail at your follow- up appointment, if applicable. Please Follow Up With: Amber Nichols MD When: 1-2 weeks Proposed Discharge Date: 03/15/19
--- NOTE | 2019-03-15 10:35 | PCM.DC.SUM ---
Discharge Date and Diagnosis Date of Admission: 03/13/19 Date of Discharge: 03/15/19 - Primary Discharge Diagnosis Active and Suspected Problems (Last Reviewed 01/29/19 @ 13:38 by Alyce Bullock MD) Acute GI hemorrhage (Acute) Anemia due to blood loss, acute (Acute) History of atherosclerotic heart disease (Acute) Hypotension (Acute) bleeding peptic ulcer disease - Secondary Discharge Diagnosis Chronic Problems (Last Reviewed 01/29/19 @ 13:38 by Alyce Bullock MD) Nicotine dependence in remission (Chronic) H. pylori infection (Chronic) Diabetes mellitus (Chronic) Chronic respiratory failure with hypoxia (Chronic) CVA (cerebral vascular accident) (Chronic) Presence of stent in coronary artery (Chronic) STEVEN mid LAD 4.0 x 23 mm Synergy 09/2018 Atherosclerosis of coronary artery of [place] heart without angina pectoris (Chronic) STEVEN mid LAD 4.0 x 23 mm Synergy 09/2018 Essential hypertension (Chronic) Pulmonary hypertension (Chronic) Cardiomyopathy (Chronic) EF 45% Hospital Course and Treatment general surgery - Dr Nichols Operations: None Procedures: EGD Summary of Care Provided: The patient is a 48 year old M with past medical history as outlined. He was admitted through the ED on 03/13/2019 with a complaint of black stools as well as some shortness of breath. Patient had been seen at [facility] and had an EGD in December which revealed H. pylori infection. He completed treatment for this about a week prior to this admission. He had also been scheduled to have colonoscopy with Dr. Valera on outpatient basis but had not completed the process. On admission patient was found to have hemoglobin of 7.6 and he was transfused with 2 units of packed red blood cells. He was started on IV pantoprazole drip and had emergent EGD by general surgery which revealed a prepyloric ulcer with oozing and clot formation for which she had epinephrine injected. Aspirin and Plavix were also discontinued. Of note patient had a drug-eluting stent placed in his RCA in September [address] [facility]. Cardiology was consulted to help decide about whether patient should continue aspirin or Plavix or otherwise. Per cardiology decision was made to stop aspirin and continue with Plavix when okay to resume per general surgery. Patient black tarry stools stopped and did not recur during this admission. Was transitioned to p.o. pantoprazole 40 mg twice daily. His Plavix was resumed on 03/15/2019 after discussion with general surgery who okay with this. Patient remained stable and was discharged home on 03/15/2019 with a prescription for p.o. pantoprazole 40 mg twice daily. He is to follow-up with his primary care doctor within 1 week and is also to follow-up with general surgery for scheduled colonoscopy. Patient seen and examined prior to discharge. He had no complaints and felt well. Review of systems otherwise negative. Labs and vitals reviewed. Home medication reviewed and reconciled. o/e: Vital Signs Height 5 ft 9 in Weight: 244 lb 0.016 oz Weight in Pounds 244.0 lbs BMI 38.4 Pulse Ox 98 Temperature 98.2 F Pulse Rate 61 Respiratory Rate 18 Blood Pressure 117/56 Blood Pressure Position Semi-Fowlers [] General: Alert, Oriented x3, Cooperative, No apparent distress HEENT: Atraumatic, PERRLA, EOMI, Normocephalic Oral: Moist Mucosa Neck: Supple, No JVD, Negative Carotid Bruits Lungs: Clear to auscultation, Normal air movement, No rhonchi, No wheeze, No rales Cardiovascular: Regular rate, Regular Rhythm, Normal S1, Normal S2, No murmurs Abdomen: Bowel Sounds Present, Soft, Non Tender, Non-Distended, No Hepato-splenomegaly Extremities: No clubbing, No cyanosis, No edema, Capillary Refill Less than 3 Seconds Skin: No rashes, No breakdown Musculoskeletal: No Tenderness to Palpation of Joints or Extremities Lymphatic: No Cervical, Supraclavicular, or Inguinal Adenopathy Neurological: Cranial nerves II-XII grossly intact, Neuro grossly intact, Motor Exam 5/5 strength throughout Psych/Mental Status: Normal Affect, Appropriate, Alert and oriented to time, place, person, mood and affect Plan as above - Physical Exam Vitals/I&O's: Vital Signs Temp Pulse Resp BP Pulse Ox 98.2 F 61 18 117/56 L 98 03/15/19 09:03 03/15/19 09:03 03/15/19 09:03 03/15/19 09:03 03/15/19 09:03 Oxygen Flow Rate (L/min) 2 Oxygen Delivery Method Nasal Cannula Weight: 244 lb 0.016 oz Body Mass Index (BMI) 36.0 Intake and Output for Last 24 Hours 03/13/19 03/14/19 03/15/19 23:59 23:59 23:59 Intake Total 843.33 / 843.33 3589.15 / 3589.15 1400 / 1400 Output Total 1850 / 1850 Balance 843.33 / 843.33 1739.15 / 1739.15 1400 / 1400 Laboratory Results 03/13/19 13:30: Crossmatch See Detail 03/14/19 11:05: POC Glucose 128 H 03/14/19 12:20: Hgb 8.1 L, Hct 27.4 L 03/14/19 16:17: POC Glucose 135 H 03/14/19 18:42: Hgb 7.8 L, Hct 27.1 L 03/14/19 21:26: POC Glucose 84 03/15/19 00:10: Hgb 8.1 L, Hct 27.1 L 03/15/19 08:18: POC Glucose 98 Current Medications Albuterol Sulfate (Ventolin Aerosols) 2.5 mg INHALATION Q4H PRN PRN PRN Reason: SOB &/OR WHEEZING Clopidogrel Bisulfate (Plavix) 75 mg PO DAILY [facility] Dextrose (D50w Syringe) 0 gm IV X1 PRN; Protocol PRN Reason: Hypoglycemia Glucagon () 1 mg IM .X1 PRN PRN Reason: Hypoglycemia Insulin Human Lispro (Humalog Kwikpen (Bkc)) 0 unit SC [facility]; Protocol Last Admin: 03/15/19 08:18 Dose: Not Given Documented by: Insulin Human NPH (Humulin N (Bkc)) 6 units SC DAILY@0730 [facility] Last Admin: 03/15/19 08:19 Dose: 6 units Documented by: Ipratropium Robbins (Atrovent) 0.5 mg INHALATION Q6HWA.RT [facility] Last Admin: 03/15/19 07:19 Dose: 0.5 mg Documented by: Morphine Sulfate () 1 mg IV Q4H PRN PRN PRN Reason: Pain Score 6-10/10 Last Admin: 03/13/19 23:03 Dose: 1 mg Documented by: Ondansetron HCl (Zofran) 4 mg IV Q6H PRN PRN PRN Reason: NAUSEA Last Admin: 03/13/19 18:56 Dose: 4 mg Documented by: Pantoprazole Sodium (Protonix) 40 mg PO BID [facility] Last Admin: 03/15/19 09:07 Dose: 40 mg Documented by: Sodium Chloride () 10 - 40 ml IV UD PRN PRN Reason: SALINE FLUSH Tadalafil (Cialis) 40 mg PO DAILY [facility] Last Admin: 03/15/19 09:06 Dose: 40 mg Documented by: Discharge Diet: Low fat/ Low Cholesterol Discharge Activity: Return to Normal Activity Weight Bearing Status: Weight bearing as tolerated Call your doctor if you observe: Shortness of breath, Dizziness, - - black stools Home Medications: Medications to take at Discharge Atorvastatin Calcium [Lipitor] 20 mg PO DAILY 09/06/18 Oxycodone HCl/Acetaminophen [Percocet 5-325 mg Tablet] 1 tab PO TID PRN PRN 09/07/18 clopidogrel 75 mg tablet 75 mg PO DAILY #30 tab 12/06/18 ambrisentan 10 mg tablet 10 mg PO DAILY 01/29/19 furosemide 20 mg tablet 20 mg PO BID tab 01/29/19 insulin NPH isophane U-100 human 100 unit/mL (3 mL) subcutaneous pen 6 unit SC DAILY ml 01/29/19 tadalafil 20 mg tablet (antihypertensive) 40 mg PO DAILY tab 01/29/19 tiotropium bromide 18 mcg capsule with inhalation device 1 cap INHALATION DAILY 01/29/19 Fenofibrate [Tricor] 145 mg PO DAILY 02/05/19 Treprostinil Diolamine [Orenitram ER] 0.25 mg PO TID 02/05/19 Treprostinil Diolamine [Orenitram ER] 2.5 mg PO TID 03/13/19 Pantoprazole Sodium [Protonix] 40 mg PO BID #60 tab 03/15/19 Following Prescrptions Were Given to Patient: Pantoprazole Sodium [Protonix] 40 mg PO BID #60 tab Transmission Status: Received by [facility] #30 Primary Care Physician: Bacilio Smith MD [Primary Care Provider] - Please follow up with your Primary Care Physician in: one week Please Follow Up With: Amber Nichols MD When: 1-2 weeks Patient Instructions: When You Have Gastrointestinal (GI) Bleeding Disposition: Home Minutes spent on discharge:: 40 Patient Condition:: Stable Medical Necessity - Tobacco Use Tobacco Use: Cigarettes Meaningful Use Info Meaningful Use Diagnoses (Choose all that apply): None applicable Code Visit Inpatient E&M: 81791 Disch Hosp
[2019-03-15] MEDS: Clopidogrel Bisulfate 75 MG Tablet PO (10:53)
--- NOTE | 2019-03-16 15:10 | CASEMGMT ---
ALEJANDRA LEE Discharge F/U Phone Call LACE: 12 Strata: 4 Discharge date: 03/15/19 Call date: 03/16/19 Call time: [id number] Duration: 2 minutes Admission dx: Upper GI bleed, recent PCI Pt states 'doing good' since discharge and states 'nothing negative to tell you.' Pt states no questions regarding discharge instructions or medications at this time. Pt states has f/u appt's scheduled and plans to attend. Pt states no suggestions for [facility] at this time. Pt voices no further questions/concerns/needs at this time. [place] ALEJANDRA LEE
== END 2019-03-15 11:25 | disposition home or self-care (01) | DRG 377 ==
LOC: ED 15:03 → SDC 15:04 → PCU 19:00
PROVIDERS: Family Medicine; Physician Assistant; Admitting Provider Surgery; Emergency Provider Emergency Medicine; Family Provider Family Medicine; PCP Family Medicine; Visit Provider Student in an Organized Health Care Education/Training Program
PROC: 0DJ08ZZ Inspection of Upper Intestinal Tract, Via Natural or Artificial Opening Endoscopic (ICD-10-PCS; CPT 43235; principal; 2019-03-13 17:30)
DX: K25.0 Acute gastric ulcer with hemorrhage (principal); I63.9 Cerebral infarction, unspecified; D62 Acute posthemorrhagic anemia; J96.11 Chronic respiratory failure with hypoxia; I25.10 Atherosclerotic heart disease of native coronary artery without angina pectoris; I27.20 Pulmonary hypertension, unspecified; I10 Essential (primary) hypertension; Z95.5 Presence of coronary angioplasty implant and graft; E11.9 Type 2 diabetes mellitus without complications; D50.9 Iron deficiency anemia, unspecified; E66.01 Morbid (severe) obesity due to excess calories; Z86.19 Personal history of other infectious and parasitic diseases; Z79.82 Long term (current) use of aspirin; Z79.02 Long term (current) use of antithrombotics/antiplatelets; Z79.899 Other long term (current) drug therapy; Z99.81 Dependence on supplemental oxygen; I69.311 Memory deficit following cerebral infarction; H53.9 Unspecified visual disturbance; Z68.36 Body mass index [BMI] 36.0-36.9, adult; I25.5 Ischemic cardiomyopathy; Z79.4 Long term (current) use of insulin; Z96.641 Presence of right artificial hip joint; Z87.891 Personal history of nicotine dependence; E78.5 Hyperlipidemia, unspecified; E87.6 Hypokalemia
CPT/HCPCS: 36415; 80048; 80053; 82728; 82962; 83540; 83550; 83605; 85014; 85018; 85025; 85027; 85610; 85730; 86644; 86850; 86870; 86880; 86900; 86901; 86902; 86920; 86922; 93005; 94640; 97161; 97166; 99285; J7030; J7040; P9016; A4216; J2405; J3490

== ENCOUNTER → 2019-04-12 20:02 | Outpatient (CLI) | payer MEDICARE, SELFPAY ==
[2018-09-07 12:07] VITALS: BMI 38.4
[2019-04-12] MEDS: NON-FORMULARY 2.5 PO (23:30)
[2019-04-12] MEDS: NON-FORMULARY 0.5 PO (23:30)
--- NOTE | 2019-04-12 23:32 | NURSING ---
pt states that he was to be taking 3.0 mg of home med. pharmacy notified and order changed in computer from 2.5 mg to 3.0 mg as per physician order paper, unable to scan med at this time per pharmacy. meds taken well with water. no issues noted.
== END ==
PROVIDERS: Family Provider Family Medicine; PCP Family Medicine
DX: G47.10 Hypersomnia, unspecified (principal); I27.0 Primary pulmonary hypertension
CPT/HCPCS: 95810

== ENCOUNTER → 2019-05-15 12:17 | Outpatient (CLI) | payer MEDICARE, SELFPAY ==
[2018-09-07 12:07] VITALS: BMI 38.4
[2019-03-13 18:37] VITALS: BMI 36.0
[2019-05-15 12:56] LABS: Amphetamine Urine VISTA NEGATIVE (<1000 ng/mL); Barbiturate Urine VISTA NEGATIVE (< 200 ng/mL); Benzodiazepine Urine VISTA NEGATIVE (< 200 ng/mL); Cocaine Urine VISTA NEGATIVE (< 300 ng/mL); Ecstacy Urine VISTA NEGATIVE (< 500 ng/mL); Methadone Urine VISTA NEGATIVE (< 300 ng/mL); PCP Urine VISTA NEGATIVE (< 25 ng/mL); THC Urine VISTA NEGATIVE (< 50 ng/mL); Vista UDS pH Range 5
== END ==
PROVIDERS: Family Provider Family Medicine; PCP Family Medicine; Referring Provider Anesthesiology Pain Medicine; Visit Provider Anesthesiology Pain Medicine
DX: F11.20 Opioid dependence, uncomplicated (principal)
CPT/HCPCS: 80307

== ENCOUNTER → 2019-05-25 10:32 | Outpatient (CLI) | payer MEDICARE, SELFPAY ==
[2018-09-07 12:07] VITALS: BMI 38.4
[2019-03-13 18:37] VITALS: BMI 36.0
[2019-05-25 10:40] VITALS: BP 118/56; PULSE 80; RESP 16; TEMP 36.6; O2SAT 100; BMI 36.0
[2019-05-25 11:27] VITALS: BP 109/56; PULSE 78; RESP 16; TEMP 36.6
[2019-05-25 12:27] VITALS: BP 110/57; PULSE 71; RESP 16; TEMP 36.7; O2SAT 98
[2019-05-25 12:59] VITALS: BP 104/57; PULSE 68; RESP 16; TEMP 36.6; O2SAT 97
== END ==
PROVIDERS: PCP Family Medicine; Referring Provider Internal Medicine Hematology & Oncology; Visit Provider Internal Medicine Hematology & Oncology
DX: D64.9 Anemia, unspecified (principal)
CPT/HCPCS: 36430; 86850; 86870; 86880; 86900; 86901; 86902; 86905; 86920; 86922; J7040; P9016; A4216

== ENCOUNTER → 2019-06-08 | Outpatient (CLI) | payer MEDICARE, SELFPAY ==
[2018-09-07 12:07] VITALS: BMI 38.4
[2019-03-13 18:37] VITALS: BMI 36.0
== END | disposition home or self-care (01) ==
LOC: SL 22:30
PROVIDERS: Family Provider Family Medicine; PCP Family Medicine
DX: G47.33 Obstructive sleep apnea (adult) (pediatric) (principal)
CPT/HCPCS: 95811

== ENCOUNTER → 2019-07-06 | Outpatient (CLI) | payer MEDICARE, SELFPAY ==
[2018-09-07 12:07] VITALS: BMI 38.4
[2019-05-29 11:54] VITALS: BMI 35.9
== END | disposition home or self-care (01) ==
LOC: SL 10:26
PROVIDERS: PCP Family Medicine
DX: Z46.89 Encounter for fitting and adjustment of other specified devices (principal)

== ENCOUNTER 2019-09-13 08:24 | Emergency (ER) | payer MEDICARE, SELFPAY ==
[2018-09-07 12:07] VITALS: BMI 38.4
[2019-05-29 11:54] VITALS: BMI 35.9
[2019-09-13 08:25] VITALS: BP 136/78; PULSE 99; RESP 18; TEMP 36.4; O2SAT 94; BMI 36.0
[2019-09-13 09:13] LABS: Absolute Lymphocyte Count 3.69 X10^3/uL (0.83-4.51); Absolute Neutrophil Count 7.9 X10^3/uL (2.0-7.7); Basophil# 0.19 X10^3/uL; Basophil% 1.3 % (0-1); Eosinophil# 1.12 X10^3/uL; Eosinophils% 7.6 % (0-5); Hematocrit 34.9 % (40-54); Hemoglobin 10.6 g/dL (13.0-16.5); Lymphocyte # 3.69 X10^3/ul (4.0); Mean Corp Hgb Conc 30.4 g/dL (32-36); Mean Corpuscular Volume 95.6 fL (80-94); Mean Platelet Vol. 8.6 fl (6.2-12.0); Monocyte# 1.46 X10^3/uL; Monocyte% 9.9 % (0-10); NRBC Flagged by Analyzer 0.1 % (0-5); Neutrophil # 7.89 X10^3/uL (2.7-7.7); Neutrophil % 53.4 % (47-70); Platelet Count 485 K/mm3 (150-450); RBC Distribution Width CV 18.7 % (11.6-14.6); RBC Distribution Width SD 64.2 fl (35.1-43.9); Red Blood Count 3.65 M/mm3 (4.6-6.2); White Blood Count 14.8 K/mm3 (4.4-11.0)
[2019-09-13 09:23] LABS: Anion Gap 7 (5-15); BUN 23 mg/dL (7-18); BUN/Creat Ratio 21.9 RATIO (10-20); Calcium,Total 9.4 mg/dL (8.5-10.1); Chloride 105 mmol/L (98-107); Creatinine, Serum 1.05 mg/dL (0.70-1.30); EST Glomerular Filtration Rate 79 mL/min (>60); Est Glom Filt Rate - Afr Amer 96 mL/min (>60); Estimated Creatinine Clearance 84.17 ml/min; Glucose 139 mg/dL (74-106); Potassium 3.7 mmol/L (3.5-5.1); Sodium Level 138 mmol/L (136-145)
[2019-09-13 09:30] LABS: Partial Thromboplast Time 43.3 Seconds (24.1-36.2)
[2019-09-13 09:34] LABS: International Normalized Ratio 1.1; Prothrombin Time (Protime)PT. 13.2 SECONDS (11.7-14.9)
--- NOTE | 2019-09-13 09:58 | ED.VISSUMM ---
- ER Visit Summary Date of Service: 09/13/19 Chief Complaint: Nosebleed History of Present Illness: The patient is a [address] Smith. He reports that for the past 2 weeks he has had intermittent episodes of bleeding from his left nares. States that he is getting them approximate once a day. It will take hours to stop. This morning it began bleeding approximate 4 hours ago and stopped on the way here. Patient denies any recent injury to his nose. Has not had problems with nosebleeds before. However, he has been on CPAP for the past 3 months and oxygen for the past 8 months. Both of these are humidified. He reports that he has not been on any anticoagulants for the past 4 to 5 months. Physical Examination: Vitals: Stable. Afebrile. General: Well-nourished and well-developed. Head: Normocephalic atraumatic. Nose: Fresh clot is blown from the left nares. There is no active bleeding. I cannot visualize the source of bleeding. Neck: Supple, no lymphadenopathy. No JVD. Nontender. Cardiovascular: Regular rate and rhythm. No murmurs. Respiratory: No respiratory distress. Clear to auscultation bilaterally. Abdominal: Soft, nontender, nondistended, normal bowel sounds. No guarding, rebound, or peritoneal signs. Back: Nontender. Extremities: Nontender, no edema. Skin: Normal color, no rash. Neurologic: Alert and oriented ?3. Cranial nerves II through XII are intact. Normal strength and sensation. Psych: Normal affect. Test Results: CBC shows a white count of 14.8 with an H&H 10.6 and 34.9, platelets of 45. Coags are normal. Chem-7 shows a glucose of 130 and a BUN of 23. Emergency Department Course and Treatment: Patient is resting comfortably without complaint. He is had no bleeding while here. I discussed him treatment options including packing or observation. He is chosen not to have this path. Treatment Plan: Patient be discharged instructions call Dr. Scales in 3 to 5 days for another exam. Return to the emergency department for any worsening symptoms. Disposition: To home in improved and stable condition. Impression: 1. Epistaxis on left, resolved. 2. Anemia. This note was generated with [employer] software. It may contain incorrect words, spelling, and punctuation that were not noted in review of the chart prior to signing ED Disposition - Plan for ED Patient: Disposition: Home or Assisted Living Instructions: Nosebleed Referrals: Curt Scales MD [STAFF PHYSICIAN] - 3-5 Days
[2019-09-13 11:10] VITALS: BP 156/79; PULSE 90; RESP 18
[2019-09-13] MEDS: Mixture 30 ML Bottle TOPICAL (11:10)
== END 2019-09-13 11:11 | disposition home or self-care (01) ==
LOC: ED 09:22
PROVIDERS: Emergency Provider Emergency Medicine; PCP Family Medicine
DX: R04.0 Epistaxis (principal); D64.9 Anemia, unspecified; I25.10 Atherosclerotic heart disease of native coronary artery without angina pectoris; E11.9 Type 2 diabetes mellitus without complications; I10 Essential (primary) hypertension; E78.00 Pure hypercholesterolemia, unspecified; I27.20 Pulmonary hypertension, unspecified; Z99.81 Dependence on supplemental oxygen; Z79.4 Long term (current) use of insulin; Z79.891 Long term (current) use of opiate analgesic; Z79.899 Other long term (current) drug therapy
CPT/HCPCS: 80048; 85025; 85610; 85730; 99283

== ENCOUNTER → 2019-10-10 | Outpatient (CLI) | payer MEDICARE, SELFPAY ==
[2018-09-07 12:07] VITALS: BMI 38.4
[2019-10-03 09:47] VITALS: BMI 36.0
--- NOTE | 2019-10-10 07:53 | CT_ITS ---
STUDY: CT MAXILLOFACIAL SINUSES REASON FOR EXAM: Male, 49 years old. SINUSITIS RADIATION DOSAGE (If Supplied By Facility): CTDIvol = ( 33.06 ) mGy, DLP = ( 804.92 ) mGycm TECHNIQUE: The patient was scanned in a multi detector CT scanner. High resolution axial imaging was performed without the administration of intravenous contrast material. Sagittal and coronal images were reconstructed. Individualized dose optimization techniques were used for this CT. COMPARISON: None. FINDINGS: FRONTAL SINUSES: Normal aeration, without mucosal inflammatory disease. ETHMOIDAL SINUSES: Mucosal thickening of the ethmoid sinuses. MAXILLARY SINUSES: Opacification of the left maxillary sinus. There is a 1.3 cm x 0.7 cm retention cyst or polyp along the anterior medial aspect of the right maxillary sinus. SPHENOIDAL SINUSES: Normal aeration, without mucosal inflammatory disease. There is compromise of the left maxillary infundibulum due to mucosal hypertrophy. Minimal compromise of the right maxillary infundibulum. There is a pearl bullosa of the right middle turbinate. Normal bilateral inferior turbinates. There is a left sided nasal septal deviation, but without a nasal septal spur. There is patency of the bilateral nasal airways. The visualized osseous structures are normal. The visualized bilateral orbital contents are normal. CT/Sinus/Facial Bone IMPRESSION: Maxillary sinusitis worse on the left side with compromise of the maxillary infundibula. Mucosal thickening of the ethmoid sinuses. Nasal septal deviation towards the left side of the midline. Pearl bullosa of the right middle turbinate. Electronically Signed: Min Hamilton, at 13:39 EDT , Service support ,
== END | disposition home or self-care (01) ==
LOC: CT 07:50
PROVIDERS: PCP Family Medicine; Referring Provider Otolaryngology; Visit Provider Otolaryngology
DX: J32.9 Chronic sinusitis, unspecified (principal)
CPT/HCPCS: 70486

== ENCOUNTER → 2019-10-19 12:55 | Outpatient (CLI) | payer MEDICARE, SELFPAY ==
[2018-09-07 12:07] VITALS: BMI 38.4
[2019-10-03 09:47] VITALS: BMI 36.0
--- NOTE | 2019-10-19 12:56 | ECHOD_ITS ---
Reason For Study: PHTN Procedure This was a 2D Doppler, Color Flow transthoracic echocardiogram. Exam performed in department. Left Ventricle Normal LV size. The estimated ejection fraction is 60 %. No evidence for diastolic dysfunction. No regional wall motion abnormalities noted. Right Ventricle Severely dilated right ventricle. Moderately severe global right ventricular systolic dysfunction. Atria Normal left atrium. Normal right atrium. No doppler evidence for ASD. Mitral Valve There is no mitral valve stenosis. No mitral valve insufficiency. Tricuspid Valve There is no tricuspid stenosis. No tricuspid valve insufficiency. Unable to estimate RV systolic pressure due to insufficient tricuspid regurgitant envelope. Aortic Valve Trisinus/trileaflet aortic valve. There is no aortic stenosis. No aortic valve insufficiency. Pulmonic Valve There is no pulmonic valvular stenosis. No pulmonic valve insufficiency. Great Vessels Normal aortic root. Pericardium/Pleural No pericardial effusion. MMode/2D Measurements & Calculations LVIDd: 5.3 cm IVSd: 1.5 cm Ao root diam: 3.4 cm LVIDs: 2.6 cm LVPWd: 1.3 cm RVDd: 4.5 cm FS: 50.2 % LAV(MOD-bp): 53.9 ml LA A4 area: 16.3 cm2 LA dimension(2D): 3.7 cm LAV(MOD-bp) Indexed: 23.6 ml/m2 LAV(MOD-sp2): 60.0 ml LAV(MOD-sp4): 46.0 ml RA A4 area: 19.9 cm2 Doppler Measurements & Calculations MV E max greg: 86.5 cm/sec Lat Peak E' Greg: 15.3 cm/sec Med Peak E' Greg: 8.5 cm/sec MV A max greg: 89.2 cm/sec E/E' lat: 5.7 E/E' med: 10.1 MV E/A: 0.97 Ao V2 max: 187.5 cm/sec LV V1 max: 115.7 cm/sec PA V2 max: 114.4 cm/sec Ao max P.1 mmHg LV V1 max P.4 mmHg Interpretation Summary The estimated ejection fraction is 60 %. No evidence for diastolic dysfunction. Severely dilated right ventricle. Moderately severe global right ventricular systolic dysfunction. Unable to estimate RV systolic pressure due to insufficient tricuspid regurgitant envelope. Ordering Physician: Alyce Bullock Referring Physician: Bacilio Smith Performed By: Yeny Meyer RDCS
== END ==
PROVIDERS: PCP Family Medicine; Referring Provider Specialist; Visit Provider Specialist
DX: I25.10 Atherosclerotic heart disease of native coronary artery without angina pectoris (principal); I27.20 Pulmonary hypertension, unspecified
CPT/HCPCS: 93306

== ENCOUNTER → 2019-11-05 11:23 | Outpatient (CLI) | payer MEDICARE, SELFPAY ==
[2018-09-07 12:07] VITALS: BMI 38.4
[2019-10-03 09:47] VITALS: BMI 36.0
== END ==
PROVIDERS: PCP Family Medicine; Visit Provider Otolaryngology
DX: Z11.59 Encounter for screening for other viral diseases (principal)
CPT/HCPCS: 87635; G2023; U0003

== ENCOUNTER 2019-12-24 02:17 | Emergency (ER) | payer MEDICARE, SELFPAY ==
[2018-09-07 12:07] VITALS: BMI 38.4
[2019-10-03 09:47] VITALS: BMI 36.0
[2019-12-24] VITALS (7 sets, daily range): BP systolic 126–157; BP diastolic 42–71; PULSE 79–89; RESP 17–20; TEMP 36.9–37; O2SAT 91–100; BMI 38.9
--- NOTE | 2019-12-24 03:12 | EKG12_ITS ---
Test Reason : DYSRHYTHMIA Blood Pressure : / mmHG Vent. Rate : 076 BPM Atrial Rate : 076 BPM P-R Int : 196 ms QRS Dur : 106 ms QT Int : 378 ms P-R-T Axes : 047 -14 033 degrees QTc Int : 425 ms Normal sinus rhythm Nonspecific T wave abnormality Abnormal ECG Confirmed by LEO LOUISE, KENN ([id number]), loan expeditor ZAKI STEWART ([id number]) on 12/25/2019 9:20:59 AM Referred By: MEY Confirmed By:KENN BAILEY MD
--- NOTE | 2019-12-24 03:12 | RAD_ITS ---
STUDY: X-RAY CHEST REASON FOR EXAM: Male, 49 years old. inc SOB and nausea. Pt has hx of pulmonary HTN. TECHNIQUE: Single AP portable view of the chest. COMPARISON: 02/05/2019 chest x-ray FINDINGS: There is a pattern of hazy interstitial density. There is thickening of the right minor fissure new since prior study. There is persistent elevation of the right hemidiaphragm. There is borderline cardiomegaly. Normal mediastinum and susana. Normal visualized pulmonary arteries. Normal visualized aortic arch and descending thoracic aorta. There are diffuse degenerative changes of the visualized thoracic spine. Normal visualized ribs, clavicles, and shoulders. There is no demonstrated abnormality of the visualized soft tissue structures of the upper abdomen. RAD/Chest 1 View (Portable) IMPRESSION: Hazy interstitial prominence in the lungs. Consider possible mild edema and/or atypical infiltrates. Right mid lung zone platelike atelectasis and/or small amount of fluid at the right minor fissure. Electronically Signed: Aleida Waite MD at 3:48 EDT Tel , Service support ,
--- NOTE | 2019-12-24 03:13 | ED.DCSUM_ITS ---
- ER Visit Summary Date of Service: 12/24/19 Chief Complaint: Dyspnea History of Present Illness: The patient is a 49 M who presents with shortness of breath that is been getting progressively worse over the past 2 weeks. Patient states that he feels like he is having a flareup of his congestive heart fail ure. Patient states his breathing is worse with walking across the room. Patient states that the distance he is able to ambulate prior to becoming short of breath has been getting shorter. Patient admits to a cough with some clear and white sputum. Patient denies any fevers or chills. Patient denies any chest pain. Patient denies any sore throat or rhinorrhea. Physical Examination: Vital signs are stable. Patient is afebrile. Patient is in no acute distress. Oral mucosa is pink and moist. Neck is supple. Trachea is midline. There is no JVD. Heart was regular rate and rhythm. There is a grade 2/6 systolic murmur at the lower left sternal border. Lungs showed few rales in the bases bilaterally. There is good respiratory effort noted. Abdomen is soft. Bowel sounds are normal. There is no tenderness. Cranial nerves II through XII are intact. There are no focal motor or sensory deficits noted. Extremities are intact. There is no calf tenderness. There is 1+ pitting edema of the lower extremities bilaterally. Test Results: EKG shows normal sinus rhythm with a rate of 76. There are no acute ST or T wave changes. Portable chest x-ray was obtained. There is hazy interstitial prominence in the lungs consistent with mild edema. There is also some atelectasis and/or small amount of fluid in the right minor fissure. This was interpreted by the radiologist and reviewed by myself. CBC shows a slight leukocytosis of 12.4. There is an anemia with a hemoglobin of 7.3 and hematocrit 25.8. These were consistent with prior results. Basic metabolic profile showed a potassium of 3.0. The remaining electrolytes were within normal limits. Troponin was normal. BNP was normal. Emergency Department Course and Treatment: Patient was given a dose of Lasix here in the emergency department. Patient was also given a dose of oral potassium and a dose of IV potassium. Patient states he would prefer to go home. Patient was instructed to follow-up with his primary care physician in 3 to 5 days. Patient was instructed to return if worse in any way. Patient understood and was agreeable with the plan. All questions were answered. Disposition: Discharge home Impression: Congestive heart failure exacerbation This note was generated with [employer] dictation software. It may contain incorrect words, spelling, and punctuation that were not noted in review of the chart prior to signing ED Disposition - Plan for ED Patient: Disposition: Home or Assisted Living Diagnosis: Acute exacerbation of congestive heart failure Instructions: ED CHF General Referrals: Bacilio Smith MD [Primary Care Provider] - 3-5 Days
[2019-12-24 03:18] LABS: Absolute Lymphocyte Count 2.75 X10^3/uL (0.83-4.51); Absolute Neutrophil Count 6.9 X10^3/uL (2.0-7.7); Basophil# 0.11 X10^3/uL; Basophil% 0.9 % (0-1); Eosinophil# 1.23 X10^3/uL; Eosinophils% 9.9 % (0-5); Hematocrit 25.8 % (40-54); Hemoglobin 7.3 g/dL (13.0-16.5); Lymphocyte # 2.75 X10^3/ul (4.0); Lymphocyte % 22.2 % (19-41); Mean Corp Hgb Conc 28.3 g/dL (32-36); Mean Corpuscular Hgb 24.2 pg (27.0-32.0); Mean Corpuscular Volume 85.4 fL (80-94); Mean Platelet Vol. 9.9 fl (6.2-12.0); Monocyte# 1.13 X10^3/uL; Monocyte% 9.1 % (0-10); NRBC Flagged by Analyzer 0.6 % (0-5); Neutrophil # 6.89 X10^3/uL (2.7-7.7); Neutrophil % 55.7 % (47-70); POSITIVE MORPHOLOGY YES; Platelet Count 496 K/mm3 (150-450); RBC Distribution Width CV 22.2 % (11.6-14.6); RBC Distribution Width SD 64.3 fl (35.1-43.9); Red Blood Count 3.02 M/mm3 (4.6-6.2); White Blood Count 12.4 K/mm3 (4.4-11.0)
[2019-12-24 03:19] LABS: Differential Indicated SCAN CRITERIA MET
[2019-12-24 03:30] LABS: Differential Comment SCANNED
[2019-12-24 03:33] LABS: AST(SGOT) 19 U/L (15-37); Alanine Aminotransfer ALT/SGPT 24 U/L (16-61); Albumin, Serum 3.4 g/dL (3.2-5.0); Alkaline Phosphatase 56 U/L (45-117); Anion Gap 8 (5-15); BUN 10 mg/dL (7-18); Calcium,Total 7.9 mg/dL (8.5-10.1); Chloride 107 mmol/L (98-107); Creatinine, Serum 0.77 mg/dL (0.70-1.30); EST Glomerular Filtration Rate 114 mL/min (>60); Est Glom Filt Rate - Afr Amer 138 mL/min (>60); Estimated Creatinine Clearance 114.77 ml/min; Globulin 3.3 g/dL (2.2-4.2); Glucose 101 mg/dL (74-106); Protein, Total 6.7 g/dL (6.4-8.2); Sodium Level 143 mmol/L (136-145)
[2019-12-24] MEDS: Furosemide 40 MG/4 ML Vial IV (04:00)
[2019-12-24] MEDS: Potassium Chloride 10mEq/100mL 10 MEQ/100 ML IV.SOLN. 100 MEQ IV BOLUS (04:10)
== END 2019-12-24 05:19 | disposition home or self-care (01) ==
PROVIDERS: Emergency Provider Emergency Medicine; PCP Family Medicine
DX: I50.9 Heart failure, unspecified (principal); I25.10 Atherosclerotic heart disease of native coronary artery without angina pectoris; Z86.73 Personal history of transient ischemic attack (TIA), and cerebral infarction without residual deficits
CPT/HCPCS: 71045; 80053; 83880; 84484; 85025; 93005; 96365; 96375; 99285; A4216; J1940

== ENCOUNTER → 2019-12-26 | Outpatient (CLI) | payer MEDICARE, SELFPAY ==
[2018-09-07 12:07] VITALS: BMI 38.4
[2019-12-26 11:43] VITALS: BMI 38.7
--- NOTE | 2019-12-26 14:48 | VDLE_ITS ---
Reason For Study: R/O DVT RIGHT LEFT GSV is normal. GSV is normal. CFV is compressible, spontaneous, phasic, CFV is compressible, spontaneous, phasic, competent and demonstrates normal competent, and demonstrates normal augmentation. augmentation. FV is compressible, spontaneous, phasic, FV is compressible, spontaneous, phasic, competent and demonstrates normal competent and demonstrates normal augmentation. augmentation. POP V is compressible, spontaneous, phasic, POP V is compressible, spontaneous, phasic, competent and demonstrates normal competent and demonstrates normal augmentation. augmentation. T/P Trunk is compressible. T/P Trunk is compressible. PTV is compressible. PTV is compressible. RT PerV is compressible. LT PerV is compressible. Procedure Nonvascualrized structure noted in the left Exam performed in department. popliteal space measuring approximently 1.44 A preliminary report was called and/or faxed x 3.29 x 4.52 cm. to [facility]. Interpretation Summary No evidence for acute deep venous thrombosis bilateral lower extremities with patent and compressible bilateral great saphenous veins. Cystic left popliteal space 1.44 x 3.29 x 4.52 cm structure nonvascular consistent with a Castro's cyst. Clinical correlation would be appropriate Ordering Physician: Alyce Bullock Referring Physician: Bacilio Smith Performed By: Marisol Huang RVT and Student
== END | disposition home or self-care (01) ==
LOC: CVS 14:48
PROVIDERS: PCP Family Medicine; Referring Provider Specialist; Visit Provider Specialist
DX: R60.0 Localized edema (principal); E87.6 Hypokalemia
CPT/HCPCS: 36415; 80053; 93970

== ENCOUNTER → 2019-12-26 | Outpatient (CLI) | payer MEDICARE, SELFPAY ==
[2018-09-07 12:07] VITALS: BMI 38.4
[2019-12-26 11:43] VITALS: BMI 38.7
[2019-12-26 13:33] LABS: AST(SGOT) 18 U/L (15-37); Alanine Aminotransfer ALT/SGPT 25 U/L (16-61); Albumin, Serum 3.6 g/dL (3.2-5.0); Alkaline Phosphatase 59 U/L (45-117); Anion Gap 7 (5-15); BUN 11 mg/dL (7-18); BUN/Creat Ratio 11.3 RATIO (10-20); Calcium,Total 8.8 mg/dL (8.5-10.1); Chloride 104 mmol/L (98-107); Creatinine, Serum 0.97 mg/dL (0.70-1.30); EST Glomerular Filtration Rate 87 mL/min (>60); Est Glom Filt Rate - Afr Amer 105 mL/min (>60); Globulin 3.6 g/dL (2.2-4.2); Glucose 181 mg/dL (74-106); Protein, Total 7.2 g/dL (6.4-8.2); Sodium Level 137 mmol/L (136-145)
== END | disposition home or self-care (01) ==
LOC: LAB 12:43
PROVIDERS: PCP Family Medicine; Referring Provider Specialist; Visit Provider Specialist
DX: E87.6 Hypokalemia (principal)
CPT/HCPCS: 36415; 80053

== ENCOUNTER → 2019-12-28 | Outpatient (CLI) | payer MEDICARE, SELFPAY ==
[2018-09-07 12:07] VITALS: BMI 38.4
[2019-12-26 11:43] VITALS: BMI 38.7
[2019-12-28] MEDS: 0.9% NaCl Peripheral Flush Adult/Peds IV (11:45)
[2019-12-28 12:06] VITALS: BP 109/58; PULSE 85; RESP 16; TEMP 36.6; O2SAT 98; BMI 38.4
[2019-12-28 12:13] VITALS: BP 109/58; PULSE 85; RESP 16; TEMP 36.6; O2SAT 93
[2019-12-28 12:28] VITALS: BP 125/55; PULSE 87; RESP 18; TEMP 36.9
[2019-12-28 13:28] VITALS: BP 130/58; PULSE 88; RESP 16; TEMP 36.9
[2019-12-28] MEDS: Furosemide 20 MG/2 ML VIAL IV (15:14)
[2019-12-28 15:20] VITALS: BP 119/57; PULSE 83; RESP 16; TEMP 36.8; O2SAT 94
[2019-12-28 15:30] VITALS: BP 119/57; PULSE 83; RESP 16; TEMP 36.8; O2SAT 94
== END | disposition home or self-care (01) ==
LOC: MEDOUTP 11:26
PROVIDERS: PCP Family Medicine; Referring Provider Internal Medicine Hematology & Oncology; Visit Provider Internal Medicine Hematology & Oncology
DX: D64.9 Anemia, unspecified (principal)
CPT/HCPCS: 36430; 86850; 86870; 86900; 86901; 86902; 86920; 86922; J7040; P9016; A4216; J1940

== ENCOUNTER → 2020-04-14 12:38 | Outpatient (CLI) | payer MEDICARE, SELFPAY ==
[2018-09-07 12:07] VITALS: BMI 38.4
[2020-01-23 11:17] VITALS: BMI 37.8
[2020-04-14 13:56] LABS: Amphetamine Urine VISTA NEGATIVE (<1000 ng/mL); Barbiturate Urine VISTA NEGATIVE (< 200 ng/mL); Benzodiazepine Urine VISTA NEGATIVE (< 200 ng/mL); Cocaine Urine VISTA NEGATIVE (< 300 ng/mL); Ecstacy Urine VISTA NEGATIVE (< 500 ng/mL); Methadone Urine VISTA NEGATIVE (< 300 ng/mL); PCP Urine VISTA NEGATIVE (< 25 ng/mL); THC Urine VISTA NEGATIVE (< 50 ng/mL); Vista UDS pH Range 5
== END ==
PROVIDERS: PCP Family Medicine; Referring Provider Anesthesiology Pain Medicine; Visit Provider Anesthesiology Pain Medicine
DX: F11.20 Opioid dependence, uncomplicated (principal)
CPT/HCPCS: 80307

== ENCOUNTER → 2020-06-09 14:36 | Outpatient (CLI) | payer MEDICARE, SELFPAY ==
[2018-09-07 12:07] VITALS: BMI 38.4
[2020-04-15 10:53] VITALS: BMI 36.3
[2020-06-09 15:02] LABS: Absolute Lymphocyte Count 1.87 X10^3/uL (0.83-4.51); Absolute Neutrophil Count 7.3 X10^3/uL (2.0-7.7); Basophil# 0.14 X10^3/uL; Basophil% 1.2 % (0-1); Eosinophil# 1.55 X10^3/uL; Eosinophils% 12.9 % (0-5); Hematocrit 35.6 % (40-54); Hemoglobin 11.1 g/dL (13.0-16.5); Lymphocyte # 1.87 X10^3/ul (4.0); Lymphocyte % 15.6 % (19-41); Mean Corp Hgb Conc 31.2 g/dL (32-36); Mean Corpuscular Hgb 29.1 pg (27.0-32.0); Mean Corpuscular Volume 93.2 fL (80-94); Mean Platelet Vol. 9.2 fl (6.2-12.0); Monocyte# 1.08 X10^3/uL; NRBC Flagged by Analyzer 0 % (0-5); Neutrophil # 7.27 X10^3/uL (2.7-7.7); Neutrophil % 60.6 % (47-70); Platelet Count 365 K/mm3 (150-450); RBC Distribution Width CV 18.6 % (11.6-14.6); RBC Distribution Width SD 61.7 fl (35.1-43.9); Red Blood Count 3.82 M/mm3 (4.6-6.2)
[2020-06-09 15:23] LABS: D-Dimer Quantitative (DVT/PE) 0.58 FEU/ug/m (0.27-0.49)
[2020-06-10 07:04] LABS: Blood Gas Specimen Type VEN
[2020-06-10 07:05] LABS: VBG PO2 137 mmHg (25-40); VBG pCO2 52.1 mmHg (41-51); VBG pH 7.32 (7.32-7.42)
[2020-06-10 07:06] LABS: VBG BASE EXCESS 1 mmol/L (-1.0-3.5); VBG Bicarbonate 27 mmol/L (22-26); VBG SO2 99 % (50-70)
[2020-06-10 07:07] LABS: VBG TCO2 28 mmol/L (23-33)
== END ==
PROVIDERS: PCP Family Medicine
DX: J96.11 Chronic respiratory failure with hypoxia (principal); R06.00 Dyspnea, unspecified
CPT/HCPCS: 36415; 82803; 85025; 85379; 86140

== ENCOUNTER → 2020-07-04 10:03 | Outpatient (CLI) | payer MEDICARE, SELFPAY ==
[2018-09-07 12:07] VITALS: BMI 38.4
[2020-04-15 10:53] VITALS: BMI 36.3
--- NOTE | 2020-07-04 09:55 | EKG12_ITS ---
Test Reason : PRE OP Blood Pressure : / mmHG Vent. Rate : 082 BPM Atrial Rate : 082 BPM P-R Int : 202 ms QRS Dur : 096 ms QT Int : 380 ms P-R-T Axes : 054 234 037 degrees QTc Int : 443 ms Normal sinus rhythm Indeterminate axis Nonspecific T wave abnormality Poor R wave progression Abnormal ECG Confirmed by FÉLIX LOUISE, RACHID ([id number]), newspaper or periodical editor BARRETT SOTO ([id number]) on 07/07/2020 10:03:28 AM Referred By: Jared Tabares Confirmed By:RACHID HEARD MD
[2020-07-04 10:44] LABS: Hematocrit 40.3 % (40-54); Hemoglobin 11.9 g/dL (13.0-16.5); Mean Corp Hgb Conc 29.5 g/dL (32-36); Mean Corpuscular Hgb 27.6 pg (27.0-32.0); Mean Corpuscular Volume 93.5 fL (80-94); Mean Platelet Vol. 8.6 fl (6.2-12.0); Platelet Count 457 K/mm3 (150-450); RBC Distribution Width CV 18.1 % (11.6-14.6); Red Blood Count 4.31 M/mm3 (4.6-6.2); White Blood Count 10.1 K/mm3 (4.4-11.0)
[2020-07-04 11:13] LABS: Anion Gap 6 (5-15); BUN 14 mg/dL (7-18); Chloride 108 mmol/L (98-107); EST Glomerular Filtration Rate 84 mL/min (>60); Est Glom Filt Rate - Afr Amer 101 mL/min (>60); Glucose 127 mg/dL (74-106); Potassium 3.8 mmol/L (3.5-5.1); Sodium Level 142 mmol/L (136-145)
== END ==
PROVIDERS: PCP Family Medicine; Referring Provider Otolaryngology; Visit Provider Otolaryngology
DX: Z01.818 Encounter for other preprocedural examination (principal); Z11.52 Encounter for screening for COVID-19
CPT/HCPCS: 36415; 80048; 85027; 87635; 93005; C9803; U0005; U0003

== ENCOUNTER 2020-07-15 09:18 | Day surgery (SDC) | payer MEDICARE, SELFPAY ==
[2018-09-07 12:07] VITALS: BMI 38.4
[2020-04-15 10:53] VITALS: BMI 36.3
[2020-07-14 11:19] LABS: Partial Thromboplast Time 33.6 Seconds (24.1-36.2)
[2020-07-14 11:24] LABS: Hemoglobin A1c 5.8 % (3.8-5.6)
[2020-07-15] VITALS (9 sets, daily range): BP systolic 120–132; BP diastolic 63–74; PULSE 83–92; RESP 16–18; TEMP 37.1–37.6; O2SAT 88–97; BMI 35.1
[2020-07-15] MEDS: Lactated Ringers 1,000 ML 100 ML IV (09:56)
[2020-07-15] MEDS: Oxymetazoline 0.05% 1 SPRAY SPRAY.BTL 15 SPRAY (11:54)
[2020-07-15] MEDS: Lidocaine 1% /Epi 1:100 (20ml) 20 ML Vial (11:55)
[2020-07-15] MEDS: Mupirocin Ointment 22gm Tube 1 APPLIC (13:19)
--- NOTE | 2020-07-15 13:59 | OP.PCM_ITS ---
Problem List (1) Nasal congestion Status: Chronic (2) Nasal septal deviation Status: Chronic (3) Nasal valve collapse Status: Chronic (4) Nasal turbinate hypertrophy Status: Chronic (5) Nasal bone fracture Status: Chronic (6) Acquired nasal deformity Status: Chronic Report of Operation Date of Procedure: 07/15/20 Pre-Operative Diagnosis: 1. nasal congestion. 2. nasal septal deviation. 3. internal nasal valve collapse, right and left. 4. inferior turbinate hypertrophy, right and left. 5. nasal bone fracture Post-Operative Diagnosis: 1. nasal congestion. 2. nasal septal deviation. 3. internal nasal valve collapse, right and left. 4. inferior turbinate hypertrophy, right and left. 5. nasal bone fracture Surgery/Procedure Performed:: 1. open septorhinoplasty. 2. correction internal nasal valve collapse, right and left. 3. submucous resection inferior turbinates, right and left. 4. open reduction nasal bone fracture Type of Anesthesia:: General Description of Procedure: On the day of the procedure, after appropriate informed consent was obtained, the patient was brought to the operating room and placed in a supine position on the operating room table. The patient was placed under general endotracheal anesthesia by the anesthesiologist. The endotracheal tube was secured. The eyes were taped. The table was rotated 90 degrees towards the surgeon. Lacri- Lube was placed in the eyes and Tegaderm was placed over the eyes. The nose was injected with 1% lidocaine with epinephrine. The face was prepped and draped in sterile fashion. An inverted-V columellar incision was made with a Deary blade. This traversed into the left and right marginal incisions in the nose. It was opened with three-point retraction and an Iris scissors. The left and right lower lateral cartilages were skeletonized. This was taken to the left scroll region and the left upper lateral cartilages were skeletonized as was the right scroll region and right upper lateral cartilage. The anterior septal angle was found by lateralizing the medial crura. However, it was severely deviated to the left and off the maxillary crest. This was carefully dissected using the Harmon-tip Bovie. The submucoperichondrial flaps were created with the [place] elevator, first on the left and then the right posteriorly to the bony cartilaginous junction and inferiorly to the maxillary crest. Posteriorly, the patient had a large 2-cm bony spur that impinged into the maxillary natural os. Anteriorly, the patient had a very severe left to mid septal deviation. It was nearly occluding the nasal airway. A Oumar elevator was used to disarticulate the bony cartilaginous junction. A #15 blade was used to disarticulate the left and then right upper lateral cartilage which significantly destabilized the nose. A 1 cm strut was maintained off the keystone area which was still stable and the Oumar elevator and a D-knife were used to remove the remainder of the septum. This was reshaped and sutured and fashioned to perform an anterior septal reconstruction and saved for future use. The deviated portions of the perpendicular plate of the ethmoid bone and vomer were removed using a Derrek-Natarajan including the large right-sided septal spur. The head of the right and left inferior turbinates were injected with 1% lidocaine with epinephrine. The head of the left inferior turbinate was incised with a #15 blade. This was dissected submucosally using the Oumar elevator, reduced using suction electrocautery, and outfractured using a Boies elevator. Similarly, on the right, the head of the right inferior turbinate was incised with a #15 blade. This was dissected submucosally using a Oumar elevator, reduced using suction electrocautery, and outfractured using a Boies elevator. using a 2mm osteotome, medial and lateral osteotomies were made on the patient's left then right. the severely deviated bony pyramid was then medialized and restored. Anterior septal reconstruction was placed as a right-sided internal referral management liaison graft. This was sutured between the nasal septum and right upper lateral cartilage using 4-0 PDS. This was also sutured to the maxillary crest in multiple points using 4-0 PDS. Additionally, a 2 mm x 1 cm internal referral management liaison graft was placed on the left side and sutured with 4-0 PDS. At this point, the nose was significantly re-stabilized. Multiple dermal sutures were used to refashion the nasal tip for stability to prevent collapse and a 5 mm x 2 mm columellar strut was used to prevent collapse. The submucoperichondrial flaps were closed with numerous 4-0 chromic sutures several incorporating the anterior septal reconstruction. The inverted-V columellar incision was closed with 7-0 Vicryl and the marginal incisions with interrupted 4-0 chromic. The nose was irrigated with normal saline and the table was rotated 90 degrees toward the anesthesiologist.
--- NOTE | 2020-07-15 14:04 | PCM.DC ---
- Discharge Diagnoses Current Active Problems: Current Active and Chronic Problems (Last Reviewed 04/15/20 @ 12:[address] Alyce Bullock MD) Nasal congestion (Chronic) Nasal septal deviation (Chronic) Nasal valve collapse (Chronic) Nasal turbinate hypertrophy (Chronic) Nasal bone fracture (Chronic) Acquired nasal deformity (Chronic) You will use the following diet at home:: No restrictions Your food should be the consistency of: Regular Discharge Activity: May not drive while taking narcotic pain medications. Call your doctor if your incision/area has: Increased Pain/ Swelling Additional Dressing/Incision Instructions:: sleep with head of bed elevated. use saline spray to both nostrils 5 times daily. use mupirocin ointment to both nostrils twice daily. keep the bridge of your nose dry. however, the morning that you follow up, get your nose very wet so the cast comes off in clinic. Allergies/Adverse Reactions: Allergies ticagrelor Allergy (Severe, Verified 07/15/20 09:45) shortness of breath lisinopril Allergy (Verified 07/15/20 09:45) COUGH nitroglycerin Allergy (Verified 07/15/20 09:45) interacts w/ pulmonary htn medicine clopidogrel [From Plavix] Adverse Reaction (Verified 07/15/20 09:45) NOT AN ALLERGY BUT STOPPED FOR GI BLEEDS Medications to take at Discharge ambrisentan 10 mg tablet 10 mg PO DAILY 01/29/19 tadalafil (pulm. hypertension) 20 mg tablet (pulmonary hypertension) 40 mg PO DAILY tab 01/29/19 Fenofibrate [Tricor] 145 mg PO DAILY 02/05/19 Pantoprazole Sodium [Protonix] 40 mg PO BID #60 tab 03/15/19 gabapentin 300 mg capsule 300 mg PO TID 05/29/19 Tiotropium [place] [Spiriva 18 MCG] 2 puff INHALATION DAILY 09/13/19 atorvastatin 40 mg tablet 40 mg PO QHS tab 10/03/19 furosemide 20 mg tablet 40 mg PO BID #120 tab 12/26/19 potassium chloride 10 mEq tablet,extended release(part/cryst) 20 meq PO BID #120 tab 12/26/19 treprostinil diolamine 5 mg tablet, extended release 7 mg PO TID tab 12/26/19 Ferrous Sulfate [Iron] 325 mg PO DAILY 07/09/20 Oxycodone Myristate [Xtampza ER] 13.5 mg PO BID 07/09/20 Primary Care Physician: Bacilio Smith MD [Primary Care Provider] - Test Results: Test results from this visit will be discussed in further detail at your follow-up appointment, if applicable. Please Follow Up With: Jared Tabares MD When: 10 days
== END 2020-07-15 16:34 | disposition home or self-care (01) ==
LOC: SDC 09:18 → AC 09:19
PROVIDERS: Anesthesiology; PCP Family Medicine; Referring Provider Otolaryngology; Visit Provider Otolaryngology
PROC: (CPT 21335; principal; 2020-07-15 10:45)
DX: J34.2 Deviated nasal septum (principal); J34.3 Hypertrophy of nasal turbinates; S02.2XXA Fracture of nasal bones, initial encounter for closed fracture; R09.81 Nasal congestion; M95.0 Acquired deformity of nose; J34.89 Other specified disorders of nose and nasal sinuses; K21.9 Gastro-esophageal reflux disease without esophagitis; D64.9 Anemia, unspecified; E78.00 Pure hypercholesterolemia, unspecified; E11.9 Type 2 diabetes mellitus without complications; I11.0 Hypertensive heart disease with heart failure; I50.9 Heart failure, unspecified; I25.10 Atherosclerotic heart disease of native coronary artery without angina pectoris; I27.20 Pulmonary hypertension, unspecified; I63.9 Cerebral infarction, unspecified; I69.398 Other sequelae of cerebral infarction; Z87.891 Personal history of nicotine dependence; G47.30 Sleep apnea, unspecified; Z95.5 Presence of coronary angioplasty implant and graft; Z79.899 Other long term (current) drug therapy; Z20.822 Contact with and (suspected) exposure to COVID-19
CPT/HCPCS: 00160; 21335; 30140; 30420; 36415; 83036; 85610; 85730; 87426; 94640; C9803; J7120; J2405

== ENCOUNTER 2020-12-08 10:47 | Day surgery (SDC) | payer MEDICARE, SELFPAY ==
[2018-09-07 12:07] VITALS: BMI 38.4
[2020-10-21 08:36] VITALS: BMI 35.9
--- NOTE | 2020-12-08 | GASB_PTH ---
PATIENT: ERIN MANRIQUEZ LOC: EN U#:[id number] AGE/SX: 50/M ROOM: RE12/08/[address]: Dr. Bashir Del Cid MD : 1970 BED: DIS: 12/08/2020 SPEC #: [id number] RECD: 12/08/20 13:49 STATUS: BEN FINNJose #: [id number] ALEXIS: 12/08/20 00:[address]: Bashir Del Cid DEPT: SURGICAL PATHOLOGY RECD BY: Salvador Caceres ENTERED: 12/09/20 08:05 SP TYPE: Gastric Bx OTHR DR: Dr. Bacilio Smith MD Tissues: A - Gastric mucous membrane B - Transverse colon Procedures: Surgery Specimen Level IV HEADER OPERATION: Colonoscopy, EGD ([facility] [place]) PRE-OP DIAGNOSIS: Blood in stool, history of stomach ulcers and colonic polyps TISSUE SUBMITTED: A ? Antral biopsy, H. pylori and path, B ? Transverse colon polyp x2 MICROSCOPIC DIAGNOSIS A. Gastric antrum, biopsy: Mild chronic inflammation. B. Transverse colon polyp, biopsy: Fragments of tubular adenoma. AM:vangie 12/10/2020 COMMENT A. The results of immunohistochemistry for Helicobacter pylori will be reported separately ([id number]). MICROSCOPIC DESCRIPTION Slides are reviewed. GROSS DESCRIPTION A - Received in fixative is one container labeled with the patient's name and designated antral biopsy. The specimen consists of one irregular fragment of light chao soft tissue that measures 6 x 2 x 1 cm. The specimen is totally submitted in one cassette. B - Received in fixative is one container labeled with the patient's name and designated transverse colon polyps x2. The specimen consists of multiple irregular fragments of light chao soft tissue that in aggregate measure 1.5 x 0.5 x 0.3 cm. The specimen is totally submitted in one cassette. / SJ:vangie 12/09/20 TC:5 CPT: 28402 x2
[2020-12-08 11:21] VITALS: BP 123/64; PULSE 82; RESP 16; TEMP 37; O2SAT 94; BMI 35.9
[2020-12-08] MEDS: Lactated Ringers 1,000 ML 100 ML IV (11:35)
[2020-12-08 11:41] LABS: Bedside Glucose 109 mg/dL (70-110)
--- NOTE | 2020-12-08 12:00 | IMM_PTH ---
PATIENT: ERIN MANRIQUEZ LOC: EN U#:[id number] AGE/SX: 50/M ROOM: RE12/08/[address]: Dr. Bashir Del Cid MD : 1970 BED: DIS: 12/08/2020 SPEC #: [id number] RECD: 12/09/20 08:34 STATUS: BEN REJose #: [id number] ALEXIS: 12/08/20 12:[address]: Bashir Del Cid DEPT: IMMUNOHISTOCHEMISTRY RECD BY: Roselia Rodriguez ENTERED: 12/09/20 08:35 SP TYPE: IMMUNO OTHR DR: Dr. Bacilio Smith MD Tissues: A - Stomach, NOS Procedures: H Pylori (initial) PHYSICIAN & INSTITUTION [place] [id number] SPECIMEN INFORMATION: Tissue Source: A ? Antral biopsy Clinical Info: Blood in stool, history of stomach ulcers and colonic polyps Specimen Number: [id number] CPT code: 81315 METHODOLOGY: Deparaffinized sections of prefer/formalin-fixed tissue or PAP/DQ stained slides are incubated with monoclonal/polyclonal antibodies/oligonucleotide probes. Localization is made via biotin free immunoperoxidase method. Appropriate controls are performed and reacted as expected. Results on target cell population are indicated in the following table: RESULTS: ANTIBODY / CLONE RESULT Block A H Pylori (polyclonal) negative These tests were developed and their performance characteristics determined by [facility]. They may not have been cleared or approved by the [place]. Food and Drug Administration. The FDA has determined that such clearance or approval is not necessary. INTERPRETATION: A. Antral biopsy: Negative for Helicobacter pylori organisms. AM:vangie 12/10/2020
--- NOTE | 2020-12-08 12:01 | PCM.HP.BLA ---
History and Physical Date of Admission: 12/08/20 HISTORY AND PHYSICAL ? Jamel Lynn 1970 ? REFERRING PHYSICIAN: Lee Wu, DO ? CHIEF COMPLAINT: Consult (Consult Colonoscopy) ? HPI: The patient is a 50 year old male referred for endoscopy. Jamel notes a long-standing history of anemia. More recently he had an episode approximately 4 weeks ago where he noted blood in the stool. He states he is no longer noting any visible blood, but had a stool hemoccult checked which was positive. ? Patient denies any change in bowel habits, weight changes, black tarry stools or abdominal pain. NOTES family history of colon issues. The patient notes no upper GI complaints currently but does note a past history of stomach ulcers. ? Jamel has undergone prior multiple prior endoscopy procedures. Most in recently in March 2019 he had upper and lower endoscopy by Dr. Campbell with finding of colon polyps and 3 year repeat colonoscopy recommended. ? Patient's past medical history is significant for coronary artery disease, respiratory failure, stroke, hypertension, diabetes, sleep apnea, pulmonary arterial hypertension. He follows with Dr. Smith in primary care and Dr. Wu in hematology/oncology. Denies problems with sedation in the past. ? PAST MEDICAL HISTORY PAST MEDICAL HISTORY Diagnosis Date ? Acute blood loss anemia 03/2019 ? bleeding ulcer ? Allergic rhinitis ? ? Bleeding gastric ulcer 03/2019 ? Blood type A+ ? ? CAD (coronary artery disease) ? ? Chronic respiratory failure (HCC) ? ? Diabetes (HCC) ? ? Essential hypertension 05/13/2016 ? Facet arthropathy, lumbar 11/01/2013 ? Fracture ? ? History of pancreatitis ? ? History of stroke 01/2019 ? Low back pain 11/01/2013 ? Obesity ? ? MARIBELL (obstructive sleep apnea) ? ? Pulmonary arterial hypertension (HCC) ? ? ? PAST SURGICAL HISTORY PAST SURGICAL HISTORY Procedure Laterality Date ? COLONOSCOP W/ OR W/O BRS SPEC ? 05/19/2016 ? Colonoscopy ? COLONOSCOP W/ OR W/O BRS SPEC ? 04/04/2019 ? multiple adenomatous polyps, repeat in 3 years ? EGD W/O OR W/BRUSH/WASH ? 04/04/2019 ? EGD Non-bleeding gastric ulcer ? EGD WITH CONTROL OF BLEED, ? 03/13/2019 ? F INJECT SPINE L/S (CD) ? ? ? HEART CATHETERIZATION ? 01/2019 ? LAP CHOLECYSTOENTEROSTOMY ? 02/27/09 ? PAST SURGICAL HISTORY OF ? ? ? age 9- right hip fracture repair ? PAST SURGICAL HISTORY OF ? 1996 ? right eye cataract surgery ? PAST SURGICAL HISTORY OF ? ? ? multiple left hip surgery s/p fracture- fusion, plate, last surgery at age 17 ? PRQ CARDIAC STENT W/ANGIO 1 VSL ? 08/2018 ? TOTAL HIP REPLACEMENT ? 08/24/13 ? Hip replacement, total right ? ? ? CURRENT MEDICATIONS Current Outpatient Medications Medication Sig ? pantoprazole DR (PROTONIX) 40 mg tablet Take 1 tablet by mouth twice daily. ? atorvastatin (LIPITOR) 40 mg tablet Take 1 tablet by mouth once daily. ? fenofibrate nanocrystallized (TRICOR) 145 mg tablet Take 1 tablet by mouth once daily. ? tiotropium bromide (SPIRIVA RESPIMAT) 2.5 mcg/actuation inhaler Inhale 2 Puffs as instructed once daily. ? metaxalone (SKELAXIN) 800 mg tablet Take 1/2 TABLET Every day for 28 Days ? oxyCODONE myristate (XTAMPZA ER) 9 mg CSpT Take 9 mg by mouth twice daily. ? ambrisentan (LETAIRIS) 10 mg tablet Take 1 tablet by mouth once daily. ? tadalafil (ADCIRCA) 20 mg tab(s) Take 2 tablets by mouth once daily. ? ORENITRAM 5 mg TbER ? ? potassium chloride (K-TAB) 10 mEq tablet Take 1 tablet by mouth twice daily. ? treprostinil ER (ORENITRAM) 2.5 mg tablet Take 1 tablet by mouth every 8 hours. ? furosemide (LASIX) 20 mg tablet BID and additional 10mg Prn increased swelling associated with more than 3lb weight gain or SOB ? gabapentin (NEURONTIN) 300 mg capsule Take 300 mg by mouth once daily. ? Current Facility-Administered Medications Medication Dose Route Frequency ? perflutren lipid microspheres 1.3 mL in NaCl (PF) 0.9% 10 mL injection (DEFINITY) INTRAVENOUS DIRECTED PRN ? sodium chloride 0.9 % (flush) 10 mL (BD POSIFLUSH) 10 mL INTRAVENOUS DIRECTED PRN ? ? ALLERGIES: Brilinta [Ticagrelor] and Lisinopril ? PERSONAL HISTORY: SOCIAL HISTORY Social History ? Tobacco Use ? Smoking status: Former Smoker ? ? Packs/day: 1.00 ? ? Years: 24.00 ? ? Pack years: 24.00 ? ? Types: Cigarettes ? ? Quit date: 03/08/2017 ? ? Years since quittin.6 ? Smokeless tobacco: Never Used ? Tobacco comment: Pt will occ have a cigarette. Vaping Use ? Vaping Use: Never used Substance Use Topics ? Alcohol use: No ? Drug use: No ? FAMILY HISTORY: FAMILY HISTORY FAMILY HISTORY Problem Relation Age of Onset ? Diabetes Mother ? ? Breast Cancer Mother ? ? Hypertension Mother ? ? Colon Cancer Mother ? ? ? REVIEW OF SYMPTOMS: The review of systems data was entered by the nurse and reviewed by me ? Nursing Notes: Gerald Hao WILLIS 10/28/2020 12:36 PM Signed REVIEW OF SYSTEMS: General: The patient NOTES fatigue, denies weight loss, denies weight gain, denies feeling hot, and denies feelings of cold. Eyes: The patient denies glaucoma, NOTES eye injury/surgery, wears glasses or contacts. Ear/Nose/Throat: The patient NOTES allergies, NOTES hayfever, NOTES ear infections, and denies bloody noses. Cardiovascular: The patient denies chest pain, NOTES heart disease, denies high blood pressure,NOTES cardiac stent, denies prior heart attack, denies irregular heart beat, denies high cholesterol, denies poor circulation, denies heart failure, NOTES other cardiac issues, denies claudication, denies cold feet, denies peripheral arterial stent. Respiratory: The patient denies tuberculosis, denies pneumonia, denies frequent cough, denies pulmonary embolism, denies shortness of breath, and denies coughing up blood. Gastrointestinal: The patient denies difficulty swallowing, denies acid reflux, denies ulcers, denies vomiting, denies jaundice/hepatitis, denies gallbladder problems, denies black or tarry stools, denies hemorrhoids, denies bleeding from rectum, denies diverticulitis, NOTES constipation, denies diarrhea, denies loss of stool control, and denies hernias. Kidney/Bladder: The patient NOTES kidney stones, denies urine infections, and denies bloody urine. Skin: The patient denies a history of skin cancer, denies bleeding/changing moles, and denies a history of skin rash. Neurologic: The patient denies a history of epilepsy/convulsions, NOTES headaches, denies head/spinal injuries, and denies stroke/TIA. Psychiatric: The patient denies psychiatric medications, denies depression, and denies voices, denies substance abuse. Endocrine: The patient denies thyroid disorders, denies diabetes, and denies hormonal problems. Hematologic: The patient denies a history of bruising, denies bleeding, and NOTES anemia, denies blood clots. Infections: The patient denies a history of measles and mumps, denies rheumatic fever, and denies sexually transmitted diseases. Musculoskeletal: The patient NOTES back pain/injury, NOTES back problems, NOTES sciatica, denies knee/foot trouble, NOTES arthritis, or denies gout. ? ? When was patient's last Mammogram screening? N/A ? Last Colonoscopy: 2019 ? Gerald Bui LPN I have confirmed and edited as necessary, the PFSH and ROS obtained by others. ? PHYSICAL EXAMINATION: ? General: The patient is 50 year old male, well nourished, well hydrated in no acute distress. The patient is oriented to time, place, and person. ? VITALS: Blood pressure (!) 114/48, pulse 113, temperature 37.4 ?C (99.3 ?F), weight 113.4 kg (250 lb), SpO2 91 %. Body mass index is 36.92 kg/m?. ? HEENT: Normal cephalic, ataumatic, pupils are equally round, sclera are anicteric, mucous membranes are moist, oropharynx is clear. Neck has no masses, asymmetry or lymphadenopathy. ? Respiratory: Clear to auscultation and percussion. Normal respiratory excursion and pattern. ? Cardiac: Examination is regular rate and rhythm. Normal S1/S2 ? Abdominal exam: Soft, nontender, with no palpable masses. No hepatosplenomegaly. No palpable hernias. ? Extremities: no clubbing, cyanosis or edema. No adenopathy. ? LABORATORY VALUES: As Noted ? RADIOLOGIC STUDIES: As Noted ? ? Assessment IMPRESSION: anemia, blood in stool, history of colon polyps ? PLAN: I have reviewed my findings with the surgeon. Will plan for upper and lower endoscopy. We discussed the risks and benefits of the planned endoscopy. I have informed the patient that complications can occur including failure to complete the endoscopy and perforation. The patient had the opportunity to ask questions concerning the planned endoscopy. My staff has also explained the procedure to the patient in understandable terms and has given the patient printed material concerning the procedure. The patient freely consents to surgery. ? The patient was offered a surgery/procedure at a [facility] facility. I have counseled the patient regarding the risk of exposure to and/or potential harm posed by the COVID-19 virus with having a surgery/procedure at this time versus the risk of? delaying the surgery/procedure. It is not possible to know either the risk of delaying the surgery or procedure or chance of getting an infection with perfect accuracy, but a joint decision was made between the patient and myself?to proceed at this time with endoscopy. ? ? I plan to use Miralax bowel preparation ? The patient has medical comorbidities for which we will plan for the procedure to be performed under Monitored Anesthetic Care. ? ? ? Diagnoses: (D50.0) Iron deficiency anemia due to chronic blood loss (primary encounter diagnosis) (K92.1) Blood in stool (Z87.11) History of stomach ulcers (Z86.010) History of colonic polyps (G47.33) MARIBELL (obstructive sleep apnea) (I27.81) Cor pulmonale, chronic (HCC) (I27.21) Pulmonary arterial hypertension (HCC) ? I spent a total of 35 minutes on the date of the service which included preparing to see the patient, [id number] patient care, completing clinical documentation, obtaining and/or reviewing separately obtained history, performing a medically appropriate examination, counseling and educating the patient/family/caregiver, ordering medications, tests, or procedures and communicating with other HCPs (not separately reported). ? Sanjuana Ramirez PA-C I have re-examined the patient. There are no clinical changes since date of exam.
[2020-12-08 12:44] VITALS: BP 123/64; BP 99/67; PULSE 76; RESP 16; TEMP 36.4; O2SAT 92
[2020-12-08 12:50] VITALS: BP 112/63; BP 123/64; PULSE 79; RESP 16; O2SAT 92
[2020-12-08 12:55] VITALS: BP 106/66; BP 123/64; PULSE 75; RESP 16; O2SAT 94
[2020-12-08 13:00] VITALS: BP 119/64; BP 123/64; PULSE 75; RESP 16; TEMP 36.4; O2SAT 95
--- NOTE | 2020-12-09 13:09 | OP.EGD_ITS ---
Patient Name: Jamel Lynn Procedure Date: 12/08/2020 10:58 AM Date of : 1970 Age: 50 Procedure: Upper GI endoscopy Indications: Iron deficiency anemia secondary to chronic blood loss, Melena Providers: Bashir Del Cid MD Medicines: See the Anesthesia note for documentation of the administered medications Patient Profile: This is a 50 year old male. Refer to note in patient chart for documentation of history and physical. Complications: No immediate complications. Procedure: Pre-Anesthesia Assessment: - Prior to the procedure, a History and Physical was performed, and patient medications and allergies were reviewed. The patient's tolerance of previous anesthesia was also reviewed. The risks and benefits of the procedure and the sedation options and risks were discussed with the patient. All questions were answered, and informed consent was obtained. Prior Anticoagulants: The patient has taken no previous anticoagulant or antiplatelet agents. ASA Grade Assessment: III - A patient with severe systemic disease. After reviewing the risks and benefits, the patient was deemed in satisfactory condition to undergo the procedure. After obtaining informed consent, the endoscope was passed under direct vision. Throughout the procedure, the patient's blood pressure, pulse, and oxygen saturations were monitored continuously. The gastroscope was introduced through the mouth, and advanced to the second part of duodenum. The upper GI endoscopy was accomplished without difficulty. The patient tolerated the procedure well. Scope In: 12:10:14 PM Scope Out: 12:14:26 PM Total Procedure Duration Time 0 hours 4 minutes 12 seconds Findings: The Z-line was regular and was found 46 cm from the incisors. No biopsies or other specimens were collected for this exam. Localized mild inflammation characterized by erythema was found in the prepyloric region of the stomach. Biopsies were taken with a cold forceps for Helicobacter pylori testing. The examined duodenum was normal. No biopsies or other specimens were collected for this exam. Impression: - Z-line regular, 46 cm from the incisors. No specimens collected. - Gastritis. Biopsied. - Normal examined duodenum. No specimens collected. Recommendation: - Discharge patient to home. - Resume previous diet. - Continue present medications. - Await pathology results. - Repeat upper endoscopy PRN for surveillance. - Return to physician food and beverage assistant in 1 week. Procedure Code(s): --- Professional --- 94635, Esophagogastroduodenoscopy, flexible, transoral; with biopsy, single or multiple Diagnosis Code(s): --- Professional --- K29.70, Gastritis, unspecified, without bleeding D50.0, Iron deficiency anemia secondary to blood loss (chronic) K92.1, Melena (includes Hematochezia) CPT copyright 2017 [employer]. All rights reserved. The codes documented in this report are preliminary and upon global head advertiser solutions review may be revised to meet current compliance requirements. MD Bashir Underwood MD 12/08/2020 12:40:57 PM This report has been signed electronically. Number of Addenda: 0 Note Initiated On: 12/08/2020 10:58 AM
--- NOTE | 2020-12-09 13:09 | OP.CCLET_ITS ---
12/09/2020 Bacilio Smith Re : Colonoscopy procedure for Jamel Lynn Deaconchis Smith This procedure was performed on Tuesday, December 08, 2020. My impressions and recommendations are as follows: Impressions : - One 11 mm polyp in the transverse colon, removed with a hot snare. Resected and retrieved. - One 5 mm polyp in the transverse colon, removed with a jumbo cold forceps. Resected and retrieved. - The examination was otherwise normal. Recommendations : - Discharge patient to home. - Resume previous diet. - Continue present medications. - Await pathology results. - Repeat colonoscopy in 3 years for surveillance. - Return to physician shop assistant in 1 week. My findings are described in the full procedure note, which is enclosed. If I can be of further assistance, please feel free to contact me at Doctor phone number(s): , Fax: [phone], Work: . Sincerely, MD Bashir Underwood MD 12/08/2020 12:43:13 PM This report has been signed electronically.
--- NOTE | 2020-12-09 13:09 | OP.COLON_ITS ---
Patient Name: Jamel Lynn Procedure Date: 12/08/2020 12:17 PM Date of : 1970 Age: 50 Procedure: Colonoscopy Indications: High risk colon cancer surveillance: Personal history of colonic polyps Providers: Bashir Del Cid MD Medicines: See the Anesthesia note for documentation of the administered medications Patient Profile: This is a 50 year old male. Refer to note in patient chart for documentation of history and physical. Last Colonoscopy: 2018. Complications: No immediate complications. Procedure: Pre-Anesthesia Assessment: - Prior to the procedure, a History and Physical was performed, and patient medications and allergies were reviewed. The patient's tolerance of previous anesthesia was also reviewed. The risks and benefits of the procedure and the sedation options and risks were discussed with the patient. All questions were answered, and informed consent was obtained. Prior Anticoagulants: The patient has taken no previous anticoagulant or antiplatelet agents. ASA Grade Assessment: III - A patient with severe systemic disease. After reviewing the risks and benefits, the patient was deemed in satisfactory condition to undergo the procedure. After I obtained informed consent, the scope was passed under direct vision. Throughout the procedure, the patient's blood pressure, pulse, and oxygen saturations were monitored continuously. The adult colonoscope was introduced through the anus and advanced to the ileocecal valve. The colonoscopy was performed without difficulty. The patient tolerated the procedure well. The quality of the bowel preparation was adequate to identify polyps 6 mm and larger in size. Scope In: 12:17:40 PM Scope Withdrawal Time 0 hours 14 minutes 47 seconds Scope Out: 12:36:54 PM Total Procedure Duration Time 0 hours 19 minutes 14 seconds Findings: A 11 mm polyp was found in the transverse colon. The polyp was sessile. The polyp was removed with a hot snare. Resection and retrieval were complete. A 5 mm polyp was found in the transverse colon. The polyp was sessile. The polyp was removed with a jumbo cold forceps. Resection and retrieval were complete. The exam was otherwise without abnormality. Impression: - One 11 mm polyp in the transverse colon, removed with a hot snare. Resected and retrieved. - One 5 mm polyp in the transverse colon, removed with a jumbo cold forceps. Resected and retrieved. - The examination was otherwise normal. Recommendation: - Discharge patient to home. - Resume previous diet. - Continue present medications. - Await pathology results. - Repeat colonoscopy in 3 years for surveillance. - Return to physician assistant store manager operations in 1 week. Procedure Code(s): --- Professional --- 39599, Colonoscopy, flexible; with removal of tumor(s), polyp(s), or other lesion(s) by snare technique 17621, 59, Colonoscopy, flexible; with biopsy, single or multiple Diagnosis Code(s): --- Professional --- Z86.010, Personal history of colonic polyps D12.3, Benign neoplasm of transverse colon (hepatic flexure or splenic flexure) CPT copyright 2017 [employer]. All rights reserved. The codes documented in this report are preliminary and upon information technology security manager review may be revised to meet current compliance requirements. MD Bashir Underwood MD 12/08/2020 12:43:13 PM This report has been signed electronically. Number of Addenda: 0 Note Initiated On: 12/08/2020 12:17 PM
--- NOTE | 2020-12-09 13:09 | OP.CCLET_ITS ---
12/09/2020 Bacilio Smith Re : Upper GI endoscopy procedure for Jamel Lynn Deaconchis Smith This procedure was performed on Tuesday, December 08, 2020. My impressions and recommendations are as follows: Impressions : - Z-line regular, 46 cm from the incisors. No specimens collected. - Gastritis. Biopsied. - Normal examined duodenum. No specimens collected. Recommendations : - Discharge patient to home. - Resume previous diet. - Continue present medications. - Await pathology results. - Repeat upper endoscopy PRN for surveillance. - Return to physician blood donor unit assistant in 1 week. My findings are described in the full procedure note, which is enclosed. If I can be of further assistance, please feel free to contact me at Doctor phone number(s): , Fax: [phone], Work: . Sincerely, MD Bashir Underwood MD 12/08/2020 12:40:57 PM This report has been signed electronically.
== END 2020-12-08 13:23 | disposition home or self-care (01) ==
LOC: EN 10:48 → AC 10:49
PROVIDERS: PCP Family Medicine; Referring Provider Family Medicine; Visit Provider Surgery
PROC: 0DJD8ZZ Inspection of Lower Intestinal Tract, Via Natural or Artificial Opening Endoscopic (ICD-10-PCS; CPT 45378; principal; 2020-12-08 11:55)
DX: K29.50 Unspecified chronic gastritis without bleeding (principal); D12.3 Benign neoplasm of transverse colon; D50.0 Iron deficiency anemia secondary to blood loss (chronic); E11.9 Type 2 diabetes mellitus without complications; I25.10 Atherosclerotic heart disease of native coronary artery without angina pectoris; I10 Essential (primary) hypertension; G47.33 Obstructive sleep apnea (adult) (pediatric); E66.9 Obesity, unspecified; Z68.36 Body mass index [BMI] 36.0-36.9, adult; Z86.010 Personal history of colon polyps; Z86.73 Personal history of transient ischemic attack (TIA), and cerebral infarction without residual deficits; Z79.899 Other long term (current) drug therapy; Z87.891 Personal history of nicotine dependence; Z99.81 Dependence on supplemental oxygen
CPT/HCPCS: 43239; 45380; 82962; 88305; 88342; J7120

== ENCOUNTER → 2020-12-29 16:44 | Outpatient (CLI) | payer MEDICARE, SELFPAY ==
[2018-09-07 12:07] VITALS: BMI 38.4
[2020-12-29 17:15] LABS: Amphetamine Urine VISTA NEGATIVE (<1000 ng/mL); Barbiturate Urine VISTA NEGATIVE (< 200 ng/mL); Benzodiazepine Urine VISTA NEGATIVE (< 200 ng/mL); Cocaine Urine VISTA NEGATIVE (< 300 ng/mL); Ecstacy Urine VISTA NEGATIVE (< 500 ng/mL); Methadone Urine VISTA NEGATIVE (< 300 ng/mL); PCP Urine VISTA NEGATIVE (< 25 ng/mL); THC Urine VISTA NEGATIVE (< 50 ng/mL); Vista UDS pH Range 6
== END ==
PROVIDERS: PCP Family Medicine; Referring Provider Anesthesiology Pain Medicine; Visit Provider Anesthesiology Pain Medicine
DX: F11.20 Opioid dependence, uncomplicated (principal)
CPT/HCPCS: 80307

== ENCOUNTER 2021-08-17 15:05 | Emergency (ER) | payer MEDICARE, SELFPAY ==
[2018-09-07 12:07] VITALS: BMI 38.4
[2021-08-17 15:06] VITALS: BP 133/91; PULSE 79; RESP 18; TEMP 36.5; O2SAT 99; BMI 23.6
--- NOTE | 2021-08-17 15:28 | EX.ED.DYSGE1 ---
HPI History of Present Illness Chief Complaint: Abn Labs Informant: patient Onset/Context/Timing Onset: Days (5) Context: Gradual Onset Timing: Continuous Quality: Short of breath, cold Location: Generalized Worsened by: Nothing Relieved by: Nothing Narrative Narrative: Presents with possible hypokalemia. Patient states he had outpatient labs drawn last week which showed a low potassium. Patient states he has been eating bananas and potassium rich foods in addition to taking his normal medications. Patient states some of his symptoms have improved. Patient states he still feels short of breath at times. Patient states he feels like he is cold frequently. Patient states nothing makes his symptoms better or worse. [facility] Medical History Abdominal pain Acute GI hemorrhage Anemia due to blood loss, acute Anxiety Arthritis Atherosclerosis of coronary artery of [place] heart without angina pectoris Back pain C. difficile colitis Cardiology follow-up encounter Cardiomyopathy Chronic respiratory failure with hypoxia Colitis CPAP (continuous positive airway pressure) dependence CVA (cerebral vascular accident) Depression Diabetes Epistaxis Essential hypertension Former smoker Gastric reflux H. pylori infection High cholesterol History of CHF (congestive heart failure) History of chronic pancreatitis History of diverticulitis History of echocardiogram History of GI bleed History of stress test Hypercalcemia Hyponatremia Hypotension Leukocytosis Low iron Migraine headache Nicotine dependence in remission On home oxygen therapy Pulmonary hypertension Renal insufficiency Septic shock Shortness of breath on exertion Stroke/cerebrovascular accident Syncope Type 2 diabetes mellitus without complication Wears glasses Home Medications ambrisentan 10 mg tablet 10 mg PO DAILY 01/29/19 [History Last Taken 12/08/20 07:00] tadalafil (pulm. hypertension) 20 mg tablet (pulmonary hypertension) 40 mg PO DAILY tab 01/29/19 [History Last Taken 12/08/20 07:00] fenofibrate nanocrystallized 145 mg PO DAILY 02/05/19 [History Last Taken 03/13/19] pantoprazole 40 mg PO BID #60 tab 03/15/19 [Rx Last Taken 12/08/20 07:00] gabapentin 300 mg capsule 300 mg PO TID 05/29/19 [History Last Taken Unknown] atorvastatin 40 mg tablet 40 mg PO QHS tab 10/03/19 [History Last Taken Unknown] metolazone 2.5 mg tablet 2.5 mg PO DAILY PRN PRN tab 05/06/21 [History Last Taken Unknown] oxycodone myristate 9 mg capsule sprinkle extended release 12 hr(DON'T CRUSH) 9 mg PO BID 05/06/21 [History Last Taken Unknown] potassium chloride 10 mEq tablet,extended release(part/cryst) 20 meq PO BID tab 05/06/21 [History Last Taken Unknown] furosemide 40 mg PO DAILY PRN PRN 08/17/21 [History Last Taken Unknown] tiotropium bromide [Spiriva Respimat] 2 puff INHALATION DAILY 08/17/21 [History Last Taken Unknown] treprostinil sodium [Remodulin] 20 mg CONTINUOUS IV INFUSION Q48H 08/17/21 [History Last Taken Unknown] Allergy/AdvReac Type Severity Reaction Status Date / Time ticagrelor Allergy Severe cough Verified 08/17/21 15:41 lisinopril Allergy COUGH Verified 08/17/21 15:41 nitroglycerin Allergy interacts Verified 08/17/21 15:41 w/ pulmonary htn medicine clopidogrel [From Plavix] AdvReac NOT AN Verified 08/17/21 15:41 ALLERGY BUT STOPPED FOR GI BLEEDS Family History (Reviewed 05/06/21 @ 10:31 by Roge Bell PHOTOENGRAVING MACHINE OPERATOR/TENDER, PHOTOENGRAVING MACHINE OPERATOR/TENDER-C) Mother Diabetes Hypertension Breast cancer Grandfather Heart disease Uncle Heart disease Surgical History History of cardiac catheterization History of cholecystectomy History of hip surgery Hx of rhinoplasty Presence of stent in coronary artery S/P cataract surgery S/P colonoscopy Status post total hip replacement, right Social History Smoking Status: Former smoker how long ago did patient quit smokin year ago alcohol intake: never substance use type: does not use caffeine: Yes Type: carbonated beverages Number of servings: 2 ROS ROS ED Constitutional Constitutional ED: Denies chills or fever(s) Eyes Eyes: Denies blurry vision or change in vision ENT ENT ED: Denies rhinorrhea or sore throat Cardiovascular Cardiovascular: Denies chest pain or palpitations Respiratory/Chest Respiratory/Chest: Reports cough and dyspnea Gastrointestinal Gastrointestinal: Denies nausea or vomiting Genitourinary Genitourinary ED: Denies dysuria or hematuria Musculoskeletal Musculoskeletal: Reports back pain; Denies neck pain Integumentary Denies abscess or rash Neurologic Neurologic: Reports weakness; Denies headache(s) Allergic/Immunologic Allergic/Immunologic ED: Denies mouth swelling or urticaria EXAM Physical Exam Const Vital Signs: 08/17/21 15:06 Temperature 97.7 F L Temperature Source Temporal Pulse Rate 79 Respiratory Rate 18 Blood Pressure 133/91 H Blood Pressure Mean 105 Pulse Ox 99 Oxygen Delivery Method Nasal Cannula Oxygen Flow Rate (L/min) 6 Positive well nourished and well developed General Appearance ED: well developed HEENT Reports moist mucous membranes Neck supple and no JVD Resp normal respiratory effort and clear to auscultation bilaterally Cardio regular rate, regular rhythm and no murmurs GI normal to inspection, nondistended, normoactive bowel sounds and non-tender Palpation: soft Extremity normal to inspection General Extremety ED: Negative for edema or tenderness General Extremity: Negative for edema Neuro oriented x3, CN's II-XII intact bilaterally and no sensory deficits noted Sensorium / Orientation: alert Motor Exam: strength 5/5 throughout Psych mental status grossly normal Skin no rashes or lesions noted MDM MDM MDM Narrative Medical decision making narrative: EKG was obtained. On my interpretation, it showed a normal sinus rhythm with a rate of 82. [place] interval, QRS interval, and QTc intervals were all normal. [place] was normal. There are nonspecific ST-T wave changes. CBC was essentially within normal limits. Comprehensive metabolic profile shows a normal potassium of 3.8. CO2 was slightly low at 20. BUN and creatinine were normal. Patient was advised of his findings. Patient was instructed to follow-up with his primary care physician in 3 to 5 days for reevaluation. Patient understood and was agreeable with the plan. All questions were answered. Lab Data Attestation: I reviewed the patient's lab results. Labs: Laboratory Results - last 24 hr 08/17/21 08/17/21 16:10 16:10 WBC 9.4 RBC 5.38 Hgb 12.1 L Hct 40.2 MCV 74.7 L MCH 22.5 L MCHC 30.1 L RDW Std Deviation 50.7 H RDW Coeff of Teja 19.6 H Plt Count 246 MPV 9.7 Immature Gran % (Auto) 0.500 Neut % (Auto) 51.0 Lymph % (Auto) 22.3 Love % (Auto) 7.8 Eos % (Auto) 17.3 H Baso % (Auto) 1.1 H Absolute Neuts (auto) 4.8 Absolute Lymphs (auto) 2.09 Nucleated RBC % 0 Sodium 139 Potassium 3.8 Chloride 113 H Carbon Dioxide 20.0 L Anion Gap 6 BUN 9 Creatinine 0.96 Estim Creat Clear Calc 125.15 Est GFR (MDRD) Af Amer 106 Est GFR (MDRD) Non-Af 87 BUN/Creatinine Ratio 9.4 L Glucose 89 Calcium 7.8 L Total Bilirubin 0.60 AST 16 ALT 15 L Alkaline Phosphatase 58 Total Protein 7.3 Albumin 3.5 Globulin 3.8 Albumin/Globulin Ratio 0.9 EKG Initial EKG: Attestation: I personally reviewed and interpreted this EKG as follows: Interpretation: Sinus Rhythm (82) and Non-Specific ST Changes Prior EKG tracings: available for review Prior: Unchanged (07/04/2020) Discharge Plan Triage Chief Complaint: Abn Labs ED Provider: Curt Soler Dx/Rx/DC Orders Clinical Impression: Dyspnea, Pulmonary hypertension Instructions: ED Dyspnea Prescriptions: No Action tadalafil (pulm. hypertension) [Adcirca] 20 mg tablet 40 mg PO DAILY RF: 0 ambrisentan [Letairis] 10 mg tablet 10 mg PO DAILY RF: 0 gabapentin 300 mg capsule 300 mg PO TID RF: 0 atorvastatin 40 mg tablet 40 mg PO QHS RF: 0 Xtampza ER 9 mg cap,sprinkl,ER12hr(DONT CRUSH) 9 mg PO BID RF: 0 metolazone 2.5 mg tablet 2.5 mg PO DAILY PRN PRN (Reason: take with lasix) RF: 0 fenofibrate nanocrystallized 145 MG tablet 145 mg PO DAILY RF: 0 pantoprazole 40 MG tablet 40 mg PO BID Qty: 60 RF: 0 potassium chloride 10 mEq tablet,ER particles/crystals 20 meq PO BID RF: 0 Spiriva Respimat 2.5 mcg/actuation mist 2 puff INHALATION DAILY RF: 0 treprostinil sodium [Remodulin] 5 mg/mL Solution 20 mg continuous IV infusion Q48H RF: 0 furosemide 20 mg tablet 40 mg PO DAILY PRN PRN (Reason: Edema) RF: 0 Primary Care Provider: Bacilio Smith Referrals: Bacilio Smith MD [Primary Care Provider] - 3-5 Days Disposition Disposition: Home, Self Care
--- NOTE | 2021-08-17 15:34 | EKG12_ITS ---
Test Reason : LOW POTASSIUM Blood Pressure : / mmHG Vent. Rate : 082 BPM Atrial Rate : 082 BPM P-R Int : 180 ms QRS Dur : 102 ms QT Int : 418 ms P-R-T Axes : 050 169 -23 degrees QTc Int : 488 ms Normal sinus rhythm Low voltage QRS (Limb Leads) Poor R wave progression ST & T wave abnormality, consider anterior ischemia Abnormal ECG Confirmed by FÉLIX LOUISE, RACHID ([id number]), senior technical editor BARRETT SOTO ([id number]) on 08/20/2021 1:11:41 PM Referred By: MEY Confirmed By:RACHID HEARD MD
[2021-08-17 16:22] LABS: Absolute Lymphocyte Count 2.09 X10^3/uL (0.83-4.51); Absolute Neutrophil Count 4.8 X10^3/uL (2.0-7.7); Basophil% 1.1 % (0-1); Eosinophil# 1.62 X10^3/uL; Eosinophils% 17.3 % (0-5); Hematocrit 40.2 % (40-54); Hemoglobin 12.1 g/dL (13.0-16.5); Lymphocyte # 2.09 X10^3/ul (0.83-4.51); Lymphocyte % 22.3 % (19-41); Mean Corp Hgb Conc 30.1 g/dL (32-36); Mean Corpuscular Hgb 22.5 pg (27.0-32.0); Mean Corpuscular Volume 74.7 fL (80-94); Mean Platelet Vol. 9.7 fl (6.2-12.0); Monocyte# 0.73 X10^3/uL; Monocyte% 7.8 % (0-10); NRBC Flagged by Analyzer 0 % (0-5); Neutrophil # 4.77 X10^3/uL (2.7-7.7); Platelet Count 246 K/mm3 (150-450); RBC Distribution Width CV 19.6 % (11.6-14.6); RBC Distribution Width SD 50.7 fl (35.1-43.9); Red Blood Count 5.38 M/mm3 (4.6-6.2); White Blood Count 9.4 K/mm3 (4.4-11.0)
[2021-08-17 16:40] LABS: ALB/GLOB Ratio 0.9 RATIO (0.9-2.4); AST(SGOT) 16 U/L (15-37); Alanine Aminotransfer ALT/SGPT 15 U/L (16-61); Albumin, Serum 3.5 g/dL (3.2-5.0); Alkaline Phosphatase 58 U/L (45-117); Anion Gap 6 (5-15); BUN 9 mg/dL (7-18); BUN/Creat Ratio 9.4 RATIO (10-20); Calcium,Total 7.8 mg/dL (8.5-10.1); Chloride 113 mmol/L (98-107); Creatinine, Serum 0.96 mg/dL (0.70-1.30); EST Glomerular Filtration Rate 87 mL/min (>60); Est Glom Filt Rate - Afr Amer 106 mL/min (>60); Estimated Creatinine Clearance 125.15 ml/min; Globulin 3.8 g/dL (2.2-4.2); Glucose 89 mg/dL (74-106); Potassium 3.8 mmol/L (3.5-5.1); Protein, Total 7.3 g/dL (6.4-8.2); Sodium Level 139 mmol/L (136-145)
[2021-08-17 17:45] VITALS: BP 118/87; PULSE 78; RESP 20
== END 2021-08-17 17:46 | disposition home or self-care (01) ==
PROVIDERS: Emergency Provider Emergency Medicine; PCP Family Medicine; Visit Provider Emergency Medicine
DX: I11.0 Hypertensive heart disease with heart failure (principal); I42.9 Cardiomyopathy, unspecified; I50.9 Heart failure, unspecified; I27.20 Pulmonary hypertension, unspecified; J96.11 Chronic respiratory failure with hypoxia; E11.9 Type 2 diabetes mellitus without complications; I25.10 Atherosclerotic heart disease of native coronary artery without angina pectoris; Z87.891 Personal history of nicotine dependence; E78.00 Pure hypercholesterolemia, unspecified; R06.00 Dyspnea, unspecified; Z99.81 Dependence on supplemental oxygen; Z79.899 Other long term (current) drug therapy; M19.90 Unspecified osteoarthritis, unspecified site
CPT/HCPCS: 80053; 85025; 93005; 99284; A4216

== ENCOUNTER 2021-10-08 10:51 | Emergency (ER) | payer MEDICARE, SELFPAY ==
[2018-09-07 12:07] VITALS: BMI 38.4
[2021-10-08] VITALS (12 sets, daily range): BP systolic 67–87; BP diastolic 42–50; PULSE 81–95; RESP 14–86; TEMP -10–36.6; O2SAT 86–92; BMI 30.4
--- NOTE | 2021-10-08 11:22 | EKG12_ITS ---
Test Reason : SOB Blood Pressure : / mmHG Vent. Rate : 093 BPM Atrial Rate : 093 BPM P-R Int : 176 ms QRS Dur : 112 ms QT Int : 376 ms P-R-T Axes : 059 115 -18 degrees QTc Int : 467 ms Normal sinus rhythm ST & T wave abnormality, consider inferior ischemia ST & T wave abnormality, consider anterior ischemia Prolonged QT Abnormal ECG Confirmed by LEO LOUISE, KENN ([id number]), magazine editor BARRETT SOTO ([id number]) on 10/12/2021 12:48:32 PM Referred By: RYLEY Confirmed By:KENN BAILEY MD
--- NOTE | 2021-10-08 11:23 | EDS_ITS ---
HPI History of Present Illness Chief Complaint: Shortness of Breath Informant: patient and spouse/S.O. Narrative Narrative: Worsening dyspnea today. Denies cough. History of ischemic pulmonary hypertension and CHF coronary disease since June chronic 6 L of ox ygen however states can manipulate as long as pulse ox is above 90. He is followed by cardiology Dr. Lewis. Patient was admitted to [facility] past May into June for a month stating multiple issues, he had a Mcdonough placed due to for his pulmonary hypertension. Multiple medications secondary to this. Remote tobacco history. Does not currently take anticoagulants due to reactions with the hypertensive medications per history. Denies chest pains or tightness. History of anemia and denies any GI bleeds. States plans on iron infusions coming up. He saw cardiology yesterday in the office for follow-up, there is plans for renal function panel increasing his Lasix to 60 mg if needed currently on 40 mg 3 times daily. Minimal swelling lower extremities per patient. Symptoms worse with exertion. Denies history of PE. He has 1 coronary stent placed back 2018 to the LAD. Most recent echo had an EF of 60% October of 2019. Prior similar symptoms: Yes PFSH PFSH Medical History Abdominal pain Acute GI hemorrhage Anemia due to blood loss, acute Anxiety Arthritis Atherosclerosis of coronary artery of [place] heart without angina pectoris Back pain C. difficile colitis Cardiology follow-up encounter Cardiomyopathy Chronic respiratory failure with hypoxia Colitis CPAP (continuous positive airway pressure) dependence CVA (cerebral vascular accident) Depression Diabetes Epistaxis Essential hypertension Former smoker Gastric reflux H. pylori infection High cholesterol History of CHF (congestive heart failure) History of chronic pancreatitis History of diverticulitis History of echocardiogram History of GI bleed History of stress test Hypercalcemia Hyponatremia Hypotension Leukocytosis Low iron Migraine headache Nicotine dependence in remission On home oxygen therapy Pulmonary hypertension Renal insufficiency Septic shock Shortness of breath on exertion Stroke/cerebrovascular accident Syncope Type 2 diabetes mellitus without complication Wears glasses Home Medications ambrisentan 10 mg tablet 10 mg PO DAILY 01/29/19 [History Last Taken 12/08/20 07:00] tadalafil (pulm. hypertension) 20 mg tablet (pulmonary hypertension) 40 mg PO DAILY tab 01/29/19 [History Last Taken 12/08/20 07:00] fenofibrate nanocrystallized 145 mg PO DAILY 02/05/19 [History Last Taken 03/13/19] pantoprazole 40 mg PO BID #60 tab 03/15/19 [Rx Last Taken 12/08/20 07:00] gabapentin 300 mg capsule 300 mg PO TID 05/29/19 [History Last Taken Unknown] atorvastatin 40 mg tablet 40 mg PO QHS tab 10/03/19 [History Last Taken Unknown] oxycodone myristate 9 mg capsule sprinkle extended release 12 hr(DON'T CRUSH) 9 mg PO BID 05/06/21 [History Last Taken Unknown] tiotropium bromide [Spiriva Respimat] 2 puff INHALATION DAILY 08/17/21 [History Last Taken Unknown] treprostinil sodium [Remodulin] 20 mg CONTINUOUS IV INFUSION Q48H 08/17/21 [History Last Taken Unknown] fluticasone propionate 50 mcg/actuation nasal spray,suspension 2 spray INTRANASAL DAILY PRN g 10/07/21 [History Last Taken Unknown] furosemide 20 mg tablet 60 mg PO DAILY PRN PRN tab 10/07/21 [History Last Taken Unknown] metolazone 2.5 mg tablet 2.5 mg PO Q OTHER DAY PRN tab 10/07/21 [History Last Taken Unknown] potassium chloride 10 mEq capsule,extended release See Rx Instructions PO TID capsule 10/07/21 [History Last Taken Unknown] Allergy/AdvReac Type Severity Reaction Status Date / Time ticagrelor Allergy Severe cough Verified 10/08/21 10:56 lisinopril Allergy COUGH Verified 10/08/21 10:56 nitroglycerin Allergy interacts Verified 10/08/21 10:56 w/ pulmonary htn medicine clopidogrel [From Plavix] AdvReac NOT AN Verified 10/08/21 10:56 ALLERGY BUT STOPPED FOR GI BLEEDS Family History Mother Diabetes Hypertension Breast cancer Grandfather Heart disease Uncle Heart disease Surgical History History of cardiac catheterization History of cholecystectomy History of hip surgery Hx of rhinoplasty Presence of stent in coronary artery S/P cataract surgery S/P colonoscopy Status post total hip replacement, right Social History Smoking Status: Former smoker how long ago did patient quit smokin year ago alcohol intake: never substance use type: does not use caffeine: Yes Type: carbonated beverages Number of servings: 2 ROS ROS ED Constitutional Constitutional ED: Denies chills, fever(s) or sweats Eyes Eyes: Denies change in vision ENT ENT ED: Denies dysphagia or sore throat Cardiovascular Cardiovascular: Denies chest pain, leg edema, palpitations or racing heartbeat Respiratory/Chest Respiratory/Chest: Reports dyspnea and dyspnea on exertion; Denies cough Gastrointestinal Gastrointestinal: Denies abdominal pain, diarrhea, nausea or vomiting Genitourinary Genitourinary ED: Denies dysuria, hematuria or urinary frequency Musculoskeletal Musculoskeletal: Denies back pain, extremity pain or neck pain Integumentary Denies rash or wounds Neurologic Neurologic: Denies headache(s), paresthesias or weakness EXAM Physical Exam Const Vital Signs: 10/08/21 10:53 10/08/21 11:07 10/08/21 12:01 Temperature 97.8 F Temperature Source Temporal Pulse Rate 95 Respiratory Rate 14 Respiratory Effort Short of Breath Labored Accessory Muscle Use Blood Pressure 87/50 L Blood Pressure Mean 62 Pulse Ox 86 90 Oxygen Delivery Method Nasal Cannula Nasal Cannula Oxygen Flow Rate (L/min) 6 12 Fraction of Inspired Oxygen (FIO2) 10/08/21 12:07 10/08/21 13:06 10/08/21 13:20 Temperature Temperature Source Pulse Rate 86 Respiratory Rate 16 Respiratory Effort Blood Pressure Blood Pressure Mean Pulse Ox 88 88 91 Oxygen Delivery Method High Flow Non-Rebreather Airvo Oxygen Flow Rate (L/min) 12 Fraction of Inspired Oxygen (FIO2) 81 10/08/21 13:23 10/08/21 13:27 10/08/21 14:15 Temperature Temperature Source Pulse Rate 85 Respiratory Rate 15 14 Respiratory Effort Blood Pressure 73/43 L Blood Pressure Mean 53 Pulse Ox 92 92 91 Oxygen Delivery Method Airvo Airvo Oxygen Flow Rate (L/min) Fraction of Inspired Oxygen (FIO2) 88 10/08/21 14:26 10/08/21 15:05 10/08/21 15:35 Temperature 14 F L Temperature Source Pulse Rate 81 Respiratory Rate 18 86 H Respiratory Effort Blood Pressure 67/42 L 73/45 L Blood Pressure Mean 50 54 Pulse Ox 91 89 Oxygen Delivery Method Oxygen Flow Rate (L/min) Fraction of Inspired Oxygen (FIO2) 88 10/08/21 16:02 Temperature Temperature Source Pulse Rate 86 Respiratory Rate 18 Respiratory Effort Blood Pressure 81/44 L Blood Pressure Mean 56 Pulse Ox 90 Oxygen Delivery Method Oxygen Flow Rate (L/min) Fraction of Inspired Oxygen (FIO2) Positive well nourished and well developed Constitutional Narrative: 6 L nasal cannula no respiratory distress. General Appearance ED: well developed and NAD HEENT Reports moist mucous membranes normocephalic and atraumatic Eyes PERRL, EOMs intact bilaterally and conjunctivae normal General Eye ED: Yes normal appearance of both eyes Neck no lymphadenopathy and supple General: Negative for tenderness Chest Wall Chest: Negative for tenderness Resp normal respiratory effort, normal air movement and clear to auscultation bilaterally Effort and Inspection: symmetric chest movement; Negative for respiratory distress Cardio regular rate, regular rhythm and no murmurs Peripheral Pulses: pulses 2+ throughout GI normal to inspection, nondistended, normoactive bowel sounds and non-tender Palpation: Negative for guarding or rebound tenderness present Back/Spine no CVA tenderness and no thoracic nor lumbar tenderness Extremity normal to inspection Extremity Narrative: Minimal lower extremity edema. General Extremety ED: Yes edema; Negative for tenderness General Extremity: edema Neuro oriented x3 and no sensory deficits noted Sensorium / Orientation: awake and alert Skin no rashes or lesions noted and no wounds MDM MDM MDM Narrative Medical decision making narrative: Patient presents 86% on 6 L nasal cannula on recheck he was 79%. ABG was obtained at his 6 L noted PaO2 less than 36 pH was 7.44. CO2 was 33. He was placed on high flow nasal oxygen work-up was initiated. EKG was sinus rhythm. Troponin negative. Labs hemoglobin 8 down from 11 previously he declines a rectal exam in the ED stating there is no blood in his stools that he is noticed. His creatinine 1.75 up from 0.8. He is on diuretic 3 times a day. BNP of 263. He was sent for CTA of the chest with his significant hypoxia which returned negative for PE. With his known pulmonary hypertension history with Mcdonough device I am concerned this is his primary issue causing his hypoxia. He required transition over to high flow Airvo maintaining low 90 percentile. He is in no respiratory distress that requires intubation. With patient being managed at a tertiary center [facility] with pulmonary hypertension breathing is likely cause of his hypoxia I do feel he will benefit back at the tertiary center. I did speak with [facility] transfer line, the pulmonary team was aware of the patient being here, he is excepted under the service of Dr. Granda. Patient family updated. Lab Data Attestation: I reviewed the patient's lab results. Labs: Laboratory Results - last 24 hr 10/08/21 10/08/21 10/08/21 12:00 12:00 12:00 WBC 10.0 RBC 3.74 L Hgb 8.0 L Hct 27.1 L MCV 72.5 L MCH 21.4 L MCHC 29.5 L RDW Std Deviation 55.5 H RDW Coeff of Teja 21.8 H Plt Count 211 MPV 8.7 Immature Gran % (Auto) 0.700 Neut % (Auto) 73.9 H Lymph % (Auto) 13.8 L [place] % (Auto) 8.8 Eos % (Auto) 2.5 Baso % (Auto) 0.3 Absolute Neuts (auto) 7.4 Absolute Lymphs (auto) 1.38 Nucleated RBC % 0 Differential Comment SCANNED Hypochromasia 3+ Anisocytosis 2+ PT 15.0 H INR 1.2 APTT 41.2 H Sodium 134 L Potassium 3.8 Chloride 98 Carbon Dioxide 26.0 Anion Gap 10 BUN 45 H Creatinine 1.75 H Estim Creat Clear Calc 49.38 Est GFR (MDRD) Af Amer 53 L Est GFR (MDRD) Non-Af 44 L BUN/Creatinine Ratio 25.7 H Glucose 114 H Calcium 9.3 Total Bilirubin 0.40 AST 11 L ALT 19 Alkaline Phosphatase 43 L Troponin I High Sens 40 B-Natriuretic Peptide Total Protein 7.1 Albumin 3.5 Globulin 3.6 Albumin/Globulin Ratio 1.0 10/08/21 12:00 WBC RBC Hgb Hct MCV MCH MCHC RDW Std Deviation RDW Coeff of Teja Plt Count MPV Immature Gran % (Auto) Neut % (Auto) Lymph % (Auto) [place] % (Auto) Eos % (Auto) Baso % (Auto) Absolute Neuts (auto) Absolute Lymphs (auto) Nucleated RBC % Differential Comment Hypochromasia Anisocytosis PT INR APTT Sodium Potassium Chloride Carbon Dioxide Anion Gap BUN Creatinine Estim Creat Clear Calc Est GFR (MDRD) Af Amer Est GFR (MDRD) Non-Af BUN/Creatinine Ratio Glucose Calcium Total Bilirubin AST ALT Alkaline Phosphatase Troponin I High Sens B-Natriuretic Peptide 263.8 H Total Protein Albumin Globulin Albumin/Globulin Ratio ABG Data ABG results: ABG 10/08/21 11:35 Specimen Type ART Sample Site R Radial pH 7.45 Bicarbonate Actual 23.3 Total CO2 24 Base Excess -1 O2 Saturation TNP ABG pCO2 33.6 L ABG pO2 < 36 L* O2 Delivery Device Cannula Liter Flow 6.0 Crit Call To/Read Back Yes Blood Gas Notified Whom Dr. Guzman Radiography Diagnostic Testing: Clinical Impression(s) from Imaging Studies Chest CTA 10/08/21 12:10 IMPRESSION: Elevation of the right hemidiaphragm with right basilar atelectasis. Electronically Signed: Min Hamilton MD at 13:25 EDT , EKG Initial EKG: Attestation: I personally reviewed and interpreted this EKG as follows: Comments: Sinus rate of 93, no ST changes. T wave version inferior leads. Critical Care Time Critical Care Time: Yes Critical care time (excluding procedures): 30-74 minutes, Discussing w/Patient &/or Family/Content Editor, Discussing w/Consultants, Arranging Admission or Transfer, Performing Direct Patient Care at Bedside and - (45 minutes) Discharge Plan Triage Chief Complaint: Shortness of Breath ED Provider: Eyal Guzman Dx/Rx/DC Orders Clinical Impression: Acute dyspnea, Hypoxia, Pulmonary HTN, Anemia, KAIA (acute kidney injury) Prescriptions: No Action tadalafil (pulm. hypertension) [Adcirca] 20 mg tablet 40 mg PO DAILY RF: 0 ambrisentan [Letairis] 10 mg tablet 10 mg PO DAILY RF: 0 gabapentin 300 mg capsule 300 mg PO TID RF: 0 atorvastatin 40 mg tablet 40 mg PO QHS RF: 0 Xtampza ER 9 mg cap,sprinkl,ER12hr(DONT CRUSH) 9 mg PO BID RF: 0 metolazone 2.5 mg tablet 2.5 mg PO Q OTHER DAY PRN (Reason: take with lasix) RF: 0 potassium chloride 10 mEq capsule, extended release See Rx Instructions PO TID RF: 0 fluticasone propionate 50 mcg/actuation spray,suspension 2 spray intranasal DAILY PRNRF: 0 furosemide 20 mg tablet 60 mg PO DAILY PRN PRN (Reason: Edema) RF: 0 fenofibrate nanocrystallized 145 MG tablet 145 mg PO DAILY RF: 0 pantoprazole 40 MG tablet 40 mg PO BID Qty: 60 RF: 0 Spiriva Respimat 2.5 mcg/actuation mist 2 puff INHALATION DAILY RF: 0 treprostinil sodium [Remodulin] 5 mg/mL Solution 20 mg continuous IV infusion Q48H RF: 0 Primary Care Provider: Bacilio Smith Referrals: Bacilio Smith MD [Primary Care Provider] - Disposition Disposition: Transfer to Another Type HCF Discharge Location: [facility] Discharge Date/Time: 10/08/21 16:07
--- NOTE | 2021-10-08 12:10 | CT_ITS ---
STUDY: CTA CHEST REASON FOR EXAM: Male, 51 years old. Hypoxia RADIATION DOSAGE (If Supplied By Facility): CTDIvol = ( 18.55 ) mGy, DLP = ( 583.72 ) mGycm TECHNIQUE: The examination was performed with the intravenous administration of IV 100mL Isovue-370. Post-processing of the angiographic images was performed, with multiplanar reformation and 3D reconstruction. Individualized dose optimization techniques were used for this CT. COMPARISON: None. FINDINGS: There is elevation of the right hemidiaphragm. Normal enhancement of the main pulmonary artery and right and left pulmonary arteries. Normal enhancement of the bilateral peripheral pulmonary arteries. There is no demonstrated pulmonary embolism. Normal thoracic aorta and visualized great vessels. There is no demonstrated aortic dissection. There are calcifications of the coronary arteries. There are visualized mediastinal lymph nodes, which are within normal size limits, and with normal morphology. Normal hilar regions. Normal visualized trachea and bronchi. Mild degree of emphysematous changes. Mild degree of atelectasis at the right lung base. Normal pleura. Normal chest wall structures. There are degenerative changes of thoracic spine. Normal visualized upper abdomen. CT/CTA Chest W/WO Contrast IMPRESSION: Elevation of the right hemidiaphragm with right basilar atelectasis. Electronically Signed: Min Hamilton MD at 13:25 EDT ,
[2021-10-08 12:13] LABS: Absolute Lymphocyte Count 1.38 X10^3/uL (0.83-4.51); Absolute Neutrophil Count 7.4 X10^3/uL (2.0-7.7); Basophil# 0.03 X10^3/uL; Basophil% 0.3 % (0-1); Eosinophil# 0.25 X10^3/uL; Eosinophils% 2.5 % (0-5); Hematocrit 27.1 % (40-54); Lymphocyte # 1.38 X10^3/ul (0.83-4.51); Lymphocyte % 13.8 % (19-41); Mean Corp Hgb Conc 29.5 g/dL (32-36); Mean Corpuscular Hgb 21.4 pg (27.0-32.0); Mean Corpuscular Volume 72.5 fL (80-94); Mean Platelet Vol. 8.7 fl (6.2-12.0); Monocyte# 0.88 X10^3/uL; Monocyte% 8.8 % (0-10); NRBC Flagged by Analyzer 0 % (0-5); Neutrophil # 7.37 X10^3/uL (2.7-7.7); Neutrophil % 73.9 % (47-70); POSITIVE MORPHOLOGY YES; Platelet Count 211 K/mm3 (150-450); RBC Distribution Width CV 21.8 % (11.6-14.6); RBC Distribution Width SD 55.5 fl (35.1-43.9); Red Blood Count 3.74 M/mm3 (4.6-6.2)
--- NOTE | 2021-10-08 12:14 | ED.RN ---
PROVIDER AWARE PT IS 88-89% ON 12L HIGH FLOW. PROVIDER COMFORTABLE WITH 02, NO NEW ORDERS GIVEN.
[2021-10-08 12:15] LABS: Differential Indicated SCAN CRITERIA MET
[2021-10-08 12:21] LABS: International Normalized Ratio 1.2
[2021-10-08 12:22] LABS: Partial Thromboplast Time 41.2 Seconds (24.1-36.2)
[2021-10-08 12:30] LABS: Base Excess -1 mmol/L (-2 to +2); Bicarbonate 23.3 mmol/L (22-26); Blood Gas Specimen Type ART; O2 Delivery Device Cannula; PO2 < 36 mmHG (75-100); SITE R Radial; Total Carbon Dioxide 24 mmol/L; pCO2 33.6 mmHg (35-45); pH 7.45 (7.35-7.45)
[2021-10-08 12:31] LABS: AST(SGOT) 11 U/L (15-37); Alanine Aminotransfer ALT/SGPT 19 U/L (16-61); Albumin, Serum 3.5 g/dL (3.2-5.0); Alkaline Phosphatase 43 U/L (45-117); Anion Gap 10 (5-15); BUN 45 mg/dL (7-18); BUN/Creat Ratio 25.7 RATIO (10-20); Calcium,Total 9.3 mg/dL (8.5-10.1); Chloride 98 mmol/L (98-107); Creatinine, Serum 1.75 mg/dL (0.70-1.30); EST Glomerular Filtration Rate 44 mL/min (>60); Est Glom Filt Rate - Afr Amer 53 mL/min (>60); Estimated Creatinine Clearance 49.38 ml/min; Globulin 3.6 g/dL (2.2-4.2); Glucose 114 mg/dL (74-106); Potassium 3.8 mmol/L (3.5-5.1); Protein, Total 7.1 g/dL (6.4-8.2); Sodium Level 134 mmol/L (136-145); Troponin-I HS (w/2H Reflex) 40 pg/mL (3.0-78.0)
[2021-10-08 12:43] LABS: Differential Comment SCANNED
[2021-10-08 12:44] LABS: Anisocytosis 2+; Hypochromasia 3+
[2021-10-08 12:53] LABS: BNP,B-Type NATRIURETIC PEPTIDE 263.8 pg/mL (0-100)
--- NOTE | 2021-10-08 13:20 | ED.RN ---
PT HAS A NAJERA IN RT CHEST INFUSION MEDICATION FOR HIS PULMONARY HTN.
--- NOTE | 2021-10-08 13:56 | NURSING ---
CALLED [facility], TALKED TO EVELYN. SHE IS TALKING TO DR PHAMHEET FAXED
[2021-10-08 14:07] LABS: Reflex Troponin-HS? (from REC) Y
--- NOTE | 2021-10-08 14:10 | ED.RN ---
Per Dr. Guzman repeat troponin not required at this time as pt is being transferred and first troponin was normal.
--- NOTE | 2021-10-08 14:15 | NURSING ---
[facility] [id number] NURSE [address] NURSE [phone]IA
--- NOTE | 2021-10-08 14:24 | NURSING ---
CALLED [facility], ETA IS 60 MIN
== END 2021-10-08 16:07 | disposition other institution (70) ==
PROVIDERS: Emergency Provider Emergency Medicine; PCP Family Medicine; Visit Provider Emergency Medicine
DX: R06.00 Dyspnea, unspecified (principal); N17.9 Acute kidney failure, unspecified; I27.20 Pulmonary hypertension, unspecified; R09.02 Hypoxemia; I25.10 Atherosclerotic heart disease of native coronary artery without angina pectoris; Z99.81 Dependence on supplemental oxygen; Z86.73 Personal history of transient ischemic attack (TIA), and cerebral infarction without residual deficits; Z87.891 Personal history of nicotine dependence; Z95.5 Presence of coronary angioplasty implant and graft
CPT/HCPCS: 36600; 71275; 80053; 82803; 83880; 84484; 85025; 85610; 85730; 87811; 93005; 94660; 99285; J7040; Q9967; A4216

== ENCOUNTER 2021-11-30 16:17 | Inpatient (IN) | payer MEDICARE, SELFPAY ==
[2018-09-07 12:07] VITALS: BMI 38.4
[2021-11-30] VITALS (12 sets, daily range): BP systolic 98–109; BP diastolic 66–79; PULSE 85–100; RESP 16–18; TEMP 36.4–36.7; O2SAT 81–93; BMI 29.5
--- NOTE | 2021-11-30 16:20 | ED.RN ---
PT BASELINE O2 IS 6L. HOME TANK ONLY GOES TO 4L. TAKEN CHRISTINA TO ROOM TO PLACE ON 6L AND REASSESS O2 SATS
--- NOTE | 2021-11-30 16:37 | ED.RN ---
Pt. brought back and placed on 6L with O2 sats still in low 80s. Pt. educated he needs to be placed on a nonrebreather mask in order to turn up 02 and patient refused stating I do not want a mask. RT brought high flow nasal cannula tubing to bedside, 02 turned up to 9L with sats still in 88-90%.
--- NOTE | 2021-11-30 16:42 | EKG12_ITS ---
Test Reason : ABN LAB Blood Pressure : / mmHG Vent. Rate : 093 BPM Atrial Rate : 093 BPM P-R Int : 170 ms QRS Dur : 108 ms QT Int : 396 ms P-R-T Axes : 048 170 -19 degrees QTc Int : 492 ms Normal sinus rhythm Right axis deviation Incomplete right bundle branch block Possible LPFB Cannot rule out Inferior infarct , age undetermined T wave abnormality, consider anterior ischemia Abnormal ECG Confirmed by FÉLIX LOUISE, RACHID ([id number]), desk editor BARRETT SOTO ([id number]) on 12/01/2021 11:41:48 AM Referred By: QUINCY Confirmed By:RACHID HEARD MD
--- NOTE | 2021-11-30 16:43 | EX.ED.DYSGE1 ---
HPI History of Present Illness Chief Complaint: Abn Labs Onset/Context/Timing Quality: Low K, Mag 0.4 Location: No symptoms today Current Severity: Gone Worsened by: Meds and PAH Associated Symptoms Associated Symptoms: None Narrative Narrative: Patient was referred to the ED by his PCP for low magnesium and low potassium. He said his magnesium was 0.4. He was not sure of his potassium. He said his doctor faxed over the results. He had these checked on routine blood work. He is not having any symptoms today and otherwise would not be here if his doctor had not directed him to come to the ER for replacement. He said he has a history of this and so his doctor follows his blood work. He said it is related to his underlying pulmonary artery hypertension and his medications. Prior similar symptoms: Yes Recent Illness/Hospitalization: No PFSH PFSH Medical History (Updated 11/30/21 @ 19:06 by Luz Jones) Abdominal pain Acute GI hemorrhage Anemia due to blood loss, acute Anxiety Arthritis Atherosclerosis of coronary artery of [place] heart without angina pectoris Back pain C. 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 pylori infection High cholesterol History of CHF (congestive heart failure) History of chronic pancreatitis History of diverticulitis History of echocardiogram History of GI bleed History of stress test Hypercalcemia Hyponatremia Hypotension Leukocytosis Low iron Migraine headache Nicotine dependence in remission On home oxygen therapy Pulmonary arterial hypertension Pulmonary hypertension Renal insufficiency Septic shock Shortness of breath on exertion Sleep apnea Spinal accessory nerve disorder Stroke/cerebrovascular accident Syncope Type 2 diabetes mellitus without complication Wears glasses Home Medications tadalafil (pulm. hypertension) 20 mg tablet (pulmonary hypertension) (Adcirca) 40 mg PO DAILY pulmonary htn 01/29/19 [History Last Taken 11/30/21] fenofibrate nanocrystallized 145 mg tablet 145 mg PO DAILY high triglycerides 02/05/19 [History Last Taken 11/30/21] pantoprazole 40 mg tablet,delayed release 40 mg PO BID #60 tabs 03/15/19 [Rx Last Taken 11/30/21] gabapentin 300 mg capsule 300 mg PO TID nerve pain 05/29/19 [History Last Taken 11/30/21] atorvastatin 40 mg tablet 40 mg PO QHS 10/03/19 [History Last Taken 11/29/21] oxycodone myristate 9 mg capsule sprinkle extended release 12 hr(DON'T CRUSH) (Xtampza ER) 9 mg PO BID pain 05/06/21 [History Last Taken 11/30/21] tiotropium bromide 2.5 mcg/actuation mist for inhalation (Spiriva Respimat) 2 puff inhalation DAILY 08/17/21 [History Last Taken Unknown] treprostinil sodium 5 mg/mL injection solution (Remodulin) 20 mg continuous IV infusion Q48H 08/17/21 [History Last Taken Unknown] fluticasone propionate 50 mcg/actuation nasal spray,suspension 2 spray intranasal DAILY PRN Congestion 10/07/21 [History Last Taken 11/30/21] furosemide 20 mg tablet 60 mg PO DAILY PRN PRN Edema 10/07/21 [History Last Taken Unknown] metolazone 2.5 mg tablet 2.5 mg PO Q OTHER DAY PRN take with lasix 10/07/21 [History Last Taken Unknown] potassium chloride 10 mEq capsule,extended release See Rx Instructions PO TID 10/07/21 [History Last Taken 11/30/21] albuterol sulfate 90 mcg/actuation aerosol inhaler 2 inh inhalation BID PRN PRN Shortness Of Breath 11/30/21 [History Last Taken 11/30/21] magnesium oxide 400 mg (241.3 mg magnesium) tablet 400 mg PO DAILY supplement 11/30/21 [History Last Taken 11/30/21] Allergy/AdvReac Type Severity Reaction Status Date / Time ticagrelor Allergy Severe cough Verified 11/30/21 16:18 lisinopril Allergy COUGH Verified 11/30/21 16:18 nitroglycerin Allergy interacts Verified 11/30/21 16:18 w/ pulmonary htn medicine clopidogrel [From Plavix] AdvReac NOT AN Verified 11/30/21 16:18 ALLERGY BUT STOPPED FOR GI BLEEDS Family History Mother Diabetes Hypertension Breast cancer Grandfather Heart disease Uncle Heart disease Surgical History (Updated 11/30/21 @ 19:07 by Luz Jones) History of cardiac catheterization History of cholecystectomy History of coronary artery stent placement History of hip surgery History of right hip replacement Hx of rhinoplasty Presence of stent in coronary artery S/P cataract surgery S/P colonoscopy Status post total hip replacement, right Social History Smoking Status: Former smoker how long ago did patient quit smokin year ago alcohol intake: never substance use type: does not use caffeine: Yes Type: carbonated beverages Number of servings: 2 ROS ROS ED Constitutional Constitutional ED: Denies chills or fever(s) Eyes Eyes: Denies blurry vision ENT ENT ED: Denies ear pain Cardiovascular Cardiovascular: Denies chest pain Respiratory/Chest Respiratory/Chest: Denies cough or dyspnea Gastrointestinal Gastrointestinal: Denies abdominal pain Genitourinary Genitourinary ED: Denies dysuria Musculoskeletal Musculoskeletal: Denies arthralgias Integumentary Denies abscess Neurologic Neurologic: Denies headache(s) Psychiatric Psychiatric: Denies anxiety Endocrine Endocrinology: Denies cold intolerance Hematologic/Lymphatic Hematologic/Lymphatic: Denies systems reviewed and no addt'l complaints, except as documented Allergic/Immunologic Allergic/Immunologic ED: Denies mouth swelling EXAM Physical Exam Const Vital Signs: 11/30/21 16:18 11/30/21 16:29 11/30/21 16:30 Temperature 97.8 F Temperature Source Temporal Pulse Rate 100 Respiratory Rate 18 Respiratory Effort Normal Respiratory Pattern Normal Blood Pressure 98/66 Blood Pressure Mean 76 Pulse Ox 81 86 Oxygen Delivery Method Nasal Cannula Nasal Cannula Oxygen Flow Rate (L/min) 6 11/30/21 16:39 11/30/21 18:41 Temperature Temperature Source Pulse Rate 90 Respiratory Rate 16 Respiratory Effort Respiratory Pattern Blood Pressure Blood Pressure Mean Pulse Ox 87 90 Oxygen Delivery Method Nasal Cannula Nasal Cannula Oxygen Flow Rate (L/min) 10 9 Positive well nourished HEENT Reports moist mucous membranes Eyes EOMs intact bilaterally Neck no lymphadenopathy Resp normal respiratory effort and clear to auscultation bilaterally Cardio regular rate and regular rhythm GI normal to inspection, nondistended, normoactive bowel sounds Extremity normal to inspection General Extremety ED: Negative for edema or tenderness General Extremity: Negative for edema Neuro oriented x3 Sensorium / Orientation: alert Psych mental status grossly normal Skin no rashes or lesions noted MDM MDM MDM Narrative Medical decision making narrative: Patient's potassium was fine here. His mag was 0.4 and replacement was ordered. Because it so low, I did contact the hospitalist to admit for further care. His EKG did show sinus rhythm at a rate of 93 with an incomplete right bundle branch block. No signs of acute infarction pattern. Impression #1 hypomagnesemia Disposition is observation on PCU Lab Data Attestation: I reviewed the patient's lab results. Labs: Laboratory Results - last 24 hr 11/30/21 11/30/21 16:58 16:58 WBC 10.5 RBC 5.53 Hgb 14.0 Hct 45.9 MCV 83.0 MCH 25.3 L MCHC 30.5 L RDW Std Deviation 69.7 H RDW Coeff of Teja 23.9 H Plt Count 220 MPV 9.7 Immature Gran % (Auto) 0.700 Neut % (Auto) 77.2 H Lymph % (Auto) 13.6 L [place] % (Auto) 6.7 Eos % (Auto) 1.4 Baso % (Auto) 0.4 Absolute Neuts (auto) 8.1 H Absolute Lymphs (auto) 1.43 Nucleated RBC % 0 Differential Comment Sodium 139 Potassium 3.6 Chloride 106 Carbon Dioxide 26.0 Anion Gap 7 BUN 15 Creatinine 0.96 Estim Creat Clear Calc 90.01 Est GFR (MDRD) Af Amer 106 Est GFR (MDRD) Non-Af 87 BUN/Creatinine Ratio 15.6 Glucose 97 Calcium 6.8 L Magnesium 0.4 L* Discharge Plan Triage Chief Complaint: Abn Labs ED Provider: Bashir Parham Dx/Rx/DC Orders Prescriptions: No Action tadalafil (pulm. hypertension) [Adcirca] 20 mg tablet 40 mg PO DAILY gabapentin 300 mg capsule 300 mg PO TID atorvastatin 40 mg tablet 40 mg PO QHS Label Comments: Take 1 tablet by mouth once daily. Xtampza ER 9 mg cap,sprinkl,ER12hr(DONT CRUSH) 9 mg PO BID Rx Instructions: must administer with a meal/food metolazone 2.5 mg tablet 2.5 mg PO Q OTHER DAY PRN (Reason: take with lasix) potassium chloride 10 mEq capsule, extended release See Rx Instructions PO TID Rx Instructions: Take 2 tablets AM, 3 tablets PM, 2 tablets qHS fluticasone propionate 50 mcg/actuation spray,suspension 2 spray intranasal DAILY PRN (Reason: Congestion) furosemide 20 mg tablet 60 mg PO DAILY PRN PRN (Reason: Edema) fenofibrate nanocrystallized 145 MG tablet 145 mg PO DAILY pantoprazole 40 MG tablet 40 mg PO BID Qty: 60 0RF Spiriva Respimat 2.5 mcg/actuation mist 2 puff INHALATION DAILY Label Comments: inhale 2 puff by mouth and INTO THE LUNGS as directed once daily treprostinil sodium [Remodulin] 5 mg/mL Solution 20 mg continuous IV infusion Q48H Rx Instructions: 43 ng per kg per min magnesium oxide 400 mg (241.3 mg magnesium) tablet 400 mg PO DAILY Label Comments: take 1 tablet by mouth once daily albuterol sulfate 90 mcg/actuation HFA aerosol inhaler 2 inh INHALATION BID PRN PRN (Reason: Shortness Of Breath) Primary Care Provider: Bacilio Smith Referrals: Bacilio Smith MD [Primary Care Provider] -
[2021-11-30 17:17] LABS: Absolute Lymphocyte Count 1.43 X10^3/uL (0.83-4.51); Absolute Neutrophil Count 8.1 X10^3/uL (2.0-7.7); Basophil# 0.04 X10^3/uL; Basophil% 0.4 % (0-1); Eosinophil# 0.15 X10^3/uL; Eosinophils% 1.4 % (0-5); Hematocrit 45.9 % (40-54); Lymphocyte # 1.43 X10^3/ul (0.83-4.51); Lymphocyte % 13.6 % (19-41); Mean Corp Hgb Conc 30.5 g/dL (32-36); Mean Corpuscular Hgb 25.3 pg (27.0-32.0); Mean Platelet Vol. 9.7 fl (6.2-12.0); Monocyte% 6.7 % (0-10); NRBC Flagged by Analyzer 0 % (0-5); Neutrophil # 8.12 X10^3/uL (2.7-7.7); Neutrophil % 77.2 % (47-70); POSITIVE MORPHOLOGY YES; Platelet Count 220 K/mm3 (150-450); RBC Distribution Width CV 23.9 % (11.6-14.6); RBC Distribution Width SD 69.7 fl (35.1-43.9); Red Blood Count 5.53 M/mm3 (4.6-6.2); White Blood Count 10.5 K/mm3 (4.4-11.0)
[2021-11-30 17:18] LABS: Differential Indicated SCAN CRITERIA MET
[2021-11-30 18:08] LABS: Anion Gap 7 (5-15); BUN 15 mg/dL (7-18); BUN/Creat Ratio 15.6 RATIO (10-20); Calcium,Total 6.8 mg/dL (8.5-10.1); Chloride 106 mmol/L (98-107); Creatinine, Serum 0.96 mg/dL (0.70-1.30); EST Glomerular Filtration Rate 87 mL/min (>60); Est Glom Filt Rate - Afr Amer 106 mL/min (>60); Estimated Creatinine Clearance 90.01 ml/min; Glucose 97 mg/dL (74-106); Magnesium 0.4 mg/dL (1.6-2.6); Potassium 3.6 mmol/L (3.5-5.1); Sodium Level 139 mmol/L (136-145)
[2021-11-30] MEDS: Magnesium Sulfate 4gm/100mL 4 GM/100 ML IV.SOLN. IV (18:38)
--- NOTE | 2021-11-30 19:20 | PCM.HP.STD ---
[facility] - General General Date of Admission: 11/30/21 Date of Service: 11/30/21 Chief Complaint: Hypomagnesia HPI Narrative ERIN MANRIQUEZ, is a 51 M who presents to the emergency room under the direction of his primary care physician due to abnormal laboratory studies. Patient has a significant past medical history of pulmonary hypertension and as a result of medications he is taking has had chronic hypomagnesia and hypokalemia. The patient denies any chest pain or abnormal shortness of breath and denies nausea, vomiting or diarrhea. The patient is of sound mind and body and clearly expressed that he does not want to be resuscitated if he were to go into cardiopulmonary arrest. He has no other constitutional symptoms at this time and will be admitted for observation for IV replacement of his magnesium. [facility] Medical History (Updated 11/30/21 @ 19:[address] Lee Sanchez MD) Abdominal pain Acute GI hemorrhage Anemia due to blood loss, acute Anxiety Arthritis Atherosclerosis of coronary artery of [place] heart without angina pectoris Back pain C. 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 pylori infection High cholesterol History of CHF (congestive heart failure) History of chronic pancreatitis History of diverticulitis History of echocardiogram History of GI bleed History of stress test Hypercalcemia Hyponatremia Hypotension Leukocytosis Low iron Migraine headache Nicotine dependence in remission On home oxygen therapy Pulmonary arterial hypertension Pulmonary hypertension Renal insufficiency Septic shock Shortness of breath on exertion Sleep apnea Spinal accessory nerve disorder Stroke/cerebrovascular accident Syncope Type 2 diabetes mellitus without complication Wears glasses Home Medications tadalafil (pulm. hypertension) 20 mg tablet (pulmonary hypertension) (Adcirca) 40 mg PO DAILY pulmonary htn 01/29/19 [History Last Taken 11/30/21] fenofibrate nanocrystallized 145 mg tablet 145 mg PO DAILY high triglycerides 02/05/19 [History Last Taken 11/30/21] pantoprazole 40 mg tablet,delayed release 40 mg PO BID #60 tabs 03/15/19 [Rx Last Taken 11/30/21] gabapentin 300 mg capsule 300 mg PO TID nerve pain 05/29/19 [History Last Taken 11/30/21] atorvastatin 40 mg tablet 40 mg PO QHS 05/27/20 [History Last Taken 11/29/21] oxycodone myristate 9 mg capsule sprinkle extended release 12 hr(DON'T CRUSH) (Xtampza ER) 9 mg PO BID pain 05/06/21 [History Last Taken 11/30/21] tiotropium bromide 2.5 mcg/actuation mist for inhalation (Spiriva Respimat) 2 puff inhalation DAILY 08/17/21 [History Last Taken Unknown] treprostinil sodium 5 mg/mL injection solution (Remodulin) 20 mg continuous IV infusion Q48H 08/17/21 [History Last Taken Unknown] fluticasone propionate 50 mcg/actuation nasal spray,suspension 2 spray intranasal DAILY PRN Congestion 10/07/21 [History Last Taken 11/30/21] furosemide 20 mg tablet 60 mg PO DAILY PRN PRN Edema 10/07/21 [History Last Taken Unknown] metolazone 2.5 mg tablet 2.5 mg PO Q OTHER DAY PRN take with lasix 10/07/21 [History Last Taken Unknown] potassium chloride 10 mEq capsule,extended release See Rx Instructions PO TID 10/07/21 [History Last Taken 11/30/21] albuterol sulfate 90 mcg/actuation aerosol inhaler 2 inh inhalation BID PRN PRN Shortness Of Breath 11/30/21 [History Last Taken 11/30/21] magnesium oxide 400 mg (241.3 mg magnesium) tablet 400 mg PO DAILY supplement 11/30/21 [History Last Taken 11/30/21] Allergy/AdvReac Type Severity Reaction Status Date / Time ticagrelor Allergy Severe cough Verified 11/30/21 16:18 lisinopril Allergy COUGH Verified 11/30/21 16:18 nitroglycerin Allergy interacts Verified 11/30/21 16:18 w/ pulmonary htn medicine clopidogrel [From Plavix] AdvReac NOT AN Verified 11/30/21 16:18 ALLERGY BUT STOPPED FOR GI BLEEDS Family History Mother Diabetes Hypertension Breast cancer Grandfather Heart disease Uncle Heart disease Surgical History (Updated 11/30/21 @ 19:07 by Luz Jones) History of cardiac catheterization History of cholecystectomy History of coronary artery stent placement History of hip surgery History of right hip replacement Hx of rhinoplasty Presence of stent in coronary artery S/P cataract surgery S/P colonoscopy Status post total hip replacement, right Social History Smoking Status: Former smoker how long ago did patient quit smokin year ago alcohol intake: never substance use type: does not use caffeine: Yes Type: carbonated beverages Number of servings: 2 ROS Constitutional Constitutional: Denies chills or fever(s) Eyes Eyes: Denies change in vision ENT HEENT: Denies abnormal hearing Cardiovascular Cardiovascular: Denies chest pain Respiratory/Chest Respiratory/Chest: Reports shortness of breath with exertion; Denies cough Gastrointestinal Gastrointestinal: Denies abdominal pain Genitourinary Genitourinary: Denies dysuria Musculoskeletal Musculoskeletal: Denies back pain Integumentary Integumentary: Denies jaundice Neurologic Neurologic: Denies abnormal gait Psychiatric Psychiatric: Denies anxiety Endocrine Endocrinology: Denies change in body appearance Vital Signs Vital Signs Vital Signs: 11/30/21 16:18 11/30/21 16:29 11/30/21 16:30 Temperature 97.8 F Temperature Source Temporal Pulse Rate 100 Respiratory Rate 18 Respiratory Effort Normal Respiratory Pattern Normal Blood Pressure 98/66 Blood Pressure Mean 76 Pulse Ox 81 86 Oxygen Delivery Method Nasal Cannula Nasal Cannula Oxygen Flow Rate (L/min) 6 11/30/21 16:39 11/30/21 18:41 Temperature Temperature Source Pulse Rate 90 Respiratory Rate 16 Respiratory Effort Respiratory Pattern Blood Pressure Blood Pressure Mean Pulse Ox 87 90 Oxygen Delivery Method Nasal Cannula Nasal Cannula Oxygen Flow Rate (L/min) 10 9 Weight Weight: 200 lb Body Mass Index (BMI) 29.5 Physical Exam Const oriented x3 HEENT normocephalic and head/scalp atraumatic Eyes PERRL Neck supple Resp normal respiratory effort Cardio regular rate, regular rhythm, S1 normal heart sound and S2 normal heart sound GI normal to inspection, nondistended, normoactive bowel sounds Extremity no clubbing, cyanosis or edema Skin General Skin Exam: no breakdown Neuro CN's II-XII intact bilaterally Psych thought process normal Results Lab / Micro Data Result Diagrams: 11/30/21 16:58 11/30/21 16:58 Labs: Laboratory Results - last 24 hr 11/30/21 16:58: WBC 10.5, RBC 5.53, Hgb 14.0, Hct 45.9, MCV 83.0, MCH 25.3 L, MCHC 30.5 L, RDW Std Deviation 69.7 H, RDW Coeff of Teja 23.9 H, Plt Count 220, MPV 9.7, Immature Gran % (Auto) 0.700, Neut % (Auto) 77.2 H, Lymph % (Auto) 13.6 L, [place] % (Auto) 6.7, Eos % (Auto) 1.4, Baso % (Auto) 0.4, Absolute Neuts (auto) 8.1 H, Absolute Lymphs (auto) 1.43, Nucleated RBC % 0, Differential Comment 11/30/21 16:58: Sodium 139, Potassium 3.6, Chloride 106, Carbon Dioxide 26.0, Anion Gap 7, BUN 15, Creatinine 0.96, Estim Creat Clear Calc 90.01, Est GFR (MDRD) Af Amer 106, Est GFR (MDRD) Non-Af 87, BUN/Creatinine Ratio 15.6, Glucose 97, Calcium 6.8 L, Magnesium 0.4 L* Assessment & Plan Assessment/Plan (1) Chronic respiratory failure with hypoxia: (2) Presence of stent in coronary artery: (3) Pulmonary hypertension: (4) Essential hypertension: (5) Cardiomyopathy: QUALIFIERS: Cardiomyopathy type: ischemic Qualified Code(s): I25.5 - Ischemic cardiomyopathy (6) Hypomagnesemia: PLAN: Plan 1 hypomagnesia?admit patient to progressive care unit for observation, start magnesium sulfate IV 8 g over 12 hours and repeat BMP and magnesium level in the morning 2. Hypertension?continue home medications 3. Chronic respiratory failure secondary to pulmonary hypertension?continue oxygen therapy and maintain routine home medications 4. DVT prophylaxis?patient is ambulatory and no medications felt necessary at this time 5. CODE STATUS?after discussion with patient he feels that he will most likely pass away within a year and he no longer wishes to be resuscitated if he is to go into cardiopulmonary arrest therefore we made his CODE STATUS DNRCCA Charges/Coding Visit Charges OBSV E&M: 94170 Initial observation care L2
--- NOTE | 2021-11-30 21:55 | NURSING ---
Pt O2 saturation was on 85-87% on 10L high flow and states he usually wear 6-10L at home.This RN put pt on 15L to try and get O2 sat >90%, but was only able to get it up to 89%. Pt then requested to be put back on 10L instead of 15L. RT was called in room and checked pt's O2 sat, and it was 93% on 10L. Has pulmonary hypertension and his O2 saturation fluctuates between 87-93% per and pt. RT offered to set up hospital CPAP machine if pt would like to wear it tonight, but pt refused and states that if he stays one more night in the hospital, he will have his bring his own machine.
[2021-11-30] MEDS: Potassium Chloride Oral Tablet 20 MEQ PO (22:31)
[2021-11-30] MEDS: Pantoprazole Sodium 40 MG Tablet PO (22:31)
[2021-11-30] MEDS: Gabapentin 300 MG Capsule PO (22:31)
[2021-11-30] MEDS: Atorvastatin Calcium 40 MG Tablet PO (22:31)
--- NOTE | 2021-11-30 22:47 | CPS ---
RT called to bedside per RN for patient desat on 15L of oxygen. Patient has a history of pulmonary hypertension and sleep apnea. He wears 6-10 liters of oxygen at home and uses a CPAP at home at night. When RT arrived at bedside the patient was found to be on 10L satting 93% The RN made RT aware that the patient is back down to 10L at this time per his own request. RT asked the patient if he would like to wear one of our CPAP machines at night during his hospital stay to which he declined. The patient was made aware that if he would like to he is able to bring his home unit CPAP into the hospital for his nocturnal use during the length of his hospital stay.
[2021-12-01] VITALS (30 sets, daily range): BP systolic 73–99; BP diastolic 50–77; PULSE 88–106; RESP 12–37; TEMP 36.4–36.7; O2SAT 68–98
[2021-12-01] MEDS: Magnesium Sulfate 4gm/100mL 4 GM/100 ML IV.SOLN. IV (01:16)
--- NOTE | 2021-12-01 04:50 | NURSING ---
Checked pt's VS, O2 saturation on 81-82%, offered pt to be put on 15L to bring O2 saturation up, pt declined and requested to stay on 10L.
[2021-12-01] MEDS: Gabapentin 300 MG Capsule PO ×3 (06:10→21:20)
[2021-12-01 06:34] LABS: Anion Gap 10 (5-15); BUN 14 mg/dL (7-18); BUN/Creat Ratio 22.3 RATIO (10-20); Calcium,Total 6.7 mg/dL (8.5-10.1); Chloride 107 mmol/L (98-107); Creatinine, Serum 0.63 mg/dL (0.70-1.30); EST Glomerular Filtration Rate 143 mL/min (>60); Est Glom Filt Rate - Afr Amer 173 mL/min (>60); Estimated Creatinine Clearance 137.16 ml/min; Glucose 94 mg/dL (74-106); Magnesium 2.1 mg/dL (1.6-2.6); Potassium 2.5 mmol/L (3.5-5.1); Sodium Level 141 mmol/L (136-145)
[2021-12-01] MEDS: Ipratropium 0.5 MG/2.5 ML SOLUTION INHALATION ×2 (07:00→13:12)
[2021-12-01] MEDS: Potassium Chloride Oral Tablet 20 MEQ 40 MEQ PO (07:45)
--- NOTE | 2021-12-01 07:54 | PN.HOSP_ITS ---
Subjective Subjective Patient is a 52-year-old gentleman admitted with abnormal labs Patient seen remains significantly hypoxic at rest Objective Data Objective Data Vital Signs: Vital Signs Temp Pulse Resp BP Pulse Ox O2 Del Method O2 Flow Rate 97.9 F 90 18 96/64 98 Nasal Cannula 10 12/01/21 04:55 12/01/21 07:00 12/01/21 07:00 12/01/21 04:55 12/01/21 07:00 12/01/21 07:00 12/01/21 07:00 Oxygen Flow Rate (L/min) 10 Oxygen Delivery Method Nasal Cannula Weight: 90.855 kg Body Mass Index (BMI) 29.5 Intake & Output: Intake and Output for Last 24 Hours 11/29/21 11/30/21 12/01/21 23:59 23:59 23:59 Intake Total 200 / 200 Balance 200 / 200 Lab / Micro Data Result Diagrams: 11/30/21 16:58 12/01/21 04:46 Labs: Laboratory Results - last 24 hr 11/30/21 16:58: WBC 10.5, RBC 5.53, Hgb 14.0, Hct 45.9, MCV 83.0, MCH 25.3 L, MCHC 30.5 L, RDW Std Deviation 69.7 H, RDW Coeff of Teja 23.9 H, Plt Count 220, MPV 9.7, Immature Gran % (Auto) 0.700, Neut % (Auto) 77.2 H, Lymph % (Auto) 13.6 L, [place] % (Auto) 6.7, Eos % (Auto) 1.4, Baso % (Auto) 0.4, Absolute Neuts (auto) 8.1 H, Absolute Lymphs (auto) 1.43, Nucleated RBC % 0, Differential Comment 11/30/21 16:58: Sodium 139, Potassium 3.6, Chloride 106, Carbon Dioxide 26.0, Anion Gap 7, BUN 15, Creatinine 0.96, Estim Creat Clear Calc 90.01, Est GFR (MDRD) Af Amer 106, Est GFR (MDRD) Non-Af 87, BUN/Creatinine Ratio 15.6, Glucose 97, Calcium 6.8 L, Magnesium 0.4 L* 12/01/21 04:46: Sodium 141, Potassium 2.5 L*, Chloride 107, Carbon Dioxide 24.0, Anion Gap 10, BUN 14, Creatinine 0.63 L, Estim Creat Clear Calc 137.16, Est GFR (MDRD) Af Amer 173, Est GFR (MDRD) Non-Af 143, BUN/Creatinine Ratio 22.3 H, Glucose 94, Calcium 6.7 L, Magnesium 2.1 Physical Exam Narrative GENERAL: cooperative but dyspneic at rest HEENT: Atraumatic; EYES; Anicteric, Normal Conjunctiva NECK; supple, normal thyroid, RESPIRATORY: Diminished to auscultation CARDIOVASCULAR: Regular S1 S2, GI: soft, normoactive bowel sounds, : No Renal angle tenderness; EXTREMITIES: No edema, no clubbing, MUSCULOSKELETAL: no muscle wasting NEURO: Awake; no lateralizing signs. SKIN: No Rash PSYCH; Flat affect Assessment & Plan Assessment/Plan (1) Chronic respiratory failure with hypoxia: (2) Presence of stent in coronary artery: (3) Pulmonary hypertension: (4) Essential hypertension: (5) Cardiomyopathy: QUALIFIERS: Cardiomyopathy type: ischemic Qualified Code(s): I25.5 - Ischemic cardiomyopathy (6) Hypomagnesemia: PLAN: Plan Patient is a 52-year-old gentleman admitted with abnormal labs 1. Chronic hypomagnesemia ? Patient did receive magnesium replacement with serial monitoring ordered 2. Hypokalemia ? Significantly low. Patient being monitored on telemetry aggressive replacement ordered with subsequent monitoring of potassium ordered 3. Chronic hypoxic respiratory failure ? Secondary to pulmonary hypertension patient is on baseline home oxygen. Patient is significantly hypoxic this a.m. he however does not wish to be intubated stating he knows the advanced nature of his pulmonary hypertension 4. Severe pulmonary hypertension ? Patient is on tadalafil and treprostinil 5. Coronary artery disease ? With previous PCI with STEVEN to an LAD lesion in September 2018 6 Previous history of occipital CVA ? Stable 7. Chronic congestive heart failure with preserved ejection fraction ? Patient is on Lasix and Zaroxolyn 8. Dyslipidemia ? Patient is on fenofibrate as well as atorvastatin did continue 9. DVT prophylaxis ? CT Kasey Charges/Coding Visit Charges OBSV E&M: 33531 Subsequent observation care L3
[2021-12-01] MEDS: oxyCODONE HCl Cr 10 MG Tablet 20 MG PO ×2 (09:32→21:20)
[2021-12-01] MEDS: Pantoprazole Sodium 40 MG Tablet PO ×2 (09:33→21:21)
[2021-12-01] MEDS: Fenofibrate 145 MG Tablet PO (09:33)
[2021-12-01] MEDS: Magnesium Chloride 64 MG Delay Rel.Tablet 128 MG PO (09:33)
[2021-12-01] MEDS: Potassium Chloride Oral Tablet 20 MEQ PO ×2 (09:33→21:20)
[2021-12-01] MEDS: Potassium Chloride 10mEq/100mL 10 MEQ/100 ML IV.SOLN. 100 MEQ IV BOLUS ×8 (09:38→19:24)
--- NOTE | 2021-12-01 09:45 | NURSING ---
This RN came in to check pt's vital signs. Pt satting 78% on 10LNC. Increased oxygen to 15L. Still maintaining in low 80's. RT called and in to see pt. Dr. Rowell in at bedside and updated on these findings. Pt states this is where his oxygen runs chronically and would like his electrolytes replaced and then to go home. Dr. Rowell provided education and let pt know that he can't go home with these oxygen requirements. Pt states he will leave AMA after electrolyte replacement. bleach boiler filler notified.
[2021-12-01] MEDS: Albuterol 2.5 MG/3 ML VIAL.NEB. INHALATION (09:48)
[2021-12-01] MEDS: Enoxaparin 40 MG/0.4 ML Syringe SC (09:52)
[2021-12-01 11:48] LABS: Potassium 3.1 mmol/L (3.5-5.1)
--- NOTE | 2021-12-01 13:03 | CASEMGMT ---
ALEJANDRA LEE assessment deferred at this time d/t pt 85% on airvo. Pt declines to be intubated per physician notes. Pt with hx of severe pulm HTN and is on 4L at rest and 6L w/ exertion at home thru [employer] already. SStaten ALEJANDRA LEE
--- NOTE | 2021-12-01 13:28 | CPS ---
Patient refusing NRB ontop of AIRVO, also patient does not want BIPAP at any point.
--- NOTE | 2021-12-01 13:54 | NURSING ---
This RN and RT in with pt. Pt refusing to wear non-rebreather over airvo and refusing bipap. Pt 76%-81%. Pt states he doesn't want hospice. Pt states he is walking out as soon as IV potassium replacement is completed no matter how low his oxygen is. Dr. Rowell and services advisorJaci ROBERTS notified of all of these findings and pt statements.
--- NOTE | 2021-12-01 14:04 | NURSING ---
This RN called and updated the pt's , Jany. This RN let her know that the pt's oxygen demand is critically high. Pt is on max amount of oxygen that he can receive on Airvo. Pt is refusing non-rebreather over airvo and refusing bipap. This RN let pt's know that pt is stating that he will walk out of here with oxygen as low as 68% and sign AMA form. This RN let pt's know that she reinforced to patient that it is not safe and patient would not be able to walk out not being on airvo. states that she will be in soon and try to talk to patient.
--- NOTE | 2021-12-01 15:25 | NURSING ---
Dr. Rowell in at bedside talking with pt and . Dr. Rowell aware of oxygen saturation of 73% on AIRVO and pt refusing bipap and cp. Aware bp is 79/59.
--- NOTE | 2021-12-01 15:30 | NURSING ---
Dr. Rowell notified multiple times by this RN that pt is refusing treatment. Dr. Rowell in at bedside Aware of low oxygen and bp.
[2021-12-01] MEDS: 0.9% Saline Lock 10 ML Syringe IV (15:47)
[2021-12-01] MEDS: Potassium Chloride Oral Tablet 10 MEQ 30 MEQ PO (17:07)
--- NOTE | 2021-12-01 18:28 | NURSING ---
This RN attempted to have pt wear BIPAP or nonrebreather over airvo. Pt refusing.
--- NOTE | 2021-12-01 19:38 | NURSING ---
This nurse had a talk with emmy about his low 02 sats and bp. Pt does not wish to be moved to icu. Pt refused bipap, intubation and nonrebreather mask. Pt said his only wish is to get to get his nose unplug. Pt said his bp running in 80s on on a good. day. Expressed that these vitals are serious and could pass away. Pt said Yes he is aware. This nurse expressed i just want to carryout your wishes and that at anytimes if you wants me to do more i can. Informed him he is allowed to change his mind at anytime.
--- NOTE | 2021-12-01 19:57 | PCM.HOSP.N ---
Hospitalist Note Patient requesting claritin noting this has assisted with his congestion prior. Will also add saline nasal spray PRN. Patient maxed out of Airvo. End stage pulmonary fibrosis from discussion with staff and review of chart. Patient refusing BIPAP consideration. Remains DNR-CCA, no intubation. Understands without further aggressive interventions outcome likely. Patient offered hospice route and from discussion with staff has declined.
[2021-12-01] MEDS: Sodium Chloride 0.65% 1 SPRAY SPRAY.BTL 2 SPRAY NASAL (20:09)
[2021-12-01] MEDS: Loratadine 10 MG Tablet PO (20:09)
[2021-12-01] MEDS: Atorvastatin Calcium 40 MG Tablet PO (21:20)
--- NOTE | 2021-12-01 23:19 | CPS ---
pt taken off to blow his nose-increased pressure per nurse to 16/8 and 98% due to low sats-
[2021-12-02] VITALS (26 sets, daily range): BP systolic 75–110; BP diastolic 51–81; PULSE 83–125; RESP 12–92; TEMP 36.5–37.2; O2SAT 74–87
--- NOTE | 2021-12-02 00:20 | NURSING ---
Pt said he fill better with bipap on . denies any complaints
[2021-12-02] MEDS: Gabapentin 300 MG Capsule PO ×3 (05:28→21:47)
[2021-12-02] MEDS: Sodium Chloride 0.65% 1 SPRAY SPRAY.BTL 2 SPRAY NASAL (05:31)
[2021-12-02 07:10] LABS: Anion Gap 7 (5-15); BUN 11 mg/dL (7-18); BUN/Creat Ratio 16.8 RATIO (10-20); Calcium,Total 7.3 mg/dL (8.5-10.1); Chloride 112 mmol/L (98-107); Creatinine, Serum 0.66 mg/dL (0.70-1.30); EST Glomerular Filtration Rate 136 mL/min (>60); Est Glom Filt Rate - Afr Amer 164 mL/min (>60); Estimated Creatinine Clearance 130.93 ml/min; Glucose 98 mg/dL (74-106); Magnesium 1.5 mg/dL (1.6-2.6); Potassium 3.8 mmol/L (3.5-5.1); Sodium Level 138 mmol/L (136-145)
[2021-12-02] MEDS: Ipratropium 0.5 MG/2.5 ML SOLUTION INHALATION ×3 (07:14→19:30)
--- NOTE | 2021-12-02 08:27 | PCM.PN.HOSP ---
Subjective Subjective Follow-up for acute on chronic severe hypoxic respiratory failure Objective Data Objective Data Vital Signs: Vital Signs Temp Pulse Resp BP Pulse Ox O2 Del Method O2 Flow Rate 97.8 F 98 22 H 110/81 H 81 Bi-pap 60 12/02/21 07:00 12/02/21 07:45 12/02/21 07:45 12/02/21 07:00 12/02/21 07:44 12/02/21 07:25 12/01/21 21:06 FiO2 98 12/02/21 07:44 Oxygen Flow Rate (L/min) 60 Oxygen Delivery Method Bi-pap Weight: 214 lb 15.211 oz Body Mass Index (BMI) 29.5 Intake & Output: Intake and Output for Last 24 Hours 11/30/21 12/01/21 12/02/21 23:59 23:59 23:59 Intake Total 2245 / 2245 240 / 240 Balance 2245 / 2245 240 / 240 Lab / Micro Data Result Diagrams: 12/02/21 06:32 12/02/21 06:32 Labs: Laboratory Results - last 24 hr 12/01/21 10:57: Potassium 3.1 L 12/02/21 05:10: Sodium 138, Potassium 3.8, Chloride 112 H, Carbon Dioxide 19.0 L, Anion Gap 7, BUN 11, Creatinine 0.66 L, Estim Creat Clear Calc 130.93, Est GFR (MDRD) Af Amer 164, Est GFR (MDRD) Non-Af 136, BUN/Creatinine Ratio 16.8, Glucose 98, Calcium 7.3 L, Magnesium 1.5 L Physical Exam Narrative Physical exam General: Alert, Oriented x3, Cooperative HEENT: Atraumatic, PERRLA, EOMI, Normocephalic. Oral: No Gingival or Mucosal Lesions/ Ulcerations Neck: Supple, No JVD, Negative Carotid Bruits Lungs: Air entry diminished in bilateral lung bases. No crepitation/rhonchi on BiPAP 98% FiO2 18/5 Cardiovascular: Regular rate, Regular Rhythm, Normal S1, Normal S2, No murmurs Abdomen: Bowel Sounds Present, Soft, Non Tender, Non-Distended : No renal angle tenderness. No suprapubic tenderness. Extremities: No edema, Capillary Refill Less than 3 Seconds Skin: No rashes, No breakdown Musculoskeletal: No Tenderness to Palpation of Joints or Extremities Neurological: Cranial nerves II-XII grossly intact, DTR 2+/4 and Symmetrical, Neuro grossly intact Psych/Mental Status: Flat affect Assessment & Plan Assessment/Plan (1) Chronic respiratory failure with hypoxia: (2) Presence of stent in coronary artery: (3) Pulmonary hypertension: (4) Essential hypertension: (5) Cardiomyopathy: QUALIFIERS: Cardiomyopathy type: ischemic Qualified Code(s): I25.5 - Ischemic cardiomyopathy (6) Hypomagnesemia: PLAN: Plan Patient is a 52-year-old gentleman admitted with abnormal labs, hypomagnesemia and hypokalemia. Patient also found very hypoxic on maximum capacity of BiPAP. 1. Chronic hypomagnesemia ? Patient did receive magnesium replacement. Magnesium 1.5. Magnesium is getting replaced. 2. Hypokalemia ? Significantly low. Repeat K3.8. 3. Acute on chronic hypoxic respiratory failure ? Secondary to pulmonary hypertension patient is on baseline home oxygen. Usually patient is on 6 to 8 L of oxygen at home but currently on maximum capacity of BiPAP. Oil Program Compliance Specialist consulted. 2D echo shows RVSP 75, severely dilated RV. EF 55%. Right atrium mildly enlarged. Troponin normal. BNP elevated. Patient started empirically on Lasix. 4. Severe pulmonary hypertension ? Patient is on tadalafil and treprostinil. Pulm assisted transfer to tertiary care where they have pulmonary artery hold for SBP less than 130 mmHg expert. Patient does not want to be transferred. Does not want palliative care consult. 5. Coronary artery disease ? With previous PCI with STEVEN to an LAD lesion in September 2018 6 Previous history of occipital CVA ? Stable 7. Chronic congestive heart failure with preserved ejection fraction ? Patient is on Lasix and Zaroxolyn 8. Dyslipidemia ? Patient is on fenofibrate as well as atorvastatin did continue 9. DVT prophylaxis ? SC Lovenox Clinical Impression(s) from Imaging Studies Echocardiogram 12/02/21 12:33 Interpretation Summary Normal LV size. Moderate concentric left ventricular hypertrophy. D shaped septum in systole and diastole. The estimated ejection fraction is 55 %. Moderate (2+) tricuspid valve insufficiency. Compared to the previous the right ventricular systolic pressure is higher in the right ventricle is slightly more dilated. Pulmonary artery systolic pressure is 75 mmHg. Charges/Coding Visit Charges Inpatient E&M: 90739 Subs Hosp L2
[2021-12-02 09:10] LABS: Phosphorus 2.3 mg/dL (2.5-4.9)
[2021-12-02] MEDS: Potassium Chloride Oral Tablet 20 MEQ PO ×2 (09:51→21:47)
[2021-12-02] MEDS: oxyCODONE HCl Cr 10 MG Tablet 20 MG PO ×2 (09:51→21:47)
[2021-12-02] MEDS: Loratadine 10 MG Tablet PO (09:51)
[2021-12-02] MEDS: Enoxaparin 40 MG/0.4 ML Syringe SC (09:51)
[2021-12-02] MEDS: Pantoprazole Sodium 40 MG Tablet PO ×2 (09:51→21:47)
[2021-12-02] MEDS: Magnesium Chloride 64 MG Delay Rel.Tablet 128 MG PO (09:51)
[2021-12-02] MEDS: Fenofibrate 145 MG Tablet PO (09:51)
--- NOTE | 2021-12-02 10:02 | CASEMGMT ---
RN CM assessment still deferred d/t pt condition. CM to follow for any further concerns. SStaten RN CM
--- NOTE | 2021-12-02 12:33 | ECHOD_ITS ---
Version 2 Reason For Study: PHTN Left Ventricle Normal LV size. Moderate concentric left ventricular hypertrophy. D shaped septum in systole and diastole. The estimated ejection fraction is 55 %. No regional wall motion abnormalities noted. Right Ventricle Severely dilated right ventricle. Moderate global right ventricular systolic dysfunction. Atria Normal left atrium. The right atrium is mildly enlarged. Mitral Valve Normal mitral valve. Tricuspid Valve Normal tricuspid valve. Moderate (2+) tricuspid valve insufficiency. Pulmonary artery systolic pressure is 75 mmHg. Aortic Valve Trisinus/trileaflet aortic valve. Mild focal aortic valve thickening. Pulmonic Valve Normal pulmonic valve. Mild (1+) pulmonic valve insufficiency. Great Vessels Normal aortic root. Mild pulmonary artery dilation. The inferior vena cava is dilated. Pericardium/Pleural Trivial pericardial effusion. MMode/2D Measurements & Calculations LVIDd: 3.8 cm IVSd: 1.5 cm Ao root diam: 3.0 cm LVIDs: 2.1 cm LVPWd: 1.4 cm FS: 44.5 % LAV(MOD-sp2): 22.6 ml LA A4 area: 10.1 cm2 LA dimension(2D): 4.1 cm RA A4 area: 23.8 cm2 Doppler Measurements & Calculations MV E max greg: 52.3 cm/sec Lat Peak E' Greg: 17.6 cm/sec Med Peak E' Greg: 9.2 cm/sec MV A max greg: 102.3 cm/sec E/E' lat: 3.0 E/E' med: 5.7 MV E/A: 0.51 Ao V2 max: 128.8 cm/sec LV V1 max: 91.7 cm/sec PA V2 max: 68.9 cm/sec Ao max P.6 mmHg LV V1 max P.4 mmHg Ao V2 mean: 90.6 cm/sec Ao mean P.7 mmHg Ao V2 VTI: 14.5 cm TR max greg: 392.1 cm/sec TR max P.5 mmHg ECHO/Echo Complete Interpretation Summary Normal LV size. Moderate concentric left ventricular hypertrophy. D shaped septum in systole and diastole. The estimated ejection fraction is 55 %. Moderate (2+) tricuspid valve insufficiency. Compared to the previous the right ventricular systolic pressure is higher in t he right ventricle is slightly more dilated. Pulmonary artery systolic pressure is 75 mmHg. Ordering Physician: John Cuevas Referring Physician: Bacilio Smith Performed By: Anaya Bell, MARGICS, RVT
--- NOTE | 2021-12-02 12:51 | CON.PCM.CC_ITS ---
Assessment & Plan Assessment/Plan (1) Acute on chronic respiratory failure with hypoxemia: PLAN: Plan RECOMMENDATIONS: 1. Obtain CTA chest. 2. Obtain echocardiogram. 3. Check troponin and BNP. 4. Challenge with Lasix. 5. Given presence of PFO and shunt, oxygen saturations in the 80s is more than adequate. 6. Electrolyte repletion per hospitalist. IMPRESSIONS: 1. Acute on chronic hypoxemic respiratory failure Unclear precipitating etiology for his acute decompensation. The patient has known pulmonary arterial hypertension and currently follows with a disability program navigator at [facility]. He has a baseline oxygen requirement of 6 to 8 L/min along with a history of sleep apnea, patent foramen ovale and right ventricular failure. It does not appear that the patient has been receiving his home Lasix for the last 2 days. He should be continued on tadalafil and Remodulin at his current infusion rate. In the interim, we will explore etiologies that could cause acute decompensation including PE and pulmonary edema. CTA chest will be obtained. Will check troponin and BNP. The patient does appear also according to documentation to have a patent foramen ovale with some degree of shunt. Therefore, oxygen saturations in the 80s is more than appropriate. If there is no acute process that can be identified, it would be reasonable to consider goals of care discussion and potential hospice care invol vement. 2. Hypophosphatemia/hypomagnesemia Aggressive electrolyte repletion per hospitalist. 3. Hyperlipidemia/neuropathy/GERD Complicates care, management, recovery and prognosis. Continue home medications as indicated. This note was generated with [employer] dictation software. It may contain incorrect words, spelling, and punctuation that were not noted in checking the note before signing. HPI Consult Data Date of Consult: 12/03/21 HPI Narrative Reason for Consultation: Acute on chronic hypoxemic respiratory failure HPI Narrative: The patient is a 51-year-old male, with a history as outlined below, who presented to the emergency department on November 30 at the urging of his PCP due to underlying electrolyte derangements. The patient has a known history of pulmon vu arterial hypertension, obstructive sleep apnea, patent foramen ovale and RV failure. The patient has a baseline oxygen requirement of 6 to 8 L/min. He is currently followed by a disability program navigator at [facility], Dr. Mann. The patient was just discharged from [facility] at the beginning of October after having been admitted with acute on chronic hypoxemic respiratory failure. He was discharged home on treprostinil, Lasix and tadalafil. He was discharged home on a Remodulin infusion of 65 ng/kg/min with upward titration to be undertaken at home. On presentation to the emergency department, the patient was noted to be saturating 86% on 6 L/min. Initial laboratory evaluation revealed no evidence of a leukocytosis. Initial chemistry profile was notable for a magnesium of 0.4. BNP was elevated at 263. The patient was initially admitted to the hospital where he was placed on electrolyte replacement therapy. According to documentation, the patient had increasing hypoxemia on December 01, which ultimately culminated in him being placed on BiPAP therapy with an FiO2 requirement of 98%. The patient did report ongoing issues with his Remodulin. He stated that each time he performs an upward titration on the infusion rate that he developed gastrointestinal side effects, including diarrhea. I did call and personally speak with the patient's primary disability program navigator, Dr. Mann, at [facility]. He indicated that the patient is on maximum therapy and that there is nothing in addition that can be offered to the patient to address his pulmonary hypertension. [facility] Medical History (Updated 12/02/21 @ 13:[address] John Cuevas, ) Abdominal pain Acute GI hemorrhage Anemia due to blood loss, acute Anxiety Arthritis Atherosclerosis of coronary artery of [place] heart without angina pectoris Back pain C. 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 pylori infection High cholesterol History of CHF (congestive heart failure) History of chronic pancreatitis History of diverticulitis History of echocardiogram History of GI bleed History of stress test Hypercalcemia Hyponatremia Hypotension Leukocytosis Low iron Migraine headache Nicotine dependence in remission On home oxygen therapy Pulmonary arterial hypertension Pulmonary hypertension Renal insufficiency Septic shock Shortness of breath on exertion Sleep apnea Spinal accessory nerve disorder Stroke/cerebrovascular accident Syncope Type 2 diabetes mellitus without complication Wears glasses Home Medications tadalafil (pulm. hypertension) 20 mg tablet (pulmonary hypertension) (Adcirca) 40 mg PO DAILY pulmonary htn 01/29/19 [History Last Taken 11/30/21] fenofibrate nanocrystallized 145 mg tablet 145 mg PO DAILY high triglycerides 02/05/19 [History Last Taken 11/30/21] pantoprazole 40 mg tablet,delayed release 40 mg PO BID #60 tabs 03/15/19 [Rx Last Taken 11/30/21] gabapentin 300 mg capsule 300 mg PO TID nerve pain 05/29/19 [History Last Taken 11/30/21] atorvastatin 40 mg tablet 40 mg PO QHS 10/03/19 [History Last Taken 11/29/21] oxycodone myristate 9 mg capsule sprinkle extended release 12 hr(DON'T CRUSH) (Xtampza ER) 9 mg PO BID pain 05/06/21 [History Last Taken 11/30/21] tiotropium bromide 2.5 mcg/actuation mist for inhalation (Spiriva Respimat) 2 pu ff inhalation DAILY 08/17/21 [History Last Taken Unknown] treprostinil sodium 5 mg/mL injection solution (Remodulin) 20 mg continuous IV infusion Q48H 08/17/21 [History Last Taken Unknown] fluticasone propionate 50 mcg/actuation nasal spray,suspension 2 spray intranasal DAILY PRN Congestion 10/07/21 [History Last Taken 11/30/21] furosemide 20 mg tablet 60 mg PO DAILY PRN PRN Edema 10/07/21 [History Last Taken Unknown] metolazone 2.5 mg tablet 2.5 mg PO Q OTHER DAY PRN take with lasix 10/07/21 [H istory Last Taken Unknown] potassium chloride 10 mEq capsule,extended release See Rx Instructions PO TID 10/07/21 [History Last Taken 11/30/21] albuterol sulfate 90 mcg/actuation aerosol inhaler 2 inh inhalation BID PRN PRN Shortness Of Breath 11/30/21 [History Last Taken 11/30/21] magnesium oxide 400 mg (241.3 mg magnesium) tablet 400 mg PO DAILY supplement 11/30/21 [History Last Taken 11/30/21] Allergy/AdvReac Type Severity Reaction Status Date / Time ticagrelor Allergy Severe cough Verified 11/30/21 16:18 lisinopril Allergy COUGH Verified 11/30/21 16:18 nitroglycerin Allergy interacts Verified 11/30/21 16:18 w/ pulmonary htn medicine clopidogrel [From Plavix] AdvReac NOT AN Verified 11/30/21 16:18 ALLERGY BUT STOPPED FOR GI BLEEDS Family History Mother Diabetes Hypertension Breast cancer Grandfather Heart disease Uncle Heart disease Surgical History (Updated 11/30/21 @ 19:07 by Luz Jones) History of cardiac catheterization History of cholecystectomy History of coronary artery stent placement History of hip surgery History of right hip replacement Hx of rhinoplasty Presence of stent in coronary artery S/P cataract surgery S/P colonoscopy Status post total hip replacement, right Social History Smoking Status: Former smoker how long ago did patient quit smokin year ago alcohol intake: never substance use type: does not use caffeine: Yes Type: carbonated beverages Number of servings: 2 ROS Constitutional Constitutional: Denies chills, fatigue or fever(s) Eyes Eyes: Denies blurry vision or change in vision ENT HEENT: Denies dizziness, dysphagia, epistaxis or headache(s) Cardiovascular Cardiovascular: Reports dyspnea; Denies chest pain Respiratory/Chest Respiratory/Chest: Reports dyspnea Gastrointestinal Gastrointestinal: Denies abdominal pain, diarrhea, nausea or vomiting Genitourinary Genitourinary: Denies difficulty urinating Musculoskeletal Musculoskeletal: Denies arthralgias or back pain Integumentary Integumentary: Denies lesions, rash or skin ulcer Neurologic Neurologic: Denies abnormal gait or abnormal speech Psychiatric Psychiatric: Denies anxiety or depression Endocrine Endocrinology: Denies fatigue Hematologic/Lymphatic Hematologic/Lymphatic: Denies easy bleeding or easy bruising Physical Exam Const alert Constitutional Narrative: Currently on BiPAP with at the bedside. Perioral cyanosis is noted along with conversational dyspnea when BiPAP mask is removed. General Appearance: cooperative HEENT normocephalic and head/scalp atraumatic Eyes PERRL, EOMs intact bilaterally and conjunctivae normal Neck supple General: trachea midline Chest inspection of chest normal Resp Effort and Inspection: tachypneic Auscultation: Negative for rales, rhonchi or wheezes Cardio regular rate and regular rhythm GI normal to inspection, nondistended, normoactive bowel sounds Extremity General Extremity: clubbing and edema Skin no rashes or lesions noted Neuro CN's II-XII intact bilaterally, moves all extremities and no focal motor deficits Psych cooperative and affect normal Lab / Micro Data Result Diagrams: 12/03/21 04:13 12/03/21 04:13 Labs: Laboratory Results - last 24 hr 12/02/21 05:10: Sodium 138, Potassium 3.8, Chloride 112 H, Carbon Dioxide 19.0 L , Anion Gap 7, BUN 11, Creatinine 0.66 L, Estim Creat Clear Calc 130.93, Est GFR (MDRD) Af Amer 164, Est GFR (MDRD) Non-Af 136, BUN/Creatinine Ratio 16.8, Glucose 98, Calcium 7.3 L, Magnesium 1.5 L 12/02/21 05:10: Phosphorus 2.3 L Charges/Coding Visit Charges Inpatient E&M: 83378 Init Hosp L3
[2021-12-02 13:27] LABS: Absolute Lymphocyte Count 1.13 X10^3/uL (0.83-4.51); Absolute Neutrophil Count 6.5 X10^3/uL (2.0-7.7); Basophil# 0.04 X10^3/uL; Basophil% 0.5 % (0-1); Eosinophil# 0.11 X10^3/uL; Eosinophils% 1.3 % (0-5); Hemoglobin 13.4 g/dL (13.0-16.5); Lymphocyte # 1.13 X10^3/ul (0.83-4.51); Lymphocyte % 13.3 % (19-41); Mean Corp Hgb Conc 31.2 g/dL (32-36); Mean Corpuscular Hgb 26.1 pg (27.0-32.0); Mean Corpuscular Volume 83.7 fL (80-94); Mean Platelet Vol. 9.9 fl (6.2-12.0); Monocyte# 0.63 X10^3/uL; Monocyte% 7.4 % (0-10); NRBC Flagged by Analyzer 0 % (0-5); Neutrophil # 6.54 X10^3/uL (2.7-7.7); Neutrophil % 77.1 % (47-70); POSITIVE MORPHOLOGY YES; Platelet Count 182 K/mm3 (150-450); RBC Distribution Width CV 23.1 % (11.6-14.6); Red Blood Count 5.14 M/mm3 (4.6-6.2); White Blood Count 8.5 K/mm3 (4.4-11.0)
[2021-12-02 13:31] LABS: Differential Indicated SCAN CRITERIA MET
[2021-12-02 13:45] LABS: BNP,B-Type NATRIURETIC PEPTIDE 677.1 pg/mL (0-100)
[2021-12-02 14:09] LABS: Anisocytosis RARE
[2021-12-02 14:17] LABS: Troponin-I HS 10 pg/mL (3.0-78.0)
[2021-12-02] MEDS: Furosemide 40 MG/4 ML Vial IV (14:30)
[2021-12-02] MEDS: TADALAFIL 20 MG TABLET 40 MG PO (14:32)
[2021-12-02] MEDS: Potassium Chloride Oral Tablet 20 MEQ 40 MEQ PO (21:47)
[2021-12-02] MEDS: Atorvastatin Calcium 40 MG Tablet PO (21:47)
[2021-12-03] VITALS (15 sets, daily range): BP systolic 88–99; BP diastolic 61–67; PULSE 105–133; RESP 12–34; TEMP 36.6–37.2; O2SAT 70–82
[2021-12-03] MEDS: Gabapentin 300 MG Capsule PO ×3 (05:41→21:00)
[2021-12-03 05:43] LABS: Absolute Lymphocyte Count 1.32 X10^3/uL (0.83-4.51); Basophil# 0.05 X10^3/uL; Basophil% 0.5 % (0-1); Eosinophil# 0.06 X10^3/uL; Eosinophils% 0.6 % (0-5); Hematocrit 42.4 % (40-54); Hemoglobin 12.8 g/dL (13.0-16.5); Lymphocyte # 1.32 X10^3/ul (0.83-4.51); Mean Corp Hgb Conc 30.2 g/dL (32-36); Mean Corpuscular Hgb 25.3 pg (27.0-32.0); Mean Platelet Vol. 10.5 fl (6.2-12.0); Monocyte# 0.76 X10^3/uL; Monocyte% 7.5 % (0-10); NRBC Flagged by Analyzer 0 % (0-5); Neutrophil # 7.95 X10^3/uL (2.7-7.7); Neutrophil % 77.9 % (47-70); POSITIVE MORPHOLOGY YES; Platelet Count 190 K/mm3 (150-450); RBC Distribution Width CV 23.5 % (11.6-14.6); RBC Distribution Width SD 70.3 fl (35.1-43.9); Red Blood Count 5.05 M/mm3 (4.6-6.2); White Blood Count 10.2 K/mm3 (4.4-11.0)
[2021-12-03 05:49] LABS: Differential Indicated SCAN CRITERIA MET
--- NOTE | 2021-12-03 06:00 | RAD_ITS ---
STUDY: X-RAY CHEST REASON FOR EXAM: Male, 51 years old. Respiratory Failure TECHNIQUE: Portable, upright, AP chest radiograph COMPARISON: 12/24/2019 FINDINGS: Chronically elevated right hemidiaphragm. No finding of focal consolidation. There is no demonstrated pleural abnormality. Normal size heart. Normal mediastinum and susana. Normal visualized pulmonary arteries. Normal visualized aortic arch and descending thoracic aorta. There is no demonstrated abnormality of the visualized soft tissue structures of the upper abdomen. RAD/Chest 1 View (Portable) IMPRESSION: Right IJ central catheter terminates over the superior cavoatrial junction. Chronically elevated right hemidiaphragm without acute abnormal finding. Electronically Signed: Lee Carpio MD at 6:50 EDT ,
[2021-12-03 06:07] LABS: Anisocytosis 3+
[2021-12-03 06:09] LABS: Anion Gap 9 (5-15); BUN 14 mg/dL (7-18); BUN/Creat Ratio 17.6 RATIO (10-20); Calcium,Total 8.2 mg/dL (8.5-10.1); Chloride 109 mmol/L (98-107); EST Glomerular Filtration Rate 108 mL/min (>60); Est Glom Filt Rate - Afr Amer 131 mL/min (>60); Estimated Creatinine Clearance 108.01 ml/min; Glucose 85 mg/dL (74-106); Magnesium 1.4 mg/dL (1.6-2.6); Potassium 4.6 mmol/L (3.5-5.1); Sodium Level 138 mmol/L (136-145)
[2021-12-03 06:19] LABS: Phosphorus 2.3 mg/dL (2.5-4.9)
[2021-12-03] MEDS: Ipratropium 0.5 MG/2.5 ML SOLUTION INHALATION ×3 (06:40→19:07)
--- NOTE | 2021-12-03 07:55 | PN.HOSP_ITS ---
Subjective Subjective Follow-up for acute hypoxic respiratory failure. I talked to the patient's near the bedside. Option given for palliative care/hospice care. Objective Data Objective Data Vital Signs: Vital Signs Temp Pulse Resp BP Pulse Ox O2 Del Method O2 Flow Rate 98.9 F 110 H 23 H 104/68 79 Bi-pap 60 12/02/21 20:49 12/03/21 07:02 12/03/21 06:40 12/02/21 20:49 12/03/21 06:40 12/03/21 06:40 12/03/21 04:25 FiO2 100 12/03/21 06:40 Oxygen Flow Rate (L/min) 60 Oxygen Delivery Method Bi-pap Weight: 212 lb 15.465 oz Body Mass Index (BMI) 29.5 Intake & Output: Intake and Output for Last 24 Hours 12/01/21 12/02/21 12/03/21 23:59 23:59 23:59 Intake Total 2245 / 2245 1374 / 1494 320 / 320 Output Total 1550 / 2150 950 / 950 Balance 2245 / 2245 -176 / -656 -630 / -630 Lab / Micro Data Result Diagrams: 12/03/21 04:13 12/03/21 04:13 Labs: Laboratory Results - last 24 hr 12/02/21 06:32: Sodium 138, Potassium 3.8, Chloride 112 H, Carbon Dioxide 19.0 L , Anion Gap 7, BUN 11, Creatinine 0.66 L, Estim Creat Clear Calc 130.93, Est GFR (MDRD) Af Amer 164, Est GFR (MDRD) Non-Af 136, BUN/Creatinine Ratio 16.8, Glucose 98, Calcium 7.3 L, Magnesium 1.5 L 12/02/21 06:32: Phosphorus 2.3 L 12/02/21 06:32: B-Natriuretic Peptide 677.1 H 12/02/21 06:32: WBC 8.5, RBC 5.14, Hgb 13.4, Hct 43.0, MCV 83.7, MCH 26.1 L, MCHC 31.2 L, RDW Std Deviation 70.0 H, RDW Coeff of Teja 23.1 H, Plt Count 182, MPV 9.9, Immature Gran % (Auto) 0.400, Neut % (Auto) 77.1 H, Lymph % (Auto) 13.3 L, [place] % (Auto) 7.4, Eos % (Auto) 1.3, Baso % (Auto) 0.5, Absolute Neuts (auto) 6.5, Absolute Lymphs (auto) 1.13, Nucleated RBC % 0, Anisocytosis RARE 12/02/21 13:35: Troponin I High Sens 10 12/03/21 04:13: WBC 10.2, RBC 5.05, Hgb 12.8 L, Hct 42.4, MCV 84.0, MCH 25.3 L, MCHC 30.2 L, RDW Std Deviation 70.3 H, RDW Coeff of Teja 23.5 H, Plt Count 190, MPV 10.5, Immature Gran % (Auto) 0.500, Neut % (Auto) 77.9 H, Lymph % (Auto) 13.0 L, [place] % (Auto) 7.5, Eos % (Auto) 0.6, Baso % (Auto) 0.5, Absolute Neuts (auto) 8.0 H, Absolute Lymphs (auto) 1.32, Nucleated RBC % 0, Anisocytosis 3+ 12/03/21 04:13: Sodium 138, Potassium 4.6, Chloride 109 H, Carbon Dioxide 20.0 L , Anion Gap 9, BUN 14, Creatinine 0.80, Estim Creat Clear Calc 108.01, Est GFR (MDRD) Af Amer 131, Est GFR (MDRD) Non-Af 108, BUN/Creatinine Ratio 17.6, Glucose 85, Calcium 8.2 L, Magnesium 1.4 L 12/03/21 04:13: Phosphorus 2.3 L Radiography Diagnostic Testing: Radiology Impression Echocardiogram 12/02/21 12:33 Interpretation Summary Normal LV size. Moderate concentric left ventricular hypertrophy. D shaped septum in systole and diastole. The estimated ejection fraction is 55 %. Moderate (2+) tricuspid valve insufficiency. Compared to the previous the right ventricular systolic pressure is higher in the right ventricle is slightly more dilated. Pulmonary artery systolic pressure is 75 mmHg. Ordering Physician: John Cuevas Referring Physician: Bacilio Smith Performed By: Anaya Bell, MARGICS, RVT Chest X-Ray 12/03/21 06:00 IMPRESSION: Right IJ central catheter terminates over the superior cavoatrial junction. Chronically elevated right hemidiaphragm without acute abnormal finding. Electronically Signed: Lee Carpio MD at 6:50 EDT , Physical Exam Narrative Physical exam General: Awake, on BiPAP. HEENT: Atraumatic, PERRLA, EOMI, Normocephalic. Oral: No Gingival or Mucosal Lesions/ Ulcerations Neck: Supple, No JVD, Negative Carotid Bruits Lungs: Air entry diminished in bilateral lung bases. No crepitation/rhonchi on BiPAP 100%, 18/5 respiratory rate 18 to 28/min. Cardiovascular: Regular rate, Regular Rhythm, Normal S1, Normal S2, No murmurs Abdomen: Bowel Sounds Present, Soft, Non Tender, Non-Distended : No renal angle tenderness. No suprapubic tenderness. Extremities: No edema, Capillary Refill Less than 3 Seconds Skin: No rashes, No breakdown Musculoskeletal: No Tenderness to Palpation of Joints or Extremities Neurological: Cranial nerves II-XII grossly intact, DTR 2+/4 and Symmetrical, Neuro grossly intact Psych/Mental Status: Flat affect Assessment & Plan Assessment/Plan (1) Chronic respiratory failure with hypoxia: (2) Presence of stent in coronary artery: (3) Pulmonary hypertension: (4) Essential hypertension: (5) Cardiomyopathy: QUALIFIERS: Cardiomyopathy type: ischemic Qualified Code(s): I25.5 - Ischemic cardiomyopathy (6) Hypomagnesemia: PLAN: Plan Patient is a 52-year-old gentleman admitted with abnormal labs, hypomagnesemia and hypokalemia. Patient also found very hypoxic on maximum capacity of BiPAP. 1. Chronic hypomagnesemia ? Patient did receive magnesium replacement. Magnesium 1.5. Magnesium is getting replaced. 12/03: Magnesium is still low, getting replaced. 2. Hypokalemia ? Significantly low. Repeat K3.8. 12/03 potassium corrected. Hypophosphatemia, phosphorus getting replaced. 3. Acute on chronic hypoxic respiratory failure ? Secondary to pulmonary hypertension patient is on baseline home oxygen. Usually patient is on 6 to 8 L of oxygen at home but currently on maximum capacity of BiPAP. Child Care Coordinator consulted. 2D echo shows RVSP 75, severely dilated RV. EF 55%. Right atrium mildly enlarged. Troponin normal. BNP elevated. Patient started empirically on Lasix. 12/03: Discussed with the senior business manager. He talked to patient's primary senior business manager, Dr Mann and he thinks patient is on maximum medication for pulmonary arterial hypertension and there is no viable option. Hospice care suggested. Patient's and has not decided yet. After their decision will call hospice consult. 4. Severe pulmonary hypertension ? Patient is on tadalafil and treprostinil. 5. Coronary artery disease ? With previous PCI with STEVEN to an LAD lesion in September 2018 6 Previous history of occipital CVA ? Stable 7. Chronic congestive heart failure with preserved ejection fraction ? Patient is on Lasix and Zaroxolyn 8. Dyslipidemia ? Patient is on fenofibrate as well as atorvastatin did continue 9. DVT prophylaxis ? GIACOMO Parks Clinical Impression(s) from Imaging Studies Echocardiogram 12/02/21 12:33 Interpretation Summary Normal LV size. Moderate concentric left ventricular hypertrophy. D shaped septum in systole and diastole. The estimated ejection fraction is 55 %. Moderate (2+) tricuspid valve insufficiency. Compared to the previous the right ventricular systolic pressure is higher in t he right ventricle is slightly more dilated. Pulmonary artery systolic pressure is 75 mmHg. Charges/Coding Visit Charges Inpatient E&M: 09492 Subs Hosp L2
[2021-12-03] MEDS: Magnesium Sulfate 4gm/100mL 4 GM/100 ML IV.SOLN. IV (08:51)
[2021-12-03] MEDS: Potassium Chloride Oral Tablet 20 MEQ PO ×2 (09:00→21:01)
[2021-12-03] MEDS: Pantoprazole Sodium 40 MG Tablet PO ×2 (09:00→21:00)
[2021-12-03] MEDS: Enoxaparin 40 MG/0.4 ML Syringe SC (09:00)
[2021-12-03] MEDS: Loratadine 10 MG Tablet PO (09:00)
[2021-12-03] MEDS: Magnesium Chloride 64 MG Delay Rel.Tablet 128 MG PO (09:00)
[2021-12-03] MEDS: Fenofibrate 145 MG Tablet PO (09:01)
[2021-12-03] MEDS: TADALAFIL 20 MG TABLET 40 MG PO (09:02)
[2021-12-03] MEDS: oxyCODONE HCl Cr 10 MG Tablet 20 MG PO ×2 (09:05→21:00)
[2021-12-03] MEDS: Furosemide 20 MG Tablet 60 MG PO (09:05)
--- NOTE | 2021-12-03 10:21 | PN.CC_ITS ---
Assessment & Plan Assessment/Plan (1) Acute on chronic respiratory failure with hypoxemia: PLAN: Plan RECOMMENDATIONS: 1. Continue supplemental oxygen as tolerated for saturations in the 80s. 2. Strongly recommend consideration for hospice care services. 3. Ongoing electrolyte repletion. 4. Diuresis as tolerated by hemodynamics and renal function. IMPRESSIONS: 1. Acute on chronic hypoxemic respiratory failure Unclear precipitating etiology for his acute decompensation. The patient has known pulmonary arterial hypertension and currently follows with a resource management planner at [facility]. He has a baseline oxygen requirement of 6 to 8 L/min along with a history of sleep apnea, patent foramen ovale and right ventricular failure. Unfortunately, the patient was unable to lay flat for a CTA chest to rule out pulmonary embolism. However, follow-up chest x-ray did not demonstrate significant pulmonary edema. The patient does appear also according to documentation to have a patent foramen ovale with some degree of shunt. Therefore, oxygen saturations in the 80s is more than appropriate. The patient's primary resource management planner, Dr. Mann, was made aware of the patient's situation. He made it clear to me yesterday that the patient has no further treatment options regarding his pulmonary arterial hypertension. In light of his worsening clinical status and lack of viable treatment options, hospice care services is recommended. 2. Hypophosphatemia/hypomagnesemia Aggressive electrolyte repletion per hospitalist. 3. Hyperlipidemia/neuropathy/GERD Complicates care, management, recovery and prognosis. Continue home medications as indicated. This note was generated with [employer] dictation software. It may contain incorrect words, spelling, and punctuation that were not noted in checking the note before signing. Subjective Subjective The patient was seen and examined at the bedside this morning. Events from the last 24 hours have been reviewed. The patient is currently maintaining oxygen saturations in the 80s on BiPAP with an FiO2 of 100%. Although orders were placed for a CTA chest yesterday, the patient was unable to lay flat to complete the imaging study. He did receive IV Lasix yesterday without any significant improvement in his respiratory status. Phosphorus and magnesium remain low this morning. The patient continues to report his insistence on returning home. I had a very page discussion with him at the bedside in the absence of his regarding his overall prognosis. I explained to him in no uncertain terms that if his ultimate goal was to get out of the hospital and remain comfortable that hospice care services would be the most appropriate next step. He did indicate that he is willing to consider this as a potential option, but will not do so without first discussing it with his . Objective Data Objective Data The patient's most recent lab work, culture data and imaging studies have all been personally reviewed. Surface echocardiogram demonstrated normal LV size with an ejection fraction of 55%. The RV was severely dilated with moderate global RV systolic dysfunction and a pulmonary artery systolic pressure estimated to be 75 mmHg. Vital Signs: Vital Signs Temp Pulse Resp BP Pulse Ox O2 Del Method O2 Flow Rate 97.9 F 105 H 28 H 90/61 81 Bi-pap 60 12/03/21 08:57 12/03/21 08:57 12/03/21 08:57 12/03/21 08:57 12/03/21 08:57 12/03/21 08:57 12/03/21 04:25 FiO2 100 12/03/21 06:40 Oxygen Flow Rate (L/min) 60 Oxygen Delivery Method Bi-pap Weight: 212 lb 15.465 oz Body Mass Index (BMI) 29.5 Intake & Output: Intake and Output for Last 24 Hours 12/01/21 12/02/21 12/03/21 23:59 23:59 23:59 Intake Total 2245 / 2245 1374 / 1494 320 / 320 Output Total 1550 / 2150 950 / 950 Balance 2245 / 2245 -176 / -656 -630 / -630 Lab / Micro Data Attestation: I reviewed the patient's lab results. Result Diagrams: 12/03/21 04:13 12/03/21 04:13 Labs: Laboratory Results - last 24 hr 12/02/21 06:32: Sodium 138, Potassium 3.8, Chloride 112 H, Carbon Dioxide 19.0 L , Anion Gap 7, BUN 11, Creatinine 0.66 L, Estim Creat Clear Calc 130.93, Est GFR (MDRD) Af Amer 164, Est GFR (MDRD) Non-Af 136, BUN/Creatinine Ratio 16.8, Glucose 98, Calcium 7.3 L, Magnesium 1.5 L 12/02/21 06:32: Phosphorus 2.3 L 12/02/21 06:32: B-Natriuretic Peptide 677.1 H 12/02/21 06:32: WBC 8.5, RBC 5.14, Hgb 13.4, Hct 43.0, MCV 83.7, MCH 26.1 L, MCHC 31.2 L, RDW Std Deviation 70.0 H, RDW Coeff of Teja 23.1 H, Plt Count 182, MPV 9.9, Immature Gran % (Auto) 0.400, Neut % (Auto) 77.1 H, Lymph % (Auto) 13.3 L, [place] % (Auto) 7.4, Eos % (Auto) 1.3, Baso % (Auto) 0.5, Absolute Neuts (auto) 6.5, Absolute Lymphs (auto) 1.13, Nucleated RBC % 0, Anisocytosis RARE 12/02/21 13:35: Troponin I High Sens 10 12/03/21 04:13: WBC 10.2, RBC 5.05, Hgb 12.8 L, Hct 42.4, MCV 84.0, MCH 25.3 L, MCHC 30.2 L, RDW Std Deviation 70.3 H, RDW Coeff of Teja 23.5 H, Plt Count 190, MPV 10.5, Immature Gran % (Auto) 0.500, Neut % (Auto) 77.9 H, Lymph % (Auto) 13.0 L, [place] % (Auto) 7.5, Eos % (Auto) 0.6, Baso % (Auto) 0.5, Absolute Neuts (auto) 8.0 H, Absolute Lymphs (auto) 1.32, Nucleated RBC % 0, Anisocytosis 3+ 12/03/21 04:13: Sodium 138, Potassium 4.6, Chloride 109 H, Carbon Dioxide 20.0 L , Anion Gap 9, BUN 14, Creatinine 0.80, Estim Creat Clear Calc 108.01, Est GFR (MDRD) Af Amer 131, Est GFR (MDRD) Non-Af 108, BUN/Creatinine Ratio 17.6, Glucose 85, Calcium 8.2 L, Magnesium 1.4 L 12/03/21 04:13: Phosphorus 2.3 L Radiography Diagnostic Testing: Radiology Impression Echocardiogram 12/02/21 12:33 Interpretation Summary Normal LV size. Moderate concentric left ventricular hypertrophy. D shaped septum in systole and diastole. The estimated ejection fraction is 55 %. Moderate (2+) tricuspid valve insufficiency. Compared to the previous the right ventricular systolic pressure is higher in the right ventricle is slightly more dilated. Pulmonary artery systolic pressure is 75 mmHg. Ordering Physician: John Cuevas Referring Physician: Bacilio Smith Performed By: Anaya Bell, MARGICS, RVT Chest X-Ray 12/03/21 06:00 IMPRESSION: Right IJ central catheter terminates over the superior cavoatrial junction. Chronically elevated right hemidiaphragm without acute abnormal finding. Electronically Signed: Lee Carpio MD at 6:50 EDT , Physical Exam Const alert General Appearance: cooperative, ill appearing and on BiPAP HEENT normocephalic and head/scalp atraumatic Eyes PERRL, EOMs intact bilaterally and conjunctivae normal Neck supple General: trachea midline Chest inspection of chest normal Resp Effort and Inspection: tachypneic Auscultation: Negative for rales, rhonchi or wheezes Cardio regular rate and regular rhythm GI normal to inspection, nondistended, normoactive bowel sounds Extremity General Extremity: clubbing; Negative for edema Skin no rashes or lesions noted Neuro CN's II-XII intact bilaterally, moves all extremities and no focal motor deficits Psych cooperative and affect normal Charges/Coding Visit Charges Inpatient E&M: 67540 Subs Hosp L3
[2021-12-03] MEDS: Bumetanide 1 MG/4 ML Vial IV (14:16)
[2021-12-03] MEDS: 0.9% Saline Lock 10 ML Syringe IV (14:17)
--- NOTE | 2021-12-03 16:01 | CASEMGMT ---
RN CM assessment deferred at this time. Patient is on continuous Bipap at 100% FiO2 and sating at 82%. Per Maintenance And Repair Worker note, patient is considering hospice but would like to discuss options with . CM will continue to follow this patient.
[2021-12-03] MEDS: Potassium Chloride Oral Tablet 20 MEQ 40 MEQ PO (18:13)
--- NOTE | 2021-12-03 18:48 | NURSING ---
Chart faxed to Hospice.
[2021-12-03] MEDS: Atorvastatin Calcium 40 MG Tablet PO (21:00)
[2021-12-04] VITALS (15 sets, daily range): BP systolic 86–93; BP diastolic 59–70; PULSE 105–114; RESP 12–34; TEMP 36.6–36.7; O2SAT 78–83
--- NOTE | 2021-12-04 00:53 | PCM.HOSP.N ---
Hospitalist Note Patient with intention for Hospice evaluation today. Currently, he is requesting medication for his severe dyspnea. He is maxed on BIPAP. Discussed with staff and will initiate hospice dyspnea order set component.
[2021-12-04] MEDS: Morphine 2 MG/ML Syringe IV (01:19)
[2021-12-04] MEDS: Gabapentin 300 MG Capsule PO ×3 (05:51→20:58)
[2021-12-04] MEDS: morphine (oral solution) 10MG/0.5ML Syringe 5 MG SL/PO ×3 (06:01→20:58)
[2021-12-04 07:23] LABS: Absolute Lymphocyte Count 1.25 X10^3/uL (0.83-4.51); Absolute Neutrophil Count 9.2 X10^3/uL (2.0-7.7); Basophil# 0.02 X10^3/uL; Basophil% 0.2 % (0-1); Eosinophil# 0.04 X10^3/uL; Eosinophils% 0.3 % (0-5); Hematocrit 42.9 % (40-54); Hemoglobin 13.2 g/dL (13.0-16.5); Lymphocyte # 1.25 X10^3/ul (0.83-4.51); Lymphocyte % 10.8 % (19-41); Mean Corp Hgb Conc 30.8 g/dL (32-36); Mean Corpuscular Hgb 25.7 pg (27.0-32.0); Mean Corpuscular Volume 83.5 fL (80-94); Mean Platelet Vol. 10.5 fl (6.2-12.0); Monocyte# 0.96 X10^3/uL; Monocyte% 8.3 % (0-10); NRBC Flagged by Analyzer 0 % (0-5); Neutrophil % 79.9 % (47-70); POSITIVE MORPHOLOGY YES; Platelet Count 192 K/mm3 (150-450); RBC Distribution Width CV 23.1 % (11.6-14.6); RBC Distribution Width SD 69.2 fl (35.1-43.9); Red Blood Count 5.14 M/mm3 (4.6-6.2); White Blood Count 11.5 K/mm3 (4.4-11.0)
[2021-12-04 07:24] LABS: Differential Indicated SCAN CRITERIA MET
[2021-12-04] MEDS: Ipratropium 0.5 MG/2.5 ML SOLUTION INHALATION ×3 (07:33→19:17)
[2021-12-04 07:46] LABS: Anion Gap 9 (5-15); BUN 19 mg/dL (7-18); BUN/Creat Ratio 18.4 RATIO (10-20); Calcium,Total 8.9 mg/dL (8.5-10.1); Chloride 107 mmol/L (98-107); Creatinine, Serum 1.03 mg/dL (0.70-1.30); EST Glomerular Filtration Rate 80 mL/min (>60); Est Glom Filt Rate - Afr Amer 97 mL/min (>60); Estimated Creatinine Clearance 83.89 ml/min; Glucose 91 mg/dL (74-106); Magnesium 2.1 mg/dL (1.6-2.6); Sodium Level 135 mmol/L (136-145)
[2021-12-04 08:09] LABS: Anisocytosis 1+
--- NOTE | 2021-12-04 10:13 | CASEMGMT ---
LEONORA was informed a Hospice referral was faxed yesterday evening. LEONORA called Hospice admissions. Patient and his have an appt with Hospice today at noon. Neeta GARNER
[2021-12-04] MEDS: oxyCODONE HCl Cr 10 MG Tablet 20 MG PO ×2 (10:29→20:58)
[2021-12-04] MEDS: Potassium Chloride Oral Tablet 20 MEQ PO ×2 (10:29→20:58)
[2021-12-04] MEDS: Fenofibrate 145 MG Tablet PO (10:29)
[2021-12-04] MEDS: Magnesium Chloride 64 MG Delay Rel.Tablet 128 MG PO (10:30)
[2021-12-04] MEDS: Furosemide 20 MG Tablet 60 MG PO (10:30)
[2021-12-04] MEDS: Pantoprazole Sodium 40 MG Tablet PO ×2 (10:30→20:59)
[2021-12-04] MEDS: Loratadine 10 MG Tablet PO (10:30)
[2021-12-04] MEDS: TADALAFIL 20 MG TABLET 40 MG PO (10:31)
[2021-12-04] MEDS: Enoxaparin 40 MG/0.4 ML Syringe SC (10:31)
--- NOTE | 2021-12-04 16:27 | PN.HOSP_ITS ---
Subjective Subjective Follow-up for severe pulmonary hypertension. Patient on BiPAP. Still short of breath. Hospice consult about noon time Objective Data Objective Data Vital Signs: Vital Signs Temp Pulse Resp BP Pulse Ox O2 Del Method O2 Flow Rate 98.0 F 112 H 28 H 86/59 L 80 Bi-pap 60 12/04/21 16:00 12/04/21 16:00 12/04/21 16:00 12/04/21 16:00 12/04/21 16:00 12/04/21 16:00 12/03/21 04:25 FiO2 100 12/04/21 16:00 Oxygen Flow Rate (L/min) 60 Oxygen Delivery Method Bi-pap Weight: 203 lb 0.732 oz Body Mass Index (BMI) 29.5 Intake & Output: Intake and Output for Last 24 Hours 12/02/21 12/03/21 12/04/21 23:59 23:59 23:59 Intake Total 1374 / 1494 1615 / 1665 150 / 150 Output Total 1550 / 2150 1850 / 2650 1100 / 1100 Balance -176 / -656 -235 / -985 -950 / -950 Lab / Micro Data Result Diagrams: 12/04/21 06:05 12/04/21 06:05 Labs: Laboratory Results - last 24 hr 12/04/21 06:05: WBC 11.5 H, RBC 5.14, Hgb 13.2, Hct 42.9, MCV 83.5, MCH 25.7 L, MCHC 30.8 L, RDW Std Deviation 69.2 H, RDW Coeff of Teja 23.1 H, Plt Count 192, MPV 10.5, Immature Gran % (Auto) 0.500, Neut % (Auto) 79.9 H, Lymph % (Auto) 10.8 L, [place] % (Auto) 8.3, Eos % (Auto) 0.3, Baso % (Auto) 0.2, Absolute Neuts (auto) 9.2 H, Absolute Lymphs (auto) 1.25, Nucleated RBC % 0, Anisocytosis 1+ 12/04/21 06:05: Sodium 135 L, Potassium 5.0, Chloride 107, Carbon Dioxide 19.0 L , Anion Gap 9, BUN 19 H, Creatinine 1.03, Estim Creat Clear Calc 83.89, Est GFR (MDRD) Af Amer 97, Est GFR (MDRD) Non-Af 80, BUN/Creatinine Ratio 18.4, Glucose 91, Calcium 8.9, Magnesium 2.1 Physical Exam Narrative Physical exam General: Awake, on BiPAP. HEENT: Atraumatic, PERRLA, EOMI, Normocephalic. Oral: No Gingival or Mucosal Lesions/ Ulcerations Neck: Supple, No JVD, Negative Carotid Bruits Lungs: Air entry diminished in bilateral lung bases. No crepitation/rhonchi on BiPAP 100%, 18/5, tachypneic Cardiovascular: Regular rate, Regular Rhythm, Normal S1, Normal S2, No murmurs Abdomen: Bowel Sounds Present, Soft, Non Tender, Non-Distended : No renal angle tenderness. No suprapubic tenderness. Extremities: No edema, Capillary Refill Less than 3 Seconds Skin: No rashes, No breakdown Musculoskeletal: No Tenderness to Palpation of Joints or Extremities Neurological: Cranial nerves II-XII grossly intact, DTR 2+/4 and Symmetrical, Neuro grossly intact Psych/Mental Status: Flat affect Assessment & Plan Assessment/Plan (1) Chronic respiratory failure with hypoxia: (2) Presence of stent in coronary artery: (3) Pulmonary hypertension: (4) Essential hypertension: (5) Cardiomyopathy: QUALIFIERS: Cardiomyopathy type: ischemic Qualified Code(s): I25.5 - Ischemic cardiomyopathy (6) Hypomagnesemia: PLAN: Plan Patient is a 52-year-old gentleman admitted with abnormal labs, hypomagnesemia and hypokalemia. Patient also found very hypoxic on maximum capacity of BiPAP. 1. Chronic hypomagnesemia ? Patient did receive magnesium replacement. Magnesium 1.5. Magnesium is getting replaced. 12/03: Magnesium is still low, getting replaced. 12/04: Repeat serum magnesium 2.1. Phosphorus 2.3, getting replaced. 2. Hypokalemia ? Significantly low. Repeat K3.8. 12/03 potassium corrected. Hypophosphatemia, phosphorus getting replaced. 3. Acute on chronic hypoxic respiratory failure ? Secondary to pulmonary hypertension patient is on baseline home oxygen. Usually patient is on 6 to 8 L of oxygen at home but currently on maximum capacity of BiPAP. Research And Development Engineer consulted. 2D echo shows RVSP 75, severely dilated RV. EF 55%. Right atrium mildly enlarged. Troponin normal. BNP elevated. Patient started empirically on Lasix. 12/03: Discussed with the beauty culture teacher. He talked to patient's primary pulmono logist, Dr Mann and he thinks patient is on maximum medication for pulmonary arterial hypertension and there is no viable option. Hospice care suggested. Patient's and has not decided yet. After their decision will call hospice consult. 12/04: Hospice consult at noon time. Patient family agreed with home hospice. 4. Severe pulmonary hypertension ? Patient is on tadalafil and treprostinil. 5. Coronary artery disease ? With previous PCI with STEVEN to an LAD lesion in September 2018 6 Previous history of occipital CVA ? Stable 7. Chronic congestive heart failure with preserved ejection fraction ? Patient is on Lasix and Zaroxolyn 8. Dyslipidemia ? Patient is on fenofibrate as well as atorvastatin did continue 9. DVT prophylaxis ? GIACOMO Parks Clinical Impression(s) from Imaging Studies Echocardiogram 12/02/21 12:33 Interpretation Summary Normal LV size. Moderate concentric left ventricular hypertrophy. D shaped septum in systole and diastole. The estimated ejection fraction is 55 %. Moderate (2+) tricuspid valve insufficiency. Compared to the previous the right ventricular systolic pressure is higher in the right ventricle is slightly more dilated. Pulmonary artery systolic pressure is 75 mmHg. Charges/Coding Visit Charges Inpatient E&M: 72277 Subs Hosp L2
[2021-12-04] MEDS: Potassium Chloride Oral Tablet 20 MEQ 40 MEQ PO (17:27)
[2021-12-04] MEDS: Atorvastatin Calcium 40 MG Tablet PO (20:57)
[2021-12-05] VITALS (7 sets, daily range): BP systolic 86–88; BP diastolic 55–68; PULSE 110–122; RESP 12–38; TEMP 36–36.1; O2SAT 75–83
[2021-12-05] MEDS: LORazepam 2 MG/ML Bottle 0.5 MG SL ×2 (00:34→10:58)
[2021-12-05] MEDS: morphine (oral solution) 10MG/0.5ML Syringe 5 MG SL/PO ×4 (03:31→12:21)
[2021-12-05] MEDS: Ipratropium 0.5 MG/2.5 ML SOLUTION INHALATION (06:50)
[2021-12-05 08:06] LABS: Magnesium 1.7 mg/dL (1.6-2.6)
--- NOTE | 2021-12-05 09:49 | DCINST_ITS ---
Discharge Instructions Diet Discharge Diet: No restrictions Activity Discharge Activity: May Not Drive Dressing / Incision Call your doctor if you observe: - (Inpatient hospice) Follow Up Care Test Results: Test results from this visit will be discussed in further detail at your follow- up appointment, if applicable. Discharge Plan Admission Admit Date/Time: 12/01/21 09:52 Primary Reason for Your Visit: Acute on chronic hypoxic respiratory failure, pulmonary artery hypertension Attending Provider: Paulie Larsen Primary Care Provider: Bacilio Smith Consulting Providers: Lee Sanchez ; Handy Rowell ; Javi Aden ; John Cuevas ; Christina Pederson NP ; Tiny Kent ; Handy Rosario ; Luly Welch ; Mariann Hallman ; Suzanne Maxwell NP Discharge Orders/Prescriptions Prescriptions: Continued tadalafil (pulm. hypertension) [Adcirca] 20 mg tablet 40 mg PO DAILY gabapentin 300 mg capsule 300 mg PO TID atorvastatin 40 mg tablet 40 mg PO QHS Label Comments: Take 1 tablet by mouth once daily. Xtampza ER 9 mg cap,sprinkl,ER12hr(DONT CRUSH) 9 mg PO BID Rx Instructions: must administer with a meal/food metolazone 2.5 mg tablet 2.5 mg PO Q OTHER DAY PRN (Reason: take with lasix) potassium chloride 10 mEq capsule, extended release See Rx Instructions PO TID Rx Instructions: Take 2 tablets AM, 3 tablets PM, 2 tablets qHS fluticasone propionate 50 mcg/actuation spray,suspension 2 spray intranasal DAILY PRN (Reason: Congestion) furosemide 20 mg tablet 60 mg PO DAILY PRN PRN (Reason: Edema) fenofibrate nanocrystallized 145 MG tablet 145 mg PO DAILY pantoprazole 40 MG tablet 40 mg PO BID Qty: 60 0RF Spiriva Respimat 2.5 mcg/actuation mist 2 puff INHALATION DAILY Label Comments: inhale 2 puff by mouth and INTO THE LUNGS as directed once daily treprostinil sodium [Remodulin] 5 mg/mL Solution 20 mg continuous IV infusion Q48H Rx Instructions: 43 ng per kg per min magnesium oxide 400 mg (241.3 mg magnesium) tablet 400 mg PO DAILY Label Comments: take 1 tablet by mouth once daily albuterol sulfate 90 mcg/actuation HFA aerosol inhaler 2 inh INHALATION BID PRN PRN (Reason: Shortness Of Breath) Referrals / Follow Up: Bacilio Smith MD [Primary Care Provider] - Disposition Disposition (needs filled in before D/C Order can be placed): Hospice in Medical Facility
[2021-12-05] MEDS: oxyCODONE HCl Cr 10 MG Tablet 20 MG PO (10:36)
[2021-12-05] MEDS: Magnesium Chloride 64 MG Delay Rel.Tablet 128 MG PO (10:37)
[2021-12-05] MEDS: Loratadine 10 MG Tablet PO (10:37)
[2021-12-05] MEDS: Furosemide 20 MG Tablet 60 MG PO (10:38)
[2021-12-05] MEDS: TADALAFIL 20 MG TABLET 40 MG PO (10:38)
[2021-12-05] MEDS: Pantoprazole Sodium 40 MG Tablet PO (10:38)
[2021-12-05] MEDS: Potassium Chloride Oral Tablet 20 MEQ PO (10:38)
[2021-12-05] MEDS: Fenofibrate 145 MG Tablet PO (10:40)
--- NOTE | 2021-12-05 11:35 | CASEMGMT ---
Addendum entered by Marisol De La Fuente 12/05/21 12:34: LEONORA spoke with RN. Pt is ready for discharge today. RN states she spoke with pt's who confirms, plan is for pt to discharge to inpatient hospice unit. LEONORA placed a call to [facility] and was transferred to the referral line and spoke with Aylin. LEONORA updated Aylin that pt is ready for discharge today to IPU. Aylin transferred this worker to [facility] and spoke with Ngoc. LEONORA updated Ngoc that this wroker did speak with the referral line who transferred this worker to [facility] and LEONORA updated Ngoc that pt is ready for discharge, is on Bipap. Ngoc states to arrange transportation between 2:00-3:00pm. LEONORA updated RN and secretary office clerk to arrange transportation. Transportation arranged for 3:30pm. LEONORA then received another call from Ngoc stating she spoke with Cindy who was stating that [facility] was waiting for [facility] to see if they can titrate pt with his oxygen. [facility] hospice respiratory therapist was speaking with [facility] respiratory therapist. LEONORA asked Ngoc what pt's oxygen requirements have to be and Ngoc states she is not sure, will have to check. LEONORA did update Ngoc that at this time, transportation is arranged for 3:30pm. LEONORA updated RN. RN updated this worker that pt cannot titrate and pt will need to discharge with Bipap. MD will need to speak with [facility] MD. LEONORA placed a call to [facility] and spoke with Nya. LEONORA updated Nya that per RN, pt will need to discharge with BiPap and cannot titrate. Nya states she will update staff. LEONORA asked for staff to call this worker back when it is confirmed pt can discharge. LEONORA received call from Raymond at [facility]. Raymond states that she tried to call Neeta GARNER yesterday to get update on pt and never got a returned phone call. Raymond said she called between 4:00-4:30pm. LEONORA updated Raymond that Neeta leaves at 4:00pm so that is likely why she never got a call back. LEONORA provided pt's current BiPap. Nioclasa said she will reach out to their respiratory therapist and asked if there was a respiratory therapist available at [facility] to speak to their respiratory therapist and LEONORA informed Raymond that there is one available. Raymond said that there usual respiratory therapist is on vacation and so they had to use another person who is mass communications instructor and that respiratory therapist is the one stating their max setting is 60 on the Bipap. LEONORA received message from Raymond at [facility] stating she reached out to their DME to see if they had a respiratory therapist available to set up the Bipap settings and was told their respiratory therapist walked out last week and have not found a replacement. Raymond asked for respiratory therapist number at [facility] so if needed, [facility] can call respiratory therapist. Marvin Respiratory therapist down on PCU at this time. LEONORA updated Marvin on what [facility] is stating. Marvin provided his direct number at [phone]. LEONORA placed a call back to Raymond ([phone]) and provided respiratory therapist number. LEONORA updated Raymond that pt's transportation is arranged for 3:30pm. Raymond states she will have an answer to his SW as soon as she knows. LEONORA received call from Raymond at [facility] stating she spoke with their COMMUNITY SERVICE ORGANIZATION DIRECTOR Rachel and their medical staff and with pt's FIO2 being at 100% they cannot accept pt as the highest they can accommodate is 60%. LEONORA updated bundle person. RN updated that now pt is on Airvo at 60% and at 91% sat. LEONORA asked Raymond of this. Raymond states that she will need to check with their medical staff again. LEONORA received call from Raymond stating she checked with Rachel COMMUNITY SERVICE ORGANIZATION DIRECTOR and medical staff and states they cannot accept pt on Airvo and pt would either need to be on Bipap 60% settings or on nonrebreather. Raymond states that [facility] respiratory therapist can call the IPU to discuss Bipap settings if that would be helpful. LEONORA updated bundle person. RN also attempting to call nurse to nurse. LEONORA to continue to follow. Addendum entered by Marisol De La Fuente 12/05/21 11:40: LEONORA received call from Ngoc at [facility] stating the last note they had from admissions was that LEONORA Santacruz was going to keep [facility] updated on when pt is being is discharge and pt's O2 requirements. Ngoc states that LEONORA will need to call referral line and update them when pt is ready for discharge and of pt's Oxygen requirements. LEONORA did update Ngoc that pt is currently on Bipap. Original Note: Social Work Note LEONORA updated that pt was supposed to go to inpatient hospice yesterday but pt is still at [facility]. LEONORA placed a call to [facility] and spoke with Ngoc in the IPU. Ngoc states she does not handle admissions and was not updated that pt was supposed to be admitted. Ngoc states she will call her mass communications instructor supervisor core shop and see if they can figure out what happened. LEONORA provided direct number for [facility] to call this worker back. SW to continue to follow. Marisol De La Fuente ELEVATOR INSTALLER, CLINICAL STATISTICS MANAGER
--- NOTE | 2021-12-05 12:52 | DS.PCM_ITS ---
Providers Date of Admission: 12/01/21 Date of Discharge: 12/05/21 Primary Care Physician: Dr. Bacilio Smith MD Consultations 12/02/21 11:37 Consult: Buck Swamper / Pulmonary Medicine Routine Consulting Provider: Pulmonary Medicine carlos Paulina Reason for Consult: SOB, severe hypoxia, Fio2 98%, sEvere Pulm HTN EMERGENT Consult: No MD Notified: Yes Date Notified: 12/02/21 Time Notified: 11:30 Method of Notification: Verbal 12/03/21 18:16 Consult: Hospice / Palliative Care Routine Consulting Provider: [facility] Reason for Consult: pulmonary htn EMERGENT Consult: No MD Notified: Yes Date Notified: 12/03/21 Time Notified: 18:16 Method of Notification: phone Comments:: spoke with Michelle Reason For Visit: ABNORMALLABS/HYPOMAGMESIA Diagnosis Discharge Diagnosis (1) Chronic respiratory failure with hypoxia: Status: Chronic Code(s): J96.11 - Chronic respiratory failure with hypoxia (2) Presence of stent in coronary artery: Status: Chronic Code(s): Z95.5 - Presence of coronary angioplasty implant and graft (3) Pulmonary hypertension: Status: Chronic Code(s): I27.20 - Pulmonary hypertension, unspecified (4) Essential hypertension: Status: Chronic Code(s): I10 - Essential (primary) hypertension (5) Cardiomyopathy: Status: Chronic Code(s): I42.9 - Cardiomyopathy, unspecified Qualifiers: Cardiomyopathy type: ischemic Qualified Code(s): I25.5 - Ischemic cardiomyopathy (6) Hypomagnesemia: Status: Acute Code(s): E83.42 - Hypomagnesemia Medications at Discharge Home Medications tadalafil (pulm. hypertension) 20 mg tablet (pulmonary hypertension) (Adcirca) 40 mg PO DAILY pulmonary htn 01/29/19 fenofibrate nanocrystallized 145 mg tablet 145 mg PO DAILY high triglycerides 02/05/19 pantoprazole 40 mg tablet,delayed release 40 mg PO BID #60 tabs 03/15/19 gabapentin 300 mg capsule 300 mg PO TID nerve pain 05/29/19 atorvastatin 40 mg tablet 40 mg PO QHS 10/03/19 oxycodone myristate 9 mg capsule sprinkle extended release 12 hr(DON'T CRUSH) (Xtampza ER) 9 mg PO BID pain 05/06/21 tiotropium bromide 2.5 mcg/actuation mist for inhalation (Spiriva Respimat) 2 puff inhalation DAILY 08/17/21 treprostinil sodium 5 mg/mL injection solution (Remodulin) 20 mg continuous IV infusion Q48H 08/17/21 fluticasone propionate 50 mcg/actuation nasal spray,suspension 2 spray intranasal DAILY PRN Congestion 10/07/21 furosemide 20 mg tablet 60 mg PO DAILY PRN PRN Edema 10/07/21 metolazone 2.5 mg tablet 2.5 mg PO Q OTHER DAY PRN take with lasix 10/07/21 potassium chloride 10 mEq capsule,extended release See Rx Instructions PO TID 10/07/21 albuterol sulfate 90 mcg/actuation aerosol inhaler 2 inh inhalation BID PRN PRN Shortness Of Breath 11/30/21 magnesium oxide 400 mg (241.3 mg magnesium) tablet 400 mg PO DAILY supplement 11/30/21 Hospital Course Summary of Care Provided Hospital Course: Patient is a 52-year-old gentleman admitted with abnormal labs, hypomagnesemia and hypokalemia. Patient also found very hypoxic on maximum capacity of BiPAP. 1. Chronic hypomagnesemia ? Patient did receive magnesium replacement. Magnesium 1.5. Magnesium is getting replaced. 12/03: Magnesium is still low, getting replaced. 12/04: Repeat serum magnesium 2.1. Phosphorus 2.3, getting replaced. 2. Hypokalemia ? Significantly low. Repeat K3.8. 12/03 potassium corrected. Hypophosphatemia, phosphorus getting replaced. 3. Acute on chronic hypoxic respiratory failure ? Secondary to pulmonary hypertension patient is on baseline home oxygen. Usually patient is on 6 to 8 L of oxygen at home but currently on maximum capacity of BiPAP. Hat Forming Machine Feeder consulted. 2D echo shows RVSP 75, severely dilated RV. EF 55%. Right atrium mildly enlarged. Troponin normal. BNP elevated. Patient started empirically on Lasix. 12/03: Discussed with the scarf and anneal operator. He talked to patient's primary scarf and anneal operator, Dr Mann and he thinks patient is on maximum medication for pulmonary arterial hypertension and there is no viable option. Hospice care suggested. Patient's and has not decided yet. After their decision will call hospice consult. 12/04: Hospice consult at noon time. Patient family agreed with home hospice. No further labs. 12/05: During hospice consult on 12/04. I personally discussed with patient, patient's , mother and father in the room. They are agreeable for inpatient hospice, transfer on BiPAP. Hospice nurse advised 5 mg IV morphine and 0.5 mg IV Ativan, ordered. 4. Severe pulmonary hypertension ? Patient is on tadalafil and treprostinil. 5. Coronary artery disease ? With previous PCI with STEVEN to an LAD lesion in September 2018 6 Previous history of occipital CVA ? Stable 7. Chronic congestive heart failure with preserved ejection fraction ? Patient is on Lasix and Zaroxolyn 8. Dyslipidemia ? Patient is on fenofibrate as well as atorvastatin did continue 9. DVT prophylaxis ? SC Lovenox Discharge medication reconciliation done. Discharge, inpatient hospice care discussed with the patient and all questions were answered to patient's satisfaction. Patient is discharged on BiPAP to inpatient hospice. Total time spent, exact 35 minutes on discharge meds reconciliation, examination, coordination of care with nurses and ancillary staff, review of imaging and blood test and discussion with the patient on follow-up instruc tions. Clinical Impression(s) from Imaging Studies Echocardiogram 12/02/21 12:33 Interpretation Summary Normal LV size. Moderate concentric left ventricular hypertrophy. D shaped septum in systole and diastole. The estimated ejection fraction is 55 %. Moderate (2+) tricuspid valve insufficiency. Compared to the previous the right ventricular systolic pressure is higher in the right ventricle is slightly more dilated. Pulmonary artery systolic pressure is 75 mmHg. Physical Exam Narrative There is no improvement in hypoxia for last 3 days is still on 100% FiO2, BiPAP. Patient's family agreeable for inpatient hospice. Physical exam General: Awake, on BiPAP. HEENT: Atraumatic, PERRLA, EOMI, Normocephalic. Oral: No Gingival or Mucosal Lesions/ Ulcerations Neck: Supple, No JVD, Negative Carotid Bruits Lungs: Air entry diminished in bilateral lung bases. Tachypnea, no crepitation/rhonchi on BiPAP 100% Cardiovascular: Hypotensive, sinus tachycardia, normal S1, Normal S2, No murmurs Abdomen: Bowel Sounds Present, Soft, Non Tender, Non-Distended : No renal angle tenderness. No suprapubic tenderness. Extremities: No edema, Capillary Refill Less than 3 Seconds Skin: No rashes, No breakdown Musculoskeletal: No Tenderness to Palpation of Joints or Extremities Neurological: Cranial nerves II-XII grossly intact, DTR 2+/4 and Symmetrical, Neuro grossly intact Psych/Mental Status: Flat affect Weight / BMI Weight Weight: 203 lb 7.787 oz Body Mass Index (BMI) 29.5 ABG / Lab / Microbiology Data Result Diagrams: 12/04/21 06:05 12/04/21 06:05 Laboratory: Laboratory Results - last 24 hr 12/05/21 07:19: Magnesium 1.7 D/C Instructions Discharge Diet: No restrictions Call your doctor if you observe: - (Inpatient hospice) Meaningful Use Info Meaningful Use Diagnoses (Choose all that apply): None applicable Discharge Plan Admission Admit Date/Time: 12/01/21 09:52 Primary Reason for Your Visit: Acute on chronic hypoxic respiratory failure, pulmonary artery hypertension Attending Provider: Paulie Larsen Primary Care Provider: Bacilio Smith Consulting Providers: Lee Sanchez ; Handy Rowell ; Javi Aden ; John Cuevas ; Christina Pederson AGGREGATE CONVEYOR OPERATOR ; Tiny Kent ; Handy Rosario ; Luly Welch ; Mariann Hallman ; Suzanne Maxwell AGGREGATE CONVEYOR OPERATOR Discharge Orders/Prescriptions Prescriptions: Continued tadalafil (pulm. hypertension) [Adcirca] 20 mg tablet 40 mg PO DAILY gabapentin 300 mg capsule 300 mg PO TID atorvastatin 40 mg tablet 40 mg PO QHS Label Comments: Take 1 tablet by mouth once daily. Xtampza ER 9 mg cap,sprinkl,ER12hr(DONT CRUSH) 9 mg PO BID Rx Instructions: must administer with a meal/food metolazone 2.5 mg tablet 2.5 mg PO Q OTHER DAY PRN (Reason: take with lasix) potassium chloride 10 mEq capsule, extended release See Rx Instructions PO TID Rx Instructions: Take 2 tablets AM, 3 tablets PM, 2 tablets qHS fluticasone propionate 50 mcg/actuation spray,suspension 2 spray intranasal DAILY PRN (Reason: Congestion) furosemide 20 mg tablet 60 mg PO DAILY PRN PRN (Reason: Edema) fenofibrate nanocrystallized 145 MG tablet 145 mg PO DAILY pantoprazole 40 MG tablet 40 mg PO BID Qty: 60 0RF Spiriva Respimat 2.5 mcg/actuation mist 2 puff INHALATION DAILY Label Comments: inhale 2 puff by mouth and INTO THE LUNGS as directed once daily treprostinil sodium [Remodulin] 5 mg/mL Solution 20 mg continuous IV infusion Q48H Rx Instructions: 43 ng per kg per min magnesium oxide 400 mg (241.3 mg magnesium) tablet 400 mg PO DAILY Label Comments: take 1 tablet by mouth once daily albuterol sulfate 90 mcg/actuation HFA aerosol inhaler 2 inh INHALATION BID PRN PRN (Reason: Shortness Of Breath) Referrals / Follow Up: Bacilio Smith MD [Primary Care Provider] - Disposition Disposition (needs filled in before D/C Order can be placed): Hospice in Medical Facility Charges/Coding Visit Charges Inpatient E&M: [id number] [facility]
--- NOTE | 2021-12-05 13:39 | NURSING ---
report given to hospice Sarita Briggs RN
--- NOTE | 2021-12-05 13:43 | CASEMGMT ---
Social Work Note ALEJANDRA Marquez states that she called RN to RN to Inpatient Hospice Unit, IPU agreeable to taking pt today. Transportation arranged for 3:30pm. Marisol De La Fuente GAS METER CHECKER, SUSTAINABILITY SPECIALIST
[2021-12-05] MEDS: Ondansetron 4 MG/2 ML Vial IV (13:49)
[2021-12-05] MEDS: 0.9% Saline Lock 10 ML Syringe IV ×2 (13:49→15:57)
--- NOTE | 2021-12-05 14:09 | CASEMGMT ---
This ALEJANDRA LEE spoke with Dee PATTERNMAKER at Hospice and she states they are ok with pt coming over to IPU, they just want to make sure that pt with medicated with Morphine 5mg IV and Ativan 0.5mg IV for transport and that pt/family aware that pt will be on lower bipap setting and iv meds for comfort immediately on arrival to IPU. Alma ROBERTS aware of all and explained to pt/family at this time with ALEJANDRA LEE at bedside. Pt would also like his infusion turned off on arrival to IPU and Alma states she already explained to IPU nurse. All pt/family questions answered, support given, and Dr. Larsen updated on med orders and placed orders for pt d/c. Scarlett ROBERTS CM
--- NOTE | 2021-12-05 14:54 | CASEMGMT ---
Social Work Note SW in to speak with pt's family, support provided. SW to remain available should additional needs arise. Marisol De La Fuente SALES SERVICE MANAGER, DRY COLOR MIXER
[2021-12-05] MEDS: LORazepam 0.5 MG Tablet PO (15:56)
[2021-12-05] MEDS: morphine 10 MG/ML Syringe 5 MG IV (15:57)
== END 2021-12-05 16:15 | disposition hospice, inpatient (51) | DRG 640 ==
LOC: ED 17:49 → PCU 19:40
PROVIDERS: Internal Medicine; Internal Medicine Critical Care Medicine; Admitting Provider Family Medicine; Emergency Provider Emergency Medicine; PCP Family Medicine; Visit Provider Internal Medicine
DX: E87.6 Hypokalemia (principal); J96.21 Acute and chronic respiratory failure with hypoxia; I50.32 Chronic diastolic (congestive) heart failure; Q21.1 Atrial septal defect; I27.20 Pulmonary hypertension, unspecified; E11.40 Type 2 diabetes mellitus with diabetic neuropathy, unspecified; I11.0 Hypertensive heart disease with heart failure; J84.10 Pulmonary fibrosis, unspecified; E83.42 Hypomagnesemia; E83.39 Other disorders of phosphorus metabolism; I25.5 Ischemic cardiomyopathy; E78.00 Pure hypercholesterolemia, unspecified; I25.10 Atherosclerotic heart disease of native coronary artery without angina pectoris; K21.9 Gastro-esophageal reflux disease without esophagitis; M19.90 Unspecified osteoarthritis, unspecified site; G47.33 Obstructive sleep apnea (adult) (pediatric); G89.29 Other chronic pain; Z87.891 Personal history of nicotine dependence; Z79.02 Long term (current) use of antithrombotics/antiplatelets; Z66 Do not resuscitate; Z79.899 Other long term (current) drug therapy; Z99.81 Dependence on supplemental oxygen
CPT/HCPCS: 36415; 71045; 80048; 83735; 83880; 84100; 84132; 84484; 85025; 93005; 93306; 94003; 94640; 94660; 99251; 99285; J7050; Q9957; A4216; G0463; J1940; J2405